=== PATIENT | male | born 1945 | race Caucasian/White ===

== ENCOUNTER → 2016-07-31 | Outpatient (CLI) | payer BC, OTHER ==
[~2016-07-31] MED LIST: AMLO-114 PO; ASPCH81X PO; CHOL1000 PO; GLIM2TAB2 PO; LEVO125T4 PO; METF1000 PO
[2016-07-31 12:38] LABS: ESTIMATED AVERAGE GLUCOSE 194 mg/dl; HA1C FLAG Normal (Normal)
[2016-07-31 13:27] LABS: ALT/SGPT 70 U/L (12-78); AST/SGOT 44 U/L (15-37); BLOOD UREA NITROGEN 25 mg/dl (7-18); BUN/CREATININE RATIO 15.3 (10-20); CALCIUM 9.7 mg/dl (8.5-10.1); CARBON DIOXIDE 27 mmol/L (21-32); CHLORIDE 102 mmol/L (98-107); GLUCOSE 127 mg/dl (70-99); MAGNESIUM 1.2 mg/dl (1.8-2.4); POTASSIUM 3.8 mmol/L (3.5-5.1); SODIUM 141 mmol/L (136-145)
[2016-07-31 13:35] LABS: ALKALINE PHOSPHATASE 76 U/L (45-117); CHOLESTEROL 231 mg/dl (0-200); CHOLESTEROL/HDL RATIO 5.3; HDL CHOLESTEROL 44 mg/dl; LDL CHOLESTEROL CALCULATED 139 mg/dl; TRIGLYCERIDES 238 mg/dl (0-150); VERY LOW DENSITY LIPOPROT CALC 48 mg/dl
== END | disposition home or self-care (01) ==
LOC: C.LABPVFM 09:52
PROVIDERS: ATTEND Family Medicine
DX: E11.9 Type 2 diabetes mellitus without complications (principal); E78.5 Hyperlipidemia, unspecified; E03.9 Hypothyroidism, unspecified; R25.2 Cramp and spasm

== ENCOUNTER → 2016-08-11 | Outpatient (CLI) | payer BC ==
[2016-08-11 16:40] LABS: URINE APPEARANCE CLEAR (CLEAR); URINE BILIRUBIN NEG (NEG); URINE COLOR YELLOW; URINE EPITHELIAL CELL AUTO >30 /lpf (0-5); URINE NITRITE NEG (NEG); URINE SPECIFIC GRAVITY 1.019 (1.000-1.030); UROBILINOGEN NEG (NEG)
[2016-08-11 16:41] LABS: MANUAL MICROSCOPIC REQUIRED? NO; REVIEW REQ? YES
[2016-08-11 16:52] LABS: BLOOD UREA NITROGEN 21 mg/dl (7-18); BUN/CREATININE RATIO 12.9 (10-20); CALCIUM 9.2 mg/dl (8.5-10.1); CARBON DIOXIDE 24 mmol/L (21-32); CHLORIDE 105 mmol/L (98-107); GLUCOSE 220 mg/dl (70-99); MAGNESIUM 1.6 mg/dl (1.8-2.4); PHOSPHORUS 2.5 mg/dl (2.5-4.9); POTASSIUM 3.9 mmol/L (3.5-5.1); SODIUM 141 mmol/L (136-145)
[2016-08-11 17:07] LABS: URINE PROTIEN/CREAT RATIO 0.3 (0-0.2); URINE TOTAL PROTEIN 50.6 mg/dl (0-11.9)
--- NOTE | 2016-08-15 13:41 | CODING QUERY MEDICAL NECESSITY ---
SUPPORTING DIAGNOSIS NEEDED A supporting diagnosis is required for the test/procedure performed on this patient in order for us to be reimbursed by the patient's insurance. Please provide a supporting diagnosis for the following test/procedure listed below next to the test name along with your signature. *If there is no additional diagnosis for this patient that would support the following test/procedure please document that below next to the test/procedure. Test(s)/Procedure(s) that require a supporting diagnosis: * VITAMIN D 25-HYDROXY DIAGNOSIS: * DOS: 08/11/16 Provider Signature: Date: Thank you Hiral Villanueva Health Information Management Once completed, please kindly fax back to [phone] For questions please call [phone]
== END | disposition home or self-care (01) ==
LOC: C.LAB1850 15:16
PROVIDERS: ATTEND Internal Medicine Nephrology
DX: N18.9 Chronic kidney disease, unspecified (principal); E83.42 Hypomagnesemia; R25.2 Cramp and spasm

== ENCOUNTER → 2016-10-10 | Outpatient (CLI) | payer BC ==
[~2016-10-10] MED LIST changes: -LEVO125T4 PO; +LEVO125T5 PO
[2016-10-10 13:36] LABS: BLOOD UREA NITROGEN 27 mg/dl (7-18); BUN/CREATININE RATIO 16.1 (10-20); CALCIUM 9.9 mg/dl (8.5-10.1); CARBON DIOXIDE 25 mmol/L (21-32); CHLORIDE 102 mmol/L (98-107); GLUCOSE 162 mg/dl (70-99); POTASSIUM 3.8 mmol/L (3.5-5.1); SODIUM 138 mmol/L (136-145)
[2016-10-10 13:53] LABS: ESTIMATED AVERAGE GLUCOSE 192 mg/dl; HA1C FLAG Normal (Normal)
== END | disposition home or self-care (01) ==
LOC: C.LABPVFM 10:43
PROVIDERS: ATTEND Family Medicine
DX: E11.9 Type 2 diabetes mellitus without complications (principal)

== ENCOUNTER → 2017-03-19 | Outpatient (CLI) | payer BC, OTHER ==
[~2017-03-19] MED LIST changes: +LEVO125T4 PO; -LEVO125T5 PO
[2017-03-19 18:57] LABS: URINE APPEARANCE CLEAR (CLEAR); URINE BILIRUBIN NEG (NEG); URINE COLOR YELLOW; URINE NITRITE NEG (NEG); URINE PH 6.5 (4.5-7.5); URINE SPECIFIC GRAVITY 1.018 (1.000-1.030); UROBILINOGEN NEG (NEG)
[2017-03-19 18:59] LABS: MANUAL MICROSCOPIC REQUIRED? NO; REVIEW REQ? NO
[2017-03-19 19:10] LABS: BLOOD UREA NITROGEN 22 mg/dl (7-18); BUN/CREATININE RATIO 14.5 (10-20); CALCIUM 9.4 mg/dl (8.5-10.1); CARBON DIOXIDE 29 mmol/L (21-32); CHLORIDE 103 mmol/L (98-107); GLUCOSE 171 mg/dl (70-99); PHOSPHORUS 2.8 mg/dl (2.5-4.9); POTASSIUM 3.7 mmol/L (3.5-5.1); SODIUM 140 mmol/L (136-145); URINE PROTIEN/CREAT RATIO 0.3 (0-0.2); URINE TOTAL PROTEIN 37.3 mg/dl (0-11.9)
== END | disposition home or self-care (01) ==
LOC: C.LAB 18:18
PROVIDERS: ATTEND Internal Medicine Nephrology
DX: N18.9 Chronic kidney disease, unspecified (principal)

== ENCOUNTER → 2017-03-23 | Day surgery (SDC) | payer BC, OTHER ==
[2017-03-06 11:40] VITALS: Ht 170.2 cm; Wt 113.6 kg
[~2017-03-23] VITALS: Ht 170.2 cm; Wt 113.6 kg
[~2017-03-23] MED LIST changes: +LIDOCAINE HCL 2% 2 ML VIAL (20MG/ML) ONE; +PROPOFOL IV EMULSION 10 MG/ML 20 ML VIAL IV ONE
--- NOTE | 2017-03-23 11:05 | Endo History and Physical ---
History & Physical Date of Service: Mar 23, 2017. Chief Complaint: screening Referring Physician: Dr. Yovany Lindquist History of Present Illness 72 yo CM who presents for screening colonoscopy. Past Surgical History Hx Cardiac Surgery: No Hx Internal Defibrillator: No Hx Pacemaker: No Hx Abdominal Surgery: No Hx of Implantable Prosthesis: No Hx Post-Op Nausea and Vomiting: No Hx Cancer Surgery: No Hx Thoracic Surgery: No Hx Orthopedic: No Hx Urinary Tract Surgery: No Family History Colon CA, Esophogeal CA Social History Smoking Status: Former Smoker Hx Substance Use: No Hx Alcohol Use: No Allergies Coded Allergies: No Known Allergies (Verified , 03/23/17) Current Medications Reported Home Medications Medications Dose Route/Sig Max Daily Dose Days Date Category Vitamin D3 (Cholecalciferol) 1,000 Unit Tab 1 Tab PO QAM 90 03/06/17 Reported Glucophage (Metformin Hcl) 1,000 Mg Tab 1,000 Mg PO BID 03/06/17 Reported Levothyroxine Sodium 125 Mcg Tab 1 Tab PO QAM 90 03/06/17 Reported Glimepiride 2 Mg Tab 1 Tab PO BID 90 03/06/17 Reported Aspirin Chewable (Aspirin) 81 Mg Chew 81 Mg PO HS 03/06/17 Reported Norvasc (Amlodipine Besylate) 10 Mg Tab 10 Mg PO QAM 03/06/17 Reported Vital Signs Weight (Kilograms): 113.64 Height (Feet): 5 Height (Inches): 7 Date Time Temp Pulse Resp B/P (MAP) Pulse Ox O2 Delivery O2 Flow Rate FiO2 03/23/17 10:28 36.6 90 18 180/75 (110) 98 Room Air Physical Exam General Appearance: WD/WN, no apparent distress Respiratory/Chest: Auscultation: breath sounds normal Cardiovascular: Heart Auscultation: RRR Abdomen: Bowel Sounds: normal Inspection & Palpation: soft, non-distended, no tenderness, guarding & rebound Assessment and Plan Assessment: 72 yo CM who presents for screening colonoscopy. Plan: Proceed with colonoscopy.
--- NOTE | 2017-03-23 11:43 | Discharge Instructions ---
Endoscopy Patient Instructions Date / Procedure(s) Performed Mar 23, 2017. Colonoscopy Allergy Information Coded Allergies: No Known Allergies (Verified , 03/23/17) Discharge Date / Findings Mar 23, 2017. Colon polyp Internal hemorrhoids Medication Instructions Stopped Medication(s): stopped Metformin and Glimeperide on Sunday,all other meds on Sunday OK to resume all medications today as prescribed Reported Home Medications Medications Dose Route/Sig Max Daily Dose Days Date Category Vitamin D3 (Cholecalciferol) 1,000 Unit Tab 1 Tab PO QAM 90 03/06/17 Reported Glucophage (Metformin Hcl) 1,000 Mg Tab 1,000 Mg PO BID 03/06/17 Reported Levothyroxine Sodium 125 Mcg Tab 1 Tab PO QAM 90 03/06/17 Reported Glimepiride 2 Mg Tab 1 Tab PO BID 90 03/06/17 Reported Aspirin Chewable (Aspirin) 81 Mg Chew 81 Mg PO HS 03/06/17 Reported Norvasc (Amlodipine Besylate) 10 Mg Tab 10 Mg PO QAM 03/06/17 Reported Provider Instructions Activity Restrictions - No exercising or heavy lifting for 24 hours. - Do not drink alcohol the day of the procedure. - Do not drive a car or operate machinery until the day after the procedure. - Do not make any important decisions or sign important papers in 24 hours after the procedure. Following Day: - Return to full activity which may include returning to work/school. Diet Start your diet with liquids and light foods (jello, soup, juice, toast). Then eat your usual diet if not nauseated. Treatment For Common After Affects For mild abdominal pain, bloating, or excessive gas: - Rest - Eat lightly - Lie on right side Follow-Up Information Follow-up with Dr. Yovany Lindquist as scheduled Anesthesia Information What You Should Know You have had a procedure that required some medicine to reduce anxiety and discomfort. This treatment is called moderate sedation. After receiving the treatment, you may be sleepy, but you will be able to breathe on your own. The effects of the treatment may last for several hours. Follow these instructions along with Activity/Diet recommendations noted above: * Do NOT do anything where dizziness or clumsiness would be dangerous. * Rest quietly at home today, then you can be up and about tomorrow. * Have a responsible person stay with you the rest of today. * You may have had an I.V. today. If so, you may take the dressing off later today. Recommendations Call your doctor if: * Trouble breathing * Continuous vomiting for more than 24 hours * Temperature above 101 degrees * Severe abdominal pain or bloating * Pain not relieved by pain medicine ordered * There is increased drainage or redness from any incision * A large amount of rectal bleeding greater than 2-3 tablespoons. (If you had a polyp/s removed or have hemorrhoids, a small amount of blood - from the rectum is to be expected.) * You have any unanswered questions or concerns. IN THE EVENT OF A SERIOUS EMERGENCY, GO TO THE NEAREST EMERGENCY ROOM Your discharge instructions were prepared by provider Erick Quesada. Patient Instructions Signature Page Maynor Kebede Patient (or Guardian) Signature/Date: I have read and understand the instructions given to me by my caregivers. Caregiver/RN/Doctor Signature/Date: The above-named patient and/or guardian has received patient instructions on this date. + Original Patient Signature Page (only) stays with chart. Please make copy for patient.
--- NOTE | 2017-03-23 11:46 | GI REPORT ---
Procedure Date: 03/23/2017 11:08 AM THIS REPORT HAS BEEN AMENDED Addendum Number: 1 Addendum Date: 04/02/2017 8:28:24 AM Findings state no pathology is pending, however, specimen was collected and pathology was reviewed. Please see pathology report. Procedure: Colonoscopy Indications: Screening for colorectal malignant neoplasm Medicines: Sedation Required Anesthesia Staff Assistance Complications: No immediate complications. Estimated Blood Loss: Estimated blood loss: none. Estimated blood loss: none. Procedure: Pre-Anesthesia Assessment: - Prior to the procedure, a History and Physical was performed, and patient medications and allergies were reviewed. The patient's tolerance of previous anesthesia was also reviewed. The risks and benefits of the procedure and the sedation options and risks were discussed with the patient. All questions were answered, and informed consent was obtained. Prior Anticoagulants: The patient has taken aspirin, last dose was 2 days prior to procedure. ASA Grade Assessment: II - A patient with mild systemic disease. After reviewing the risks and benefits, the patient was deemed in satisfactory condition to undergo the procedure. After I obtained informed consent, the scope was passed under direct vision. Throughout the procedure, the patient's blood pressure, pulse, and oxygen saturations were monitored continuously. The On-site loaner was introduced through the anus and advanced to the terminal ileum. The colonoscopy was performed without difficulty. The patient tolerated the procedure well. The quality of the bowel preparation was good. The terminal ileum, ileocecal valve, appendiceal orifice, and rectum were photographed. Findings: A 6 mm polyp was found in the sigmoid colon. The polyp was sessile. The polyp was removed with a hot snare. Resection and retrieval were complete. Non-bleeding internal hemorrhoids were found during retroflexion. The hemorrhoids were small. Impression: - No specimens collected. Recommendation: - Resume previous diet. - Continue present medications. - Repeat colonoscopy for surveillance based on pathology results. - Return to primary care physician as previously scheduled. Erick Tali Quesada, DO 03/23/2017 11:46:36 AM This report has been signed electronically. Note Initiated On: 03/23/2017 11:08 AM I attest to the content of the Intraoperative Record and orders documented therein, exceptions below Erick Cesar Dipak, DO 04/02/2017 8:29:09 AM This report has been signed electronically.
[2017-03-23 12:27] VITALS: BP 138/68; PULSE 68; O2SAT 93
--- NOTE | 2017-03-23 12:27 | Anesthesiology Progress Note ---
Anesthesia Post Op Note Date & Time Mar 23, 2017 at 12:27 Vital Signs Pain Intensity: 7 Vital Signs Past 12 Hours Date Time Temp Pulse Resp B/P (MAP) Pulse Ox O2 Delivery O2 Flow Rate FiO2 03/23/17 12:07 75 20 122/77 (92) 94 Room Air 03/23/17 11:50 79 20 130/64 (86) 95 Room Air 03/23/17 10:28 36.6 90 18 180/75 (110) 98 Room Air Notes Mental Status: alert / awake / arousable, participated in evaluation Pt Amnestic to Procedure: Yes Nausea / Vomiting: adequately controlled Pain: adequately controlled Airway Patency, RR, SpO2: stable & adequate BP & HR: stable & adequate Hydration State: stable & adequate Anesthetic Complications: no major complications apparent
== END | disposition home or self-care (01) ==
LOC: C.GI 10:06
PROVIDERS: ATTEND Internal Medicine
DX: Z12.11 Encounter for screening for malignant neoplasm of colon (principal); D12.5 Benign neoplasm of sigmoid colon; I10 Essential (primary) hypertension; E11.9 Type 2 diabetes mellitus without complications; E66.9 Obesity, unspecified; K64.8 Other hemorrhoids; Z79.82 Long term (current) use of aspirin; Z87.891 Personal history of nicotine dependence; Z80.0 Family history of malignant neoplasm of digestive organs

== ENCOUNTER → 2017-04-05 | Outpatient (CLI) | payer BC ==
[~2017-04-05] MED LIST changes: -LIDOCAINE HCL 2% 2 ML VIAL (20MG/ML) ONE; -PROPOFOL IV EMULSION 10 MG/ML 20 ML VIAL IV ONE
[2017-04-05 12:47] LABS: URINE APPEARANCE CLEAR (CLEAR); URINE BILIRUBIN NEG (NEG); URINE COLOR YELLOW; URINE EPITHELIAL CELL AUTO >30 /lpf (0-5); URINE NITRITE NEG (NEG); URINE SPECIFIC GRAVITY 1.019 (1.000-1.030); UROBILINOGEN NEG (NEG)
[2017-04-05 12:48] LABS: MANUAL MICROSCOPIC REQUIRED? NO; REVIEW REQ? NO
== END | disposition home or self-care (01) ==
LOC: C.LABPVFM 09:14
PROVIDERS: ATTEND Internal Medicine Nephrology
DX: R31.29 Other microscopic hematuria (principal)

== ENCOUNTER → 2017-04-05 | Outpatient (CLI) | payer BC | END | disposition home or self-care (01) | LOC: C.PATHSPEC 12:46 | PROVIDERS: ATTEND Internal Medicine Nephrology | DX: R31.29 Other microscopic hematuria (principal) ==

== ENCOUNTER → 2017-04-10 | Outpatient (CLI) | payer BC ==
[2017-04-10 18:14] LABS: THYROID STIMULATING HORMONE 4.89 uIu/ml (0.300-4.500)
[2017-04-11 07:32] LABS: ESTIMATED AVERAGE GLUCOSE 197 mg/dl; HA1C FLAG Normal (Normal)
== END | disposition home or self-care (01) ==
LOC: C.LABPVFM 11:33
PROVIDERS: ATTEND Family Medicine
DX: E11.9 Type 2 diabetes mellitus without complications (principal); E03.9 Hypothyroidism, unspecified

== ENCOUNTER → 2017-04-11 | Outpatient (CLI) | payer BC ==
--- NOTE | 2017-04-11 08:20 | DIAGNOSTIC IMAGING REPORT ---
RENAL ULTRASOUND HISTORY: R31.29 Hematuria, [id number] COMPARISON: Abdominal ultrasound 10/05/2010. FINDINGS: Right kidney: 11.9 cm. No hydronephrosis. Normal corticomedullary differentiation and cortical thickness. Left kidney: 8.9 cm. No hydronephrosis. Severe cortical scarring/thinning involving the majority of the upper to mid pole of the left kidney. There is a 1 cm cyst within the left kidney. Bladder: No bladder wall thickening. The bilateral ureteral jets were identified. IMPRESSION: 1. Normal right kidney. 2. Atrophic/scarred left kidney, unchanged. Electronically signed by: Irving Vang M.D. 04/11/2017 8:19 AM Dictated Date/Time: 04/11/2017 8:18 AM
== END | disposition home or self-care (01) ==
LOC: C.ULTR 07:53
PROVIDERS: ATTEND Internal Medicine Nephrology
DX: R31.29 Other microscopic hematuria (principal)

== ENCOUNTER 2017-08-10 15:20 | Inpatient (IN) | payer BC, OTHER ==
[2017-08-10] VITALS (9 sets, daily range): BP systolic 113–141; BP diastolic 57–79; PULSE 78–92; TEMP 36.2–36.9; O2SAT 91–96; BMI 37.6
[~2017-08-10] VITALS: Ht 170.2 cm; Wt 108.4 kg
[~2017-08-10 15:20] MED LIST changes: -CALC-478 PO; -OMEG10007 PO; -PRT40 PO
[2017-08-10] MEDS ORDERED: OMEG10007 PO (16:27)
[2017-08-10] MEDS ORDERED: CALC-478 PO (16:27)
[2017-08-10 16:35] LABS: HEMATOCRIT 20.6 % (42-52); HEMOGLOBIN 6.1 g/dL (14.0-18.0); MEAN CELL VOLUME 70.1 fL (80-100); MEAN CORPUSCULAR HEMOGLOBIN 20.7 pg (25-34); MEAN CORPUSCULAR HGB CONC 29.6 g/dl (32-36); RED CELL DISTRIBUTION WIDTH CV 17.4 % (11.5-14.5); RED CELL DISTRIBUTION WIDTH SD 44.6 fL (36.4-46.3); WHITE BLOOD COUNT 11.66 K/uL (4.8-10.8)
[2017-08-10 16:40] LABS: CREATININE 1.77 mg/dl (0.60-1.40)
[2017-08-10 16:41] LABS: ALBUMIN 3.6 gm/dl (3.4-5.0); CALCIUM 9.4 mg/dl (8.5-10.1); POTASSIUM 3.7 mmol/L (3.5-5.1)
[2017-08-10 16:52] LABS: BASO % 0.3 %; BASO ABS # 0.04 K/uL (0-0.2); EOS % 0.7 %; EOS ABS # 0.08 K/uL (0-0.5); IG# 0.05 K/uL (0.00-0.02); LYMPH % 25.9 %; LYMPH ABS # 3.02 K/uL (1.2-3.4); MEAN PLATELET VOLUME 9.9 fL (7.4-10.4); MONO % 10.1 %; MONO ABS # 1.18 K/uL (0.11-0.59); NEUT % 62.6 %; NEUT ABS # 7.29 K/uL (1.4-6.5); PLATELET COUNT 311 K/uL (130-400)
[2017-08-10 16:55] LABS: TOTAL PROTEIN 7.9 gm/dl (6.4-8.2)
--- NOTE | 2017-08-10 17:11 | DIAGNOSTIC IMAGING REPORT ---
CHEST ONE VIEW PORTABLE CLINICAL HISTORY: 72 years-old Male presenting with anemia, CP. TECHNIQUE: Portable upright AP view of the chest was obtained. COMPARISON: 08/10/2017. FINDINGS: Atherosclerosis of the aortic arch. Cardiac silhouette normal in size. Mildly low lung volumes with hypoventilatory changes. Bandlike opacities noted at the lung bases. No other focal infiltrate. No large effusion or pneumothorax. Osseous structures normal. Upper abdomen normal. IMPRESSION: 1. Bibasilar atelectasis or scarring, unchanged. No convincing evidence of acute cardiopulmonary disease. Electronically signed by: Yovany Taylor M.D. 08/10/2017 5:10 PM Dictated Date/Time: 08/10/2017 5:09 PM
--- NOTE | 2017-08-10 17:54 | EMERGENCY ROOM VISIT NOTE ---
History First contact with patient: 15:45 Chief Complaint: ILLNESS Stated Complaint: LOW HEMOGLOBIN History of Present Illness The patient is a 72 year old male who presents to the Emergency Room with complaints of chest pain and dyspnea on exertion that has been going on for at least one week. He describes the pain as a pressure. The patient saw his primary care physician yesterday. He had blood work done for an upcoming heart catheterization. He was told that his hemoglobin was low, and to come to the emergency department. The patient also admits to feeling very fatigued. He has had dark stools. He denies any bright red blood in his stool. No vomiting. He does not take any blood thinners. Review of Systems 10 system review performed and negative unless noted in HPI or below Past Medical/Surgical History Medical Problems: (1) Anemia Diabetes, hypertension Social History Smoking Status: Former Smoker Marital Status: Housing Status: lives with significant other Current/Historical Medications Scheduled Amlodipine (Norvasc), 10 MG PO QAM Aspirin (Aspirin Chewable), 81 MG PO HS Nkmorod-Nszsezsyu-Ksol (Calcium & Magnesium + Zin 334-134-5 mg), 1 TAB PO DAILY Cholecalciferol (Vitamin D3), 1 TAB PO QAM Fish Oil ([place]-3), 1 CAP PO DAILY Glimepiride (Glimepiride), 1 TAB PO BID Levothyroxine Sodium (Levothyroxine Sodium), 1 TAB PO QAM Metformin Hcl (Glucophage), 1,000 MG PO BID Physical Exam Vital Signs Date Time Temp Pulse Resp B/P (MAP) Pulse Ox O2 Delivery O2 Flow Rate FiO2 08/10/17 19:20 88 18 95 08/10/17 19:16 141/68 08/10/17 19:10 36.9 88 18 125/72 94 08/10/17 19:00 125/72 08/10/17 18:50 80 15 94 08/10/17 18:46 134/70 08/10/17 18:36 135/66 08/10/17 18:35 139/69 08/10/17 18:31 36.9 84 16 139/69 95 08/10/17 18:20 80 15 94 08/10/17 18:16 36.8 83 15 125/57 96 08/10/17 18:15 125/57 08/10/17 17:50 89 22 08/10/17 17:20 87 19 08/10/17 17:16 135/59 08/10/17 17:14 86 21 135/59 98 Nasal Cannula 2.0 08/10/17 16:50 77 15 98 08/10/17 16:20 78 19 99 08/10/17 16:07 108/53 08/10/17 15:50 93 16 100 08/10/17 15:50 95 08/10/17 15:46 108/53 08/10/17 15:34 36.8 93 16 110/53 98 Room Air Physical Exam VITALS: Vitals are noted on the nurse's note and reviewed by myself. Vital signs stable. GENERAL: 72-year-old male, in no acute distress. SKIN: The skin was without rashes, erythema, edema, or bruising. HEAD: Normocephalic atraumatic. MOUTH: Mucous membranes slightly dry NECK: Supple without nuchal rigidity. No lymphadenopathy. Cervical spine is nontender. No JVD. HEART: Systolic murmur, regular rhythm without murmurs gallops or rubs. LUNGS: Clear to auscultation bilaterally without wheezes, rales or rhonchi. No accessory muscle use. ABDOMEN: Positive bowel sounds x 4.Soft, nontender, without organomegaly. No guarding or rebound tenderness. MUSCULOSKELETAL: No muscle atrophy, erythema, or edema noted. Strength 5/5 throughout. NEURO: Patient was alert and oriented to person place and time. Normal sensation to touch. No focal neurological deficits. Medical Decision & Procedures ER Provider Diagnostic Interpretation: CXR IMPRESSION: 1. Bibasilar atelectasis or scarring, unchanged. No convincing evidence of acute cardiopulmonary disease. Electronically signed by: Yovany Taylor M.D. 08/10/2017 5:10 PM Dictated Date/Time: 08/10/2017 5:09 PM Laboratory Results Test 08/10/17 16:00 Immature Granulocyte % (Auto) 0.4 % White Blood Count 11.66 K/uL (4.8-10.8) Red Blood Count 2.94 M/uL (4.7-6.1) Hemoglobin 6.1 g/dL (14.0-18.0) Hematocrit 20.6 % (42-52) Mean Corpuscular Volume 70.1 fL (80-100) Mean Corpuscular Hemoglobin 20.7 pg (25-34) Mean Corpuscular Hemoglobin Concent 29.6 g/dl (32-36) Platelet Count 311 K/uL (130-400) Mean Platelet Volume 9.9 fL (7.4-10.4) Neutrophils (%) (Auto) 62.6 % Lymphocytes (%) (Auto) 25.9 % Monocytes (%) (Auto) 10.1 % Eosinophils (%) (Auto) 0.7 % Basophils (%) (Auto) 0.3 % Neutrophils # (Auto) 7.29 K/uL (1.4-6.5) Lymphocytes # (Auto) 3.02 K/uL (1.2-3.4) Monocytes # (Auto) 1.18 K/uL (0.11-0.59) Eosinophils # (Auto) 0.08 K/uL (0-0.5) Basophils # (Auto) 0.04 K/uL (0-0.2) Immature Granulocyte # (Auto) 0.05 K/uL (0.00-0.02) Platelet Estimate NORMAL Hypochromasia PRESENT Anisocytosis PRESENT Microcytosis PRESENT Thyroid Stimulating Hormone (TSH) 5.310 uIu/ml (0.300-4.500) Medications Administered Medications (Trade) Dose Ordered Sig/Ever Route Start Time Stop Time Status Last Admin Dose Admin Pantoprazole Sodium 40 mg/ Syringe 10 ml @ 5 mls/min NOW ONCE IV 08/10/17 18:45 08/10/17 18:46 DC 08/10/17 18:45 5 MLS/MIN ECG Indication: chest pain Rate (beats per minute): 84 Rhythm: normal sinus Findings: RBBB, ST depression (Anterolateral) ED Course Patient was seen and examined Vital signs including blood pressure were reviewed medications list was verified with patient Labs were obtained, and a saline lock was established The patient was put on the monitor. An EKG was obtained and reviewed by myself. His lab work was reviewed. He was ordered blood products. The patient was transfused 2 units of packed RBCs The patient was reassessed and resting comfort only. We discussed the results of his workup. He voiced understanding. The case was discussed with my supervising physician and case management. He was subsequently discussed with the amount any hospitalist service who agreed to keep the patient overnight for further workup and treatment Medical Decision Differential diagnosis: Anemia of chronic disease, GI bleed, cardiac ischemia, CVA, coagulopathy This patient is a 72-year-old male that presents to the emergency department from his primary care physician's office with profound anemia. On exam, he was pale. He was having exertional symptoms such as chest pressure and difficulty breathing. The patient's workup reveals a hemoglobin of 6.1. His troponin is also elevated, which is likely due to demand ischemia. The patient did have guaiac positive stool. This is likely an upper GI bleed. The patient was started on a 2 unit packed RBC transfusion in the emergency department in addition to Protonix. He is not stable to be discharged home. The patient will be admitted for further workup and treatment This chart was completed in part utilizing [employer] Voice Recognition software. Attempts were made to minimize the grammatical errors, random word insertions, pronoun errors and incomplete sentences. Any formal questions or concerns about the content, text or information contained within the body of this dictation should be directly addressed to the provider for clarification. Medication Reconcilliation Current Medication List: was personally reviewed by me Blood Pressure Screening Patient's blood pressure: Normal blood pressure Impression Primary Impression: Anemia Departure Information Referrals Edmond Martinez M.D. (PCP) Patient Instructions My [facility]
[2017-08-10] MEDS ORDERED: PANTOprazole INJ 40 MG in SYRINGE 0 ML IV ONE (18:45)
[2017-08-10] MEDS ORDERED: NITROGLYCERIN 0.4 MG SL PER TAB CHARGE SL PRN (20:00)
[2017-08-10] MEDS ORDERED: ONDANSETRON INJ 2 MG/ML 2 ML VIAL IV PRN (20:00)
[2017-08-10] MEDS ORDERED: MoRPHine SULFATE 2 MG/ML CARP IV PRN (20:00)
[2017-08-10] MEDS ORDERED: POLYETHYLENE (MIRALAX) 17 GM PACK PO PRN (20:00)
[2017-08-10] MEDS ORDERED: ALUMINUM/MAGNESIUM/SIMETH (MAALOX MAX) 30 ML UDC PO PRN (20:00)
[2017-08-10] MEDS ORDERED: MAGNESIUM HYDROXIDE SUSP 30 ML UDC PO PRN (20:00)
--- NOTE | 2017-08-10 20:27 | History and Physical ---
History & Physical Date & Time of Service: Aug 10, 2017 at 20:22 Chief Complaint: Low Hemoglobin Primary Care Physician: Edmond Martinez M.D. History of Present Illness Source: patient, hospital records Patient is a 72 year old male who presented from outpatient lab with a hgb of 6.1 He was sent to get blood work done by Dr. Spicer for a planned cath on the . There it was found that the patient had a hgb of 6.1 therefore he was sent to the ED. He denies any syncope or light headedness but has been very fatigued He has been having dark stools, 10 pound weight loss and fatigue over the past month. he denies any change in bowel habits, abdominal pain, fevers or chills. His last colonoscopy was in March which showed one polyp and no masses. Of note he has had unstable angina over the past 2-3 weeks and is planned to get a cath on the . He has had associated shortness of breath over the past 2-3 weeks but denies any palpitations, pnd or orthopnea Past Medical/Surgical History DM Hypothyroid HTN HLD Family History Noncontributory Social History Smoking Status: Former Smoker Alcohol Use: none Drug Use: none Marital Status: Housing status: lives with significant other Occupational Status: retired Immunizations History of Influenza Vaccine: Unknown History of Tetanus Vaccine?: Unknown History of Pneumococcal: Unknown History of Hepatitis B Vaccine: Unknown Multi-Drug Resistant Organisms History of MDRO: No Allergies Coded Allergies: No Known Allergies (Verified , 03/23/17) Home Medications Scheduled Amlodipine (Norvasc), 10 MG PO QAM Dkurycf-Lakdubssk-Tdhh (Calcium & Magnesium + Zin 334-134-5 mg), 1 TAB PO DAILY Cholecalciferol (Vitamin D3), 1 TAB PO QAM Fish Oil ([place]-3), 1 CAP PO DAILY Glimepiride (Glimepiride), 1 TAB PO BID Levothyroxine Sodium (Levothyroxine Sodium), 1 TAB PO QAM Metformin Hcl (Glucophage), 1,000 MG PO BID Pantoprazole (Pantoprazole Sodium), 40 MG PO BID Review of Systems Constitutional: + weight loss, + fatigue, No fever, No chills Respiratory: + shortness of breath, + dyspnea on exertion, No cough, No sputum , No hemoptysis Cardiovascular: + chest pain, No edema, No claudication, No palpitations Abdomen: + GI bleeding, No pain, No nausea, No vomiting, No diarrhea, No constipation Musculoskeletal: No joint pain, No muscle pain Genitourinary - Male: No hematuria, No dysuria Neurologic: No memory loss, No paralysis Endocrine: + fatigue Integumentary: No rash, No itch, No new/changing skin lesions Physical Exam Vital Signs Date Time Temp Pulse Resp B/P (MAP) Pulse Ox O2 Delivery O2 Flow Rate FiO2 08/10/17 19:20 88 18 95 08/10/17 19:16 141/68 08/10/17 19:10 36.9 88 18 125/72 94 08/10/17 19:00 125/72 08/10/17 18:50 80 15 94 08/10/17 18:46 134/70 08/10/17 18:36 135/66 08/10/17 18:35 139/69 08/10/17 18:31 36.9 84 16 139/69 95 08/10/17 18:20 80 15 94 08/10/17 18:16 36.8 83 15 125/57 96 08/10/17 18:15 125/57 08/10/17 17:50 89 22 08/10/17 17:20 87 19 08/10/17 17:16 135/59 08/10/17 17:14 86 21 135/59 98 Nasal Cannula 2.0 08/10/17 16:50 77 15 98 08/10/17 16:20 78 19 99 08/10/17 16:07 108/53 08/10/17 15:50 93 16 100 08/10/17 15:50 95 08/10/17 15:46 108/53 08/10/17 15:34 36.8 93 16 110/53 98 Room Air General Appearance: WD/WN, no apparent distress, + obese ENT: hearing grossly normal, pharynx normal Neck: supple, no JVD, no carotid bruits, trachea midline Respiratory/Chest: lungs clear, no respiratory distress, no accessory muscle use Cardiovascular: regular rate, rhythm, no edema, normal peripheral pulses, + systolic murmur (3/6 with radiation to carotids) Abdomen/GI: normal bowel sounds, non tender, soft Back: normal inspection, no CVA tenderness, no muscle spasm, normal range of motion Extremities/Musculoskelatal: normal inspection, no pedal edema, non-tender Neurologic/Psych: alert, normal mood/affect, oriented x 3 Skin: normal color, warm/dry, no rash Diagnostics Laboratory Results Results Past 24 Hours Test 08/10/17 16:00 Range/Units White Blood Count 11.66 4.8-10.8 K/uL Red Blood Count 2.94 4.7-6.1 M/uL Hemoglobin 6.1 14.0-18.0 g/dL Hematocrit 20.6 42-52 % Mean Corpuscular Volume 70.1 80-100 fL Mean Corpuscular Hemoglobin 20.7 25-34 pg Mean Corpuscular Hemoglobin Concent 29.6 32-36 g/dl Platelet Count 311 130-400 K/uL Mean Platelet Volume 9.9 7.4-10.4 fL Neutrophils (%) (Auto) 62.6 % Lymphocytes (%) (Auto) 25.9 % Monocytes (%) (Auto) 10.1 % Eosinophils (%) (Auto) 0.7 % Basophils (%) (Auto) 0.3 % Neutrophils # (Auto) 7.29 1.4-6.5 K/uL Lymphocytes # (Auto) 3.02 1.2-3.4 K/uL Monocytes # (Auto) 1.18 0.11-0.59 K/uL Eosinophils # (Auto) 0.08 0-0.5 K/uL Basophils # (Auto) 0.04 0-0.2 K/uL RDW Standard Deviation 44.6 36.4-46.3 fL RDW Coefficient of Variation 17.4 11.5-14.5 % Immature Granulocyte % (Auto) 0.4 % Immature Granulocyte # (Auto) 0.05 0.00-0.02 K/uL Platelet Estimate NORMAL Hypochromasia PRESENT Anisocytosis PRESENT Microcytosis PRESENT Prothrombin Time 10.9 9.0-12.0 SECONDS Prothromb Time International Ratio 1.0 0.9-1.1 Sodium Level 137 136-145 mmol/L Potassium Level 3.7 3.5-5.1 mmol/L Chloride Level 103 98-107 mmol/L Carbon Dioxide Level 22 21-32 mmol/L Anion Gap 12.0 3-11 mmol/L Blood Urea Nitrogen 35 7-18 mg/dl Creatinine 1.77 0.60-1.40 mg/dl Est Creatinine Clear Calc Drug Dose 44.4 ml/min Estimated GFR () 43.5 Estimated GFR (Non- 37.5 BUN/Creatinine Ratio 19.7 10-20 Random Glucose 136 70-99 mg/dl Calcium Level 9.4 8.5-10.1 mg/dl Total Bilirubin 0.3 0.2-1 mg/dl Aspartate Amino Transf (AST/SGOT) 14 15-37 U/L Alanine Aminotransferase (ALT/SGPT) 30 12-78 U/L Alkaline Phosphatase 72 45-117 U/L Troponin I 0.104 0-0.045 ng/ml Total Protein 7.9 6.4-8.2 gm/dl Albumin 3.6 3.4-5.0 gm/dl Globulin 4.3 2.5-4.0 gm/dl Albumin/Globulin Ratio 0.8 0.9-2 Thyroid Stimulating Hormone (TSH) 5.310 0.300-4.500 uIu/ml Diagnostic Radiology Bibasilar atelectasis Impression Assessment and Plan 72 year old male with a PMH of HTN, HLD, DM, and Hypothyroidism here with a Hgb of 6.1 and dark stools Anemia secondary to GI bleed - NPO - hgb 6.1, recheck q4 hours - Transfused 1 unit in ED, 2 more ordered overnight - GI consult - IV protonix drip for presumed upper GI bleed due to normal recent colonoscopy Stable angina and elevated trop - trop .104 in the ED, patient without any chest pain currently - check trop q8 hours - echo ordered - cardiology consult - no heparin drip due to low hgb and need for prbc - Original EKG showed ST depression in V3 and V4, repeat ordered HTN - hold home meds - stable in ED - 5mg hydralazine prn SBP >160 HLD - patient on statin med at home but unsure which one, not on med rec in EMR - dayteam to investigate further - order fasting lipid panel T2DM - unsure of last HbA1c, ordered for the AM - hold home meds - ISS Hypothyroidism - take levo at home - TSH elevated in ED - ordered t4 and t3 for AM DVT - SCD - no chemical prophylaxis due to anemia FULL CODE Attending addendum: I have physically seen this patient, have supervised the medical residents activities, and agree with the H&P unless as otherwise noted. Assessment and Plan: Symptomatic anemia required transfusion/GI bleed-- N.p.o. Protonix bolus/drip per protocol H&H every 6 hours Hemoglobin 6.1 on admission Begin with 2 units PRBCs transfusion CAD/hypertension/elevated troponin-- The patient will be admitted to telemetry for serial cardiac enzymes, serial EKG's, cardiac rhythm monitoring and a 2-D echocardiogram with Dopplers. Consult cardiology Level of Care Telemetry Advanced Directives Existing Advance Directive: No Existing Living Will: No Existing Power of Glove Cuffer: No Resuscitation Status FULL RESUSCITATION VTE Prophylaxis VTE Risk Assessment Done? Y/N: Yes Risk Level: Moderate Given or contraindicated: SCD's
[2017-08-10] MEDS ORDERED: GLUCOSE 10 TABS/TUBE PO PRN (20:45)
[2017-08-10] MEDS ORDERED: GLUCOSE 40% GEL 15 GM TUBE PO PRN (20:45)
[2017-08-10] MEDS ORDERED: DEXTROSE 50% 50 ML SYR IV PRN (20:45)
[2017-08-10] MEDS ORDERED: GLUCAGON FOR INJ 1 MG VIAL SQ PRN (20:45)
[2017-08-10] MEDS ORDERED: HydrALAZINE HCL 20 MG/ML VIAL IV. PRN (20:45)
[2017-08-10] MEDS ORDERED: PANTOprazole INJ 80 MG in DEXTROSE 5% 100ML IV SCH (21:00)
[2017-08-10] MEDS ORDERED: INSULIN ASPART 100 UNITS/ML 3 ML PEN SC SCH (21:00)
[2017-08-10] MEDS: PANTOprazole INJ 40 MG in DEXTROSE 5% 100ML IV SCH (21:47)
[2017-08-10] MEDS: NITROGLYCERIN 2% OINTMENT 30GM TUBE EXT SCH (21:57)
[2017-08-10] MEDS ORDERED: NURSING VERBAL MED ORDER ONE (23:15)
[2017-08-11] VITALS (11 sets, daily range): BP systolic 117–156; BP diastolic 67–77; PULSE 72–80; TEMP 36.6–37.1; O2SAT 90–94; Ht 170.2 cm; Wt 108.4 kg
[2017-08-11] MEDS: PANTOprazole INJ 40 MG in DEXTROSE 5% 100ML IV SCH ×5 (02:41→22:27)
[2017-08-11] MEDS: NITROGLYCERIN 2% OINTMENT 30GM TUBE EXT SCH ×2 (03:49→10:00)
[2017-08-11 07:30] LABS: INR 1.1 (0.9-1.1)
[2017-08-11 07:46] LABS: HEMATOCRIT 31.4 % (42-52); HEMOGLOBIN 9.8 g/dL (14.0-18.0); MEAN CELL VOLUME 75.7 fL (80-100); MEAN CORPUSCULAR HEMOGLOBIN 23.6 pg (25-34); MEAN CORPUSCULAR HGB CONC 31.2 g/dl (32-36); MEAN PLATELET VOLUME 10.5 fL (7.4-10.4); PLATELET COUNT 253 K/uL (130-400); RED CELL DISTRIBUTION WIDTH CV 19.2 % (11.5-14.5); RED CELL DISTRIBUTION WIDTH SD 53.2 fL (36.4-46.3); WHITE BLOOD COUNT 11.22 K/uL (4.8-10.8)
[2017-08-11 07:47] LABS: ALBUMIN 3.5 gm/dl (3.4-5.0); CALCIUM 9.3 mg/dl (8.5-10.1); CREATININE 1.52 mg/dl (0.60-1.40); POTASSIUM 3.7 mmol/L (3.5-5.1)
[2017-08-11 07:58] LABS: TOTAL PROTEIN 7.4 gm/dl (6.4-8.2)
[2017-08-11] MEDS ORDERED: PERFLUTREN LIPID MICROSPHERE (DEFINITY) IV ONE (08:16)
[2017-08-11] MEDS: INSULIN ASPART 100 UNITS/ML 3 ML PEN SC SCH ×5 (08:43→23:46)
[2017-08-11 08:44] LABS: HEMOGLOBIN A1C 7.2 % (4.5-5.6)
--- NOTE | 2017-08-11 11:28 | Gastrointestinal Consultation ---
Gastrointestinal Consultation Date of Consultation: Aug 11, 2017 Attending Physician: Dr Maegan Hidalgo Consulting Physician: DR Carson Larson Reason for Consultation: GI bleed, low Hgb History of Present Illness CC black stools HPI with patient. No records in [facility] EMR. Pt with chest pain, RODRIGUEZ and had cardiac cath planned 08/20. BW done in anticipation of cath showed hgb 6.1 so paitent sent to ER. Also fatigue. INR normal. Hgb 9.8 post tranfusion. Pt with black stools last few weeks but no change in his every 3rd day bms. No dysphagia. Wt loss 10lbd over one month. No liver disease. Noted colonoscopy DR CAse 6 mm sigmoid polyp path tubular adenoma removed, also internal hemorrhoids noted. Pt does not think he had EGD in past. No abd pain. Past Medical/Surgical History Past Medical History: DM, hypothyroid, HTN Past Surgical History: no abd surgery Family History Brother with CRC Social History Smoking Status: Former Smoker Drug Use: none Marital Status: Housing Status: lives with significant other Occupation Status: retired Allergies Coded Allergies: No Known Allergies (Verified , 03/23/17) Current Medications Home Meds and Scripts Medications Dose Route/Sig Max Daily Dose Days Date Category Calcium & Magnesium + Zin 334-134-5 mg (Dxkcwfg-Gawjhfpia-Gzuf) 1 Tab Tab 1 Tab PO DAILY 08/10/17 Reported [place]-3 (Fish Oil) 1 Ea Cap 1 Cap PO DAILY 08/10/17 Reported Vitamin D3 (Cholecalciferol) 1,000 Unit Tab 1 Tab PO QAM 90 03/06/17 Reported Glucophage (Metformin Hcl) 1,000 Mg Tab 1,000 Mg PO BID 03/06/17 Reported Levothyroxine Sodium 125 Mcg Tab 1 Tab PO QAM 90 03/06/17 Reported Glimepiride 2 Mg Tab 1 Tab PO BID 90 03/06/17 Reported Aspirin Chewable (Aspirin) 81 Mg Chew 81 Mg PO HS 03/06/17 Reported Norvasc (Amlodipine Besylate) 10 Mg Tab 10 Mg PO QAM 03/06/17 Reported Review of Systems See HPI otherwise 10 ROS negatie. Physical Exam Date Time Temp Pulse Resp B/P (MAP) Pulse Ox O2 Delivery O2 Flow Rate FiO2 08/11/17 08:00 36.6 80 18 156/71 (99) 91 Room Air 08/11/17 08:00 Room Air 08/11/17 04:00 Room Air 08/11/17 03:52 37.0 77 16 135/68 91 08/11/17 03:20 37.0 78 16 130/72 90 08/11/17 03:06 37.1 78 16 134/72 90 08/11/17 00:34 36.8 77 16 129/71 93 08/11/17 00:02 36.8 79 16 122/72 91 08/10/17 23:00 Room Air 08/10/17 22:44 36.9 81 18 125/66 91 08/10/17 22:00 36.9 78 20 113/70 95 08/10/17 21:58 36.7 92 20 141/73 96 Room Air 08/10/17 21:06 89 16 143/67 95 08/10/17 20:38 36.2 92 16 120/79 94 08/10/17 20:33 36.2 87 16 120/79 94 08/10/17 20:29 88 08/10/17 20:10 36.2 87 16 120/79 94 08/10/17 19:20 88 18 95 08/10/17 19:16 141/68 08/10/17 19:10 36.9 88 18 125/72 94 08/10/17 19:00 125/72 08/10/17 18:50 80 15 94 08/10/17 18:46 134/70 08/10/17 18:36 135/66 08/10/17 18:35 139/69 08/10/17 18:31 36.9 84 16 139/69 95 08/10/17 18:20 80 15 94 08/10/17 18:16 36.8 83 15 125/57 96 08/10/17 18:15 125/57 08/10/17 17:50 89 22 08/10/17 17:20 87 19 08/10/17 17:16 135/59 08/10/17 17:14 86 21 135/59 98 Nasal Cannula 2.0 08/10/17 16:50 77 15 98 08/10/17 16:20 78 19 99 08/10/17 16:07 108/53 08/10/17 15:50 93 16 100 08/10/17 15:50 95 08/10/17 15:46 108/53 08/10/17 15:34 36.8 93 16 110/53 98 Room Air General Appearance: WD/WN, no apparent distress Eyes: normal inspection, PERRL ENT: normal ENT inspection, hearing grossly normal, TMs normal, pharynx normal Neck: supple, thyroid normal, trachea midline Respiratory/Chest: lungs clear, no respiratory distress Cardiovascular: regular rate, rhythm, no edema Abdomen: normal bowel sounds, non tender, soft, no organomegaly, no pulsatile mass Extremities: normal range of motion, non-tender, no pedal edema Neurologic/Psych: rd lab technician II-XII nml as tested, normal mood/affect, oriented x 3 Skin: normal color, no jaundice Laboratory Results Last 24 Hours Test 08/10/17 16:00 08/10/17 21:25 08/10/17 23:57 08/11/17 06:46 White Blood Count 11.66 K/uL 11.22 K/uL Red Blood Count 2.94 M/uL 4.15 M/uL Hemoglobin 6.1 g/dL 9.8 g/dL Hematocrit 20.6 % 31.4 % Mean Corpuscular Volume 70.1 fL 75.7 fL Mean Corpuscular Hemoglobin 20.7 pg 23.6 pg Mean Corpuscular Hemoglobin Concent 29.6 g/dl 31.2 g/dl Platelet Count 311 K/uL 253 K/uL Mean Platelet Volume 9.9 fL 10.5 fL Neutrophils (%) (Auto) 62.6 % Lymphocytes (%) (Auto) 25.9 % Monocytes (%) (Auto) 10.1 % Eosinophils (%) (Auto) 0.7 % Basophils (%) (Auto) 0.3 % Neutrophils # (Auto) 7.29 K/uL Lymphocytes # (Auto) 3.02 K/uL Monocytes # (Auto) 1.18 K/uL Eosinophils # (Auto) 0.08 K/uL Basophils # (Auto) 0.04 K/uL RDW Standard Deviation 44.6 fL 53.2 fL RDW Coefficient of Variation 17.4 % 19.2 % Immature Granulocyte % (Auto) 0.4 % Immature Granulocyte # (Auto) 0.05 K/uL Platelet Estimate NORMAL Hypochromasia PRESENT Anisocytosis PRESENT Microcytosis PRESENT Prothrombin Time 10.9 SECONDS 11.1 SECONDS Prothromb Time International Ratio 1.0 1.1 Sodium Level 137 mmol/L 139 mmol/L Potassium Level 3.7 mmol/L 3.7 mmol/L Chloride Level 103 mmol/L 103 mmol/L Carbon Dioxide Level 22 mmol/L 28 mmol/L Anion Gap 12.0 mmol/L 8.0 mmol/L Blood Urea Nitrogen 35 mg/dl 30 mg/dl Creatinine 1.77 mg/dl 1.52 mg/dl Est Creatinine Clear Calc Drug Dose 44.4 ml/min 52.1 ml/min Estimated GFR () 43.5 52.3 Estimated GFR (Non- 37.5 45.1 BUN/Creatinine Ratio 19.7 20.0 Random Glucose 136 mg/dl 82 mg/dl Calcium Level 9.4 mg/dl 9.3 mg/dl Total Bilirubin 0.3 mg/dl 0.9 mg/dl Aspartate Amino Transf (AST/SGOT) 14 U/L 16 U/L Alanine Aminotransferase (ALT/SGPT) 30 U/L 30 U/L Alkaline Phosphatase 72 U/L 68 U/L Troponin I 0.104 ng/ml 0.197 ng/ml Total Protein 7.9 gm/dl 7.4 gm/dl Albumin 3.6 gm/dl 3.5 gm/dl Globulin 4.3 gm/dl 3.9 gm/dl Albumin/Globulin Ratio 0.8 0.9 Thyroid Stimulating Hormone (TSH) 5.310 uIu/ml Bedside Glucose 124 mg/dl 113 mg/dl Estimated Average Glucose 160 mg/dl Hemoglobin A1c 7.2 % Triglycerides Level 100 mg/dl Cholesterol Level 165 mg/dl HDL Cholesterol 36 mg/dl LDL Cholesterol, Calculated 109 mg/dl VLDL Cholesterol, Calculated 20 mg/dl Cholesterol/HDL Ratio 4.6 Free Thyroxine 1.05 ng/dl Free Triiodothyronine 2.16 pg/ml Test 08/11/17 06:47 Bedside Glucose 94 mg/dl Impression acute blood loss anemia--follow H and H and transfuse prn melena--suspect UGI bleeding such as PUD from ASA. Continue PPI. Plan EGD when cleared by cardiology. Discussed with Dr Maria and Dr Hidalgo regarding letting me know when cardiology clearance obtained so can plan scopes. EGD proc and risks explained to patient which include but not limited to med reaction, bleeding, perforation, aspiration, and missed lesions. fhx CRC/hx of colon polyps--colo 03/2017 so unless cannot identify cause of bleeding on EGD then would do next colo 03/2022. elevated troponins--per hospitalist/cardiology
[2017-08-11 12:27] LABS: HEMATOCRIT 30.7 % (42-52); HEMOGLOBIN 9.8 g/dL (14.0-18.0)
--- NOTE | 2017-08-11 14:56 | CARDIOLOGY PROGRESS NOTE ---
DATE: 08/11/2017 SUBJECTIVE: Mr. Kebede is resting comfortably in bed without complaints of chest pain or dyspnea. His is at the bedside. We have discussed the need for a GI workup prior to proceeding with cardiac catheterization. OBJECTIVE: VITAL SIGNS: Blood pressure 155/77 with a regular pulse of 82. Respiratory rate is 18. The patient is afebrile at 36.8 degrees Celsius. Saturation is 94% on room air. NECK: Supple with delayed and prolonged carotid upstrokes. A transmitted murmur is noted bilaterally. Jugular venous pressure is flat at 90 degrees. There is no thyromegaly. CARDIOVASCULAR: Reveals a regular rhythm with a 3/6 crescendo decrescendo systolic murmur heard loudest at the base. S2 is not audible at the apex. LUNGS: Clear without rales, rhonchi, or wheezes. ABDOMEN: Obese without bruits. EXTREMITIES: Reveal intact radial artery pulses bilaterally. There is no peripheral edema. DATA: CBC notes a hemoglobin of 9.8, hematocrit 30.7, white count 11.2, platelet count 253,000. Electrolytes note a sodium of 139, potassium 3.7, chloride 103, bicarb 28, BUN 30, creatinine 1.52, and a glucose of 98. Troponin I level was 0.104 with a followup value of 0.197. LDL cholesterol is 109 with an HDL of 36. EKG notes sinus rhythm with a complete right bundle branch block. panel monitor is benign. IMPRESSION AND PLAN: 1. Chest pain syndrome -- with a mildly elevated troponin at the time of presentation. This is either related to coronary artery disease or his severe aortic stenosis. He is scheduled for cardiac catheterization on August 20. We will need to determine if dual antiplatelet therapy A possible treatment regimen. He will undergo a GI workup first. 2. Anemia -- for upper endoscopy per GI. 3. Hypertension -- controlled. 4. Severe aortic stenosis -- 0.9 cm2 at the time of an echocardiogram of 05/01/2017. 5. Mild left ventricular hypokinesis -- with diastolic dysfunction. 6. Right bundle branch block. 7. Diabetes mellitus. [facility]
--- NOTE | 2017-08-11 15:29 | Family Medicine Progress Note ---
Progress Note Date of Service Aug 11, 2017. Subjective Pt evaluation today including: conversation w/ patient, physical exam, chart review, lab review, review of studies, conversation w/ application packaging consultant, review of inpatient medication list Pain: 0/10 PO Intake: NPO Voiding: no voiding problems States that since he has received blood transfusions the chest pain on exertion he was suffering from has completely resolved, anxious to eat food denies and abdominal pain, no BM since admission Constitutional: No fever Eyes: No worsening of vision ENT: No hearing loss Respiratory: No cough, No sputum, No wheezing, No shortness of breath, No dyspnea on exertion Cardiovascular: No chest pain Abdomen: + GI bleeding, No pain, No nausea, No vomiting, No diarrhea, No constipation Musculoskeletal: No joint pain, No muscle pain Neurologic: No weakness, No balance problems Psychiatric: No depression symptoms, No anxiety Heme: No abnormal bleeding/bruising Endo: No fatigue Skin: No rash Medications Medications Administered Medications (Trade) Dose Ordered Sig/Ever Route Start Time Stop Time Status Last Admin Dose Admin Pantoprazole Sodium 40 mg/ Syringe 10 ml @ 5 mls/min NOW ONCE IV 08/10/17 18:45 08/10/17 18:46 DC 08/10/17 18:45 5 MLS/MIN Nitroglycerin (Nitroglycerin 2% Oint) 1 inch Q6H EXT 08/10/17 22:00 09/09/17 21:59 08/11/17 10:00 1 INCH Pantoprazole Sodium 80 mg/ Dextrose 120 ml @ 480 mls/hr TODAY@2100 IV 08/10/17 21:00 08/10/17 21:14 DC 08/10/17 21:47 480 MLS/HR Pantoprazole Sodium 40 mg/ Dextrose 100 ml @ 20 mls/hr Q5H IV 08/10/17 21:00 09/09/17 20:59 08/11/17 12:55 20 MLS/HR Perflutren Lipid Microsphere (Definity) 2 ml ONE ONCE IV 08/11/17 08:16 08/11/17 08:17 DC 08/11/17 08:17 2 ML Objective Vital Signs Date Time Temp Pulse Resp B/P (MAP) Pulse Ox O2 Delivery O2 Flow Rate FiO2 08/11/17 11:42 36.8 72 18 155/77 (103) 94 Room Air 08/11/17 11:31 Room Air 2/10/18 08:00 36.6 80 18 156/71 (99) 91 Room Air 08/11/17 08:00 Room Air 08/11/17 04:00 Room Air 08/11/17 03:52 37.0 77 16 135/68 91 08/11/17 03:20 37.0 78 16 130/72 90 08/11/17 03:06 37.1 78 16 134/72 90 08/11/17 00:34 36.8 77 16 129/71 93 08/11/17 00:02 36.8 79 16 122/72 91 08/10/17 23:00 Room Air 08/10/17 22:44 36.9 81 18 125/66 91 08/10/17 22:00 36.9 78 20 113/70 95 08/10/17 21:58 36.7 92 20 141/73 96 Room Air 08/10/17 21:06 89 16 143/67 95 08/10/17 20:38 36.2 92 16 120/79 94 08/10/17 20:33 36.2 87 16 120/79 94 08/10/17 20:29 88 08/10/17 20:10 36.2 87 16 120/79 94 08/10/17 19:20 88 18 95 08/10/17 19:16 141/68 08/10/17 19:10 36.9 88 18 125/72 94 08/10/17 19:00 125/72 08/10/17 18:50 80 15 94 08/10/17 18:46 134/70 08/10/17 18:36 135/66 08/10/17 18:35 139/69 08/10/17 18:31 36.9 84 16 139/69 95 08/10/17 18:20 80 15 94 08/10/17 18:16 36.8 83 15 125/57 96 08/10/17 18:15 125/57 08/10/17 17:50 89 22 08/10/17 17:20 87 19 08/10/17 17:16 135/59 08/10/17 17:14 86 21 135/59 98 Nasal Cannula 2.0 08/10/17 16:50 77 15 98 08/10/17 16:20 78 19 99 08/10/17 16:07 108/53 08/10/17 15:50 93 16 100 08/10/17 15:50 95 08/10/17 15:46 108/53 08/10/17 15:34 36.8 93 16 110/53 98 Room Air Physical Exam General Appearance: no apparent distress Eyes: normal inspection ENT: normal ENT inspection Neck: supple, no carotid bruits Respiratory/Chest: normal breath sounds, no respiratory distress, no accessory muscle use Cardiovascular: regular rate, rhythm, + systolic murmur (3/6) Abdomen: normal bowel sounds, non tender, soft Extremities: no pedal edema, no calf tenderness Neurologic/Psychiatric: alert, normal mood/affect, oriented x 3 Skin: normal color, warm/dry, no rash Lymphatic: no adenopathy Laboratory Results Results Past 24 Hours Test 08/10/17 16:00 08/10/17 21:25 08/10/17 23:57 08/11/17 06:46 Range/Units White Blood Count 11.66 11.22 4.8-10.8 K/uL Red Blood Count 2.94 4.15 4.7-6.1 M/uL Hemoglobin 6.1 9.8 14.0-18.0 g/dL Hematocrit 20.6 31.4 42-52 % Mean Corpuscular Volume 70.1 75.7 80-100 fL Mean Corpuscular Hemoglobin 20.7 23.6 25-34 pg Mean Corpuscular Hemoglobin Concent 29.6 31.2 32-36 g/dl Platelet Count 311 253 130-400 K/uL Mean Platelet Volume 9.9 10.5 7.4-10.4 fL Neutrophils (%) (Auto) 62.6 % Lymphocytes (%) (Auto) 25.9 % Monocytes (%) (Auto) 10.1 % Eosinophils (%) (Auto) 0.7 % Basophils (%) (Auto) 0.3 % Neutrophils # (Auto) 7.29 1.4-6.5 K/uL Lymphocytes # (Auto) 3.02 1.2-3.4 K/uL Monocytes # (Auto) 1.18 0.11-0.59 K/uL Eosinophils # (Auto) 0.08 0-0.5 K/uL Basophils # (Auto) 0.04 0-0.2 K/uL RDW Standard Deviation 44.6 53.2 36.4-46.3 fL RDW Coefficient of Variation 17.4 19.2 11.5-14.5 % Immature Granulocyte % (Auto) 0.4 % Immature Granulocyte # (Auto) 0.05 0.00-0.02 K/uL Platelet Estimate NORMAL Hypochromasia PRESENT Anisocytosis PRESENT Microcytosis PRESENT Prothrombin Time 10.9 11.1 9.0-12.0 SECONDS Prothromb Time International Ratio 1.0 1.1 0.9-1.1 Sodium Level 137 139 136-145 mmol/L Potassium Level 3.7 3.7 3.5-5.1 mmol/L Chloride Level 103 103 98-107 mmol/L Carbon Dioxide Level 22 28 21-32 mmol/L Anion Gap 12.0 8.0 3-11 mmol/L Blood Urea Nitrogen 35 30 7-18 mg/dl Creatinine 1.77 1.52 0.60-1.40 mg/dl Est Creatinine Clear Calc Drug Dose 44.4 52.1 ml/min Estimated GFR () 43.5 52.3 Estimated GFR (Non- 37.5 45.1 BUN/Creatinine Ratio 19.7 20.0 10-20 Random Glucose 136 82 70-99 mg/dl Calcium Level 9.4 9.3 8.5-10.1 mg/dl Total Bilirubin 0.3 0.9 0.2-1 mg/dl Aspartate Amino Transf (AST/SGOT) 14 16 15-37 U/L Alanine Aminotransferase (ALT/SGPT) 30 30 12-78 U/L Alkaline Phosphatase 72 68 45-117 U/L Troponin I 0.104 0.197 0-0.045 ng/ml Total Protein 7.9 7.4 6.4-8.2 gm/dl Albumin 3.6 3.5 3.4-5.0 gm/dl Globulin 4.3 3.9 2.5-4.0 gm/dl Albumin/Globulin Ratio 0.8 0.9 0.9-2 Thyroid Stimulating Hormone (TSH) 5.310 0.300-4.500 uIu/ml Bedside Glucose 124 113 70-99 mg/dl Estimated Average Glucose 160 mg/dl Hemoglobin A1c 7.2 4.5-5.6 % Triglycerides Level 100 0-150 mg/dl Cholesterol Level 165 0-200 mg/dl HDL Cholesterol 36 mg/dl LDL Cholesterol, Calculated 109 mg/dl VLDL Cholesterol, Calculated 20 mg/dl Cholesterol/HDL Ratio 4.6 Free Thyroxine 1.05 0.80-1.60 ng/dl Free Triiodothyronine 2.16 2.30-4.20 pg/ml Test 08/11/17 06:47 08/11/17 11:29 08/11/17 12:15 08/11/17 14:23 Range/Units Bedside Glucose 94 102 70-99 mg/dl Hemoglobin 9.8 14.0-18.0 g/dL Hematocrit 30.7 42-52 % Troponin I 0.185 0-0.045 ng/ml Assessment and Plan 72 year old male with a PMH of HTN, HLD, DM, severe and hypothyrodism that presented to the ED with a hgb of 6.1. Levels have improved to 9.8 with blood transfusions and chest pain on exertion has now resolved. Patient will be having a clear liquids diet with plan for NPO after midnight with a potential EGD tomorrow. Patient's RCRI is 0.9% and after discussing risks/ benefits with Cardio patient would be an acceptable candidate for EGD Acute anemia most likely secondary to acute GI bleed and resulting in NSTEMI ACS II ( supply and demand ischemia) - NPO after midnight - 6.1 hgb to 9.8 after transfusion (4 units) and has been stable; continue to trend - Gi consult- plan for EGD potentially tomorrow - IV protonix drip - echo without regional wall abnormalities, preserved EF and severe - RBBB on EKG - Appreciate cardio recs HTN - Continue Amlodipine 10 mg - 5mg hydralazine prn SBP >160 T2DM - HBA1C in am however BSG has been reasonable without metformin or use of insulin - ISS without lantus -BSG q6h while NPO Hypothyroidism - TSH elevated and low T3 - continue 125 mcg Levothyroxine and PCP can recheck in outpatient setting DVT prophylaxis - SCD, chemical prophyx held in light of anemia/ GI bleed FULL CODE Continued [facility] stay due to: other Discharge planning: uncertain Reviewed: Pt Seen/Exam by Me History no bleeding Constitutional: denies: fever Respiratory: negative: short of breath Cardiovascular: denies chest pain Gastrointestinal/Abdominal: negative: abdominal pain General Appearance: no apparent distress Respiratory: lungs clear, no respiratory distress Cardiovascular: regular rate, rhythm Neurologic/Psychiatric: alert, oriented x 3 Skin Characteristics: warm/dry Assessment/Plan Resident Physician Supervision Note: I independently interviewed and examined the patient and verified the wagner history and physical, reviewed labs and image studies, discussed the case with the resident Dr. Maria and agree with the findings and care plan.
--- NOTE | 2017-08-11 16:05 | ECHOCARDIOGRAM REPORT ---
*NOTICE TO RECEIVING CONSTITUTION PARTY AGENCY This information is strictly Confidential and protected under [place] law. [place] law prohibits you from making any further disclosure of this information unless further disclosure is expressly permitted by the written consent of the person to whom it pertains or is authorized by law. A general authorization for the release of medical or other information is not sufficient for this purpose. Hospital accepts no responsibility if the information is made available to any other person, INCLUDING THE PATIENT. Interpretation Summary * Name: VIDHYA ROBISON Study Date: 08/11/2017 07:35 AM BP: 135/68 mmHg * Patient Location: C.2T\S\S231\S\1 HR: 77 * : 1945 (M/d/yyyy) Gender: Male Height: 67 in * Age: 72 yrs Ethnicity: CA Weight: 240 lb * Ordering Physician: Wiley Cruz * Referring Physician: Ziggy Spicer * Performed By: Valarie Olivia RDCS * * Reason For Study: Chest pain * BSA: 2.2 m2 * -- Conclusions -- * Left ventricular systolic function is normal. * No regional wall motion abnormalities noted. * Ejection Fraction = 55-60%. * There is mild concentric left ventricular hypertrophy. * Diastolic dysfunction, Grade II (pseudonormalization pattern). * Severe valvular aortic stenosis. * There is mild mitral regurgitation. * There is mild tricuspid regurgitation. Procedure Details * A complete two-dimensional transthoracic echocardiogram was performed (2D, M-mode, Doppler and color flow Doppler). * A contrast injection of Definity was performed to improve assessment of LV function. * Contrast was injected into an intravenous site in the left arm. * One vial of Definity ultrasound contrast was diluted in normal saline to a total volume of 10 ml. A total of '2' ml of solution was administered during imaging. * Lot # [id number] of Definity utilized for procedure. * Expiration date 1 AUG 20. * The attending nurse who injected the contrast agent was Yocasta Munoz RN. Left Ventricle * The left ventricle is grossly normal size. * There is mild concentric left ventricular hypertrophy. * Ejection Fraction = 55-60%. * Left ventricular systolic function is normal. * No regional wall motion abnormalities noted. Right Ventricle * The right ventricle is not well visualized. * The right ventricular systolic function is normal as assessed by tricuspid annular plane systolic excursion (TAPSE) (normal >1.5 cm). Atria * The left atrium is mildly dilated. * Right atrial size is normal. * No ASD detected; PFO is not assessed. Mitral Valve * The mitral valve is grossly normal. * There is no mitral valve stenosis. * There is mild mitral regurgitation. Tricuspid Valve * The tricuspid valve is not well visualized, but is grossly normal. * There is no tricuspid stenosis. * There is mild tricuspid regurgitation. Aortic Valve * The aortic valve is not well visualized. * Severe valvular aortic stenosis. * There is no significant aortic regurgitation. Pulmonic Valve * The pulmonic valve is not well visualized. Great Vessels * The aortic root is normal size. * The pulmonary is not well visualized. Pericardium/Pleural * There is no pericardial effusion. Great Vessels * Dilated inferior vena cava with reduced collapsability with sniff indicates an elevated right atrial pressure of 15 mmHg Left Ventricular Diastolic Function * Diastolic dysfunction, Grade II (pseudonormalization pattern). MMode 2D Measurements and Calculations IVSd 0.91 cm LVIDd 6.0 cm LVIDs 4.4 cm LVPWd 0.99 cm IVS/LVPW 0.92 FS 27.3 % EDV(Teich) 183.4 ml ESV(Teich) 87.7 ml EF(Teich) 52.2 % EDV(cubed) 221.4 ml ESV(cubed) 85.2 ml EF(cubed) 61.5 % LV mass(C)d 234.5 grams LV mass(C)dI 107.3 grams/m\S\2 SV(Teich) 95.7 ml SI(Teich) 43.8 ml/m\S\2 SV(cubed) 136.2 ml SI(cubed) 62.3 ml/m\S\2 Ao root diam 2.8 cm Ao root area 6.0 cm\S\2 LA dimension 3.3 cm LA/Ao 1.2 LVOT diam 2.0 cm LVOT area 3.2 cm\S\2 LVAd ap4 39.7 cm\S\2 LVLd ap4 8.8 cm EDV(MOD-sp4) 147.8 ml EDV(sp4-el) 151.6 ml LVAs ap4 25.8 cm\S\2 LVLs ap4 8.0 cm ESV(MOD-sp4) 68.8 ml ESV(sp4-el) 70.3 ml EF(MOD-sp4) 53.4 % EF(sp4-el) 53.6 % LVAd ap2 31.7 cm\S\2 LVLd ap2 7.6 cm EDV(MOD-sp2) 107.5 ml EDV(sp2-el) 112.1 ml LVAs ap2 21.2 cm\S\2 LVLs ap2 7.6 cm ESV(MOD-sp2) 48.6 ml ESV(sp2-el) 50.4 ml EF(MOD-sp2) 54.8 % EF(sp2-el) 55.1 % LVLd %diff -15.72 % EDV(MOD-bp) 133.3 ml LVLs %diff -6.25 % ESV(MOD-bp) 59.4 ml EF(MOD-bp) 55.5 % SV(MOD-sp4) 79.0 ml SI(MOD-sp4) 36.1 ml/m\S\2 SV(MOD-sp2) 58.9 ml SI(MOD-sp2) 26.9 ml/m\S\2 SV(MOD-bp) 73.9 ml SI(MOD-bp) 33.8 ml/m\S\2 SV(sp4-el) 81.3 ml SI(sp4-el) 37.2 ml/m\S\2 SV(sp2-el) 61.8 ml SI(sp2-el) 28.3 ml/m\S\2 Doppler Measurements and Calculations MV E max christopher 170.3 cm/sec MV A max christopher 151.7 cm/sec MV E/A 1.1 MV dec time 0.27 sec Ao V2 max 482.8 cm/sec Ao max PG 93.2 mmHg Ao max PG (full) 85.8 mmHg Ao V2 mean 360.1 cm/sec Ao mean PG 57.5 mmHg Ao V2 VTI 114.1 cm SUKHDEV(V,A) 0.91 cm\S\2 SUKHDEV(V,D) 0.91 cm\S\2 LV V1 max PG 7.5 mmHg LV V1 max 136.5 cm/sec MR max christopher 625.5 cm/sec MR max PG 156.5 mmHg MR mean christopher 479.3 cm/sec MR mean PG 103.1 mmHg MR VTI 192.4 cm SV(Ao) 682.0 ml SI(Ao) 312.1 ml/m\S\2 PA V2 max 123.5 cm/sec PA max PG 6.1 mmHg PA acc slope 492.5 cm/sec\S\2 PA acc time 0.14 sec TR max christopher 267.3 cm/sec PA pr(Accel) 15.6 mmHg
[2017-08-11 16:43] LABS: HEMATOCRIT 30.3 % (42-52); HEMOGLOBIN 9.7 g/dL (14.0-18.0)
[2017-08-11 20:27] LABS: HEMATOCRIT 29.9 % (42-52); HEMOGLOBIN 9.5 g/dL (14.0-18.0)
[2017-08-12] VITALS (7 sets, daily range): BP systolic 131–166; BP diastolic 68–79; PULSE 71–81; TEMP 36.7–36.9; O2SAT 92–94
[2017-08-12 00:01] LABS: HEMOGLOBIN 9.9 g/dL (14.0-18.0)
[2017-08-12] MEDS: PANTOprazole INJ 40 MG in DEXTROSE 5% 100ML IV SCH ×3 (03:18→11:58)
[2017-08-12 04:07] LABS: BASO % 0.5 %; BASO ABS # 0.06 K/uL (0-0.2); EOS % 3.5 %; EOS ABS # 0.39 K/uL (0-0.5); HEMATOCRIT 31.6 % (42-52); IG# 0.05 K/uL (0.00-0.02); LYMPH % 27.4 %; MEAN CELL VOLUME 75.8 fL (80-100); MEAN CORPUSCULAR HGB CONC 31.6 g/dl (32-36); MEAN PLATELET VOLUME 9.8 fL (7.4-10.4); MONO % 12.4 %; NEUT % 55.8 %; NUCLEATED RED BLOOD CELL ABS 0.04 K/uL (0-0); PLATELET COUNT 242 K/uL (130-400); RED CELL DISTRIBUTION WIDTH CV 19.5 % (11.5-14.5); RED CELL DISTRIBUTION WIDTH SD 54.1 fL (36.4-46.3)
[2017-08-12 04:24] LABS: ALBUMIN 3.3 gm/dl (3.4-5.0); CREATININE 1.75 mg/dl (0.60-1.40); POTASSIUM 3.7 mmol/L (3.5-5.1)
[2017-08-12 04:26] LABS: TOTAL PROTEIN 7.4 gm/dl (6.4-8.2)
[2017-08-12 04:28] LABS: PTT PATIENT 28.5 SECONDS (21.0-31.0)
[2017-08-12] MEDS: INSULIN ASPART 100 UNITS/ML 3 ML PEN SC SCH ×2 (05:59→11:57)
[2017-08-12] MEDS ORDERED: LEVOTHYROXINE 125 MCG TAB PO SCH (06:00)
[2017-08-12] MEDS ORDERED: AMLODIPINE BESYLATE 5 MG TAB PO SCH (09:00)
--- NOTE | 2017-08-12 11:07 | CARDIOLOGY PROGRESS NOTE ---
DATE: 08/12/2017 SUBJECTIVE: Mr. Kebede is resting comfortably in bed without complaints of chest pain or dyspnea. He is awaiting an upper endoscopy. OBJECTIVE: VITAL SIGNS: Blood pressure is 160/79 with a regular pulse of 74. Respiratory rate is 18. The patient is afebrile at 36.8 degrees Celsius. Saturation 93% on room air. NECK: Supple with full carotid upstrokes. A transmitted murmur is noted bilaterally. Jugular venous pressure is flat at 90 degrees. There is no thyromegaly. CARDIOVASCULAR: Reveals a regular rhythm with a 3/6 crescendo decrescendo systolic murmur heard loudest at the base. S2 is not audible at the apex. LUNGS: Clear without rales, rhonchi, or wheezes. ABDOMEN: Obese without bruits. EXTREMITIES: Reveal intact radial artery pulses bilaterally. There is no peripheral edema. DATA: CBC notes a hemoglobin of 10.0, hematocrit 31.6, white count 11.3, and platelet count 242,000. Electrolytes note a sodium of 137, potassium 3.7, chloride 104, bicarbonate 27, BUN 23, creatinine 1.75, and glucose 108. environmental monitoring technician is benign. IMPRESSION AND PLAN: 1. Chest pain syndrome - with mildly elevated troponin at time of presentation. Likely secondary to coronary artery disease or his severe aortic stenosis. Cardiac catheterization scheduled for August 20. Gastrointestinal workup in progress. 2. Anemia -- for upper endoscopy. 3. Hypertension -- controlled. 4. Severe aortic stenosis -- 0.9 cm2. 5. Mild left ventricular hypertrophy -- with diastolic dysfunction. 6. Right bundle branch block. 7. Diabetes mellitus.
[2017-08-12] MEDS ORDERED: EpHEDrine SULFATE INJ 50 MG/ML AMP IV PRN (12:30)
[2017-08-12] MEDS ORDERED: ATROPINE SULFATE 0.1 MG/ML 5ML SYR IV PRN (12:30)
--- NOTE | 2017-08-12 13:01 | Gastroenterology Progress Note ---
Progress Note Date of Service: Aug 12, 2017 Subjective Pt evaluation today including: conversation w/ patient, conversation w/ family (), physical exam, chart review, lab review, review of studies, review of inpatient medication list CC f/u anemia, melena HPI NO stools since admit. No abd pain. Cardiology ok with proceeding with EGD. He does have severe . Review of Systems Respiratory: No shortness of breath Cardiac: No chest pain Medications Current Inpatient Medications Medications (Trade) Dose Ordered Sig/Ever Route Start Time Stop Time Status Last Admin Dose Admin Al Hydrox/Mg Hydrox/Simethicone (Maalox Max Susp) 15 ml Q4H PRN PO 08/10/17 20:00 09/09/17 19:59 Magnesium Hydroxide (Milk Of Magnesia Susp) 30 ml Q12H PRN PO 08/10/17 20:00 09/09/17 19:59 Ondansetron HCl (Zofran Inj) 4 mg Q6H PRN IV 08/10/17 20:00 09/09/17 19:59 Nitroglycerin (Nitrostat Tab) 0.4 mg UD PRN SL 08/10/17 20:00 09/09/17 19:59 Morphine Sulfate (MoRPHine SULFATE INJ) 2 mg Q30M PRN IV 08/10/17 20:00 08/24/17 19:59 Polyethylene (Miralax Powder Packet) 17 gm DAILY PRN PO 08/10/17 20:00 09/09/17 19:59 Hydralazine HCl (HydrALAZINE INJ) 5 mg Q4H PRN IV. 08/10/17 20:45 09/09/17 20:44 Glucose (Glucose 40% Gel) 15-30 GRAMS 15 GRAMS... UD PRN PO 08/10/17 20:45 09/09/17 20:44 Glucose (Glucose Chew Tab) 4-8 Tablets 4 Tabl... UD PRN PO 08/10/17 20:45 09/09/17 20:44 Dextrose (Dextrose 50% 50ML Syringe) 25-50ML OF 50% DW IV FOR... UD PRN IV 08/10/17 20:45 09/09/17 20:44 Glucagon (Glucagon Inj) 1 mg UD PRN SQ 08/10/17 20:45 09/09/17 20:44 Pantoprazole Sodium 40 mg/ Dextrose 100 ml @ 20 mls/hr Q5H IV 08/10/17 21:00 09/09/17 20:59 08/12/17 11:58 20 MLS/HR Insulin Aspart (novoLOG ASPART) SLIDING SCALE G... Q6 SC 08/11/17 00:00 09/10/17 00:00 08/11/17 17:21 8 UNITS Amlodipine Besylate (Norvasc Tab) 10 mg QAM PO 08/12/17 09:00 09/11/17 08:59 08/12/17 07:45 10 MG Levothyroxine Sodium (Synthroid Tab) 125 mcg DAILYBB PO 08/12/17 06:00 09/11/17 05:59 08/12/17 05:57 125 MCG Ephedrine Sulfate (EpHEDrine SULFATE INJ) 5 mg Q5M PRN IV 08/12/17 12:30 08/13/17 12:29 UNV Atropine Sulfate (Atropine Sulfate 0.1mg/ml Inj) 0.5 mg Q1M PRN IV 08/12/17 12:30 08/13/17 12:29 UNV Objective Vital Signs Date Time Temp Pulse Resp B/P (MAP) Pulse Ox O2 Delivery O2 Flow Rate FiO2 08/12/17 12:00 Room Air 08/12/17 11:02 36.8 78 21 135/71 (92) 93 Room Air 08/12/17 08:00 Room Air 08/12/17 07:22 36.8 74 18 163/79 (107) 93 Room Air 08/12/17 04:15 36.9 81 18 160/78 (105) 92 Room Air 08/12/17 03:40 Room Air 08/11/17 23:28 36.7 74 18 117/67 (84) 94 Room Air 08/11/17 23:05 Room Air 08/11/17 20:43 36.8 77 17 144/75 (98) 93 08/11/17 20:00 Room Air 08/11/17 16:00 94 Room Air 08/11/17 15:32 36.9 79 19 135/76 (95) 94 Room Air Physical Exam General Appearance: WD/WN, no apparent distress Respiratory/Chest: lungs clear, no respiratory distress Cardiovascular: regular rate, rhythm, no edema Abdomen: normal bowel sounds, non tender, soft, no organomegaly Neurologic/Psych: alert, normal mood/affect, oriented x 3 Skin: normal color, warm/dry Laboratory Results Last 24 Hours Test 08/11/17 14:23 08/11/17 16:21 08/11/17 16:22 08/11/17 20:08 Troponin I 0.185 ng/ml Hemoglobin 9.7 g/dL 9.5 g/dL Hematocrit 30.3 % 29.9 % Bedside Glucose 124 mg/dl Test 08/11/17 20:24 08/11/17 23:44 08/11/17 23:49 08/12/17 03:55 Bedside Glucose 99 mg/dl 88 mg/dl Hemoglobin 9.9 g/dL 10.0 g/dL Hematocrit 31.0 % 31.6 % White Blood Count 11.30 K/uL Red Blood Count 4.17 M/uL Mean Corpuscular Volume 75.8 fL Mean Corpuscular Hemoglobin 24.0 pg Mean Corpuscular Hemoglobin Concent 31.6 g/dl Platelet Count 242 K/uL Mean Platelet Volume 9.8 fL Neutrophils (%) (Auto) 55.8 % Lymphocytes (%) (Auto) 27.4 % Monocytes (%) (Auto) 12.4 % Eosinophils (%) (Auto) 3.5 % Basophils (%) (Auto) 0.5 % Neutrophils # (Auto) 6.30 K/uL Lymphocytes # (Auto) 3.10 K/uL Monocytes # (Auto) 1.40 K/uL Eosinophils # (Auto) 0.39 K/uL Basophils # (Auto) 0.06 K/uL RDW Standard Deviation 54.1 fL RDW Coefficient of Variation 19.5 % Immature Granulocyte % (Auto) 0.4 % Immature Granulocyte # (Auto) 0.05 K/uL Nucleated RBC Absolute Count (auto) 0.04 K/uL Nucleated Red Blood Cells % 0.3 % Activated Partial Thromboplast Time 28.5 SECONDS Partial Thromboplastin Ratio 1.1 Sodium Level 137 mmol/L Potassium Level 3.7 mmol/L Chloride Level 104 mmol/L Carbon Dioxide Level 27 mmol/L Anion Gap 6.0 mmol/L Blood Urea Nitrogen 23 mg/dl Creatinine 1.75 mg/dl Est Creatinine Clear Calc Drug Dose 45.3 ml/min Estimated GFR () 44.1 Estimated GFR (Non- 38.1 BUN/Creatinine Ratio 13.2 Random Glucose 108 mg/dl Calcium Level 9.0 mg/dl Total Bilirubin 0.7 mg/dl Aspartate Amino Transf (AST/SGOT) 19 U/L Alanine Aminotransferase (ALT/SGPT) 34 U/L Alkaline Phosphatase 72 U/L Total Protein 7.4 gm/dl Albumin 3.3 gm/dl Globulin 4.1 gm/dl Albumin/Globulin Ratio 0.8 Test 08/12/17 05:59 08/12/17 10:45 Bedside Glucose 119 mg/dl 152 mg/dl Assessment and Plan acute blood loss anemia--H and H stable melena--suspect UGI bleeding such as PUD from ASA. Continue PPI. . EGD today. Procedure and risks explained to patient which include but not limited to med reaction, bleeding, perforation, aspiration, and missed lesions. fhx CRC/hx of colon polyps--colo 03/2017 so unless cannot identify cause of bleeding on EGD then would do next colo 03/2022. severe --anesthesia to sedate patient for procedure elevated troponins--per hospitalist/cardiology
[2017-08-12] MEDS ORDERED: PROPOFOL IV EMULSION 10 MG/ML 20 ML VIAL IV ONE (15:02)
[2017-08-12] MEDS ORDERED: LIDOCAINE HCL 2% 2 ML VIAL (20MG/ML) ONE (15:02)
--- NOTE | 2017-08-12 15:07 | GI REPORT ---
Procedure Date: 08/12/2017 2:40 PM Procedure: Upper GI endoscopy Indications: Acute post hemorrhagic anemia, Melena Medicines: Monitored Anesthesia Care Complications: No immediate complications. Estimated blood loss: Minimal. Estimated Blood Loss: Estimated blood loss was minimal. Procedure: Pre-Anesthesia Assessment: - The risks and benefits of the procedure and the sedation options and risks were discussed with the patient. All questions were answered and informed consent was obtained. - Patient identification and proposed procedure were verified prior to the procedure by the physician, the nurse and the anesthesiologist. The procedure was verified in the procedure room. After obtaining informed consent, the endoscope was passed under direct vision. Throughout the procedure, the patient's blood pressure, pulse, and oxygen saturations were monitored continuously. The Scope was introduced through the mouth, and advanced to the duodenal bulb. The upper GI endoscopy was accomplished without difficulty. The patient tolerated the procedure well. Findings: The Z-line was regular and was found 40 cm from the incisors. A 3 cm hiatal hernia was present. One localized 2 mm erosion was found in the gastric antrum over nodular gastritis. It was friable with some heme noted after coming back with the scope. Estimated blood loss was minimal. To prevent bleeding post-intervention, two hemostatic clips were successfully placed. There was no bleeding during, or at the end, of the procedure. The examined duodenum was normal. Impression: - Z-line regular, 40 cm from the incisors. - 3 cm hiatal hernia. - Erosive gastropathy. Clips were placed. - Normal examined duodenum. - No specimens collected. Recommendation: - Return patient to [facility] for ongoing care. Carson Larson M.D. Carson Larson MD 08/12/2017 3:07:18 PM This report has been signed electronically. Note Initiated On: 08/12/2017 2:40 PM I attest to the content of the Intraoperative Record and orders documented therein, exceptions below
--- NOTE | 2017-08-12 15:09 | [facility] Post Operative Brief Note ---
Immediate Operative Summary Operative Date Aug 12, 2017. Pre-Operative Diagnosis Suspected upper gastrointestinal bleed, melena Post-Operative Diagnosis Hiatal hernia, friable erosion on nodule in antrum clipped Procedure(s) Performed Esophag[address]odenoscopy with [address] Carson Larson Granite Cutter Apprentice Surgeon(s) Endoscopy staff Estimated Blood Loss 0mL Findings Consistent with Post-Op Diagnosis Specimens none Anesthesia Type MAC
--- NOTE | 2017-08-12 15:13 | Discharge Instructions ---
Discharge Instructions Date of Service Aug 12, 2017. Admission Reason for Admission: Anemia Discharge Discharge Diagnosis / Problem: anemia Discharge Goals Goal(s): Improve disease control, Learn about illness, Diagnostic testing, Therapeutic intervention Activity Recommendations Activity Limitations: resume your previous activity . Instructions / Follow-Up Instructions / Follow-Up You were admitted to the hospital for the evaluation of your anemia (low blood count). You were found to be severely anemic and this was causing some stress to your heart. You received four units of blood in order to bring your blood up to an appropriate count. An echo was completed and this shows the pumping action of your heart and there was no significant change to the echo you recently had. As you were having black stools there was concern that you were having bleeding from the upper portion of your GI tract. You had an scope called and EGD which revealed from erosive gastritis and this was clipped. We would like you to continue with protonix which is a PPI and like we talked it will "calm the stomach acid down". It would be advisable to take this consistently over the next couple of weeks prior to undergoing a catheterization for your heart as you may need daily ASA/ Plavix if a stent is placed. In summary, 1. For erosive gastritis, please continue Protonix twice a day 2. Follow up with GI and cardio 3. Follow up with your PCP We wish you mike Maria Current Hospital Diet Patient's current hospital diet: AHA Diet (Heart Healthy) Discharge Diet Recommended Diet: Diabetes Type 2 Diet Procedures Procedures Performed: Esophagogastroduodenoscopy Pending Studies Studies pending at discharge: no Laboratory Results Hemoglobin A1c Test 08/11/17 06:46 Range/Units Estimated Average Glucose 160 mg/dl Hemoglobin A1c 7.2 H 4.5-5.6 % Lipid Panel Test 08/11/17 06:46 Range/Units Triglycerides Level 100 0-150 mg/dl Cholesterol Level 165 0-200 mg/dl HDL Cholesterol 36 mg/dl Cholesterol/HDL Ratio 4.6 LDL Cholesterol, Calculated 109 mg/dl Medical Emergencies . Who to Call and When: Medical Emergencies: If at any time you feel your situation is an emergency, please call 911 immediately. . Non-Emergent Contact Non-Emergency issues call your: Primary Care Provider . . "Provider Documentation" section prepared by Edith Maria. . VTE Core Measure Inpt VTE Proph given/why not?: SCD's
--- NOTE | 2017-08-12 15:17 | Anesthesiology Progress Note ---
Anesthesia Post Op Note Date & Time Aug 12, 2017 at 15:17 Vital Signs Pain Intensity: 0.0 Vital Signs Past 12 Hours Date Time Temp Pulse Resp B/P (MAP) Pulse Ox O2 Delivery O2 Flow Rate FiO2 08/12/17 12:00 Room Air 08/12/17 11:02 36.8 78 21 135/71 (92) 93 Room Air 08/12/17 08:00 Room Air 08/12/17 07:22 36.8 74 18 163/79 (107) 93 Room Air 08/12/17 04:15 36.9 81 18 160/78 (105) 92 Room Air 08/12/17 03:40 Room Air Notes Mental Status: alert / awake / arousable, participated in evaluation Pt Amnestic to Procedure: Yes Nausea / Vomiting: adequately controlled Pain: adequately controlled Airway Patency, RR, SpO2: stable & adequate BP & HR: stable & adequate Hydration State: stable & adequate Anesthetic Complications: no major complications apparent
--- NOTE | 2017-08-12 15:21 | Progress Note ---
Progress Note Date of Service Aug 12, 2017. Progress Note Pt stable post EGD with no abd pain or other complaints. . One friable erosion noted in antrum that was clipped. Full liquid diet for now and follow patient. Unclear whether this was source of bleeding or not.
[2017-08-12] MEDS ORDERED: NURSING VERBAL MED ORDER ONE (16:30)
[2017-08-12] MEDS ORDERED: PRT40 PO (17:18)
--- NOTE | 2017-08-12 17:28 | Discharge Summary ---
Discharge Summary Date of Service Aug 12, 2017. Discharge Summary Admission Date: Aug 10, 2017 at 20:09 Discharge Date: Aug 12, 2017 Discharge Disposition: Home Principal Diagnosis: anemia Problems/Secondary Diagnoses: NSTEMI ACS II Severe Aortic stenosis HTN Hypothyroidism DMII Medication Reconciliation New Medications: Pantoprazole (Pantoprazole Sodium) 40 Mg Tab 40 MG PO BID for 30 Days, #60 TAB Continued Medications: Amlodipine (Norvasc) 10 Mg Tab 10 MG PO QAM, TAB Vzysgqd-Zikgtrsgi-Bdel (Calcium & Magnesium + Zin 334-134-5 mg) 1 Tab Tab 1 TAB PO DAILY Cholecalciferol (Vitamin D3) 1,000 Unit Tab 1 TAB PO QAM for 90 Days, #90 TAB 3 Refills Fish Oil ([place]-3) 1 Ea Cap 1 CAP PO DAILY, CAP Glimepiride (Glimepiride) 2 Mg Tab 1 TAB PO BID for 90 Days, #180 TAB 3 Refills Levothyroxine Sodium (Levothyroxine Sodium) 125 Mcg Tab 1 TAB PO QAM for 90 Days, #90 TAB 3 Refills Metformin Hcl (Glucophage) 1,000 Mg Tab 1000 MG PO BID, TAB Discontinued Medications: Aspirin (Aspirin Chewable) 81 Mg Chew 81 MG PO HS Discharge Exam Patient has been asymptomatic, no chest pain since he received transfusions we discussed discharge after EGD and patient is doing very well, instructions were given to and patient and reflected understanding agreeable and comfortable with discharge Review of Systems: Constitutional: No fever, No chills Eyes: No worsening of vision ENT: No hearing loss Respiratory: No cough, No sputum, No wheezing, No shortness of breath, No dyspnea on exertion, No dyspnea at rest Cardiovascular: No chest pain Abdomen: No pain, No nausea, No vomiting, No diarrhea, No constipation Musculoskeletal: No joint pain, No muscle pain Genitourinary - Male: No hematuria, No dysuria Neurologic: No weakness, No numbness/tingling, No balance problems Psychiatric: No depression symptoms Endocrine: No fatigue Integumentary: No rash Hospital Course 72 year old male with a PMH of HTN, HLD, DM, severe and hypothyrodism that presented to the ED with a hgb of 6.1. Levels had improved to 9.8 with 4 blood transfusions and chest pain on exertion had resolved as well. 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 The patient was prepped and EGD completed. A friable erosive gastritis and clipped and was suspicious for the source of bleeding but could not be confirmed. As the patient has had a hgb which has been stable over 24hours, no signs of GI bleeding and chest pain resolved patient was d/c home on protonix and close follow up with GI and cardio as no emergent intervention needed at this time. Acute anemia most likely secondary to acute GI bleed and resulting in NSTEMI ACS II ( supply and demand ischemia) - EGD revealed an friable erosive gastritis as the potential but not definitive source - Protonix bid x 6 weeks - follow up GI in 2 weeks, may need a sooner repeat in colonoscopy - echo without regional wall abnormalities, preserved EF and severe - RBBB on EKG - follow up with cardio in outpt prior to cath HTN - Continue Amlodipine 10 mg - ASA 81 mg held for now until reassessment by cardio/ PCP/ GI in outpatient setting Hypothyroidism - TSH elevated and low T3 - continued 125 mcg Levothyroxine - recommend a recheck of levels in outpatient setting DVT prophylaxis - SCD, chemical prophyx held in light of anemia/ GI bleed FULL CODE Total Time Spent: Greater than 30 minutes This includes examination of the patient, discharge planning, medication reconciliation, and communication with other providers. Discharge Instructions Please refer to the electronic Patient Visit Report (Discharge Instructions) for additional information. Additional Copies To Edmond Martinez M.D. Reviewed: Pt Seen/Exam by Me History no bleeding. Constitutional: denies: fever Respiratory: negative: short of breath Cardiovascular: denies chest pain General Appearance: no apparent distress Respiratory: lungs clear, no respiratory distress Cardiovascular: regular rate, rhythm Gastrointestinal: soft Neurologic/Psychiatric: alert, oriented x 3 Skin Characteristics: warm/dry Assessment/Plan Resident Physician Supervision Note: I independently interviewed and examined the patient and verified the wagner history and physical, reviewed labs and image studies, discussed the case with the resident Dr. Maria and agree with the findings and care plan. Time spent in discharge 40 min
[2017-08-12] MEDS ORDERED: INSULIN ASPART 100 UNITS/ML 3 ML PEN SC SCH (21:00)
[2017-08-12] MEDS ORDERED: PANTOprazole SOD 40 MG TAB PO SCH (21:00)
== END 2017-08-12 17:50 | disposition home or self-care (01) | DRG 377 ==
LOC: C.EDB 15:22 → C.2T 20:09 → ENRESERV 20:25
PROVIDERS: ADMIT Hospitalist; ATTEND Family Medicine
PROC: 0W3P8ZZ Control Bleeding in Gastrointestinal Tract, Via Natural or Artificial Opening Endoscopic (ICD-10-PCS; principal; 2017-08-12 14:30)
DX: K29.01 Acute gastritis with bleeding (principal); I21.A1 Myocardial infarction type 2; D62 Acute posthemorrhagic anemia; I11.9 Hypertensive heart disease without heart failure; E78.5 Hyperlipidemia, unspecified; E11.9 Type 2 diabetes mellitus without complications; E03.9 Hypothyroidism, unspecified; I35.0 Nonrheumatic aortic (valve) stenosis; I45.10 Unspecified right bundle-branch block; K44.9 Diaphragmatic hernia without obstruction or gangrene; E66.9 Obesity, unspecified; Z68.37 Body mass index [BMI] 37.0-37.9, adult; Z86.010 Personal history of colon polyps; Z87.891 Personal history of nicotine dependence; Z79.84 Long term (current) use of oral hypoglycemic drugs; Z79.899 Other long term (current) drug therapy; Z80.0 Family history of malignant neoplasm of digestive organs

== ENCOUNTER → 2017-08-10 | Outpatient (CLI) | payer BC, OTHER ==
[~2017-08-10] MED LIST changes: +CALC-478 PO; -LEVO125T4 PO; +LEVO125T5 PO; +OMEG10007 PO; +PRT40 PO
--- NOTE | 2017-08-10 12:51 | DIAGNOSTIC IMAGING REPORT ---
TWO VIEW CHEST CLINICAL HISTORY: Cough. Preoperative examination. FINDINGS: PA and lateral chest radiographs are obtained. No prior studies are available for comparison at the time of dictation. The cardiomediastinal silhouette is unremarkable. Bibasilar atelectasis is identified. No airspace consolidation or pleural effusion is seen. There is no pneumothorax. The skeletal structures are osteopenic. The bony thorax appears intact. IMPRESSION: No active disease in the chest. Electronically signed by: Isaiah Candelaria M.D. 08/10/2017 12:49 PM Dictated Date/Time: 08/10/2017 12:49 PM
[2017-08-10 13:36] LABS: PTT PATIENT 26.2 SECONDS (21.0-31.0)
[2017-08-10 13:48] LABS: HEMATOCRIT 21.2 % (42-52); HEMOGLOBIN 6.2 g/dL (14.0-18.0); MEAN CELL VOLUME 69.7 fL (80-100); MEAN CORPUSCULAR HEMOGLOBIN 20.4 pg (25-34); MEAN CORPUSCULAR HGB CONC 29.2 g/dl (32-36); MEAN PLATELET VOLUME 10.1 fL (7.4-10.4); PLATELET COUNT 323 K/uL (130-400); RED CELL DISTRIBUTION WIDTH CV 17.4 % (11.5-14.5); RED CELL DISTRIBUTION WIDTH SD 45.3 fL (36.4-46.3); WHITE BLOOD COUNT 12.14 K/uL (4.8-10.8)
[2017-08-10 13:52] LABS: BLOOD UREA NITROGEN 37 mg/dl (7-18); CALCIUM 9.4 mg/dl (8.5-10.1); CARBON DIOXIDE 25 mmol/L (21-32); CREATININE 1.77 mg/dl (0.60-1.40); GLUCOSE 193 mg/dl (70-99); POTASSIUM 3.8 mmol/L (3.5-5.1); SODIUM 137 mmol/L (136-145)
== END | disposition home or self-care (01) ==
LOC: C.LAB1850 12:31
PROVIDERS: ATTEND Internal Medicine Cardiovascular Disease
DX: Z01.818 Encounter for other preprocedural examination (principal); Z01.812 Encounter for preprocedural laboratory examination

== ENCOUNTER → 2017-08-15 | Outpatient (CLI) | payer BC ==
[~2017-08-15] MED LIST changes: -ASPCH81X PO; +CALC-478 PO; +HYZ/10015 PO; +OMEG10007 PO; +PRT40 PO; +ROSU20TA PO
[2017-08-15 17:28] LABS: BASO % 0.3 %; BASO ABS # 0.04 K/uL (0-0.2); EOS % 1.7 %; EOS ABS # 0.22 K/uL (0-0.5); HEMOGLOBIN 10.6 g/dL (14.0-18.0); IG# 0.05 K/uL (0.00-0.02); LYMPH % 26.9 %; LYMPH ABS # 3.47 K/uL (1.2-3.4); MEAN CORPUSCULAR HEMOGLOBIN 23.6 pg (25-34); MEAN CORPUSCULAR HGB CONC 30.3 g/dl (32-36); MEAN PLATELET VOLUME 10.7 fL (7.4-10.4); MONO % 9.2 %; MONO ABS # 1.19 K/uL (0.11-0.59); NEUT % 61.5 %; NEUT ABS # 7.94 K/uL (1.4-6.5); PLATELET COUNT 258 K/uL (130-400); RED CELL DISTRIBUTION WIDTH SD 59.2 fL (36.4-46.3); WHITE BLOOD COUNT 12.91 K/uL (4.8-10.8)
== END | disposition home or self-care (01) ==
LOC: C.LABPVFM 11:48
PROVIDERS: ATTEND Family Medicine
DX: K92.2 Gastrointestinal hemorrhage, unspecified (principal)

== ENCOUNTER → 2017-08-29 | Outpatient (CLI) | payer BC, OTHER ==
[2017-08-29 12:58] LABS: ALBUMIN 3.5 gm/dl (3.4-5.0); BLOOD UREA NITROGEN 22 mg/dl (7-18); CALCIUM 9.2 mg/dl (8.5-10.1); CARBON DIOXIDE 27 mmol/L (21-32); CREATININE 1.95 mg/dl (0.60-1.40); GLUCOSE 173 mg/dl (70-99); POTASSIUM 3.5 mmol/L (3.5-5.1); SODIUM 137 mmol/L (136-145)
[2017-08-29 12:59] LABS: PHOSPHORUS 2.6 mg/dl (2.5-4.9)
== END | disposition home or self-care (01) ==
LOC: C.LAB 11:25
PROVIDERS: ATTEND Internal Medicine Cardiovascular Disease
DX: R79.89 Other specified abnormal findings of blood chemistry (principal)

== ENCOUNTER → 2017-11-21 | Outpatient (CLI) | payer BC, OTHER ==
[2017-11-21 13:10] LABS: HEMATOCRIT 38.2 % (42-52); HEMOGLOBIN 11.9 g/dL (14.0-18.0); MEAN CELL VOLUME 80.9 fL (80-100); MEAN CORPUSCULAR HEMOGLOBIN 25.2 pg (25-34); MEAN CORPUSCULAR HGB CONC 31.2 g/dl (32-36); MEAN PLATELET VOLUME 10.8 fL (7.4-10.4); PLATELET COUNT 306 K/uL (130-400); RED CELL DISTRIBUTION WIDTH CV 18.4 % (11.5-14.5); RED CELL DISTRIBUTION WIDTH SD 53.8 fL (36.4-46.3); WHITE BLOOD COUNT 11.51 K/uL (4.8-10.8)
[2017-11-21 13:20] LABS: HEMOGLOBIN A1C 7.2 % (4.5-5.6)
[2017-11-21 14:05] LABS: ALBUMIN 3.7 gm/dl (3.4-5.0); ALKALINE PHOSPHATASE 102 U/L (45-117); ALT/SGPT 20 U/L (12-78); AST/SGOT 22 U/L (15-37); BLOOD UREA NITROGEN 21 mg/dl (7-18); CALCIUM 8.7 mg/dl (8.5-10.1); CARBON DIOXIDE 27 mmol/L (21-32); CHOLESTEROL 108 mg/dl (0-200); CREATININE 1.37 mg/dl (0.60-1.40); GLUCOSE 108 mg/dl (70-99); LDL CHOLESTEROL CALCULATED 40 mg/dl; PHOSPHORUS 2.9 mg/dl (2.5-4.9); POTASSIUM 3.8 mmol/L (3.5-5.1); SODIUM 138 mmol/L (136-145); TOTAL PROTEIN 8.1 gm/dl (6.4-8.2)
== END | disposition home or self-care (01) ==
LOC: C.LABPVFM 08:47
PROVIDERS: ATTEND Family Medicine
DX: N18.9 Chronic kidney disease, unspecified (principal); I12.9 Hypertensive chronic kidney disease with stage 1 through stage 4 chronic kidney disease, or unspecified chronic kidney disease

== ENCOUNTER 2019-07-04 17:31 | Inpatient (IN) ==
[2019-07-04] MEDS ORDERED: SODIUM CHLORIDE 0.9% 1000ML 1,000 ML IV ONE (17:52)
[2019-07-04] MEDS ORDERED: ONDANSETRON INJ 2 MG/ML 2 ML VIAL IV STA (17:58)
[2019-07-04] MEDS ORDERED: ACETAMINOPHEN 500 MG TAB PO STA (17:58)
[2019-07-04] MEDS ORDERED: PIPERACILL/TAZOBAC CONSULT ACTIVE PRN (18:03)
[2019-07-04] MEDS ORDERED: PIPERACILLIN/TAZOBACTAM 4.5 GM/120 ML BAG IV ONE (18:03)
--- NOTE | 2019-07-04 18:15 | XRay Report ---
XR chest 1V portable CLINICAL HISTORY: SEPSIS dyspnea COMPARISON STUDY: December 08, 2017 FINDINGS: Diffuse parenchymal infiltrate left lung base. Mild cardiomegaly. Prior median sternotomy. Right lung is clear. IMPRESSION: Diffuse parenchymal infiltrate left base combined with pre-existing superimposed atelect asis. ACT 112: Negative or not required by law. The above report was generated using voice recognition software. It may contain grammatical, syntax or spelling errors. Electronically signed by: Nathan Srivastava M.D. 07/04/2019 6:14 PM
[2019-07-04 18:33] LABS: Hematocrit (blood only) 29.2 % (42-52); Hemoglobin 9.2 g/dL (14.0-18.0); Mean Corpuscular Hemoglobin 22.2 pg (25-34); Mean Corpuscular Hgb Conc 31.5 g/dL (32-36); Mean Corpuscular Volume 70.4 fL (80-100); Mean Platelet Volume 9.7 fL (7.4-10.4); Platelet Count 234 K/uL (130-400); RDW Coefficient of Variation 17.6 % (11.5-14.5); RDW Standard Deviation 45.1 fL (36.4-46.3); Red Blood Count 4.15 M/uL (4.7-6.1); White Blood Count 19.49 K/uL (4.8-10.8)
[2019-07-04 18:44] LABS: INR 1.1 (0.9-1.1); Partial Thromboplastin Ratio 1.1; Partial Thromboplastin Time 30.1 Seconds (21.0-31.0); Prothrombin Time 11.6 Seconds (9.0-12.0)
[2019-07-04 18:52] LABS: Alanine Aminotransferase 18 U/L (12-78); Albumin Level 2.2 gm/dl (3.4-5.0); Aspartate Aminotransferase 17 U/L (15-37); BUN Creatinine Ratio 16.8 (10-20); Blood Urea Nitrogen 38 mg/dl (7-18); Calcium 8.6 mg/dl (8.5-10.1); Carbon Dioxide 21 mmol/L (21-32); Chloride 104 mmol/L (98-107); Creatinine Clr Calc Pharmacy 32.6 ml/min; Est GFR (African American) 32.1; Est GFR (Non-African American) 27.7; Glucose 235 mg/dl (70-99); Magnesium 1.5 mg/dl (1.8-2.4); Potassium 4.1 mmol/L (3.5-5.1); Sodium 132 mmol/L (136-145)
[2019-07-04 18:57] LABS: Albumin Globulin Ratio 0.4 (0.9-2); Alkaline Phosphatase 94 U/L (45-117); Bilirubin,Total 0.6 mg/dl (0.2-1); Globulin 5.5 gm/dl (2.5-4.0); Total Protein 7.7 gm/dl (6.4-8.2); Troponin I < 0.015 ng/ml (0-0.045)
[2019-07-04 19:09] LABS: Basophils # (auto) 0.01 K/uL (0-0.2); Basophils % (auto) 0.1 %; Eosinophils # (auto) 0.08 K/uL (0-0.5); Eosinophils % (auto) 0.4 %; Immature Granulocytes # (auto) 0.06 K/uL (0.00-0.02); Immature Granulocytes % (auto) 0.3 %; Lymphocytes # (auto) 0.82 K/uL (1.2-3.4); Lymphocytes % (auto) 4.2 %; Monocytes # (auto) 0.42 K/uL (0.11-0.59); Monocytes % (auto) 2.2 %; Neutrophils % (auto) 92.8 %
[2019-07-04] MEDS ORDERED: LEVOFLOXACIN/D5W 750 MG/150 ML BAG IV SCH (19:15)
--- NOTE | 2019-07-04 19:54 | CT Scan Report ---
ABDOMEN AND PELVIS CT WITHOUT CONTRAST CT DOSE: 1407.89 mGy.cm HISTORY: febrile and abd /back pain TECHNIQUE: Multiaxial CT images of the abdomen and pelvis were performed without contrast. A dose lo wering technique was utilized adhering to the principles of ALARA. COMPARISON STUDY: None. FINDINGS: Bibasilar linear densities likely representing subsegmental atelectasis. No pneumoperitoneu m. No pneumatosis. No suspicious lytic are blastic osseous lesions. Mild motion artifact. The bladder is unremarkable. Punctate calcification within the right hepatic lobe. Otherwise, the unenhanced marie er, gallbladder, pancreas, and spleen are unremarkable. Normal left adrenal gland. Fat-containing 3.3 cm lesion within the right adrenal gland suggestive of a benign myelolipoma. Calcified plaque within the normal caliber abdominal aorta. Borderline enlarged upper periaortic lymph node measuring up to 1.1 cm. These could be reactive. The left kidney is markedly atrophic. No renal or ureteral stones. N o hydronephrosis. There is moderate right perinephric fat stranding. There is mild left perinephric f at stranding. Suboptimal evaluation for bowel pathology due to the lack of intravenous and oral contr ast. However, there is no definite bowel wall thickening or obstruction. Normal appendix. IMPRESSION: 1. Right greater than left perinephric fat stranding. This is nonspecific but could represent a bilat eral pyelonephritis. Recommend correlation with urinalysis. 2. No renal or ureteral stones. No hydronephrosis. 3. Markedly atrophic left kidney. 4. No definite bowel wall thickening or obstruction. 5. Normal appendix. ACT 112: Negative or not required by law. Electronically signed by: Irving Vang M.D. 07/04/2019 7:53 PM
[2019-07-04 20:19] LABS: Appearance Urine Clear (Clear); Bacteria Urine Automated Negative (Negative); Bilirubin Urine Negative (Negative); Blood Urine 3+ (Negative); Color Urine Dark Yellow; Epithelial Cell Urine Auto >30 /lpf (0-5); Glucose Urine UA Negative (Negative); Ketones Urine Negative (Negative); Leukocyte Esterase Urine Negative (Negative); Nitrite Urine Negative (Negative); Protein Urine 2+ (Negative); Specific Gravity Urine 1.018 (1.000-1.030); Urobilinogen Urine Negative (Negative)
[2019-07-04] MEDS ORDERED: LANTUS PER UNIT CHARGE SQ ONE (21:55)
[2019-07-04] MEDS ORDERED: MoRPHine SULFATE 2 MG/ML CARP IV PRN (22:45)
[2019-07-04] MEDS ORDERED: MoRPHine SULFATE 4 MG/ML 1 ML CARP\\VIAL IV PRN (22:45)
[2019-07-04] MEDS ORDERED: CARBOHYDRATES FOR HYPOGLYCEMIA PO PRN (22:45)
[2019-07-04] MEDS ORDERED: GLUCOSE 10 TABS/TUBE PO PRN (22:45)
[2019-07-04] MEDS ORDERED: MAGNESIUM SULFATE / D5W 1 GM/100 ML BAG IV ONE (22:45)
[2019-07-04] MEDS ORDERED: GLUCAGON FOR INJ 1 MG VIAL SQ PRN (22:45)
[2019-07-04] MEDS ORDERED: DEXTROSE 50% 50 ML SYRINGE IV PRN (22:45)
[2019-07-04] MEDS ORDERED: GLUCOSE 40% GEL 15 GM TUBE PO PRN (22:45)
[2019-07-04] MEDS ORDERED: ONDANSETRON INJ 2 MG/ML 2 ML VIAL IV PRN (22:45)
[2019-07-04] MEDS ORDERED: ACETAMINOPHEN 325 MG TAB PO PRN (22:45)
[2019-07-04] MEDS: SODIUM CHLORIDE 0.9% 1000ML 1,000 ML IV SCH (23:21)
[2019-07-04] MEDS: INSULIN ASPART 100 UNITS/ML 3 ML PEN SC SCH (23:28)
--- NOTE | 2019-07-04 23:50 | Emergency Department Note ---
Entered by Joyce Dennison acting as a scribe for History of Present Illness General Chief complaint: Urinary Symptoms Stated complaint: UTI, SHAKES Source: patient and family () Limitations: no limitations History of Present Illness Onset (ago): week(s) 1 Location: head Pain Consistency: + intermittent Maximum Pain Intensity: 5 Quality: + other (fever) Associated symptoms: + denies other symptoms (vomiting, new cough, chest pain, and new abdominal pain), + loss of appetite and + other (shaking, back pain, nausea) The patient is a 74 year old male who presents to the Emergency Room with complaints of an intermittent fever that began over a week ago. His , at bedside, notes that the patient's fever reached 103.8 degrees a few days ago, but it has been over 100.4 daily since the symptoms began. The patient complains of "whole body shaking" that began 3-4 days ago. His reports that he "gets the shakes" before his fever returns. The patient notes that he had dysuria and urinary frequency before taking the antibiotics, but he now longer has those symptoms. The patient complains of back pain, nausea, and loss of appetite. He notes some SOB with coughing. He denies any vomiting, new cough, chest pain, and new abdominal pain. His , at bedside, reports that the patient was seen by his PCP and prescribed 7-10 days of ciprofloxacin for a UTI. She notes that the patient finished his last dose yesterday morning. The patient's notes that he does not take a blood thinner. Home Medications Home Medications Medication Instructions Recorded Confirmed Type calcium carbonate 334 mg-magnesium 1 tab PO DAILY tab 01/04/19 07/04/19 History oxide 134 mg-zinc sulf 5 mg tablet ferrous gluconate 240 mg (27 mg 240 mg PO DAILY tab 04/14/19 07/04/19 History iron) tablet omega-3 acid ethyl esters 1 gram 1 cap PO DAILY cap 04/14/19 07/04/19 History capsule levothyroxine 125 mcg tablet 125 mcg PO DAILY #90 tab 05/05/19 07/04/19 Rx amlodipine 10 mg tablet 10 mg PO DAILY #90 tab 05/14/19 07/04/19 Rx pantoprazole 40 mg tablet,delayed 40 mg PO BID #60 tab 05/19/19 07/04/19 Rx release hydrochlorothiazide 25 mg tablet 25 mg PO DAILY #90 tab 05/26/19 07/04/19 Rx losartan 100 mg tablet 100 mg PO DAILY #90 tab 05/26/19 07/04/19 Rx cholecalciferol (vitamin D3) 25 2,000 units PO DAILY cap 06/04/19 07/04/19 History mcg (1,000 unit) capsule ciprofloxacin HCl 500 mg tablet 500 mg PO BID #14 tab 06/26/19 07/04/19 Rx glimepiride 4 mg PO DAILY 07/04/19 07/04/19 History insulin glargine [Basaglar KwikPen 30 - 33 units SQ QPM 07/04/19 07/04/19 History U-100 Insulin] rosuvastatin 40 mg PO DAILY 07/04/19 07/04/19 History Allergies Allergy/AdvReac Type Severity Reaction Status Date / Time No Known Allergies Allergy Verified 07/04/19 20:14 Past Med/Surg History Medical History Acute upper GI bleed (Acute) Aortic stenosis (Acute) Atrophy of left kidney (Acute) Benign essential hypertension (Chronic) Chronic kidney disease, stage III (moderate) (Chronic) Diabetes mellitus type 2, uncontrolled, with complications (Chronic) GERD without esophagitis (Acute) Hyperlipidemia (Chronic) Hypothyroidism (Chronic) Recent non-ST elevation myocardial infarction (NSTEMI) (Resolved) Right bundle branch block (RBBB) (Acute) Surgical History S/P AVR (aortic valve replacement) (Resolved) S/P CABG (coronary artery bypass graft) (Resolved) Family History Other Colorectal cancer Social History Preferred Language: Setswana Communication Ability: Effective Precise Winder Required: No Beliefs That Will Affect Care: None marital status: Current Living Situation: Spouse current occupational status: retired Other Information That Helps Us Care for You: No Feels Safe at Home: Yes Safety Concerns: Feels Safe At This Time Smoking Status: Former smoker Hx Alcohol Use: No Hx Substance Use: No caffeine: Yes Dental Care, Regularly: Yes Physical Activity Frequency: 5-6 Times per Week Physical Activity Frequency Comment: Walking Seatbelt Use: always Sunscreen Use: No Review of Systems See HPI for pertinent positives & negatives. and A total of 10 systems reviewed and were otherwise negative Physical Exam Vital Signs Vital Signs - 24 hr 07/04/19 17:43 07/04/19 18:35 07/04/19 18:36 Temperature 37.6 C H 39.5 C H Temperature Source Oral Oral Pulse Rate 120 H Pulse Rate [Apical] 123 H Pulse Rate from SpO2 Sensor Pulse Rhythm [Apical] Regular Respiratory Rate 24 22 Respiratory Effort / Characteristics Non-Labored Respiratory Depth Normal Blood Pressure 126/69 Blood Pressure [Left Arm] 189/86 H Blood Pressure Mean 88 Blood Pressure Mean [Left Arm] 120 Blood Pressure Position [Left Arm] Lying Pulse Oximetry 94 92 89 L Oxygen Delivery Method Room Air Room Air Room Air Oxygen Flow Rate 2 Sepsis Recent Fever Within 48 Hours Yes Sepsis New/Unexplained Change in Mental Status No Sepsis Action Taken by Nursing No Action Required 07/04/19 19:37 07/04/19 20:05 07/04/19 21:09 Temperature 37.6 C H Temperature Source Pulse Rate 105 H 93 H Pulse Rate [Apical] 109 H Pulse Rate from SpO2 Sensor 104 H 89 Pulse Rhythm [Apical] Respiratory Rate 23 24 16 Respiratory Effort / Characteristics Respiratory Depth Blood Pressure 109/54 L 93/48 L Blood Pressure [Left Arm] 107/53 L Blood Pressure Mean 70 59 Blood Pressure Mean [Left Arm] 71 Blood Pressure Position [Left Arm] Pulse Oximetry 94 93 94 Oxygen Delivery Method Nasal Cannula Nasal Cannula Nasal Cannula Oxygen Flow Rate 2 2 2 Sepsis Recent Fever Within 48 Hours Sepsis New/Unexplained Change in Mental Status Sepsis Action Taken by Nursing GENERAL: sitting up in bed, disheveled, ill-appearing, wearing a hospital gown EYE EXAM: normal conjunctiva OROPHARYNX: no exudate, no erythema, lips, buccal mucosa, and tongue normal and mucous membranes are moist NECK: supple, no nuchal rigidity, no adenopathy, non-tender LUNGS: Clear to auscultation. Normal chest wall mechanics HEART: systolic ejection murmur, tachy ABDOMEN: abdomen soft, non-tender, normo-active bowel sounds, no masses, no rebound or guarding. BACK: Back is symmetrical on inspection and there is no deformity, no midline tenderness, no CVA tenderness. SKIN: no rashes and no bruising UPPER EXTREMITIES: upper extremities are grossly normal. LOWER EXTREMITIES: No pitting edema. NEURO EXAM: Normal sensorium, cranial nerves II-XII grossly intact, normal speech, no gross weakness of arms, no gross weakness of legs. Course Course ED COURSE: Vital signs were reviewed and showed febrile and tachycardia. The patients medical record was reviewed. Per the EMR, the patient's blood work from 06/26/19 showed a white count, MABEL, and a negative Lyme. The above diagnostic studies were performed and reviewed. ED treatments and interventions as stated above. 1753: The patient was evaluated in room C01B. A complete history and physical examination was performed. 1957: I spoke with Dr. Lopez, [facility] hospitalist, about the patient's case. He will further evaluate the patient. 2003: Upon reevaluation, the patient is stable. I discussed my findings with the patient and he understands and agrees with the treatment plan. Based on the patients age, coexisting illnesses, exam and lab findings the dec ision to treat as an inpatient was made. The patient remained stable while under my care. The patient will be evaluated for further management. Administered Medications Sodium Chloride (Nss 1000ml) 1,000 mls @ 125 mls/hr IV .Q8H SANTY Stop: 08/03/19 22:44 Last Admin: 07/04/19 23:21 Dose: 125 mls/hr Documented by: [id number] Insulin Aspart (Novolog Flexpen) 0 units SC ACHS SANTY Stop: 08/03/19 23:29 Last Admin: 07/04/19 23:28 Dose: 3 units Documented by: [id number] Cosigned by: [id number] Discontinued Medications Acetaminophen (Tylenol) 1,000 mg PO NOW STA Stop: 07/04/19 17:59 Last Admin: 07/04/19 18:44 Dose: 1,000 mg Documented by: [id number] Sodium Chloride (Nss 1000ml) 1,000 mls @ 999 mls/hr IV .Q1H1M ONE Stop: 07/04/19 18:52 Last Infusion: 07/04/19 20:03 Dose: 0 mls/hr Documented by: [id number] Admin: 07/04/19 18:43 Dose: 999 mls/hr Documented by: [id number] Piperacillin Sod/Tazobactam Sod (Zosyn) 4.5 gm in 120 mls @ 240 mls/hr IV NOW ONE Stop: 07/04/19 18:32 Last Infusion: 07/04/19 20:03 Dose: 0 mls/hr Documented by: [id number] Admin: 07/04/19 18:44 Dose: 240 mls/hr Documented by: [id number] Levofloxacin/Dextrose (Levaquin/D5w) 750 mg in 150 mls @ 100 mls/hr IV Q24H SANTY Stop: 07/18/19 19:14 Last Infusion: 07/04/19 21:39 Dose: 0 mls/hr Documented by: [id number] Admin: 07/04/19 20:04 Dose: 100 mls/hr Documented by: [id number] Magnesium Sulfate/Dextrose (Magnesium Sulfate / D5w) 1 gm in 100 mls @ 100 mls/hr IV ONE ONE Stop: 07/04/19 23:44 Last Admin: 07/04/19 23:28 Dose: 100 mls/hr Documented by: [id number] Insulin Glargine (Lantus Per Unit) 15 units SQ NOW ONE Stop: 07/04/19 21:56 Last Admin: 07/04/19 22:15 Dose: 15 units Documented by: [id number] Cosigned by: [id number] Ondansetron HCl (Zofran) 4 mg IV NOW STA Stop: 07/04/19 17:59 Last Admin: 07/04/19 18:44 Dose: 4 mg Documented by: [id number] Critical Care Time Critical Care Time: Yes Total Critical Care Time: 35 I have personally spent 35 minutes of critical care time in the direct management of this patient. This includes bedside care, interpretation of diagnostic studies, and testing, discussion with consultants, patient, and family members, and other required patient management activities. This 35 minutes is in excess of all separately billable procedures. Medical Decision Making Differential Diagnosis Differential diagnosis includes etiologies such as sepsis, UTI, pneumonia, metabolic, electrolyte abnormalities, cardiac sources, intracerebral event, toxicologic, neurologic, as well as others were entertained. Medical Records Attestation: I reviewed the patient's medical records. Home Medications Current Medication List: was personally reviewed by me Laboratory Data Attestation: I reviewed the patient's lab results. Result diagrams: 07/04/19 18:21 07/04/19 18:21 Lab Results 07/04/19 07/04/19 07/04/19 Range/Units 18:21 18:21 18:21 WBC 19.49 H (4.8-10.8) K/uL RBC 4.15 L (4.7-6.1) M/uL Hgb 9.2 L (14.0-18.0) g/dL Hct 29.2 L (42-52) % MCV 70.4 L (80-100) fL MCH 22.2 L (25-34) pg MCHC 31.5 L (32-36) g/dL RDW Std Deviation 45.1 (36.4-46.3) fL RDW Coeff of Sarah 17.6 H (11.5-14.5) % Plt Count 234 (130-400) K/uL MPV 9.7 (7.4-10.4) fL Immature Gran % (Auto) 0.3 % Neut % (Auto) 92.8 % Lymph % (Auto) 4.2 % Shelby % (Auto) 2.2 % Eos % (Auto) 0.4 % Baso % (Auto) 0.1 % Immature Gran # (Auto) 0.06 H (0.00-0.02) K/uL Neut # (Auto) 18.10 H (1.4-6.5) K/uL Lymph # (Auto) 0.82 L (1.2-3.4) K/uL Shelby # (Auto) 0.42 (0.11-0.59) K/uL Eos # (Auto) 0.08 (0-0.5) K/uL Baso # (Auto) 0.01 (0-0.2) K/uL PT 11.6 (9.0-12.0) Seconds INR 1.1 (0.9-1.1) APTT 30.1 (21.0-31.0) Seconds PTT Ratio 1.1 Sodium 132 L (136-145) mmol/L Potassium 4.1 (3.5-5.1) mmol/L Chloride 104 (98-107) mmol/L Carbon Dioxide 21 (21-32) mmol/L Anion Gap 7.0 (3-11) BUN 38 H (7-18) mg/dl Creatinine 2.25 H (0.6-1.4) mg/dl Est Cr Clr Drug Dosing 32.6 ml/min Est GFR ( Amer) 32.1 Est GFR (Non-Af Amer) 27.7 BUN/Creatinine Ratio 16.8 (10-20) Glucose 235 H (70-99) mg/dl Lactate (0.4-2.0) mmol/L Calcium 8.6 (8.5-10.1) mg/dl Magnesium 1.5 L (1.8-2.4) mg/dl Total Bilirubin 0.6 (0.2-1) mg/dl AST 17 (15-37) U/L ALT 18 (12-78) U/L Alkaline Phosphatase 94 (45-117) U/L Troponin I < 0.015 (0-0.045) ng/ml Total Protein 7.7 (6.4-8.2) gm/dl Albumin 2.2 L (3.4-5.0) gm/dl Globulin 5.5 H (2.5-4.0) gm/dl Albumin/Globulin Ratio 0.4 L (0.9-2) Urine Color Urine Appearance (Clear) Urine pH (4.5-7.5) Ur Specific [place] (1.000-1.030) Urine Protein (Negative) Urine Glucose (UA) (Negative) Urine Ketones (Negative) Urine Blood (Negative) Urine Nitrite (Negative) Urine Bilirubin (Negative) Urine Urobilinogen (Negative) Ur Leukocyte Esterase (Negative) Urine WBC (Auto) (0-5) /hpf Urine RBC (Auto) (0-4) /hpf U Hyaline Cast (Auto) (0-5) /lpf U Epithel Cells (Auto) (0-5) /lpf Urine Bacteria (Auto) (Negative) 07/04/19 07/04/19 Range/Units 18:21 20:06 WBC (4.8-10.8) K/uL RBC (4.7-6.1) M/uL Hgb (14.0-18.0) g/dL Hct (42-52) % MCV (80-100) fL MCH (25-34) pg MCHC (32-36) g/dL RDW Std Deviation (36.4-46.3) fL RDW Coeff of Sarah (11.5-14.5) % Plt Count (130-400) K/uL MPV (7.4-10.4) fL Immature Gran % (Auto) % Neut % (Auto) % Lymph % (Auto) % Shelby % (Auto) % Eos % (Auto) % Baso % (Auto) % Immature Gran # (Auto) (0.00-0.02) K/uL Neut # (Auto) (1.4-6.5) K/uL Lymph # (Auto) (1.2-3.4) K/uL Shelby # (Auto) (0.11-0.59) K/uL Eos # (Auto) (0-0.5) K/uL Baso # (Auto) (0-0.2) K/uL PT (9.0-12.0) Seconds INR (0.9-1.1) APTT (21.0-31.0) Seconds PTT Ratio Sodium (136-145) mmol/L Potassium (3.5-5.1) mmol/L Chloride (98-107) mmol/L Carbon Dioxide (21-32) mmol/L Anion Gap (3-11) BUN (7-18) mg/dl Creatinine (0.6-1.4) mg/dl Est Cr Clr Drug Dosing ml/min Est GFR ( Amer) Est GFR (Non-Af Amer) BUN/Creatinine Ratio (10-20) Glucose (70-99) mg/dl Lactate 1.9 (0.4-2.0) mmol/L Calcium (8.5-10.1) mg/dl Magnesium (1.8-2.4) mg/dl Total Bilirubin (0.2-1) mg/dl AST (15-37) U/L ALT (12-78) U/L Alkaline Phosphatase (45-117) U/L Troponin I (0-0.045) ng/ml Total Protein (6.4-8.2) gm/dl Albumin (3.4-5.0) gm/dl Globulin (2.5-4.0) gm/dl Albumin/Globulin Ratio (0.9-2) Urine Color Dark Yellow Urine Appearance Clear (Clear) Urine pH 5.0 (4.5-7.5) Ur Specific [place] 1.018 (1.000-1.030) Urine Protein 2+ H (Negative) Urine Glucose (UA) Negative (Negative) Urine Ketones Negative (Negative) Urine Blood 3+ H (Negative) Urine Nitrite Negative (Negative) Urine Bilirubin Negative (Negative) Urine Urobilinogen Negative (Negative) Ur Leukocyte Esterase Negative (Negative) Urine WBC (Auto) 5-10 H (0-5) /hpf Urine RBC (Auto) 10-30 H (0-4) /hpf U Hyaline Cast (Auto) 5-10 H (0-5) /lpf U Epithel Cells (Auto) >30 H (0-5) /lpf Urine Bacteria (Auto) Negative (Negative) Imaging Data Radiologist's Impression: Radiology results as stated below per my review and the radiologist's interpretation:' XR chest 1V portable CLINICAL HISTORY: SEPSIS dyspnea COMPARISON STUDY: December 08, 2017 FINDINGS: Diffuse parenchymal infiltrate left lung base. Mild cardiomegaly. Prior median sternotomy. Right lung is clear. IMPRESSION: Diffuse parenchymal infiltrate left base combined with pre-existing superimposed atelectasis. ACT 112: Negative or not required by law. The above report was generated using voice recognition software. It may contain grammatical, syntax or spelling errors. Electronically signed by: Nathan Srivastava M.D. 07/04/2019 6:14 PM ABDOMEN AND PELVIS CT WITHOUT CONTRAST CT DOSE: 1407.89 mGy.cm HISTORY: febrile and abd /back pain TECHNIQUE: Multiaxial CT images of the abdomen and pelvis were performed without contrast. A dose lowering technique was utilized adhering to the principles of ALARA. COMPARISON STUDY: None. FINDINGS: Bibasilar linear densities likely representing subsegmental atelectasis. No pneumoperitoneum. No pneumatosis. No suspicious lytic are blastic osseous lesions. Mild motion artifact. The bladder is unremarkable. Punctate calcification within the right hepatic lobe. Otherwise, the unenhanced liver, gallbladder, pancreas, and spleen are unremarkable. Normal left adrenal gland. Fat-containing 3.3 cm lesion within the right adrenal gland suggestive of a benign myelolipoma. Calcified plaque within the normal caliber abdominal a tommy. Borderline enlarged upper periaortic lymph node measuring up to 1.1 cm. These could be reactive. The left kidney is markedly atrophic. No renal or ureteral stones. No hydronephrosis. There is moderate right perinephric fat stranding. There is mild left perinephric fat stranding. Suboptimal evaluation for bowel pathology due to the lack of intravenous and oral contrast. However, there is no definite bowel wall thickening or obstruction. Normal appendix. IMPRESSION: 1. Right greater than left perinephric fat stranding. This is nonspecific but could represent a bilateral pyelonephritis. Recommend correlation with urinalysis. 2. No renal or ureteral stones. No hydronephrosis. 3. Markedly atrophic left kidney. 4. No definite bowel wall thickening or obstruction. 5. Normal appendix. ACT 112: Negative or not required by law. Electronically signed by: Irving Vang M.D. 07/04/2019 7:53 PM ECG Data Attestation: I personally reviewed and interpreted this ECG as follows: Indication: + other (fever) Rate (beats per minute): tachycardic Rhythm: + sinus tachycardia ECG Intervals/blocks: + Right Bundle branch block ECG Findings: + Q waves (Inferior) and + Other (poor baseline, TWI is lateral ) Comparison ECG Date: from (08/10/17) Change: the following changes noted (TWI in the lateral in new) Blood Pressure Blood Pressure Findings: Low blood pressure Blood Pressure Disposition: further management by hospitalist RAMY Narrative Patient is a 74-year-old male who presents the ER who is febrile, tachycardic and hypoxic. IV was established blood work was obtained and showed a leukocytosis of 19,000. Mild anemia at 9.2 thousand. INR was unremarkable. BMP with a creatinine of 2.25 consistent with previous. Glucose was elevated to 35. Troponin was negative. LFTs unremarkable. Patient was given IV fluids along with Tylenol Zosyn and Levaquin. Blood cultures were obtained. Chest x- ray with an infiltrate. CT abdomen pelvis questioned pyelonephritis. UA was contaminated with multiple epithelial cells. He did have urinary symptoms. Do favor that this is likely a contamination as opposed to UTI but cannot be certain with the sepsis we will continue to treat and cover both pneumonia in the urine. Patient was updated bedside. Patient remained on 2 L nasal cannula while in the ER due to the hypoxia. Family was updated bedside discussed with the hospitalist for further evaluation. Impression & Plan Sepsis, Hypoxia, Pneumonia, Leukocytosis Discharge Plan Visit Data *Final* Discharge Date/Time: 07/04/19 22:19 Chief Complaint: Urinary Symptoms Stated Complaint: UTI, SHAKES ED Provider: Francesco Smalls Discharge Problem: Sepsis, Hypoxia, Pneumonia, Leukocytosis Patient Disposition: Admitted As Inpatient Discharge Instructions Interventions: ED Discharge Assessment Last Done: 07/04/19 22:19 Discharge Problem: Sepsis Qualifiers: Sepsis type: sepsis due to unspecified organism Sepsis acute organ dysfunction status: unspecified Qualified Code(s): A41.9 - Sepsis, unspecified organism Pneumonia Qualifiers: Pneumonia type: due to unspecified organism Laterality: unspecified laterality Lung location: unspecified part of lung Qualified Code(s): J18.9 - Pneumonia, unspecified organism Leukocytosis Qualifiers: Leukocytosis type: unspecified Qualified Code(s): D72.829 - Elevated white blood cell count, unspecified The scribe's documentation has been prepared under my direction and personally reviewed by me in its entirety. I confirm that the note above accurately reflects all work, treatment, procedures, and medical decision making performed by me.
--- NOTE | 2019-07-05 04:00 | History & Physical Report ---
Date of Service Admission was on 07/04/19. This is a late entry. July 05, 2019 Assessment & Plan (1) Pyelonephritis: Admit tele Klebsiella growing on outpatient urine cult Was sensitive to Cipro Will order Rocephin which was also sensitive. Nausea and pain control DVT prophylaxis = SCDs and sub-q heparin (2) Pneumonia: Left lower on CXR would consider this to be community acquired IV Rocephin and azithromycin. (3) Chronic kidney disease, stage III (moderate): Creat appears stable at 2.25 (4) GERD without esophagitis: Continue pantoprazole. (5) Diabetes mellitus type 2, uncontrolled, with complications: I ordered 1/2 of his usual evening dose of Lantus. He usually uses 30units, I gave 15 units in that his appetite is reduced. Sliding scale coverage also ordered. (6) Benign essential hypertension: I held losartan, HCTZ, and amlodipine as his BP was borderline low. (7) Hypothyroidism: Continue levothyroxine (8) Hypomagnesemia: Replaced recheck in am. History of Present Illness 74 y/o male presented to the ED with a 1 week history of intermittent F/C. Tmax per patient was 103.8 F. He has rigors with the fever. he was placed on Cipro by his PCP due to dysuria and urinary frequency. He has had improvement with the rigors, but temp spikes continued. He has back pain, anorexia, SOB, and cough. No N/v/D, chest pain, headache, or rash. Primary Care Provider: Luz Escobar MD Allergies Allergy/AdvReac Type Severity Reaction Status Date / Time No Known Allergies Allergy Verified 07/04/19 20:14 Home Medications Home Medications Medication Instructions Recorded Confirmed Type calcium carbonate 334 mg-magnesium 1 tab PO DAILY tab 01/04/19 07/04/19 History oxide 134 mg-zinc sulf 5 mg tablet ferrous gluconate 240 mg (27 mg 240 mg PO DAILY tab 04/14/19 07/04/19 History iron) tablet omega-3 acid ethyl esters 1 gram 1 cap PO DAILY cap 04/14/19 07/04/19 History capsule levothyroxine 125 mcg tablet 125 mcg PO DAILY #90 tab 05/05/19 07/04/19 Rx amlodipine 10 mg tablet 10 mg PO DAILY #90 tab 05/14/19 07/04/19 Rx pantoprazole 40 mg tablet,delayed 40 mg PO BID #60 tab 05/19/19 07/04/19 Rx release hydrochlorothiazide 25 mg tablet 25 mg PO DAILY #90 tab 05/26/19 07/04/19 Rx losartan 100 mg tablet 100 mg PO DAILY #90 tab 05/26/19 07/04/19 Rx cholecalciferol (vitamin D3) 25 2,000 units PO DAILY cap 06/04/19 07/04/19 History mcg (1,000 unit) capsule ciprofloxacin HCl 500 mg tablet 500 mg PO BID #14 tab 06/26/19 07/04/19 Rx glimepiride 4 mg PO DAILY 07/04/19 07/04/19 History insulin glargine [Basaglar KwikPen 30 - 33 units SQ QPM 07/04/19 07/04/19 History U-100 Insulin] rosuvastatin 40 mg PO DAILY 07/04/19 07/04/19 History Past Med/Surg History Medical History Acute upper GI bleed (Acute) Aortic stenosis (Acute) Atrophy of left kidney (Acute) Benign essential hypertension (Chronic) Chronic kidney disease, stage III (moderate) (Chronic) Diabetes mellitus type 2, uncontrolled, with complications (Chronic) GERD without esophagitis (Acute) Hyperlipidemia (Chronic) Hypothyroidism (Chronic) Recent non-ST elevation myocardial infarction (NSTEMI) (Resolved) Right bundle branch block (RBBB) (Acute) Surgical History S/P AVR (aortic valve replacement) (Resolved) S/P CABG (coronary artery bypass graft) (Resolved) Family History Other Colorectal cancer Social History Preferred Language: Turkish Communication Ability: Effective Clinical Associate Required: No Beliefs That Will Affect Care: None marital status: Current Living Situation: Spouse current occupational status: retired Other Information That Helps Us Care for You: No Feels Safe at Home: Yes Safety Concerns: Feels Safe At This Time Smoking Status: Former smoker Hx Alcohol Use: No Hx Substance Use: No caffeine: Yes Dental Care, Regularly: Yes Physical Activity Frequency: 5-6 Times per Week Physical Activity Frequency Comment: Walking Seatbelt Use: always Sunscreen Use: No Review of Systems Review of Systems: Constitutional- As in HPI. Eyes- no acute visual changes ENT- no sinus drainage; no pharyngitis Pulmonary- + cough, non-productive. Cardiac- no chest pain, no palpitations, no orthopnea. GI- No abdominal pain, see HPI. - As in HPI Musculoskeletal- no arthralgias, no myalgias, chronic edema right lower leg and foot from previous injury. Derm- no rashes, no new skin lesions, no changing skin lesions Hematologic- no unusual bruising, no unusual bleeding Lymphatics- no adenopathy Endocrine- no polyuria or polydipsia; no heat or cold intolerance Neuro- no headaches, no focal neurologic symptoms Psych- no anxiety, no depression Physical Exam Physical Exam: General- adult male, NAD Head- atraumatic Eyes- PERRL, EOMI, anicteric ENT- oropharynx clear Neck- supple, no JVD, no adenopathy, no thyromegaly. Lungs- clear to auscultation and percussion Heart- regular rhythm; no murmur, no gallop, no rub appreciated Abdomen- normal bowel sounds, soft, nontender. Mild costovertebral angle tenderness with percussion b/l. Extremities- no pretibial edema, no calf tenderness; peripheral pulses intact Neuro- alert, oriented x 3; PERRL, EOMI; Non-focal. Skin- warm & dry Results & Data Vital Signs (Past 12 Hours) Vital Signs Temp Pulse Pulse Resp BP BP Pulse Ox 07/05/19 03:24 36.6 C 70 18 121/63 98 07/05/19 00:44 84 07/04/19 22:40 36.5 C 85 18 108/65 95 07/04/19 22:15 81 19 103/59 L 94 07/04/19 21:09 93 H 16 93/48 L 94 07/04/19 20:05 37.6 C H 105 H 24 109/54 L 93 07/04/19 19:37 109 H 23 107/53 L 94 07/04/19 18:36 89 L 07/04/19 18:35 39.5 C H 123 H 22 189/86 H 92 07/04/19 17:43 37.6 C H 120 H 24 126/69 94 Laboratory Results Laboratory Results WBC 19.49 K/uL (4.8-10.8) H 07/04/19 18:21 RBC 4.15 M/uL (4.7-6.1) L 07/04/19 18:21 Hgb 9.2 g/dL (14.0-18.0) L 07/04/19 18:21 Hct 29.2 % (42-52) L 07/04/19 18:21 MCV 70.4 fL (80-100) L 07/04/19 18:21 MCH 22.2 pg (25-34) L 07/04/19 18:21 MCHC 31.5 g/dL (32-36) L 07/04/19 18:21 RDW Std Deviation 45.1 fL (36.4-46.3) 07/04/19 18:21 RDW Coeff of Sarah 17.6 % (11.5-14.5) H 07/04/19 18:21 Plt Count 234 K/uL (130-400) 07/04/19 18:21 MPV 9.7 fL (7.4-10.4) 07/04/19 18:21 Immature Gran % (Auto) 0.3 % 07/04/19 18:21 Neut % (Auto) 92.8 % 07/04/19 18:21 Lymph % (Auto) 4.2 % 07/04/19 18:21 Preble % (Auto) 2.2 % 07/04/19 18:21 Eos % (Auto) 0.4 % 07/04/19 18:21 Baso % (Auto) 0.1 % 07/04/19 18:21 Immature Gran # (Auto) 0.06 K/uL (0.00-0.02) H 07/04/19 18:21 Neut # (Auto) 18.10 K/uL (1.4-6.5) H 07/04/19 18:21 Lymph # (Auto) 0.82 K/uL (1.2-3.4) L 07/04/19 18:21 Preble # (Auto) 0.42 K/uL (0.11-0.59) 07/04/19 18:21 Eos # (Auto) 0.08 K/uL (0-0.5) 07/04/19 18:21 Baso # (Auto) 0.01 K/uL (0-0.2) 07/04/19 18:21 PT 11.6 Seconds (9.0-12.0) 07/04/19 18:21 INR 1.1 (0.9-1.1) 07/04/19 18:21 APTT 30.1 Seconds (21.0-31.0) 07/04/19 18:21 PTT Ratio 1.1 07/04/19 18:21 Sodium 132 mmol/L (136-145) L 07/04/19 18:21 Potassium 4.1 mmol/L (3.5-5.1) 07/04/19 18:21 Chloride 104 mmol/L (98-107) 07/04/19 18:21 Carbon Dioxide 21 mmol/L (21-32) 07/04/19 18:21 Anion Gap 7.0 (3-11) 07/04/19 18:21 BUN 38 mg/dl (7-18) H 07/04/19 18:21 Creatinine 2.25 mg/dl (0.6-1.4) H 07/04/19 18:21 Est Cr Clr Drug Dosing 32.6 ml/min 07/04/19 18:21 Est GFR ( Amer) 32.1 07/04/19 18:21 Est GFR (Non-Af Amer) 27.7 07/04/19 18:21 BUN/Creatinine Ratio 16.8 (10-20) 07/04/19 18:21 Glucose 235 mg/dl (70-99) H 07/04/19 18:21 POC Glucose 201 (70-99) H 07/04/19 23:16 Lactate 1.9 mmol/L (0.4-2.0) 07/04/19 18:21 Calcium 8.6 mg/dl (8.5-10.1) 07/04/19 18:21 Magnesium 1.5 mg/dl (1.8-2.4) L 07/04/19 18:21 Total Bilirubin 0.6 mg/dl (0.2-1) 07/04/19 18:21 AST 17 U/L (15-37) 07/04/19 18:21 ALT 18 U/L (12-78) 07/04/19 18:21 Alkaline Phosphatase 94 U/L (45-117) 07/04/19 18:21 Troponin I < 0.015 ng/ml (0-0.045) 07/04/19 18:21 Total Protein 7.7 gm/dl (6.4-8.2) 07/04/19 18:21 Albumin 2.2 gm/dl (3.4-5.0) L 07/04/19 18:21 Globulin 5.5 gm/dl (2.5-4.0) H 07/04/19 18:21 Albumin/Globulin Ratio 0.4 (0.9-2) L 07/04/19 18:21 Urine Color Dark Yellow 07/04/19 20:06 Urine Appearance Clear (Clear) 07/04/19 20:06 Urine pH 5.0 (4.5-7.5) 07/04/19 20:06 Ur Specific [place] 1.018 (1.000-1.030) 07/04/19 20:06 Urine Protein 2+ (Negative) H 07/04/19 20:06 Urine Glucose (UA) Negative (Negative) 07/04/19 20:06 Urine Ketones Negative (Negative) 07/04/19 20:06 Urine Blood 3+ (Negative) H 07/04/19 20:06 Urine Nitrite Negative (Negative) 07/04/19 20:06 Urine Bilirubin Negative (Negative) 07/04/19 20:06 Urine Urobilinogen Negative (Negative) 07/04/19 20:06 Ur Leukocyte Esterase Negative (Negative) 07/04/19 20:06 Urine WBC (Auto) 5-10 /hpf (0-5) H 07/04/19 20:06 Urine RBC (Auto) 10-30 /hpf (0-4) H 07/04/19 20:06 U Hyaline Cast (Auto) 5-10 /lpf (0-5) H 07/04/19 20:06 U Epithel Cells (Auto) >30 /lpf (0-5) H 07/04/19 20:06 Urine Bacteria (Auto) Negative (Negative) 07/04/19 20:06 Diagnostic Findings [facility], [place] [phone] CT Scan Report Patient: VIDHYA ROBISON Ozzy Date: 07/04/19 MR#: [id number]: [address] Acct ID:[id number]: Date: [address] [place] [address] Zip: [place] [address] Age: 74Location: ED Sex: M Room/Bed: Att Phy:Diagnosis: UTI, SHAKES Nelly Phy: Luz Escobar MDService Date: 07/04/19 Fam Phy:Interpreting Phy: Irving Vang MD Admit Phy: Ordering Phy: Francesco Smalls DO cc: ~ ABDOMEN AND PELVIS CT WITHOUT CONTRAST CT DOSE: 1407.89 mGy.cm HISTORY: febrile and abd /back pain TECHNIQUE: Multiaxial CT images of the abdomen and pelvis were performed without contrast. A dose lowering technique was utilized adhering to the principles of ALARA. COMPARISON STUDY: None. FINDINGS: Bibasilar linear densities likely representing subsegmental atelectasis. No pneumoperitoneum. No pneumatosis. No suspicious lytic are blastic osseous lesions. Mild motion artifact. The bladder is unremarkable. Punctate calcification within the right hepatic lobe. Otherwise, the unenhanced liver, gallbladder, pancreas, and spleen are unremarkable. Normal left adrenal gland. Fat-containing 3.3 cm lesion within the right adrenal gland suggestive of a benign myelolipoma. Calcified plaque within the normal caliber abdominal aorta. Borderline enlarged upper periaortic lymph node measuring up to 1.1 cm. These could be reactive. The left kidney is markedly atrophic. No renal or ureteral stones. No hydronephrosis. There is moderate right perinephric fat stranding. There is mild left perinephric fat stranding. Suboptimal evaluation for bowel pathology due to the lack of intravenous and oral contrast. However, there is no definite bowel wall thickening or obstruction. Normal appendix. IMPRESSION: 1. Right greater than left perinephric fat stranding. This is nonspecific but could represent a bilateral pyelonephritis. Recommend correlation with urinalysis. 2. No renal or ureteral stones. No hydronephrosis. 3. Markedly atrophic left kidney. 4. No definite bowel wall thickening or obstruction. 5. Normal appendix. ACT 112: Negative or not required by law. Electronically signed by: Irving Vang M.D. 07/04/2019 7:53 PM Dictated: 07/04/191947 Transcribed: 07/04/191947 [place], [place] [phone] XRay Report Patient: VIDHYA ROBISON Date: 07/04/19 MR#: [id number]: [id number] Acct ID:[id number]: [facility] Zip[facility] [place] [address] Age: 74Location: ED Sex: M Room/Bed: Att Phy:Diagnosis: UTI, SHAKES Nelly Phy: Luz Escobar MDService Date: 07/04/19 Fam Phy:Interpreting Phy: Nathan Srivastava MD Admit Phy: Ordering Phy: Francesco Smalls, DO cc: ~ XR chest 1V portable CLINICAL HISTORY: SEPSIS dyspnea COMPARISON STUDY: December 08, 2017 FINDINGS: Diffuse parenchymal infiltrate left lung base. Mild cardiomegaly. Prior median sternotomy. Right lung is clear. IMPRESSION: Diffuse parenchymal infiltrate left base combined with pre-existing superimposed atelectasis. ACT 112: Negative or not required by law. The above report was generated using voice recognition software. It may contain grammatical, syntax or spelling errors. Electronically signed by: Nathan Srivastava M.D. 07/04/2019 6:14 PM Dictated: 07/04/191812 Transcribed: 07/04/191812 Code Status & VTE Plan VTE Prophylaxis Plan VTE Prophylaxis will be ordered: Yes PG Care Time/CCT Total # of Minutes Spent Total Time Spent: 65 Total Time Spent with Patient: Total time spent is greater than 50% in coordination of care (as documented) at patient's floor/unit and/or counseling patient: (1) Pneumonia Laterality: unspecified laterality Lung location: unspecified part of lung Pneumonia type: due to unspecified organism Qualified Code(s): J18.9 - Pneumonia, unspecified organism
[2019-07-05 05:33] LABS: Hematocrit (blood only) 24.6 % (42-52); Hemoglobin 7.7 g/dL (14.0-18.0); Mean Corpuscular Hemoglobin 22.1 pg (25-34); Mean Corpuscular Hgb Conc 31.3 g/dL (32-36); Mean Corpuscular Volume 70.7 fL (80-100); Mean Platelet Volume 9.3 fL (7.4-10.4); Platelet Count 189 K/uL (130-400); RDW Coefficient of Variation 17.5 % (11.5-14.5); RDW Standard Deviation 44.9 fL (36.4-46.3); Red Blood Count 3.48 M/uL (4.7-6.1); White Blood Count 15.45 K/uL (4.8-10.8)
[2019-07-05 05:56] LABS: BUN Creatinine Ratio 17.2 (10-20); Calcium 8.4 mg/dl (8.5-10.1); Creatinine Clr Calc Pharmacy 29.8 ml/min; Potassium 4.4 mmol/L (3.5-5.1)
[2019-07-05] MEDS: LEVOTHYROXINE SODIUM 125 MCG TABLET PO SCH (06:15)
[2019-07-05] MEDS: SODIUM CHLORIDE 0.9% 1000ML 1,000 ML IV SCH ×3 (06:16→22:03)
[2019-07-05] MEDS: cefTRIAXone SODIUM 2,000 MG in DEXTROSE 5% 50 ML IV SCH (08:55)
[2019-07-05] MEDS: INSULIN ASPART 100 UNITS/ML 3 ML PEN SC SCH ×4 (08:56→20:50)
[2019-07-05] MEDS: OMEGA-3 (PURIFIED FISH OIL) 1 GM CAP PO SCH (08:58)
[2019-07-05] MEDS: PANTOprazole 40 MG TAB PO SCH ×2 (08:58→20:47)
[2019-07-05] MEDS: ROSUVASTATIN CALCIUM 20 MG TAB PO SCH (08:58)
[2019-07-05] MEDS: CHOLECALCIFEROL 1,000 UNITS TAB PO SCH (08:58)
[2019-07-05] MEDS: CALCIUM CARBONATE 1250MG TAB PO SCH (08:58)
--- NOTE | 2019-07-05 12:42 | Electrocardiogram Report ---
Test Reason : Blood Pressure : / mmHG Vent. Rate : 125 BPM Atrial Rate : 125 BPM P-R Int : 118 ms QRS Dur : 122 ms QT Int : 332 ms P-R-T Axes : 064 033 056 degrees QTc Int : 479 ms Poor data quality, interpretation may be adversely affected Sinus tachycardia Right bundle branch block Abnormal ECG When compared with ECG of 10-AUG-2017 17:55, Vent. rate has increased BY 41 BPM Confirmed by Avery Mock ([id number]) on 07/05/2019 12:42:39 PM Referred By: REFERRED SELF Confirmed By:Avery Mock
[2019-07-05] MEDS: AZITHROMYCIN 500 MG in DEXTROSE 5% 250 ML IV SCH (12:47)
[2019-07-05 19:19] LABS: Hematocrit (blood only) 24.9 % (42-52); Hemoglobin 7.8 g/dL (14.0-18.0)
[2019-07-05 19:40] LABS: Ferritin 348.6 ng/ml (8-388)
--- NOTE | 2019-07-05 20:04 | Hospitalist Progress Note ---
Date of Service July 05, 2019 Assessment & Plan (1) Pyelonephritis: Admit tele Klebsiella growing on outpatient urine cult Was sensitive to Cipro Will order Rocephin which was also sensitive. Awaiting 24 hour period without fever. will continue antibiotics Nausea and pain control DVT prophylaxis = SCDs and sub-q heparin (2) Pneumonia: Left lower on CXR would consider this to be community acquired IV Rocephin and azithromycin. (3) Chronic kidney disease, stage III (moderate): Creat appears stable at 2.25 (4) GERD without esophagitis: Continue pantoprazole. (5) Diabetes mellitus type 2, uncontrolled, with complications: I ordered 1/2 of his usual evening dose of Lantus. He usually uses 30units, I gave 15 units in that his appetite is reduced. Sliding scale coverage also ordered. (6) Benign essential hypertension: I held losartan, HCTZ, and amlodipine as his BP was borderline low. (7) Hypothyroidism: Continue levothyroxine (8) Hypomagnesemia: Replaced recheck in am. Subjective Patient is a 74 yo male who reports feeling well. Patient has not had any fever today. Review of Systems Review of Systems: Constitutional- As in HPI. Eyes- no acute visual changes ENT- no sinus drainage; no pharyngitis Pulmonary- + cough, non-productive. Cardiac- no chest pain, no palpitations, no orthopnea. GI- No abdominal pain, see HPI. - As in HPI Musculoskeletal- no arthralgias, no myalgias, chronic edema right lower leg and foot from previous injury. Derm- no rashes, no new skin lesions, no changing skin lesions Hematologic- no unusual bruising, no unusual bleeding Lymphatics- no adenopathy Endocrine- no polyuria or polydipsia; no heat or cold intolerance Neuro- no headaches, no focal neurologic symptoms Psych- no anxiety, no depression Physical Exam Physical Exam: General- adult male, NAD Head- atraumatic Eyes- PERRL, EOMI, anicteric ENT- oropharynx clear Neck- supple, no JVD, no adenopathy, no thyromegaly. Lungs- clear to auscultation and percussion Heart- regular rhythm; no murmur, no gallop, no rub appreciated Abdomen- normal bowel sounds, soft, nontender. Continues to have mild costovertebral angle tenderness with percussion b/l. Extremities- no pretibial edema, no calf tenderness; peripheral pulses intact Neuro- alert, oriented x 3; PERRL, EOMI; Non-focal. Skin- warm & dry Results & Data Vital Signs (Past 12 Hours) Vital Signs Temp Pulse Pulse Resp BP Pulse Ox 07/05/19 19:11 36.8 C 83 18 125/70 92 07/05/19 16:14 85 07/05/19 15:14 37 C 81 18 126/76 93 07/05/19 13:48 64 07/05/19 12:00 36.9 C 86 18 129/60 95 PG Care Time/CCT Total # of Minutes Spent Total Time Spent with Patient: Total time spent is greater than 50% in coordination of care (as documented) at patient's floor/unit and/or counseling patient: (1) Pneumonia Laterality: unspecified laterality Lung location: unspecified part of lung Pneumonia type: due to unspecified organism Qualified Code(s): J18.9 - Pneumonia, unspecified organism
[2019-07-06] MEDS: LEVOTHYROXINE SODIUM 125 MCG TABLET PO SCH (06:07)
[2019-07-06] MEDS: SODIUM CHLORIDE 0.9% 1000ML 1,000 ML IV SCH (06:07)
[2019-07-06 06:50] LABS: Hematocrit (blood only) 25.6 % (42-52); Hemoglobin 7.8 g/dL (14.0-18.0); Mean Corpuscular Hgb Conc 30.5 g/dL (32-36); Mean Corpuscular Volume 72.1 fL (80-100); Mean Platelet Volume 9.6 fL (7.4-10.4); Platelet Count 225 K/uL (130-400); RDW Coefficient of Variation 17.6 % (11.5-14.5); Red Blood Count 3.55 M/uL (4.7-6.1); White Blood Count 11.13 K/uL (4.8-10.8)
[2019-07-06 07:26] LABS: BUN Creatinine Ratio 17.2 (10-20); Calcium 8.2 mg/dl (8.5-10.1); Creatinine Clr Calc Pharmacy 35.2 ml/min; Est GFR (African American) 34.9; Est GFR (Non-African American) 30.1; Potassium 4.2 mmol/L (3.5-5.1)
[2019-07-06] MEDS: CALCIUM CARBONATE 1250MG TAB PO SCH (08:41)
[2019-07-06] MEDS: ROSUVASTATIN CALCIUM 20 MG TAB PO SCH (08:42)
[2019-07-06] MEDS: OMEGA-3 (PURIFIED FISH OIL) 1 GM CAP PO SCH (08:42)
[2019-07-06] MEDS: CHOLECALCIFEROL 1,000 UNITS TAB PO SCH (08:42)
[2019-07-06] MEDS: PANTOprazole 40 MG TAB PO SCH (08:42)
[2019-07-06] MEDS: INSULIN ASPART 100 UNITS/ML 3 ML PEN SC SCH ×3 (08:43→17:24)
[2019-07-06] MEDS: cefTRIAXone SODIUM 2,000 MG in DEXTROSE 5% 50 ML IV SCH (08:52)
[2019-07-06] MEDS: AZITHROMYCIN 500 MG in DEXTROSE 5% 250 ML IV SCH (12:10)
--- NOTE | 2019-07-07 07:35 | Discharge Summary ---
Date of Service July 06, 2019 Admission HPI Per Admitting Provider 74 y/o male presented to the ED with a 1 week history of intermittent F/C. Tmax per patient was 103.8 F. He has rigors with the fever. he was placed on Cipro by his PCP due to dysuria and urinary frequency. He has had improvement with the rigors, but temp spikes continued. He has back pain, anorexia, SOB, and cough. No N/v/D, chest pain, headache, or rash. Principal Diagnosis Pyelonephritis Discharge Exam General- adult male, NAD Head- atraumatic Eyes- PERRL, EOMI, anicteric ENT- oropharynx clear Neck- supple, no JVD, no adenopathy, no thyromegaly. Lungs- clear to auscultation and percussion Heart- regular rhythm; no murmur, no gallop, no rub appreciated Abdomen- normal bowel sounds, soft, nontender. No longer having costovertebral angle tenderness with percussion b/l. Extremities- no pretibial edema, no calf tenderness; peripheral pulses intact Neuro- alert, oriented x 3; PERRL, EOMI; Non-focal. Skin- warm & dry Discharge Data Allergies Allergy/AdvReac Type Severity Reaction Status Date / Time No Known Allergies Allergy Verified 07/04/19 20:14 Consultations 07/04/19 19:57 ED Decision to Admit Stat Ordered Studies 07/04/19 19:07 CT abd pelvis wo con Stat Hospital Course (1) Pyelonephritis: Admit tele Klebsiella growing on outpatient urine cult Was sensitive to Cipro Will order Rocephin which was also sensitive. Awaited 24 hour period without fever. Patient clinically improved will continue antibiotics cefdinir and azithromycin (atypical lung coverage) as outpatient for 2 more days.. Nausea and pain control DVT prophylaxis = SCDs and sub-q heparin (2) Pneumonia: Left lower on CXR would consider this to be community acquired IV Rocephin and azithromycin. transition to PO at discharge (3) Chronic kidney disease, stage III (moderate): Creat appears stable at 2.25 (4) GERD without esophagitis: Continue pantoprazole. (5) Diabetes mellitus type 2, uncontrolled, with complications: I ordered 1/2 of his usual evening dose of Lantus. He usually uses 30units, I gave 15 units in that his appetite is reduced. Sliding scale coverage also ordered. (6) Benign essential hypertension: I held losartan, HCTZ, and amlodipine as his BP was borderline low during hospital stay. will reinstitue slowly at discharge. Patient has followup appointment tomorrow. Recommend checking BP at office visit. (7) Hypothyroidism: Continue levothyroxine (8) Hypomagnesemia: Replaced recheck in am. Total Time Total Time Spent Total Time Spent (In Minutes): 36 Total Time Includes: Examination of the Patient, Discharge Planning and Medication Reconciliation Discharge Plan Discharge Items Patient Disposition: Home - Self-Care Reason For Visit: L PNEUMONIA, PYELONEPHRITIS Discharge Diagnosis: L pneumonia, pyelonephritis Activity: Resume your previous activity Non-emergency contact: Primary Care Provider Call non-emergency contact if: you have any medication questions Follow-up/Referrals: Luz Escobar MD [Primary Care Provider] - Diet: Regular Addtl Attending Provider Instructions: You have been hospitalized for an pneumonia and UTI. During your stay at [facility], we have made an effort to correct the problem that brought you to the hospital while keeping you as comfortable as possible. Antibiotics were used to bring your condition under control and your discharge instructions will include directions for any medications you should take after leaving the hospital. Please make sure you see your Primary Care Provider as part of your follow up plan. Will hold hypertension medicine for today. Resume tomorrow, followup with PCP. Pending Studies at Discharge: No Stand-Alone Forms: My [facility], Smoking Cessation Medications and DC Order Prescriptions: Continued levothyroxine 125 mcg tablet 125 mcg PO DAILY Qty: 90 RF: 1 pantoprazole 40 mg tablet,delayed release (DR/EC) 40 mg PO BID Qty: 60 RF: 5 losartan 100 mg tablet 100 mg PO DAILY Qty: 90 RF: 1 calcium carb-mag ox-zinc sulf 334-134-5 mg tablet 1 tab PO DAILY RF: 0 ferrous gluconate 240 mg (27 mg iron) tablet 240 mg PO DAILY RF: 0 omega-3 acid ethyl esters 1 gram capsule 1 cap PO DAILY RF: 0 cholecalciferol (vitamin D3) 25 mcg (1,000 unit) capsule 2,000 units PO DAILY RF: 0 glimepiride 4 mg tablet 4 mg PO DAILY RF: 0 rosuvastatin 40 mg tablet 40 mg PO DAILY RF: 0 Basaglar KwikPen U-100 Insulin 100 unit/mL (3 mL) insulin pen 30 - 33 units SQ QPM RF: 0 Changed amlodipine 10 mg tablet 10 mg PO HS Qty: 90 RF: 1 Discontinued hydrochlorothiazide 25 mg tablet 25 mg PO DAILY Qty: 90 RF: 1 ciprofloxacin HCl [Cipro] 500 mg tablet 500 mg PO BID Qty: 14 RF: 0 Discharge Orders: Discharge Order (Routine); Ordered 07/06/19 Ordered By: Baldev Ba Admission Data Admit Date/Time: 07/04/19 21:50 Attending Provider: Baldev Ba Admit Provider: Amol Lopez Primary Care Provider: Luz Escobar Other Providers: Amol Lopez Other Interventions: Discharge Summary Assessment (RN) Last Done: 07/06/19 17:11 DC Date/Time DO NOT enter until pt leaves facility: 07/06/19 17:46
== END 2019-07-06 17:46 | disposition home or self-care (01) | DRG 689 ==
LOC: ED 17:31 → SUATTDRO 21:50 → 2S 21:50

== ENCOUNTER 2019-07-22 19:58 | Inpatient (IN) ==
--- NOTE | 2019-07-22 20:19 | CT Scan Report ---
CT head/brain wo con CT DOSE: 1311.06 mGy.cm HISTORY: Stroke evaluation TECHNIQUE: Multiaxial CT images of the head were performed without the use of intravenous contrast. A dose lowering technique was utilized adhering to the principles of ALARA. Comparison: None. Findings: The paranasal sinuses and mastoid air cells are clear. The calvarium and skull base are int act. The ventricles and sulci are within normal limits. There is no mass, hematoma, midline shift, or acute infarct. Impression: No acute intracranial abnormality. Age-related atrophy and chronic small vessel change ACT 112: Negative or not required by law. The above report was generated using voice recognition software. It may contain grammatical, syntax or spelling errors. Electronically signed by: Nathan Srivastava M.D. 07/22/2019 8:18 PM
[2019-07-22] MEDS ORDERED: TPA for Stroke IV STA (20:36)
[2019-07-22 20:41] LABS: Hemoglobin 8.6 g/dL (14.0-18.0); Mean Corpuscular Hemoglobin 22.4 pg (25-34); Mean Corpuscular Hgb Conc 30.7 g/dL (32-36); Mean Corpuscular Volume 72.9 fL (80-100); Mean Platelet Volume 9.5 fL (7.4-10.4); Platelet Count 408 K/uL (130-400); RDW Coefficient of Variation 19.2 % (11.5-14.5); RDW Standard Deviation 50.7 fL (36.4-46.3); Red Blood Count 3.84 M/uL (4.7-6.1); White Blood Count 13.53 K/uL (4.8-10.8)
[2019-07-22] MEDS ORDERED: Alteplase Bolus 9 MG in SYRINGE 0 ML IV ONE (20:46)
[2019-07-22] MEDS ORDERED: ALTEPLASE, RECOMBINANT 81 MG in EMPTY BAG 0 ML IV ONE (20:47)
[2019-07-22] MEDS ORDERED: PRIMARY PLUMSET, PE LINED TUBING, 113 IN, NON-DEHP (2260-0500) IV ONE (20:47)
[2019-07-22 20:58] LABS: Alanine Aminotransferase 12 U/L (12-78); Albumin Level 2.9 gm/dl (3.4-5.0); Aspartate Aminotransferase 13 U/L (15-37); BUN Creatinine Ratio 16.7 (10-20); Blood Urea Nitrogen 44 mg/dl (7-18); Calcium 9.2 mg/dl (8.5-10.1); Carbon Dioxide 25 mmol/L (21-32); Chloride 104 mmol/L (98-107); Est GFR (African American) 26.8; Est GFR (Non-African American) 23.1; Glucose 229 mg/dl (70-99); Magnesium 1.9 mg/dl (1.8-2.4); Potassium 4.2 mmol/L (3.5-5.1); Sodium 135 mmol/L (136-145)
[2019-07-22 21:00] LABS: INR 1.1 (0.9-1.1); Partial Thromboplastin Ratio 1.1; Partial Thromboplastin Time 31.1 Seconds (21.0-31.0); Prothrombin Time 10.8 Seconds (9.0-12.0)
[2019-07-22 21:03] LABS: Albumin Globulin Ratio 0.6 (0.9-2); Alkaline Phosphatase 100 U/L (45-117); Bilirubin,Total 0.4 mg/dl (0.2-1); Globulin 5.2 gm/dl (2.5-4.0); Total Protein 8.1 gm/dl (6.4-8.2); Troponin I < 0.015 ng/ml (0-0.045)
[2019-07-22 21:09] LABS: Basophils # (auto) 0.02 K/uL (0-0.2); Basophils % (auto) 0.1 %; Eosinophils # (auto) 0.09 K/uL (0-0.5); Eosinophils % (auto) 0.7 %; Hypochromasia Present; Immature Granulocytes # (auto) 0.05 K/uL (0.00-0.02); Immature Granulocytes % (auto) 0.4 %; Lymphocytes # (auto) 1.74 K/uL (1.2-3.4); Lymphocytes % (auto) 12.9 %; Monocytes # (auto) 1.11 K/uL (0.11-0.59); Monocytes % (auto) 8.2 %; Neutrophils # (auto) 10.52 K/uL (1.4-6.5); Neutrophils % (auto) 77.7 %; Polychromasia 1+
[2019-07-22] MEDS ORDERED: PANTOprazole 40 MG in SYRINGE 0 ML IV STA (21:15)
[2019-07-22] MEDS: SODIUM CHLORIDE 0.9% 1000ML 1,000 ML IV SCH (22:03)
[2019-07-22 22:15] LABS: Appearance Urine Clear (Clear); Bacteria Urine Automated Negative (Negative); Bilirubin Urine Negative (Negative); Blood Urine 3+ (Negative); Color Urine Yellow; Epithelial Cell Urine Auto >30 /lpf (0-5); Glucose Urine UA Negative (Negative); Ketones Urine Negative (Negative); Leukocyte Esterase Urine Negative (Negative); Nitrite Urine Negative (Negative); Protein Urine 2+ (Negative); RBC Urine Automated >30 /hpf (0-4); Specific Gravity Urine 1.013 (1.000-1.030); Urobilinogen Urine Negative (Negative); pH Urine 6.5 (4.5-7.5)
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
[2019-07-22] MEDS ORDERED: ICU PROTOCOL FOR HYPERGLYCEMIA PRN (23:13)
[2019-07-22] MEDS ORDERED: PHARMACIST DISCHARGE MED REC CONSULT PRN (23:45)
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
[2019-07-23] MEDS ORDERED: CARBOHYDRATES FOR HYPOGLYCEMIA PO PRN (00:28)
[2019-07-23] MEDS ORDERED: DEXTROSE 50% 50 ML SYRINGE IV PRN (00:28)
[2019-07-23] MEDS ORDERED: GLUCOSE 10 TABS/TUBE PO PRN (00:28)
[2019-07-23] MEDS ORDERED: GLUCOSE 40% GEL 15 GM TUBE PO PRN (00:28)
[2019-07-23] MEDS ORDERED: GLUCAGON FOR INJ 1 MG VIAL SQ PRN (00:28)
--- NOTE | 2019-07-23 00:28 | Emergency Department Note ---
Entered by Francoise Montanez acting as a scribe for History of Present Illness General Chief complaint: Stroke Alert Stated complaint: STROKE ALERT Source: family and EMS History of Present Illness Onset (ago): hour(s) (1.5) Location: head Pain Consistency: + other (worsening ) Quality: + other (stroke-like symptoms) Associated symptoms: + headaches, + weakness (right side ) and + other (positive right facial droop; positive unable to use right side; positive unable to walk; positive repeated falls; positive resolved unable to speak; positive garbled speech; positive right sided decreased sensitivity) The patient is a 74 year old male who presents to the Emergency Room with complaints of worsening stroke-like symptoms that began at 1850, 1.5 hours prior to arrival, per EMS. EMS states that the patient began to have right facial droop and right-sided weakness. EMS states that the patient's pharmacy informaticist is weak on the right side and the patient is unable to use his right side. The patient's reports that the patient was unable to walk and had repeated falls. EMS reports that the patient was initially unable to speak but then his speech became garbled. EMS states that the patient reported his face to be less sensitive on the right. Per EMS, the patient has had a headache during this time. The patient's states that the patient is not on blood thinners. Per the patient's , the patient was recently discharged from the hospital on 07/07/19, 15 days ago, for UTI, sepsis, anemia, Lyme, and pneumonia. The patient's reports that in August of 2017, the patient was found to be anemic and after a scope, no source was found. The patient's states that in September of 2017, the patient had a valve replacement. Home Medications Home Medications Medication Instructions Recorded Confirmed Type calcium carbonate 334 mg-magnesium 1 tab PO DAILY tab 01/04/19 07/22/19 History oxide 134 mg-zinc sulf 5 mg tablet ferrous gluconate 240 mg (27 mg 240 mg PO DAILY tab 04/14/19 07/22/19 History iron) tablet omega-3 acid ethyl esters 1 gram 1 cap PO DAILY cap 04/14/19 07/22/19 History capsule levothyroxine 125 mcg tablet 125 mcg PO DAILY #90 tab 05/05/19 07/22/19 Rx pantoprazole 40 mg tablet,delayed 40 mg PO BID #60 tab 05/19/19 07/22/19 Rx release losartan 100 mg tablet 100 mg PO DAILY #90 tab 05/26/19 07/22/19 Rx cholecalciferol (vitamin D3) 25 2,000 units PO DAILY cap 06/04/19 07/22/19 History mcg (1,000 unit) capsule Basaglar KwikPen U-100 Insulin 30 - 33 units SQ QPM 07/04/19 07/22/19 History glimepiride 4 mg PO DAILY 07/04/19 07/22/19 History rosuvastatin 40 mg PO DAILY 07/04/19 07/22/19 History amlodipine 10 mg PO HS #90 tab 07/06/19 07/22/19 Rx blood sugar diagnostic #10 ea 07/07/19 07/07/19 History lancets 30 gauge #25 ea 07/07/19 07/07/19 History pen needle, diabetic 31 gauge x #30 ea 07/07/19 07/07/19 History 5/16" Allergies Allergy/AdvReac Type Severity Reaction Status Date / Time No Known Allergies Allergy Verified 07/22/19 20:28 Past Med/Surg History Medical History Acute upper GI bleed (Acute) Aortic stenosis (Acute) Atrophy of left kidney (Acute) Benign essential hypertension (Chronic) Chronic kidney disease, stage III (moderate) (Chronic) Diabetes mellitus type 2, uncontrolled, with complications (Chronic) GERD without esophagitis (Acute) Hyperlipidemia (Chronic) Hypothyroidism (Chronic) Recent non-ST elevation myocardial infarction (NSTEMI) (Resolved) Right bundle branch block (RBBB) (Acute) Surgical History S/P AVR (aortic valve replacement) (Resolved) S/P CABG (coronary artery bypass graft) (Resolved) Family History Mother , age 83 of esophageal cancer Cancer Father , age 57 of a stroke Stroke Other Colorectal cancer Social History Preferred Language: Frisian Communication Ability: Impaired Communication Ability Comment: aphasic Standard Machine Stitcher Required: No Beliefs That Will Affect Care: None marital status: Current Living Situation: Spouse current occupational status: retired Other Information That Helps Us Care for You: No other: 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 Feels Safe at Home: Yes Smoking Status: Former smoker Number of Years Since Quit: 20 ; Hx Alcohol Use: No Hx Substance Use: No caffeine: Yes Dental Care, Regularly: Yes Physical Activity Frequency: 5-6 Times per Week Physical Activity Frequency Comment: Walking Seatbelt Use: always Sunscreen Use: No Review of Systems See HPI for pertinent positives & negatives. and A total of 10 systems reviewed and were otherwise negative Physical Exam Vital Signs Vital Signs - 24 hr 07/22/19 20:10 07/22/19 21:06 07/22/19 21:18 Temperature 36.9 C Temperature Source Oral Pulse Rate 86 Pulse Rate [Left] 88 Pulse Rhythm Regular Pulse Rhythm [Left] Regular Pulse Strength Normal Pulse Strength [Left] Respiratory Rate 23 21 Respiratory Effort / Characteristics Non-Labored Non-Labored Respiratory Depth Normal Normal Respiratory Pattern Regular Regular Blood Pressure 143/68 H Blood Pressure [Left Arm] 143/72 H Blood Pressure Mean 93 Blood Pressure Mean [Left Arm] 95 Pulse Oximetry 94 94 94 Oxygen Delivery Method Room Air Room Air Room Air Sepsis Recent Fever Within 48 Hours No Sepsis New/Unexplained Change in Mental Status No Sepsis Action Taken by Nursing No Action Required 07/22/19 21:21 07/22/19 21:36 07/22/19 21:51 Temperature Temperature Source Pulse Rate Pulse Rate [Left] 91 H 90 87 Pulse Rhythm Pulse Rhythm [Left] Regular Regular Pulse Strength Pulse Strength [Left] Normal Normal Respiratory Rate 16 25 H 19 Respiratory Effort / Characteristics Non-Labored Non-Labored Non-Labored Respiratory Depth Normal Normal Normal Respiratory Pattern Regular Regular Regular Blood Pressure Blood Pressure [Left Arm] 137/80 137/76 126/64 Blood Pressure Mean Blood Pressure Mean [Left Arm] 99 96 84 Pulse Oximetry 92 95 93 Oxygen Delivery Method Room Air Room Air Room Air Sepsis Recent Fever Within 48 Hours Sepsis New/Unexplained Change in Mental Status Sepsis Action Taken by Nursing 07/22/19 22:06 07/22/19 22:20 07/22/19 22:35 Temperature Temperature Source Pulse Rate Pulse Rate [Left] 97 H 82 76 Pulse Rhythm Pulse Rhythm [Left] Regular Regular Pulse Strength Pulse Strength [Left] Normal Normal Respiratory Rate 25 H 18 19 Respiratory Effort / Characteristics Non-Labored Non-Labored Non-Labored Respiratory Depth Normal Normal Normal Respiratory Pattern Regular Regular Regular Blood Pressure Blood Pressure [Left Arm] 152/84 H 121/56 L 130/60 Blood Pressure Mean Blood Pressure Mean [Left Arm] 106 77 83 Pulse Oximetry 94 93 94 Oxygen Delivery Method Room Air Room Air Room Air Sepsis Recent Fever Within 48 Hours Sepsis New/Unexplained Change in Mental Status Sepsis Action Taken by Nursing 07/22/19 22:50 07/22/19 23:20 Temperature Temperature Source Pulse Rate Pulse Rate [Left] 82 82 Pulse Rhythm Pulse Rhythm [Left] Regular Regular Pulse Strength Pulse Strength [Left] Normal Normal Respiratory Rate 19 16 Respiratory Effort / Characteristics Non-Labored Non-Labored Spontaneous Respiratory Depth Normal Normal Respiratory Pattern Regular Blood Pressure Blood Pressure [Left Arm] 138/64 156/71 H Blood Pressure Mean Blood Pressure Mean [Left Arm] 88 99 Pulse Oximetry 94 98 Oxygen Delivery Method Room Air Room Air Sepsis Recent Fever Within 48 Hours Sepsis New/Unexplained Change in Mental Status Sepsis Action Taken by Nursing Vital signs reviewed. General: Well-appearing 74 y/o male, in no significant distress. HEENT: No scleral icterus, PERRLA, neck supple. Atraumatic. Cardiovascular: Regular rate and rhythm, no extra sounds. Pulmonary: Clear to auscultation bilaterally, normal work of breathing. Abdomen: Soft, nontender, nondistended, positive bowel sounds. Musculoskeletal: Atraumatic, no peripheral edema. Neurologic: Patient awake alert and oriented x 3. Right sided facial droop. Right sided neglect. Right arm weakness 0/5. Dysarthric. Speech is garbled. 3- 4/5 strength of the RLE. Skin: Warm, dry, no rash Course Course 2017: Past medical records reviewed. The patient was evaluated in room B1. A complete history and physical exam was performed. 2022: I discussed the case with Dr. Read Stroke Neurology who requests evaluating the patient followed by a CTA. 2040: I spoke with Dr. Karimi again. She recommends giving the patient tPA. 2042: The tPA was given directly after consent was obtained. 2054: I updated Dr. Karimi on the current status of the patient. We are still brien ting for a creatinine. 2121: The patient's creatinine is 2.61. Dr. Karimi recommended the patient does not have a CTA because of his elevated creatinine. 2153: I reevaluated the patient. His symptoms are persisting. 2156: I reviewed the patient's case with Dr. Morelos, [facility] Hospitalist. He will evaluate the patient for further management and discuss the patient's case with the Switching Clerk. Administered Medications Amlodipine Besylate (Norvasc) 10 mg PO HS SANTY Stop: 08/22/19 20:59 Last Admin: 07/23/19 21:44 Dose: Not Given Documented by: [id number] Clopidogrel Bisulfate (Plavix) 75 mg PO QAM SANTY Stop: 08/23/19 08:59 Last Admin: 07/25/19 07:49 Dose: Not Given Documented by: [id number] Admin: 07/24/19 09:15 Dose: Not Given Documented by: [id number] Ferrous Gluconate (Ferrous Gluconate) 324 mg PO DAILY SANTY Stop: 08/22/19 08:59 Last Admin: 07/23/19 15:30 Dose: Not Given Documented by: [id number] Fish Oil (Naples-3 (Purified Fish Oil)) 1 gm PO DAILY SANTY Stop: 08/22/19 08:59 Last Admin: 07/23/19 15:30 Dose: Not Given Documented by: [id number] Sodium Chloride (Nss 1000ml) 1,000 mls @ 50 mls/hr IV .Q20H SANTY Stop: 08/21/19 20:14 Last Admin: 07/25/19 07:45 Dose: 50 mls/hr Documented by: [id number] Infusion: 07/25/19 07:45 Dose: 50 mls/hr Documented by: [id number] Admin: 07/24/19 11:47 Dose: 50 mls/hr Documented by: [id number] Infusion: 07/24/19 11:47 Dose: 50 mls/hr Documented by: [id number] Admin: 07/23/19 16:28 Dose: 50 mls/hr Documented by: [id number] Infusion: 07/23/19 16:28 Dose: 50 mls/hr Documented by: [id number] Admin: 07/22/19 22:03 Dose: 50 mls/hr Documented by: [id number] Insulin Aspart (Novolog Flexpen) 0 units SC Q6 SANTY Stop: 08/22/19 05:59 Last Admin: 07/25/19 06:03 Dose: Not Given Documented by: [id number] Cosigned by: [id number] Admin: 07/25/19 00:34 Dose: Not Given Documented by: [id number] Cosigned by: [id number] Admin: 07/24/19 18:10 Dose: Not Given Documented by: [id number] Cosigned by: [id number] Admin: 07/24/19 11:45 Dose: Not Given Documented by: [id number] Cosigned by: [id number] Admin: 07/24/19 07:34 Dose: Not Given Documented by: [id number] Cosigned by: [id number] Admin: 07/24/19 00:40 Dose: Not Given Documented by: [id number] Cosigned by: [id number] Admin: 07/23/19 17:36 Dose: Not Given Documented by: [id number] Cosigned by: [id number] Admin: 07/23/19 11:53 Dose: Not Given Documented by: [id number] Admin: 07/23/19 05:49 Dose: 1 units Documented by: [id number] Cosigned by: [id number] Insulin Glargine (Lantus Solostar Pen) 10 units SC BID [facility] Stop: 08/22/19 10:29 Last Admin: 07/25/19 07:50 Dose: 10 units Documented by: [id number] Cosigned by: [id number] Admin: 07/24/19 20:50 Dose: Not Given Documented by: [id number] Admin: 07/24/19 10:16 Dose: 10 units Documented by: [id number] Cosigned by: [id number] Admin: 07/23/19 21:45 Dose: 10 units Documented by: [id number] Cosigned by: [id number] Admin: 07/23/19 11:49 Dose: 10 units Documented by: [id number] Cosigned by: [id number] Levothyroxine Sodium (Synthroid) 125 mcg PO DAILYBB [facility] Stop: 08/22/19 06:29 Last Admin: 07/24/19 07:33 Dose: Not Given Documented by: [id number] Admin: 07/23/19 06:45 Dose: Not Given Documented by: [id number] Pantoprazole Sodium (Protonix) 40 mg PO BID SANTY Stop: 08/22/19 08:59 Last Admin: 07/23/19 21:44 Dose: Not Given Documented by: [id number] Admin: 07/23/19 15:31 Dose: Not Given Documented by: [id number] Rosuvastatin Calcium (Crestor) 40 mg PO DAILY SANTY Stop: 08/22/19 08:59 Last Admin: 07/23/19 15:30 Dose: Not Given Documented by: [id number] Vitamin D (Vitamin D3) 2,000 units PO DAILY SANTY Stop: 08/22/19 08:59 Last Admin: 07/23/19 15:31 Dose: Not Given Documented by: [id number] Discontinued Medications Alteplase, Recombinant (Activase For Stroke) 1 ea IV NOW STA; Protocol Stop: 07/22/19 20:37 Last Admin: 07/22/19 22:29 Dose: Not Given Documented by: [id number] Alteplase, Recombinant 9 mg/ (Syringe) 9 mls @ 9 mls/min IV ONCE ONE Stop: 07/22/19 20:47 Last Admin: 07/22/19 20:51 Dose: 9 mls/min Documented by: [id number] Cosigned by: [id number] Alteplase, Recombinant 81 mg/ (EMPTY BAG) 81 mls @ 81 mls/hr IV ONCE ONE Stop: 07/22/19 20:48 Last Infusion: 07/22/19 21:59 Dose: 0 mls/hr Documented by: [id number] Cosigned by: [id number] Admin: 07/22/19 20:53 Dose: 81 mls/hr Documented by: [id number] Cosigned by: [id number] Pantoprazole Sodium 40 mg/ (Syringe) 10 mls @ 5 mls/min IV NOW STA Stop: 07/22/19 21:16 Last Admin: 07/22/19 22:20 Dose: 5 mls/min Documented by: [id number] Critical Care Time Critical Care Time: Yes Total Critical Care Time: 60 I have personally spent 60 minutes of critical care time in the direct management of this patient. This includes bedside care, interpretation of diagnostic studies, and testing, discussion with consultants, patient, and family members, and other required patient management activities. This 60 minutes is in excess of all separately billable procedures. Medical Decision Making Differential Diagnosis Differential Diagnosis includes but is not limited to ischemic Stroke, hemorrhagic stroke, bells palsy, mass, neoplasm, migraine headache, seizure, subarachnoid hemorrhage, TIA, and transient global amnesia. Medical Records Attestation: I reviewed the patient's medical records. Home Medications Current Medication List: was personally reviewed by me Laboratory Data Attestation: I reviewed the patient's lab results. Result diagrams: 07/24/19 04:53 07/24/19 04:53 Lab Results 07/22/19 07/22/19 07/22/19 Range/Units 20:27 20:28 20:28 WBC 13.53 H (4.8-10.8) K/uL RBC 3.84 L (4.7-6.1) M/uL Hgb 8.6 L (14.0-18.0) g/dL Hct 28.0 L (42-52) % MCV 72.9 L (80-100) fL MCH 22.4 L (25-34) pg MCHC 30.7 L (32-36) g/dL RDW Std Deviation 50.7 H (36.4-46.3) fL RDW Coeff of Sarah 19.2 H (11.5-14.5) % Plt Count 408 H (130-400) K/uL MPV 9.5 (7.4-10.4) fL Immature Gran % (Auto) 0.4 % Neut % (Auto) 77.7 % Lymph % (Auto) 12.9 % Payette % (Auto) 8.2 % Eos % (Auto) 0.7 % Baso % (Auto) 0.1 % Immature Gran # (Auto) 0.05 H (0.00-0.02) K/uL Neut # (Auto) 10.52 H (1.4-6.5) K/uL Lymph # (Auto) 1.74 (1.2-3.4) K/uL Payette # (Auto) 1.11 H (0.11-0.59) K/uL Eos # (Auto) 0.09 (0-0.5) K/uL Baso # (Auto) 0.02 (0-0.2) K/uL Polychromasia 1+ Hypochromasia Present PT 10.8 (9.0-12.0) Seconds INR 1.1 (0.9-1.1) APTT 31.1 H (21.0-31.0) Seconds PTT Ratio 1.1 Sodium (136-145) mmol/L Potassium (3.5-5.1) mmol/L Chloride (98-107) mmol/L Carbon Dioxide (21-32) mmol/L Anion Gap (3-11) BUN (7-18) mg/dl Creatinine (0.6-1.4) mg/dl Est Cr Clr Drug Dosing Est GFR ( Amer) Est GFR (Non-Af Amer) BUN/Creatinine Ratio (10-20) Glucose (70-99) mg/dl POC Glucose 224 H (70-99) mg/dl Calcium (8.5-10.1) mg/dl Magnesium (1.8-2.4) mg/dl Total Bilirubin (0.2-1) mg/dl AST (15-37) U/L ALT (12-78) U/L Alkaline Phosphatase (45-117) U/L Troponin I (0-0.045) ng/ml Total Protein (6.4-8.2) gm/dl Albumin (3.4-5.0) gm/dl Globulin (2.5-4.0) gm/dl Albumin/Globulin Ratio (0.9-2) Urine Color Urine Appearance (Clear) Urine pH (4.5-7.5) Ur Specific Ripley (1.000-1.030) Urine Protein (Negative) Urine Glucose (UA) (Negative) Urine Ketones (Negative) Urine Blood (Negative) Urine Nitrite (Negative) Urine Bilirubin (Negative) Urine Urobilinogen (Negative) Ur Leukocyte Esterase (Negative) Urine WBC (Auto) (0-5) /hpf Urine RBC (Auto) (0-4) /hpf U Hyaline Cast (Auto) (0-5) /lpf U Epithel Cells (Auto) (0-5) /lpf Urine Bacteria (Auto) (Negative) 07/22/19 07/22/19 Range/Units 20:28 21:50 WBC (4.8-10.8) K/uL RBC (4.7-6.1) M/uL Hgb (14.0-18.0) g/dL Hct (42-52) % MCV (80-100) fL MCH (25-34) pg MCHC (32-36) g/dL RDW Std Deviation (36.4-46.3) fL RDW Coeff of Sarah (11.5-14.5) % Plt Count (130-400) K/uL MPV (7.4-10.4) fL Immature Gran % (Auto) % Neut % (Auto) % Lymph % (Auto) % Payette % (Auto) % Eos % (Auto) % Baso % (Auto) % Immature Gran # (Auto) (0.00-0.02) K/uL Neut # (Auto) (1.4-6.5) K/uL Lymph # (Auto) (1.2-3.4) K/uL Payette # (Auto) (0.11-0.59) K/uL Eos # (Auto) (0-0.5) K/uL Baso # (Auto) (0-0.2) K/uL Polychromasia Hypochromasia PT (9.0-12.0) Seconds INR (0.9-1.1) APTT (21.0-31.0) Seconds PTT Ratio Sodium 135 L (136-145) mmol/L Potassium 4.2 (3.5-5.1) mmol/L Chloride 104 (98-107) mmol/L Carbon Dioxide 25 (21-32) mmol/L Anion Gap 6.0 (3-11) BUN 44 H (7-18) mg/dl Creatinine 2.61 H (0.6-1.4) mg/dl Est Cr Clr Drug Dosing Not Reportable Est GFR ( Amer) 26.8 Est GFR (Non-Af Amer) 23.1 BUN/Creatinine Ratio 16.7 (10-20) Glucose 229 H (70-99) mg/dl POC Glucose (70-99) mg/dl Calcium 9.2 (8.5-10.1) mg/dl Magnesium 1.9 (1.8-2.4) mg/dl Total Bilirubin 0.4 (0.2-1) mg/dl AST 13 L (15-37) U/L ALT 12 (12-78) U/L Alkaline Phosphatase 100 (45-117) U/L Troponin I < 0.015 (0-0.045) ng/ml Total Protein 8.1 (6.4-8.2) gm/dl Albumin 2.9 L (3.4-5.0) gm/dl Globulin 5.2 H (2.5-4.0) gm/dl Albumin/Globulin Ratio 0.6 L (0.9-2) Urine Color Yellow Urine Appearance Clear (Clear) Urine pH 6.5 (4.5-7.5) Ur Specific Ripley 1.013 (1.000-1.030) Urine Protein 2+ H (Negative) Urine Glucose (UA) Negative (Negative) Urine Ketones Negative (Negative) Urine Blood 3+ H (Negative) Urine Nitrite Negative (Negative) Urine Bilirubin Negative (Negative) Urine Urobilinogen Negative (Negative) Ur Leukocyte Esterase Negative (Negative) Urine WBC (Auto) 1-5 (0-5) /hpf Urine RBC (Auto) >30 H (0-4) /hpf U Hyaline Cast (Auto) 1-5 (0-5) /lpf U Epithel Cells (Auto) >30 H (0-5) /lpf Urine Bacteria (Auto) Negative (Negative) Imaging Data Radiologist's Impression: Radiology results as stated below per my review and the radiologist's interpretation: CT head/brain wo con CT DOSE: 1311.06 mGy.cm HISTORY: Stroke evaluation TECHNIQUE: Multiaxial CT images of the head were performed without the use of intravenous contrast. A dose lowering technique was utilized adhering to the pr inciples of FARIBA. Comparison: None. Findings: The paranasal sinuses and mastoid air cells are clear. The calvarium and skull base are intact. The ventricles and sulci are within normal limits. There is no mass, hematoma, midline shift, or acute infarct. Impression: No acute intracranial abnormality. Age-related atrophy and chronic small vessel change ACT 112: Negative or not required by law. The above report was generated using voice recognition software. It may contain grammatical, syntax or spelling errors. Electronically signed by: Nathan Srivastava M.D. 07/22/2019 8:18 PM ECG Data Attestation: I personally reviewed and interpreted this ECG as follows: Indication: + weakness Rate (beats per minute): 89 Rhythm: + normal sinus ECG Intervals/blocks: + Right Bundle branch block ECG ST segments: + repolarization abnormalities ECG Findings: + Other (Previous inferior infarct, prolonged QTc of 535); no PACs and no PVCs Comparison ECG Date: from (07/04/19) Change: no significant change (Rate has decreased) Additional Comments: An order was placed for cardiac monitoring. The patient was found to be in a normal sinus rhythm at 89 bpm. Blood Pressure Blood Pressure Findings: Elevated blood pressure Blood Pressure Disposition: further management by hospitalist MDM Narrative This patient was evaluated and appeared to be in no significant distress. The patient has profound deficits on physical exam with right facial droop, right- sided neglect, complete right arm weakness and moderate strength loss in the right lower extremity. A stroke alert had been called. The patient's head CT is negative. Dr. Karimi of the tele-stroke service recommended IV TPA. The remainder of the patient's evaluation is fairly reassuring. His hemoglobin today is low at 8.6 but at his baseline. The patient remained unchanged clinically. Case was discussed with Dr. Lees of the [facility] hospitalist for admission and further management. Impression & Plan Cerebrovascular accident, Received intravenous tissue plasminogen activator (tPA) in emergency department Discharge Plan Visit Data *Final* Discharge Date/Time: 07/22/19 23:42 Chief Complaint: Stroke Alert Stated Complaint: STROKE ALERT ED Provider: Jodie Rinaldi Discharge Problem: Cerebrovascular accident, Received intravenous tissue plasminogen activator (tPA) in emergency department Patient Disposition: Admitted As Inpatient Discharge Instructions Interventions: ED Discharge Assessment Last Done: 07/22/19 23:42 Discharge Problem: Cerebrovascular accident Qualifiers: CVA mechanism: unspecified Qualified Code(s): I63.9 - Cerebral infarction, unspecified The scribe's documentation has been prepared under my direction and personally reviewed by me in its entirety. I confirm that the note above accurately reflects all work, treatment, procedures, and medical decision making performed by me.
[2019-07-23] MEDS ORDERED: Nursing to Pharmacy Communication ONE (00:58)
[2019-07-23 04:51] LABS: Basophils # (auto) 0.01 K/uL (0-0.2); Basophils % (auto) 0.1 %; Eosinophils # (auto) 0.07 K/uL (0-0.5); Eosinophils % (auto) 0.6 %; Hematocrit (blood only) 26.6 % (42-52); Hemoglobin 8.2 g/dL (14.0-18.0); Immature Granulocytes # (auto) 0.05 K/uL (0.00-0.02); Immature Granulocytes % (auto) 0.4 %; Lymphocytes # (auto) 1.62 K/uL (1.2-3.4); Mean Corpuscular Hemoglobin 22.3 pg (25-34); Mean Corpuscular Hgb Conc 30.8 g/dL (32-36); Mean Corpuscular Volume 72.5 fL (80-100); Mean Platelet Volume 9.5 fL (7.4-10.4); Monocytes # (auto) 1.17 K/uL (0.11-0.59); Monocytes % (auto) 9.4 %; Neutrophils # (auto) 9.52 K/uL (1.4-6.5); Neutrophils % (auto) 76.5 %; Platelet Count 320 K/uL (130-400); RDW Coefficient of Variation 19.1 % (11.5-14.5); RDW Standard Deviation 49.9 fL (36.4-46.3); Red Blood Count 3.67 M/uL (4.7-6.1); White Blood Count 12.44 K/uL (4.8-10.8)
[2019-07-23 05:04] LABS: BUN Creatinine Ratio 16.6 (10-20); Calcium 8.7 mg/dl (8.5-10.1); Creatinine Clr Calc Pharmacy 31.2 ml/min; Est GFR (African American) 30.9; Est GFR (Non-African American) 26.7; Magnesium 1.8 mg/dl (1.8-2.4); Potassium 4.3 mmol/L (3.5-5.1)
[2019-07-23 05:15] LABS: Thyroid Stimulating Hormone 4.71 uIu/ml (0.300-4.500)
[2019-07-23 05:27] LABS: T4 Free Thyroxine 1.1 ng/dl (0.8-1.6)
[2019-07-23 05:36] LABS: Hypochromasia Present; Polychromasia 1+
[2019-07-23] MEDS: INSULIN ASPART 100 UNITS/ML 3 ML PEN SC SCH ×3 (05:49→17:36)
[2019-07-23 06:21] LABS: Estimated Average Glucose 200 mg/dl; Hemoglobin A1C 8.6 % (4.5-5.6)
[2019-07-23] MEDS: LEVOTHYROXINE SODIUM 125 MCG TABLET PO SCH (06:45)
--- NOTE | 2019-07-23 07:19 | Ultrasound Report ---
BILATERAL CAROTID DOPPLER STUDY HISTORY: Stroke symptoms. COMPARISON: None. TECHNIQUE: Real-time, grayscale, and color Doppler sonography of the carotid arteries was performed. Imaging reviewed in the transverse and longitudinal planes. All measurements were calculated based on NASCET criteria. FINDINGS: Antegrade flow is seen in the bilateral vertebral arteries. The brachial pressures were not obtained. Moderate calcified plaque within the right carotid bifurcation and mild calcified plaque within the l eft carotid bifurcation. Moderate stenosis within the bilateral external carotid arteries, right greater than left. The peak systolic velocity within the right ICA is 183 cm/s proximally. The right systolic ratio is 1 .7. The peak systolic velocity within the left ICA is 95 cm/s. The left systolic ratio is 0.9. IMPRESSION: 1. Approximately 50-69% stenosis within the proximal right internal carotid artery. 2. No significant stenosis within the left internal carotid artery. 3. Moderate stenosis within the bilateral external carotid arteries. ACT 112: Negative or not required by law. Electronically signed by: Irving Vang M.D. 07/23/2019 7:17 AM
[2019-07-23] MEDS ORDERED: INSULIN ASPART 100 UNITS/ML 3 ML PEN SC SCH (07:30)
[2019-07-23] MEDS ORDERED: CHOLECALCIFEROL 1,000 UNITS 25 MCG TAB PO SCH (09:00)
[2019-07-23] MEDS ORDERED: FERROUS GLUCONATE 324 MG TAB PO SCH (09:00)
[2019-07-23] MEDS ORDERED: OMEGA-3 (PURIFIED FISH OIL) 1 GM CAP PO SCH (09:00)
--- NOTE | 2019-07-23 11:35 | Neurology Consultation ---
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 Etiology of this is not readily apparent but may be embolic from the heart (known valve replacement on no anticoagulation or antiplatelet medication) or thrombotic in the middle cerebral artery. Unfortunately, CT angiography of the head neck were not done (presumably because of elevated BUN and creatinine). Patient was given tPA. Patient has a 50-69 percent stenosis of the right internal carotid artery by ultrasound. Recommendations: 1. Consider 75 milligram clopidogrel daily. 2. Attempt MRI of the brain, possibly shielding the leg because of the BBs. 3. Consider angiography of the head and neck (MRI verses CT). Yes, elevated creatinine is a relative contraindication to contrast but if the situation is urgent enough, such as it was in this case, contrast can be given and Nephrology can take care of the renal issues afterwards. This patient may have been a transfer for thrombectomy. 4. Physical, occupational, and speech therapy consult. He will likely be a good rehabilitation hospital candidate. 5. Control blood pressure as you are doing a mean for a mean arterial pressure a between 95 and 100. 6. Control glucose trying to lower the hemoglobin A1c closer to 7. 7. The patient is not a high dose statin candidate but can continue on current dose. Overall, I spent a total of 110 minutes with this case including review of records, review of CT films, direct evaluation the patient bedside, and discuss ing the case with the patient at bedside, and children at bedside, Dr. Camacho, and Dr. Camarillo, including differential diagnosis and treatment options. History of Present Illness Reason for Consultation: Patient is a 74-year-old, who I was asked to see at the request of Dr. Ferris, for neurologic consultation regarding stroke. Requesting Physician: Dr. Ferris Attending Physician: Anders Camarillo MD History of Present Illness Patient has a history of hypertension , type 2 diabetes, dyslipidemia, hypothyroidism, and chronic kidney disease 3. He has a history of aortic stenosis post aortic valve replacement in September 2017. He also recently had an NSTEMI. Earlier in July of this year he was admitted for UTI with sepsis, anemia, Lyme disease, and pneumonia. Hemoglobin hematocrit got down as low as 7.8 and 24.9. He was not transfused. On July 22 at 1850 he was watching TV, somewhat tired after a fairly busy day. He stood up to go the bathroom and noticed that his right side was weak and he could not speak. His , who was present at bedside, witnessed the entire event. He did not have seizure activity or loss of consciousness. He was brought to the emergency room at 2009 with a temperature 36.9, pulse 86 and regular, respiratory 23, blood pressure 143 to 68, and O2 saturation 94 percent. He had right trina paresis with a little bit of movement of his leg and right- sided neglect. He was dysarthric. NIH stroke scale score was 15. He was given tPA. Unfortunately, he was not given CT angiography of the head neck because of an elevated BUN and creatinine. Therefore we do not know whether he would be a thrombectomy candidate or not. CBC showed a hemoglobin of 8.6 hematocrit of 28.2. These are little bit lower this morning. White count was elevated at 13.5 but today was 12.4. Chem profile showed a BUN of 44 and creatinine of 2.6. Today was 39 and 2.3. Triglycerides were 88 and total cholesterol 79. TSH was elevated at 4.7. CT scan of the head showed no acute changes. MRI of the brain apparently could not be done because of BBs in his left distal lower extremity from the early 70s. Carotid ultrasound was remarkable for a 50-69 percent stenosis of the right internal carotid artery. Today the patient has not made much in the way of improvements but blood pressure is 149/69. He has no complaint pain but may have a bit of frontal headache. Allergies Allergy/AdvReac Type Severity Reaction Status Date / Time No Known Allergies Allergy Verified 07/22/19 20:28 Home Medications Home Medications Medication Instructions Recorded Confirmed Type calcium carbonate 334 mg-magnesium 1 tab PO DAILY tab 01/04/19 07/22/19 History oxide 134 mg-zinc sulf 5 mg tablet ferrous gluconate 240 mg (27 mg 240 mg PO DAILY tab 04/14/19 07/22/19 History iron) tablet omega-3 acid ethyl esters 1 gram 1 cap PO DAILY cap 04/14/19 07/22/19 History capsule levothyroxine 125 mcg tablet 125 mcg PO DAILY #90 tab 05/05/19 07/22/19 Rx pantoprazole 40 mg tablet,delayed 40 mg PO BID #60 tab 05/19/19 07/22/19 Rx release losartan 100 mg tablet 100 mg PO DAILY #90 tab 05/26/19 07/22/19 Rx cholecalciferol (vitamin D3) 25 2,000 units PO DAILY cap 06/04/19 07/22/19 History mcg (1,000 unit) capsule Basaglar KwikPen U-100 Insulin 30 - 33 units SQ QPM 07/04/19 07/22/19 History glimepiride 4 mg PO DAILY 07/04/19 07/22/19 History rosuvastatin 40 mg PO DAILY 07/04/19 07/22/19 History amlodipine 10 mg PO HS #90 tab 07/06/19 07/22/19 Rx blood sugar diagnostic #10 ea 07/07/19 07/07/19 History lancets 30 gauge #25 ea 07/07/19 07/07/19 History pen needle, diabetic 31 gauge x #30 ea 07/07/19 07/07/19 History 5/16" Patient History Medical History Acute upper GI bleed (Acute) Aortic stenosis (Acute) Atrophy of left kidney (Acute) Benign essential hypertension (Chronic) Chronic kidney disease, stage III (moderate) (Chronic) Diabetes mellitus type 2, uncontrolled, with complications (Chronic) GERD without esophagitis (Acute) Hyperlipidemia (Chronic) Hypothyroidism (Chronic) Recent non-ST elevation myocardial infarction (NSTEMI) (Resolved) Right bundle branch block (RBBB) (Acute) Surgical History S/P AVR (aortic valve replacement) (Resolved) S/P CABG (coronary artery bypass graft) (Resolved) Family History Mother , age 83 of esophageal cancer Cancer Father , age 57 of a stroke Stroke Other Colorectal cancer Social History Preferred Language: Citizen Of [place] Communication Ability: Impaired 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 Feels Safe at Home: Yes Smoking Status: Former smoker Number of Years Since Quit: 20 ; Hx Alcohol Use: No Hx Substance Use: No caffeine: Yes Dental Care, Regularly: Yes Physical Activity Frequency: 5-6 Times per Week Physical Activity Frequency Comment: Walking Seatbelt Use: always Sunscreen Use: No Review of Systems Review of Systems: Review of systems is very difficult due to his aphasia and physical condition. Constitutional: + fatigue and + weakness Eyes: no diplopia and no worsening vision Ear, Nose, Mouth, Throat: no ear pain and no tinnitus Respiratory: no cough and no dyspnea Cardiovascular: no chest pain and no palpitations Gastrointestinal: no abdominal pain and no nausea Genitourinary: no dysuria and no urinary incontinence Musculoskeletal: no back pain and no neck pain Integumentary: no rash and no lesions Neurologic: + localized weakness, + paresthesia, + headache(s) and + abnormal speech; no tremor(s), no dizziness and no memory loss Psychiatric: no depression and no anxiety Endocrine: + fatigue; no flushing Hematologic / Lymphatic: no easy bleeding and no easy bruising Allergy / Immunological: no urticaria and no rash Physical Exam Physical Exam: The patient is right-handed. The patient is awake, alert, and fairly attentive. Speech is very difficult as he cannot get words out. He has a severe expressive aphasia. He does have some good comprehension at times following one-step commands at times he seems confused. I cannot be certain that he does not have a mild receptive aphasia. He cannot name or repeat. Mood seems reasonable and affect is somewhat flat. Short and long-term memory are difficult to assess accurately because of his language issue. The discs are sharp with positive venous pulsations bilaterally. There are no exudates, hemorrhages, or blood vessel changes seen. Pupils are 3 mm bilaterally and reactive to light. He cannot bring his eyes past midline to the right. He tends to have left gaze. There is no nystagmus. There are no deficits to sensation in the face in all 3 distributions of the fifth cranial nerve bilaterally. Corneal reflexes are positive bilaterally. There is a dense right facial droop. Hearing seems normal to whisper and finger rub bilaterally. Palate moves well without asymmetry. There is normal sternocleidomastoid and trapezius (shoulder shrug) strength bilaterally. Tongue is midline with good strength bilaterally. Neck has a full range of motion without discomfort. There are no cervical bruits bilaterally. There are no cranial or ocular bruits. Heart is without murmur. There is a regular rhythm and rate. Cervical, thoracic, and lumbar spine are nontender to palpation. Gait and stance were not testable as he is bed bound. With outstretched arms there is no drift on the left. There are no resting, postural, or action tremors on the left. There is no ataxia with finger to nose testing but he seems to have some apraxia or trouble figuring out the movement. There is reasonable facility in the left hand. No other abnormal involuntary movements are noted. Motor strength is essentially 5/5 in the left arm and leg proximally and distally. Right arm is flaccid with 0/5 strength and the right leg has some 1/5 movement distally. The limbs have decreased tone on the right side. Sensory examination is intact to touch and pin throughout all 4 limbs diffusely. Reflexes are 2/4 in the biceps, triceps, brachioradialis, quadriceps, and Achilles tendons bilaterally. There is no clonus bilaterally. Toes are downgoing with plantar stimulation on the right and clearly upgoing p lantar stimulation on the left. Peripheral pulses are present and of normal quality distally in all 4 limbs. There is no peripheral edema noted in the limbs. Results & Data Vital Signs (Past 12 Hours) Vital Signs Temp Pulse Pulse Resp BP BP Pulse Ox 07/23/19 10:50 84 19 132/72 94 07/23/19 10:00 89 23 94 07/23/19 09:51 91 H 15 94 07/23/19 09:50 90 22 149/69 H 95 07/23/19 09:00 84 18 95 07/23/19 08:51 87 20 94 07/23/19 08:50 37.3 C 84 16 137/64 94 07/23/19 08:00 97 H 20 94 07/23/19 07:56 84 07/23/19 07:51 84 18 95 07/23/19 07:50 84 18 137/65 95 07/23/19 07:00 78 17 98 07/23/19 06:51 82 12 94 07/23/19 06:50 88 13 140/59 L 94 07/23/19 05:50 84 19 129/59 L 93 07/23/19 04:50 86 21 136/67 94 07/23/19 04:20 77 20 136/61 95 07/23/19 03:50 36.5 C 76 18 141/62 H 95 07/23/19 03:20 79 20 140/65 95 07/23/19 02:50 84 20 144/66 H 95 07/23/19 02:20 78 22 148/64 H 95 07/23/19 01:50 78 19 144/61 H 95 07/23/19 01:20 76 20 135/66 94 07/23/19 00:51 82 21 166/76 H 96 07/23/19 00:20 77 19 130/63 98 07/23/19 00:12 36.4 C L 78 16 148/67 H 95 07/23/19 00:09 76 18 148/67 H 95 07/22/19 23:46 84 16 143/80 H 98 PG Care Time/CCT Total # of Minutes Spent Total Time Spent with Patient: Total time spent is greater than 50% in coordination of care (as documented) at patient's floor/unit and/or counseling patient: (1) Cerebrovascular accident CVA mechanism: unspecified Qualified Code(s): I63.9 - Cerebral infarction, unspecified
[2019-07-23] MEDS: INSULIN GLARGINE SOLOSTAR 100 UNITS/ML 3 ML PEN SC SCH ×2 (11:49→21:45)
--- NOTE | 2019-07-23 12:00 | Hospitalist Progress Note ---
Date of Service July 23, 2019 Assessment & Plan (1) Cerebrovascular accident: Acute onset right-sided paralysis and aphasia. Very likely an acute CVA. Did not get a CTA on presentation due to his CKD. MRI has not been done so far due to BBs in his leg. - Discussed with Dr. Camacho and Dr. Bettencourt - Will attempt MRI anyhow as the BBs should be pretty far from the scanner and unlikely to cause an issue. - AIRLINE PILOT/PT/OT - Will restart CVA meds if/when he passes his AIRLINE PILOT evaluation - Remain in ICU until tomorrow after 24h after tPA administered (2) Chronic kidney disease, stage III (moderate): Baseline Cr ~2.0-2.4, eGFR ~25. - At baseline on presentation. - Avoid nephrotoxins - Monitor Cr (3) Diabetes mellitus type 2, uncontrolled, with complications: A1c is 8.6%, indicating some amount of poor control. - Diabetic pharmacist following (4) Benign essential hypertension: BP presently 130/70. Initially allowed permissive HTN after CVA. - Continue meds when able (5) Hypothyroidism: TSH was 4.7 this admission. - Continue levothyroxine when able (6) DVT prophylaxis: SCDs - Will wait on heparin until after tPA Subjective Thirsty. Otherwise, he has no focal complaints, though he still has right-sided paresis. Reports no fevers/chills, chest pain, shortness of breath, abdominal pain, nausea, or vomiting. Physical Exam Constitutional: WD/WN, vitals as above Eyes: EOM intact bilaterally; no conjunctival abnormality ENMT: external ear and nose normal, oropharynx normal Neck: trachea midline, no thyromegaly normal visual inspection Respiratory: normal respiratory effort, lungs clear to auscultation no respiratory distress Cardiovascular: RRR, no murmur, no edema Gastrointestinal (Abdomen): Inspection/Auscultation: abdomen normal to inspection; abdomen not distended Musculoskeletal: no cyanosis or clubbing, extremities motor strength 5/5 Skin: no rashes, warm and dry Neurologic: awake Speech / Cognition: + expressive aphasia Motor/Sensory: + abnormal movement (Right-sided paresis) Psychiatric: Orientation: alert, oriented to person and cooperative Results & Data Vital Signs (Past 12 Hours) Vital Signs Temp Pulse Pulse Resp BP BP Pulse Ox 07/23/19 10:50 84 19 132/72 94 07/23/19 10:00 89 23 94 07/23/19 09:51 91 H 15 94 07/23/19 09:50 90 22 149/69 H 95 07/23/19 09:00 84 18 95 07/23/19 08:51 87 20 94 07/23/19 08:50 37.3 C 84 16 137/64 94 07/23/19 08:00 97 H 20 94 07/23/19 07:56 84 07/23/19 07:51 84 18 95 07/23/19 07:50 84 18 137/65 95 07/23/19 07:00 78 17 98 07/23/19 06:51 82 12 94 07/23/19 06:50 88 13 140/59 L 94 07/23/19 05:50 84 19 129/59 L 93 07/23/19 04:50 86 21 136/67 94 07/23/19 04:20 77 20 136/61 95 07/23/19 03:50 36.5 C 76 18 141/62 H 95 07/23/19 03:20 79 20 140/65 95 07/23/19 02:50 84 20 144/66 H 95 07/23/19 02:20 78 22 148/64 H 95 07/23/19 01:50 78 19 144/61 H 95 07/23/19 01:20 76 20 135/66 94 07/23/19 00:51 82 21 166/76 H 96 07/23/19 00:20 77 19 130/63 98 07/23/19 00:12 36.4 C L 78 16 148/67 H 95 07/23/19 00:09 76 18 148/67 H 95 PG Care Time/CCT Total # of Minutes Spent Total Time Spent with Patient: Total time spent is greater than 50% in coordination of care (as documented) at patient's floor/unit and/or counseling patient: (1) Cerebrovascular accident CVA mechanism: unspecified Qualified Code(s): I63.9 - Cerebral infarction, unspecified
[2019-07-23] MEDS: ROSUVASTATIN CALCIUM 20 MG TAB PO SCH (15:30)
[2019-07-23] MEDS: PANTOprazole 40 MG TAB PO SCH ×2 (15:31→21:44)
[2019-07-23] MEDS: SODIUM CHLORIDE 0.9% 1000ML 1,000 ML IV SCH (16:28)
[2019-07-23] MEDS ORDERED: AMLODIPINE BESYLATE 5 MG TAB PO SCH (21:00)
--- NOTE | 2019-07-23 22:03 | Magnetic Resonance Report ---
MR brain wo con CLINICAL HISTORY: 74 years-old Male presenting with Stroke, left sided stroke, right sided symptoms, headaches. TECHNIQUE: Multisequence, multiplanar MR imaging of the brain was performed without the use of intrav enous contrast. IV contrast: None. COMPARISON: Noncontrast CT head from 07/22/2019. FINDINGS: Localizer images: Unremarkable. Bone marrow signal intensity within the calvarium within normal limits. Normal midline sagittal structures. Proportional ventricular and sulcal prominence, likely age-relate d parenchymal volume loss. No mass effect or midline shift. Acute infarct in the right paramedian cer ebellar hemisphere. There is also more extensive acute infarct in the medial left temporal lobe and l eft frontoparietal periventricular white matter. T2/FLAIR hyperintensity of these regions. No extra-axial fluid collection. T2 skull base flow voids preserved. Bilateral redding lenses are abse nt. IMPRESSION: 1. Acute infarct in the medial left temporal lobe and left frontoparietal white matter. Additional m ore limited acute infarct in the right cerebellar hemisphere. These are at least 6 to 12 hours old gi alem the associated T2/FLAIR hyperintensity. The report will be called/faxed according to standard departmental protocol for a critical finding. ACT 112: Negative or not required by law. Electronically signed by: Yovany Taylor M.D. 07/23/2019 10:01 PM
--- NOTE | 2019-07-23 23:09 | Electrocardiogram Report ---
Test Reason : Blood Pressure : / mmHG Vent. Rate : 089 BPM Atrial Rate : 089 BPM P-R Int : 136 ms QRS Dur : 134 ms QT Int : 440 ms P-R-T Axes : 068 046 033 degrees QTc Int : 535 ms Normal sinus rhythm Right bundle branch block Inferior infarct , age undetermined Abnormal ECG When compared with ECG of 04-JUL-2019 18:29, No significant change was found Confirmed by Fuad Manzanares ([id number]) on 07/23/2019 11:09:03 PM Referred By: REFERRED SELF Confirmed By:Fuad Manzanares
[2019-07-24] MEDS: INSULIN ASPART 100 UNITS/ML 3 ML PEN SC SCH ×4 (00:40→18:10)
--- NOTE | 2019-07-24 05:02 | Billing Data ---
Date of Service July 24, 2019 Coding Level of Care Code Critical Care 1st - mins
[2019-07-24 05:12] LABS: Basophils # (auto) 0.03 K/uL (0-0.2); Basophils % (auto) 0.2 %; Eosinophils # (auto) 0.04 K/uL (0-0.5); Eosinophils % (auto) 0.3 %; Hematocrit (blood only) 29.4 % (42-52); Immature Granulocytes # (auto) 0.05 K/uL (0.00-0.02); Immature Granulocytes % (auto) 0.3 %; Lymphocytes # (auto) 2.74 K/uL (1.2-3.4); Lymphocytes % (auto) 17.5 %; Mean Corpuscular Hemoglobin 22.4 pg (25-34); Mean Corpuscular Hgb Conc 30.6 g/dL (32-36); Mean Corpuscular Volume 73.3 fL (80-100); Mean Platelet Volume 9.3 fL (7.4-10.4); Monocytes # (auto) 1.26 K/uL (0.11-0.59); Neutrophils # (auto) 11.56 K/uL (1.4-6.5); Neutrophils % (auto) 73.7 %; Platelet Count 381 K/uL (130-400); RDW Coefficient of Variation 19.6 % (11.5-14.5); RDW Standard Deviation 51.8 fL (36.4-46.3); Red Blood Count 4.01 M/uL (4.7-6.1); White Blood Count 15.68 K/uL (4.8-10.8)
[2019-07-24 05:34] LABS: RBC Morphology Unremarkable
[2019-07-24 05:36] LABS: Calcium 9.1 mg/dl (8.5-10.1); Creatinine Clr Calc Pharmacy 31.3 ml/min; Est GFR (African American) 31.9; Est GFR (Non-African American) 27.5; Magnesium 1.9 mg/dl (1.8-2.4); Phosphorus 3.3 mg/dl (2.5-4.9)
[2019-07-24] MEDS: LEVOTHYROXINE SODIUM 125 MCG TABLET PO SCH (07:33)
--- NOTE | 2019-07-24 08:22 | Critical Care Progress Note ---
Date of Service July 24, 2019 Assessment & Plan (1) Cerebrovascular accident: Impression: 74-year-old male with history of bioprosthetic aortic valve presenting to the emergency room with strokelike symptoms. He is post TPA administration. He has suffered a left medial temporal frontoparietal stroke despite administration of TPA. 24-hour events: Patient was observed in the ICU. No bleeding complications. Unfortunately we have not seen significant improvement in his NIH scores which continue to however between 12 and 16. Neurology consultation completed. Echo and MRI completed last night. He remains hemodynamically stable. Swallow study demonstrated high risk for aspiration. Recommendations: 1. Acute stroke: Management per neurology. Aspirin and Plavix when the patient is okay to take oral per speech therapy. PT OT pending. Blood pressure control adequate. Given acute stroke would allow for blood pressures to run in the 1 70-1 80 range to avoid extending ischemic penumbra. Try to avoid fevers, hy poxemia, and hyperglycemia 2. Fever: Low-grade fever and mild elevation white blood cell count yesterday. The patient certainly at risk for aspiration event. Will check chest x-ray and procalcitonin. Antibiotics will be adjusted based on results of those studies. 3. Mitral stenosis: Moderate based on last echo however imaging studies were inadequate. Outpatient cardiology follow-up recommended. May consider CUBA at some point to better assess but this would depend on neurological recovery. 4. Aspiration risk: Appreciate speech therapy input. Not appropriate for oral medications as of yet. Will need to follow closely. If continues to have issues would have low threshold for nasoenteric access to provide nutritional support. 5. Post TPA administration: no evidence of bleeding on MRI performed 24 hours out. The patient is appropriate to transfer out of the ICU to the hospitalist service.. Will sign off once he leaves the ICU. 6. Anemia: Chronic in nature and stable. No signs of ongoing bleeding. No indication for transfusion currently. 7. Renal insufficiency: Serum creatinine stable. Continue to trend. Acid-base status and electrolytes are appropriate. Patient is appropriate to transfer out of the ICU under the care of the hospitalist. Feel free to contact us if we can be of additional assistance. (2) tPA adm status 24 hr [employer]: (3) Mitral stenosis: (4) Fever: Review of Systems Review of Systems: Unobtainable due to cognitive status Physical Exam Constitutional: cooperative and comfortable Eyes: PERRL, conjunctivae normal, anicteric sclerae ENMT: external ear and nose normal, oropharynx normal Neck: trachea midline, no thyromegaly Respiratory: normal respiratory effort, lungs clear to auscultation Cardiovascular: RRR, no murmur, no edema Heart Sounds: normal S1 and normal S2 Vessels: no JVD Extremities: no edema Gastrointestinal (Abdomen): normal bowel sounds, soft, nontender, no hepatosplenomegaly Skin: no rashes, warm and dry Neurologic: awake Speech / Cognition: + abnormal speech and + expressive aphasia Cranial Nerves: PERRL and no nystagmus Right upper extremity trace movements, right lower extremity trace movement, right facial droop, right-sided neglect and inattention, right visual field disturbances Psychiatric: Unable to assess Genitourinary: Indwelling [place] present Results & Data Vital Signs (Past 12 Hours) Vital Signs Temp Pulse Resp BP Pulse Ox 07/24/19 06:00 71 19 94 07/24/19 05:52 96 H 20 159/56 H 97 07/24/19 05:13 76 22 141/74 H 94 07/24/19 05:00 88 20 94 07/24/19 04:15 75 22 141/74 H 91 07/24/19 04:00 73 17 95 07/24/19 03:51 72 22 150/82 H 94 07/24/19 03:00 37.6 C H 80 21 94 07/24/19 02:52 88 17 137/68 91 07/24/19 02:00 75 19 92 07/24/19 01:51 88 24 143/71 H 92 07/24/19 00:51 89 21 142/65 H 94 07/24/19 00:00 70 21 91 07/23/19 23:51 37.1 C 66 17 156/55 H 91 07/23/19 23:00 79 19 94 07/23/19 22:52 85 19 151/58 H 94 07/23/19 22:00 81 23 94 07/23/19 21:51 97 H 22 155/67 H 94 07/23/19 21:00 85 20 93 07/23/19 20:51 97 H 25 H 155/77 H 93 07/23/19 20:41 12 Laboratory Results 07/24/19 04:53 07/24/19 04:53 Diagnostic Findings MRI brain, images reviewed: MR brain wo con CLINICAL HISTORY: 74 years-old Male presenting with Stroke, left sided stroke, right sided symptoms, headaches. TECHNIQUE: Multisequence, multiplanar MR imaging of the brain was performed without the use of intravenous contrast. IV contrast: None. COMPARISON: Noncontrast CT head from 07/22/2019. FINDINGS: Localizer images: Unremarkable. Bone marrow signal intensity within the calvarium within normal limits. Normal midline sagittal structures. Proportional ventricular and sulcal prominence, likely age-related parenchymal volume loss. No mass effect or midline shift. Acute infarct in the right paramedian cerebellar hemisphere. There is also more extensive acute infarct in the medial left temporal lobe and left frontoparietal periventricular white matter. T2/FLAIR hyperintensity of these regions. No extra-axial fluid collection. T2 skull base flow voids preserved. Bilateral [place] lenses are absent. IMPRESSION: 1. Acute infarct in the medial left temporal lobe and left frontoparietal white matter. Additional more limited acute infarct in the right cerebellar hemisphere. These are at least 6 to 12 hours old given the associated T2/FLAIR hyperintensity. Echocardiogram 07/23/2019: EF of 60 to 65% without regional wall motion abnormalities. Mild left atrial dilatation. Bioprosthetic valve with normal gradient. Moderate mitral stenosis. Coding Level of Care Code 98592 Subseq Hosp Care Lvl 3 Diagnoses Cerebrovascular accident I63.9 CVA mechanism: unspecified tPA adm status 24 hr [employer] Z92.82 Mitral stenosis I05.0 Fever R50.9 Time Spent (min) 30 (1) Cerebrovascular accident CVA mechanism: unspecified Qualified Code(s): I63.9 - Cerebral infarction, unspecified
--- NOTE | 2019-07-24 08:39 | XRay Report ---
XR chest 1V portable CLINICAL HISTORY: fever, ? aspoiration dyspnea COMPARISON STUDY: 07/04/2019 FINDINGS: Mild cardiac enlargement post prior median sternotomy. Unchanged appearance left lung base combined with atelectasis and previously described mild superimpo sed inflammatory change. Right lung remains clear. Pulmonary apices are clear. IMPRESSION: Unchanged exam. Small unchanging combination of atelectasis and infiltrative change left base. ACT 112: Negative or not required by law. The above report was generated using voice recognition software. It may contain grammatical, syntax or spelling errors. Electronically signed by: Nathan Srivastava M.D. 07/24/2019 8:38 AM
[2019-07-24] MEDS: CLOPIDOGREL BISULFATE 75 MG TAB PO SCH (09:15)
[2019-07-24] MEDS: INSULIN GLARGINE SOLOSTAR 100 UNITS/ML 3 ML PEN SC SCH ×2 (10:16→20:50)
--- NOTE | 2019-07-24 10:34 | Neurology Progress Note ---
Date of Service July 24, 2019 Assessment & Plan (1) Cerebrovascular accident: (2) Acute right hemiparesis: (3) Right homonymous hemianopsia: (4) Expressive aphasia: (5) Carotid stenosis, right: Patient had an acute left medial temporal/parietal CVA the middle cerebral artery distribution July 22, resulting in a significant right trina paresis, right homonymous hemianopsia, and significant expressive aphasia (possibly a receptive component as well). In addition, there was a very small right cerebellar hemispheric CVA noted. Etiology of this may be embolic from the heart (known valve replacement on no anticoagulation or antiplatelet medication) but his echocardiogram was largely unremarkable. Certainly, a left middle cerebral artery thrombosis could give him the large stroke. This, however, would not explain his small right cerebellar stroke. His this could also be ischemic. Unfortunately, CT angiography of the head neck were not done (presumably because of elevated BUN and creatinine). Patient was given tPA. Patient has a 50-69 percent stenosis of the right internal carotid artery by ultrasound. Recommendations: 1. For now, continue 75 milligram clopidogrel daily. I do not have a solid reason for anticoagulation at this point. 2. Consider MR angiography of the head. Contrast is not needed for this. 4. Physical, occupational, and speech therapy consults. He will likely be a good rehabilitation hospital candidate. 5. Control blood pressure as you are doing a mean for a mean arterial pressure a between 95 and 100. 6. Control glucose trying to lower the hemoglobin A1c closer to 7. 7. The patient is not a high dose statin candidate but can continue on current dose. Overall, I spent a total of 35 minutes with this case including review of records, review of CT films, direct evaluation the patient bedside, and discussing the case with the patient at bedside, and children at bedside, and Dr. Camarillo, including differential diagnosis and treatment options. Subjective The patient seems to be resting comfortably, in no apparent pain, although he cannot express himself with words. He has started to make some sounds and form words but they are not intelligible or accurate. He follows one-step commands and is awake and alert Blood pressure was 167/82. There is a mild elevation in temp at 37.6 today. He medical up and hematocrit were slightly better at 9 and 29.4 and BUN and creatinine are stable at 31 and 2.3. Glucose was 136. Nursing reports no new changes although he is moving his right leg more than before. Physical Exam Physical Exam: He is awake and alert. He cannot move his eyes past midline to the right. He has a dense right facial droop and right arm plegia. He can move his right leg some. His left side is moving well. He is trying to form words and making sounds but he is not able to make intelligible words. He will follow one-step commands. Results & Data Vital Signs (Past 12 Hours) Vital Signs Temp Pulse Resp BP Pulse Ox 07/24/19 08:51 64 18 167/82 H 92 07/24/19 08:00 81 07/24/19 07:51 85 18 140/81 93 07/24/19 06:52 80 18 160/64 H 96 07/24/19 06:00 71 19 94 07/24/19 05:52 96 H 20 159/56 H 97 07/24/19 05:13 76 22 141/74 H 94 07/24/19 05:00 88 20 94 07/24/19 04:15 75 22 141/74 H 91 07/24/19 04:00 73 17 95 07/24/19 03:51 72 22 150/82 H 94 07/24/19 03:00 37.6 C H 80 21 94 07/24/19 02:52 88 17 137/68 91 07/24/19 02:00 75 19 92 07/24/19 01:51 88 24 143/71 H 92 07/24/19 00:51 89 21 142/65 H 94 07/24/19 00:00 70 21 91 07/23/19 23:51 37.1 C 66 17 156/55 H 91 07/23/19 23:00 79 19 94 07/23/19 22:52 85 19 151/58 H 94 PG Care Time/CCT Total # of Minutes Spent Total Time Spent with Patient: Total time spent is greater than 50% in coordination of care (as documented) at patient's floor/unit and/or counseling patient: (1) Cerebrovascular accident CVA mechanism: unspecified Qualified Code(s): I63.9 - Cerebral infarction, unspecified
[2019-07-24] MEDS: SODIUM CHLORIDE 0.9% 1000ML 1,000 ML IV SCH (11:47)
--- NOTE | 2019-07-24 12:17 | Hospitalist Progress Note ---
Date of Service July 24, 2019 Assessment & Plan (1) Cerebrovascular accident: Acute onset right-sided paralysis and aphasia. MRI brain showed acute infarct in the medial left temporal lobe and left frontoparietal white matter. Additional more limited acute infarct in the right cerebellar hemisphere. - Discussed with Dr. Camacho and Dr. Bettencourt - RI[employer]LER TENDER - Failed swallow again on 07/24. Considering NG tube for nutrition and meds. - Will restart CVA meds if/when he passes his RI[employer]LER TENDER evaluation - Considering MRA head if family ok with it. (2) Fever: Fever on 07/23 with concern for aspiration event with RIFFLER TENDER eval. - On 07/24, CXR is stable and procalcitonin is 0.5. - Will consider starting Zosyn for aspiration pneumonia. (3) Chronic kidney disease, stage III (moderate): Baseline Cr ~2.0-2.4, eGFR ~25. - At baseline on presentation and today. - Avoid nephrotoxins - Monitor Cr (4) Diabetes mellitus type 2, uncontrolled, with complications: A1c is 8.6%, indicating some amount of poor control. - Diabetic pharmacist following (5) Benign essential hypertension: BP presently 130/70. Initially allowing permissive HTN after CVA. - Continue meds when able (6) Hypothyroidism: TSH was 4.7 this admission. - Continue levothyroxine when able (7) DVT prophylaxis: SCDs - Will add heparin in 1-2 days after tPA. Subjective No major differences in function today. Still able to only give non-verbal gr unts. Unclear how much he is processing. Review of Systems Review of Systems: Unobtainable due to cognitive status Physical Exam Constitutional: WD/WN, vitals as above Eyes: EOM intact bilaterally; no conjunctival abnormality ENMT: external ear and nose normal, oropharynx normal Neck: trachea midline, no thyromegaly normal visual inspection Respiratory: normal respiratory effort, lungs clear to auscultation no respiratory distress Cardiovascular: RRR, no murmur, no edema Gastrointestinal (Abdomen): Inspection/Auscultation: abdomen normal to inspection; abdomen not distended Musculoskeletal: no cyanosis or clubbing, extremities motor strength 5/5 Skin: no rashes, warm and dry Neurologic: awake Speech / Cognition: + expressive aphasia Motor/Sensory: + abnormal movement (Right-sided paresis) Psychiatric: Orientation: alert, oriented to person and cooperative Results & Data Vital Signs (Past 12 Hours) Vital Signs Temp Pulse Resp BP Pulse Ox 07/24/19 09:51 71 17 185/88 H 92 07/24/19 08:51 64 18 167/82 H 92 07/24/19 08:00 81 07/24/19 07:51 85 18 140/81 93 07/24/19 06:52 80 18 160/64 H 96 07/24/19 06:00 71 19 94 07/24/19 05:52 96 H 20 159/56 H 97 07/24/19 05:13 76 22 141/74 H 94 07/24/19 05:00 88 20 94 07/24/19 04:15 75 22 141/74 H 91 07/24/19 04:00 73 17 95 07/24/19 03:51 72 22 150/82 H 94 07/24/19 03:00 37.6 C H 80 21 94 07/24/19 02:52 88 17 137/68 91 07/24/19 02:00 75 19 92 07/24/19 01:51 88 24 143/71 H 92 07/24/19 00:51 89 21 142/65 H 94 PG Care Time/CCT Total # of Minutes Spent Total Time Spent with Patient: Total time spent is greater than 50% in coordination of care (as documented) at patient's floor/unit and/or counseling patient: (1) Cerebrovascular accident CVA mechanism: unspecified Qualified Code(s): I63.9 - Cerebral infarction, unspecified
--- NOTE | 2019-07-24 18:55 | Magnetic Resonance Report ---
MR ANGIOGRAM OF THE BRAIN CLINICAL HISTORY: Stroke. COMPARISON STUDY: MRI of the brain dated 07/23/2019. TECHNIQUE: 3-D [id number] MR angiography of the intracranial circulation is performed. 3-D tumble views are created and assessed. IV contrast was not administered for this examination. The examinati on is compromised by motion artifact. FINDINGS: The right internal carotid artery is widely patent at the skull base, as are the right ante rior and middle cerebral arteries. The left internal carotid artery flow-void at the skull base is di minished. There is no flow identified within the left middle cerebral artery. The left anterior cereb ral artery is widely patent and supplied via the anterior communicating artery. The vertebrobasilar s ystem is patent. There is high-grade focal stenosis of the proximal left posterior cerebral artery. T he right posterior cerebral artery is widely patent. The vertebral arteries are codominant. There is no aneurysm, high-grade stenosis, or focal vessel cutoff seen throughout the intracranial circulation . The brain parenchyma is normal as visualized. IMPRESSION: 1. There is no flow identified within the left middle cerebral artery. 2. The left internal carotid artery flow-void at the skull base is diminished. 3. There is focal high-grade stenosis within the proximal left posterior cerebral artery. 4. The left anterior cerebral artery is patent and supplied via the anterior communicating artery. ACT 112: Negative or not required by law. Electronically signed by: Isaiah Candelaria M.D. 07/24/2019 6:54 PM
--- NOTE | 2019-07-24 19:41 | Magnetic Resonance Report ---
MR ANGIOGRAM OF THE NECK WITHOUT IV CONTRAST CLINICAL HISTORY: Stroke. COMPARISON STUDY: Carotid artery ultrasound dated 07/23/2019. TECHNIQUE: Axial 2-D and 3-D [id number] MR angiography of the neck is performed. 3-D reformats ar e created and assessed. All measurements were calculated based on NASCET criteria. The examination wa s performed in suboptimal fashion without IV contrast. Examination is also compromised by motion migdalia fact. FINDINGS: The right common carotid artery is patent, as are the right internal and external carotid a rteries. Approximately 50% stenosis is suggested at the origin of the right internal carotid artery. This is significantly compromised by motion artifact. The left common carotid artery is patent, as ar e the left internal and external carotid arteries. There is diminished flow void within the left inte rnal carotid artery distally. The vertebral arteries are patent bilaterally and codominant. The visua lized intracranial vessels at the skull base appear patent. IMPRESSION: 1. Significantly motion compromised examination. This degrades diagnostic utility. 2. Suspect approximately 50% stenosis at the origin of the right internal carotid artery. This is not well evaluated. 3. The left internal carotid artery appears patent. There is loss of the flow void near the skull bas e, likely due to slow flow when correlated with yesterday's ultrasound. 3. The vertebral arteries are patent. ACT 112: Negative or not required by law. Electronically signed by: Isaiah Candelaria M.D. 07/24/2019 7:40 PM
[2019-07-25] MEDS: INSULIN ASPART 100 UNITS/ML 3 ML PEN SC SCH ×4 (00:34→17:19)
[2019-07-25] MEDS: SODIUM CHLORIDE 0.9% 1000ML 1,000 ML IV SCH (07:45)
[2019-07-25] MEDS: CLOPIDOGREL BISULFATE 75 MG TAB PO SCH (07:49)
[2019-07-25] MEDS: INSULIN GLARGINE SOLOSTAR 100 UNITS/ML 3 ML PEN SC SCH ×2 (07:50→22:02)
--- NOTE | 2019-07-25 08:33 | Neurology Progress Note ---
Date of Service July 25, 2019 Assessment & Plan (1) Cerebrovascular accident: (2) Acute right hemiparesis: (3) Right homonymous hemianopsia: (4) Expressive aphasia: (5) Carotid stenosis, right: Patient had a large, acute left medial temporal/parietal CVA, in the middle cerebral artery distribution, July 22, resulting in a significant right hemiparesis, right homonymous hemianopsia, and significant expressive aphasia (possibly a receptive component as well). In addition, MRI showed a small right cerebellar hemispheric CVA as well. He was given tPA but this did not improve any clinical symptoms. Today he does seem a little better clinically, being more alert and responsive than he was before. His right leg moves little better and his eyes move better. He is tempting to make words more also. I still suspect the etiology of the left middle cerebral artery stroke is thrombotic/ischemic. However, with the addition of the small right cerebellar hemispheric stroke, and the 2 tiny acute strokes (right caudate and right occipital), all of these are likely embolic. Source could be the heart or the aortic arch. MR angiography of the head and neck revealed no flow in the left middle cerebral artery, high-grade stenosis in the left posterior cerebral artery, slow flow in the distal left internal carotid artery and 50 percent stenosis at the origin of the right internal carotid artery. I discussed the case with Dr. Manzanares regarding MRI findings and echocard iogram results. Obviously, just because we did not see thrombus on the echocardiogram (valves or chambers) does not mean it could not have been embolic. Recommendations: 1. For now, I would continue 75 milligram clopidogrel daily, as he has small vessel ischemia and multiple vessel stenoses which are not treated by anticoagulation. 2. I would consider initiating anticoagulation due to use pattern of strokes. 3. I do not see a need for vascular surgery consultation regarding his right ICA stenosis. 4. Physical, occupational, and speech therapy consults. He will likely be a good rehabilitation hospital candidate. 5. Control blood pressure as you are doing, aiming for a mean arterial pressure between 95 and 100. 6. Control glucose, trying to lower the hemoglobin A1c closer to 7. 7. The patient is not a high dose statin candidate, but can continue on current dose of rosuvastatin. 8. A loop recorder for occult AFib may be useful and further evaluation of the heart and aortic arch could be considered as well. Overall, I spent a total of 65 minutes with this case including review of records, review of MRA with Radiology, direct evaluation the patient bedside, and discussion of the case with the patient at bedside, RN at bedside, Dr. Manzanares, Dr. Taylor and Dr. Camarillo, including differential diagnosis and treatment options. Subjective Although it is difficult to communicate with him, the patient does not seem to be in any pain and does not have a headache. He is resting comfortably in bed. Blood pressure is 155/64 (MAP of 94). He is afebrile. Nursing reports no events overnight. MR angiography of the head and neck revealed no flow in the left middle cerebral artery. There was a high-grade stenosis of the left posterior cerebral artery and some slow flow in the distal portion of the left internal carotid artery. There is a 50 percent stenosis at the origin of the right internal carotid art [place]. Vertebral arteries were patent. Echocardiogram was largely unremarkable although the was an aortic valve replacement. There was no source of thrombus. I reviewed the MRI of the brain films with Dr. Taylor, radiology, and there are other acute strokes of a tiny nature in the right occipital and right caudate areas. These tiny acute strokes, added to the small right cerebellar hemisphere stroke suggest emboli. There is the very large left middle cerebral artery stroke as well. Physical Exam Physical Exam: He is awake and makes eye contact to the left. He can pull is eyes a little past midline to the right but cannot see off to the right. He has a dense facial droop on the right as well. Speech is very difficult and cannot really formulate words. He can follow one- step commands fairly well. Left arm and leg have good strength and movement. There was no abnormal involuntary movements in the left arm and leg with good [id number]-[id number] testing. Right upper extremity is plegic. Patient has some proximal movement of the right lower extremity. Results & Data Vital Signs (Past 12 Hours) Vital Signs Temp Pulse Pulse Resp BP Pulse Ox 07/25/19 07:43 36.9 C 67 18 155/64 H 95 07/25/19 06:02 37.3 C 07/25/19 04:11 37.6 C H 81 22 147/62 H 90 07/24/19 23:39 36.6 C 81 18 138/65 92 07/24/19 23:35 67 PG Care Time/CCT Total # of Minutes Spent Total Time Spent with Patient: Total time spent is greater than 50% in coordination of care (as documented) at patient's floor/unit and/or counseling patient: Coding Level of Care Code 37890 Subseq Hosp Care Lvl 3 Diagnoses Cerebrovascular accident I63.9 CVA mechanism: unspecified Acute right hemiparesis G81.91 Right homonymous hemianopsia H53.461 Expressive aphasia R47.01 Carotid stenosis, right I65.21 Time Spent (min) [place] [address] [place] [address] (1) Cerebrovascular accident CVA mechanism: unspecified Qualified Code(s): I63.9 - Cerebral infarction, unspecified
--- NOTE | 2019-07-25 09:58 | Consultation ---
Date of Consultation July 25, 2019 Assessment & Plan (1) Carotid stenosis, right: Pt discussed wtih Dr Tate, no indications for vascular surgical intervention at this time. Recommend pt undergo surveillance of R ICA stenosis with carotid US in 1 year. This was discussed with pt's , Lexa, as well. Please call if needed. History of Present Illness Reason for Consultation: R carotid stenosis, L hemispheric CVA Attending Physician: Anders Camarillo MD History of Present Illness 74 yo m with hx of aortic v replacement, hypothyroidism, CMII, CKD III, GERD, HTN, admitted with acute L hemispheric CVA, seen in consultation today for R ICA stenosis of 50% noted on US and MRA. Pt unable to verbalize any significant hx, so most hx obtained from prior notes. Apparently pt suffered acute onset R sided weakness which progressed to R sided hemiparesis, as well as dysarthria which progressed to aphasia. He was brought to ED and underwent tPA adminsitration without improvement. CTA unable to be performed d/t CKD III. Brain MRI indicated L hemispheric acute event, as well as R cerebellar acute event. Carotid US demonstrated 50-60% R ICA stenosis. MRA also demonstrated approx 50% stenosis R ICA. Allergies Allergy/AdvReac Type Severity Reaction Status Date / Time No Known Allergies Allergy Verified 07/22/19 20:28 Home Medications Home Medications Medication Instructions Recorded Confirmed Type calcium carbonate 334 mg-magnesium 1 tab PO DAILY tab 01/04/19 07/22/19 History oxide 134 mg-zinc sulf 5 mg tablet ferrous gluconate 240 mg (27 mg 240 mg PO DAILY tab 04/14/19 07/22/19 History iron) tablet omega-3 acid ethyl esters 1 gram 1 cap PO DAILY cap 04/14/19 07/22/19 History capsule levothyroxine 125 mcg tablet 125 mcg PO DAILY #90 tab 05/05/19 07/22/19 Rx pantoprazole 40 mg tablet,delayed 40 mg PO BID #60 tab 05/19/19 07/22/19 Rx release losartan 100 mg tablet 100 mg PO DAILY #90 tab 05/26/19 07/22/19 Rx cholecalciferol (vitamin D3) 25 2,000 units PO DAILY cap 06/04/19 07/22/19 History mcg (1,000 unit) capsule Basaglar KwikPen U-100 Insulin 30 - 33 units SQ QPM 07/04/19 07/22/19 History glimepiride 4 mg PO DAILY 07/04/19 07/22/19 History rosuvastatin 40 mg PO DAILY 07/04/19 07/22/19 History amlodipine 10 mg PO HS #90 tab 07/06/19 07/22/19 Rx blood sugar diagnostic #10 ea 07/07/19 07/07/19 History lancets 30 gauge #25 ea 07/07/19 07/07/19 History pen needle, diabetic 31 gauge x #30 ea 07/07/19 07/07/19 History 5/16" Patient History Medical History Acute upper GI bleed (Acute) Aortic stenosis (Acute) Atrophy of left kidney (Acute) Benign essential hypertension (Chronic) Chronic kidney disease, stage III (moderate) (Chronic) Diabetes mellitus type 2, uncontrolled, with complications (Chronic) GERD without esophagitis (Acute) Hyperlipidemia (Chronic) Hypothyroidism (Chronic) Recent non-ST elevation myocardial infarction (NSTEMI) (Resolved) Right bundle branch block (RBBB) (Acute) Surgical History S/P AVR (aortic valve replacement) (Resolved) S/P CABG (coronary artery bypass graft) (Resolved) Family History Mother , age 83 of esophageal cancer Cancer Father , age 57 of a stroke Stroke Other Colorectal cancer Social History Preferred Language: Mauritian Communication Ability: Impaired Communication Ability Comment: aphasic Hotel Services Supervisor Required: No Beliefs That Will Affect Care: None marital status: Current Living Situation: Spouse current occupational status: retired Other Information That Helps Us Care for You: No other: Retired age 62 from [employer] (worked with [employer] and [employer]). Feels Safe at Home: Yes Smoking Status: Former smoker Number of Years Since Quit: 20 ; Hx Alcohol Use: No Hx Substance Use: No caffeine: Yes Dental Care, Regularly: Yes Physical Activity Frequency: 5-6 Times per Week Physical Activity Frequency Comment: Walking Seatbelt Use: always Sunscreen Use: No Review of Systems Review of Systems: Unobtainable due to cognitive status Physical Exam Constitutional: well developed and healthy appearing ENMT: Ears: no hearing impairment Neck: trachea midline, no thyromegaly Respiratory: normal respiratory effort; no respiratory distress Auscultation: + diminished lung sounds Cardiovascular: Rate/Rhythm: regular rate and regular rhythm Heart Sounds: + murmur Vessels: femoral pulses present, posterior tibial pulses present, dorsalis pedis pulses present, brachial pulses present and radial pulses present; no carotid bruit and + abnormal peripheral pulses Extremities: normal capillary refill; no edema Gastrointestinal (Abdomen): Inspection/Auscultation: abdomen normal to inspe ction and normal bowel sounds; abdomen not distended Musculoskeletal: Head/Neck/Chest: head atraumatic Extremities: + abnormal strength (RUE and RLE hemiparesis) Skin: no rashes, warm and dry Neurologic: + focal motor deficit (R hemiparesis, facial droop); + does not move all extremities Speech / Cognition: + expressive aphasia Psychiatric: Orientation: alert and oriented to person Results & Data Vital Signs (Past 12 Hours) Vital Signs Temp Pulse Pulse Resp BP Pulse Ox 07/25/19 08:00 72 07/25/19 07:43 36.9 C 67 18 155/64 H 95 07/25/19 06:02 37.3 C 07/25/19 04:11 37.6 C H 81 22 147/62 H 90 07/24/19 23:39 36.6 C 81 18 138/65 92 07/24/19 23:35 67
--- NOTE | 2019-07-25 15:48 | Hospitalist Progress Note ---
Date of Service July 25, 2019 Assessment & Plan (1) Cerebrovascular accident: Acute onset right-sided paralysis and aphasia. MRI brain showed acute infarct in the medial left temporal lobe and left frontoparietal white matter. Additional more limited acute infarcts in the right cerebellar hemisphere and other areas. MRA head/neck on 07/24 showed 50% stenosis in the right ICA and no flow in his left MCA. Vascular surgery consulted and no need for intervention at this time. - Discussed with Dr. Bettencourt - Likely embolic, though the source is unclear. - [employer]TER [employer]SC[employer] - Failed swallow again on 07/25. Considering NG tube for nutrition and meds. - Will restart CVA meds if/when he passes his DRAFTER [employer]ANDSCAPE evaluation - Will place NG tube if family is ok with it. Will also start anticoagulation. (2) Fever: Fever on 07/23 with concern for aspiration event with [employer] eval. - On 07/24, CXR is stable and procalcitonin is 0.5. - No further fevers since 07/23 - Holding abx at this time. (3) Chronic kidney disease, stage III (moderate): Baseline Cr ~2.0-2.4, eGFR ~25. - At baseline on presentation and today. - Avoid nephrotoxins - Monitor Cr (4) Diabetes mellitus type 2, uncontrolled, with complications: A1c is 8.6%, indicating some amount of poor control. - Diabetic pharmacist following (5) Benign essential hypertension: BP presently 170/70. Initially allowing permissive HTN after CVA. - Continue meds when able (6) Hypothyroidism: TSH was 4.7 this admission. - Continue levothyroxine when able (7) DVT prophylaxis: SCDs - Will start heparin gtt if family ok with it. Subjective Slightly more alert today, though not greatly. Still not really able to answer any questions. Review of Systems Review of Systems: Unobtainable due to cognitive status Physical Exam Constitutional: WD/WN, vitals as above Eyes: EOM intact bilaterally; no conjunctival abnormality ENMT: external ear and nose normal, oropharynx normal Neck: trachea midline, no thyromegaly normal visual inspection Respiratory: normal respiratory effort, lungs clear to auscultation no respiratory distress Cardiovascular: RRR, no murmur, no edema Gastrointestinal (Abdomen): Inspection/Auscultation: abdomen normal to inspection; abdomen not distended Musculoskeletal: no cyanosis or clubbing, extremities motor strength 5/5 Skin: no rashes, warm and dry Neurologic: awake Speech / Cognition: + expressive aphasia Motor/Sensory: + abnormal movement (Right-sided paresis) Psychiatric: Orientation: alert and cooperative; + not oriented to person Results & Data Vital Signs (Past 12 Hours) Vital Signs Temp Pulse Pulse Resp BP Pulse Ox 07/25/19 11:00 36.2 C L 76 20 172/69 H 92 07/25/19 08:00 72 07/25/19 07:43 36.9 C 67 18 155/64 H 95 07/25/19 06:02 37.3 C 07/25/19 04:11 37.6 C H 81 22 147/62 H 90 PG Care Time/CCT Total # of Minutes Spent Total Time Spent with Patient: Total time spent is greater than 50% in coordination of care (as documented) at patient's floor/unit and/or counseling patient: Coding Level of Care Code 28269 Subseq Hosp Care Lvl 3 Diagnoses Cerebrovascular accident I63.9 CVA mechanism: unspecified Fever R50.9 Chronic kidney disease, stage III (moderate) N18.3 Diabetes mellitus type 2, uncontrolled, with complications E11.8; E11.65 Benign essential hypertension I10 Hypothyroidism E03.9 DVT prophylaxis Z29.9 (1) Cerebrovascular accident CVA mechanism: unspecified Qualified Code(s): I63.9 - Cerebral infarction, unspecified
[2019-07-25] MEDS ORDERED: LIDOCAINE VISCOUS 2% 100ML STA (17:30)
--- NOTE | 2019-07-25 20:08 | XRay Report ---
XR chest 1V portable HISTORY: NG TUBE PLACEMENT COMPARISON: Chest 07/24/2019. FINDINGS: The nasogastric tube terminates below the diaphragm with the tip located at the distal stom ach. No pneumothorax. No pleural effusions. The heart remains mildly enlarged. There are poststernoto my changes. Left basilar linear densities persist. This favors subsegmental atelectasis. There is mil d central pulmonary vascular congestion without overt edema. IMPRESSION: The nasogastric tube terminates below the diaphragm with the tip located at the distal stomach. ACT 112: Negative or not required by law. Electronically signed by: Irving Vang M.D. 07/25/2019 8:06 PM
[2019-07-25] MEDS: FIBERSOURCE HN 1.2 CAL 1000 ML BAG NG SCH (20:42)
[2019-07-25] MEDS: LANSOPRAZOLE 15 MG SOLTAB NG SCH (22:06)
[2019-07-25] MEDS: AMLODIPINE BESYLATE 5 MG TAB PO SCH (22:06)
[2019-07-26] MEDS: INSULIN ASPART 100 UNITS/ML 3 ML PEN SC SCH ×5 (00:29→23:55)
[2019-07-26] MEDS: LEVOTHYROXINE SODIUM 125 MCG TABLET PO SCH (06:14)
[2019-07-26 07:32] LABS: Hematocrit (blood only) 29.6 % (42-52); Hemoglobin 8.9 g/dL (14.0-18.0); Mean Corpuscular Hemoglobin 22.3 pg (25-34); Mean Corpuscular Hgb Conc 30.1 g/dL (32-36); Mean Platelet Volume 9.7 fL (7.4-10.4); Platelet Count 311 K/uL (130-400); RDW Coefficient of Variation 19.5 % (11.5-14.5); RDW Standard Deviation 52.8 fL (36.4-46.3); White Blood Count 11.62 K/uL (4.8-10.8)
[2019-07-26] MEDS: LANSOPRAZOLE 15 MG SOLTAB NG SCH ×2 (07:49→20:33)
[2019-07-26] MEDS: CLOPIDOGREL BISULFATE 75 MG TAB PO SCH (07:49)
[2019-07-26 08:04] LABS: Calcium 9.2 mg/dl (8.5-10.1); Creatinine Clr Calc Pharmacy 31.3 ml/min; Est GFR (African American) 31.8; Est GFR (Non-African American) 27.4; Magnesium 2.2 mg/dl (1.8-2.4); Phosphorus 3.6 mg/dl (2.5-4.9); Potassium 4.1 mmol/L (3.5-5.1)
[2019-07-26] MEDS: INSULIN GLARGINE SOLOSTAR 100 UNITS/ML 3 ML PEN SC SCH ×2 (09:04→20:54)
[2019-07-26] MEDS: ROSUVASTATIN CALCIUM 20 MG TAB PO SCH (09:05)
--- NOTE | 2019-07-26 11:25 | Hospitalist Progress Note ---
Date of Service July 26, 2019 Assessment & Plan (1) Cerebrovascular accident: Acute onset right-sided paralysis and aphasia. MRI brain showed acute infarct in the medial left temporal lobe and left frontoparietal white matter. Additional more limited acute infarcts in the right cerebellar hemisphere and other areas. MRA head/neck on 07/24 showed 50% stenosis in the right ICA and no flow in his left MCA. Vascular surgery consulted and no need for intervention at this time. - Discussed with Dr. Bettencourt - Likely embolic, though the source is unclear. 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 - NG tube put in on 07/25. Tube feeds running with dietary adjusting rates and free water as needed. - Will discuss with family re: G-tube as this is the next logical step. - Discussed with neurology. Will need to start anticoagulation given the concern for embolic phenomenon. However, his risk of ICH is probably on the order of 2% given the large stroke size. I have discussed this with his and she is aware of the bleeding risk. (2) Fever: Fever on 07/23 & 07/26 with concern for aspiration. - On 07/24, CXR was stable and procalcitonin is 0.5. - Repeat CXR and procalcitonin today. (3) Chronic kidney disease, stage III (moderate): Baseline Cr ~2.0-2.4, eGFR ~25. - At baseline on presentation and 07/26. - Avoid nephrotoxins - Monitor Cr (4) Diabetes mellitus type 2, uncontrolled, with complications: A1c is 8.6%, indicating some amount of poor control. - Diabetic pharmacist following (5) Benign essential hypertension: BP presently 160/70. Initially allowed permissive HTN after CVA. - Restarted home meds on 07/26 after NG tube placed. (6) Hypothyroidism: TSH was 4.7 this admission. - Continue levothyroxine when able (7) DVT prophylaxis: SCDs - Will start heparin gtt if family ok with it. Subjective No major changes today. More lethargic this morning as I did wake him up this morning from sleep. NG tube running without issues. Review of Systems Review of Systems: Unobtainable due to cognitive status Physical Exam Constitutional: WD/WN, vitals as above Eyes: EOM intact bilaterally; no conjunctival abnormality ENMT: external ear and nose normal, oropharynx normal Neck: trachea midline, no thyromegaly normal visual inspection Respiratory: normal respiratory effort, lungs clear to auscultation no respiratory distress Cardiovascular: RRR, no murmur, no edema Gastrointestinal (Abdomen): Inspection/Auscultation: abdomen normal to inspection; abdomen not distended Musculoskeletal: no cyanosis or clubbing, extremities motor strength 5/5 Skin: no rashes, warm and dry Neurologic: awake Speech / Cognition: + expressive aphasia Motor/Sensory: + abnormal movement (Right-sided paresis) Psychiatric: Orientation: alert and cooperative; + not oriented to person Results & Data Vital Signs (Past 12 Hours) Vital Signs Temp Pulse Pulse Resp BP Pulse Ox 07/26/19 07:25 74 07/26/19 07:23 37.8 C H 79 18 163/71 H 90 07/26/19 04:53 38.0 C H 80 19 155/69 H 90 07/26/19 02:18 145/64 H 07/26/19 00:00 81 PG Care Time/CCT Total # of Minutes Spent Total Time Spent with Patient: Total time spent is greater than 50% in coordination of care (as documented) at patient's floor/unit and/or counseling patient: Coding Level of Care Code 99636 Subseq Hosp Care Lvl 3 Diagnoses Cerebrovascular accident I63.9 CVA mechanism: unspecified Fever R50.9 Chronic kidney disease, stage III (moderate) N18.3 Diabetes mellitus type 2, uncontrolled, with complications E11.8; E11.65 Benign essential hypertension I10 Hypothyroidism E03.9 DVT prophylaxis Z29.9 (1) Cerebrovascular accident CVA mechanism: unspecified Qualified Code(s): I63.9 - Cerebral infarction, unspecified
[2019-07-26] MEDS ORDERED: [UNRECOGNIZED DRUG - REMARK] SCH (12:00)
--- NOTE | 2019-07-26 14:33 | XRay Report ---
SINGLE VIEW CHEST CLINICAL HISTORY: Fever. Hypoxia. Aspiration. FINDINGS: An AP, portable, upright chest radiograph is compared to study dated 07/25/2019. The examina tion is degraded by portable technique and patient rotation. Enteric tube is in place. The patient is status post midline sternotomy. The heart is enlarged and there is pulmonary vascular congestion. Th ere is patchy airspace consolidation at the left lung base which has increased from yesterday. No lar ge pleural effusion is seen. No pneumothorax is seen. The skeletal structures are osteopenic. The bon y thorax is grossly intact. A calcified joint body is noted in left shoulder. Calcific tendinopathy i s also seen involving the left shoulder. IMPRESSION: 1. Cardiomegaly with evidence of worsening congestive failure. 2. There is increasing airspace consolidation at the left lung base. This could represent atelectasis and/or pneumonia/aspiration pneumonitis. Clinical correlation will be required and radiographic foll ow-up to resolution is recommended. ACT 112: Negative or not required by law. Electronically signed by: Isaiah Candelaria M.D. 07/26/2019 2:31 PM
[2019-07-26] MEDS ORDERED: ACETAMINOPHEN SOL 650 MG/20.3 ML UDC PO PRN (15:16)
[2019-07-26] MEDS ORDERED: PIPERACILL/TAZOBAC CONSULT ACTIVE PRN (15:17)
[2019-07-26] MEDS ORDERED: PIPERACILLIN/TAZOBACTAM 4.5 GM in DEXTROSE 5% 100 ML IV ONE (15:30)
[2019-07-26] MEDS ORDERED: PIPERACILLIN/TAZOBACTAM 3.375 GM in DEXTROSE 5% 100 ML IV SCH (15:30)
[2019-07-26] MEDS: FIBERSOURCE HN 1.2 CAL 1000 ML BAG NG SCH (20:32)
[2019-07-26] MEDS: AMLODIPINE BESYLATE 5 MG TAB PO SCH (20:33)
[2019-07-26] MEDS: PIPERACILLIN/TAZOBACTAM 4.5 GM in DEXTROSE 5% 100 ML IV SCH (20:40)
[2019-07-26] MEDS: HEPARIN SOD 5,000 UNIT/0.5 ML VIAL SQ SCH (20:54)
--- NOTE | 2019-07-26 23:13 | Ultrasound Report ---
ULTRASOUND BILATERAL LOWER EXTREMITY VENOUS CLINICAL HISTORY: Stroke. COMPARISON STUDY: No priors. TECHNIQUE: Real-time, grayscale, and color Doppler sonography of the deep veins of the right and left lower extremity was performed from the inguinal crease to the calf. Compression and augmentation wer e utilized. FINDINGS: There is no sonographic evidence of deep venous thrombosis identified in the right or left lower extremity. The common femoral, superficial femoral, and popliteal veins are patent and normally compressible bilaterally. The greater saphenous vein and the profunda femoris vein at the junction w ith the common femoral vein are clear in both legs. The visualized calf veins are patent bilaterally. IMPRESSION: There is no sonographic evidence of deep venous thrombosis identified in the right or lef t lower extremity. ACT 112: Negative or not required by law. Electronically signed by: Isaiah Candelaria M.D. 07/26/2019 11:11 PM
[2019-07-27] MEDS: PIPERACILLIN/TAZOBACTAM 4.5 GM in DEXTROSE 5% 100 ML IV SCH ×3 (05:31→20:11)
[2019-07-27] MEDS: INSULIN ASPART 100 UNITS/ML 3 ML PEN SC SCH ×4 (05:42→19:44)
[2019-07-27] MEDS: LEVOTHYROXINE SODIUM 125 MCG TABLET PO SCH (05:46)
[2019-07-27 06:22] LABS: Hematocrit (blood only) 29.2 % (42-52); Hemoglobin 8.7 g/dL (14.0-18.0); Mean Corpuscular Hemoglobin 22.3 pg (25-34); Mean Corpuscular Hgb Conc 29.8 g/dL (32-36); Mean Corpuscular Volume 74.7 fL (80-100); Mean Platelet Volume 9.2 fL (7.4-10.4); Platelet Count 321 K/uL (130-400); RDW Coefficient of Variation 19.6 % (11.5-14.5); RDW Standard Deviation 53.4 fL (36.4-46.3); Red Blood Count 3.91 M/uL (4.7-6.1); White Blood Count 10.23 K/uL (4.8-10.8)
[2019-07-27 06:55] LABS: BUN Creatinine Ratio 18.7 (10-20); Calcium 8.7 mg/dl (8.5-10.1); Creatinine Clr Calc Pharmacy 29.2 ml/min; Est GFR (African American) 29.7; Est GFR (Non-African American) 25.6; Potassium 4.2 mmol/L (3.5-5.1)
--- NOTE | 2019-07-27 07:43 | Hospitalist Progress Note ---
Date of Service July 27, 2019 Assessment & Plan (1) Cerebrovascular accident: Acute onset right-sided paralysis and aphasia. MRI brain showed acute infarct in the medial left temporal lobe and left frontoparietal white matter. Additional more limited acute infarcts in the right cerebellar hemisphere and other areas. MRA head/neck on 07/24 showed 50% stenosis in the right ICA and no flow in his left MCA. Vascular surgery consulted and no need for intervention at this time. - Discussed with Dr. Bettencourt - Likely embolic, though the source is unclear. 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 - NG tube put in on 07/25. Tube feeds running with dietary adjusting rates and free water as needed. - Will discuss with family re: G-tube as this is the next logical step. Palliative consult. - Some discussion re: anticoagulation -> With embolic source of unknown origin, I do not see benefit in starting anticoagulation, especially so soon after such a large stroke. (see addendum of my note on 07/26). - Continue Plavix, statin, risk factor modification. (2) Fever: Fever on 07/23 & 07/26 with concern for aspiration. - On 07/24, CXR was stable and procalcitonin is 0.5. - Repeated CXR and procalcitonin on 07/26 for more fevers -> Showed increasing infiltrate in the left lung base. However, procalcitonin was 0.35. Started Zosyn on 07/26. Follow fever curve. (3) Chronic kidney disease, stage III (moderate): Baseline Cr ~2.0-2.4, eGFR ~25. - At baseline on presentation and 07/27. - Avoid nephrotoxins - Monitor Cr (4) Diabetes mellitus type 2, uncontrolled, with complications: A1c is 8.6%, indicating some amount of poor control. - Diabetic pharmacist consulted - Sugars going higher with tube feeds now running. (5) Benign essential hypertension: BP presently 160/70. Initially allowed permissive HTN after CVA. - Restarted home meds on 07/26 after NG tube placed. - Will start lisinopril 5 mg today (07/27) for continued high BP not at goal (<130/80 per AHA guidelines). - Monitor Cr & K (6) Anemia: Baseline hgb ~8 after upper GI bleed. As high as 9.0 on 07/24. - Will order iron labs. - Empirically will start IV iron x 3 doses. (7) Hypothyroidism: TSH was 4.7 this admission. - Continue levothyroxine -> Presently on continuous feeds which may interfere with absorption. Will need to figure out how dosing will work long-term. (8) DVT prophylaxis: Heparin 5000 units SQ Q12h Dispo: Tragic case. Will need G-tube discussion with family after one more CITY DIRECTOR evaluation. I think he will fail swallow again (has failed 3 times so far). He cannot go to [facility]/SNF until G-tube decision is made as he cannot go with an NG tube in place. Palliative care consulted. Subjective Only mildly more alert than yesterday. Does try to say words, though none of them make sense or are intelligible. Tries to follow some commands with the left hand. Review of Systems Review of Systems: Unobtainable due to cognitive status Physical Exam Constitutional: WD/WN, vitals as above Eyes: EOM intact bilaterally; no conjunctival abnormality ENMT: external ear and nose normal, oropharynx normal Neck: trachea midline, no thyromegaly normal visual inspection Respiratory: normal respiratory effort, lungs clear to auscultation no respiratory distress Cardiovascular: RRR, no murmur, no edema Gastrointestinal (Abdomen): Inspection/Auscultation: abdomen normal to inspection; abdomen not distended Musculoskeletal: no cyanosis or clubbing, extremities motor strength 5/5 Skin: no rashes, warm and dry Neurologic: awake Speech / Cognition: + expressive aphasia Motor/Sensory: + abnormal movement (Right-sided paresis) Psychiatric: Orientation: alert and cooperative; + not oriented to person Results & Data Vital Signs (Past 12 Hours) Vital Signs Temp Pulse Pulse Resp BP Pulse Ox 07/27/19 07:26 68 07/27/19 04:39 36.7 C 61 20 155/69 H 93 07/27/19 01:55 58 L 07/26/19 20:27 36.5 C 55 L 20 148/74 H 96 PG Care Time/CCT Total # of Minutes Spent Total Time Spent with Patient: Total time spent is greater than 50% in coordination of care (as documented) at patient's floor/unit and/or counseling patient: Coding Level of Care Code 19248 Subseq Hosp Care Lvl 3 Diagnoses Cerebrovascular accident I63.9 CVA mechanism: unspecified Fever R50.9 Chronic kidney disease, stage III (moderate) N18.3 Diabetes mellitus type 2, uncontrolled, with complications E11.8; E11.65 Benign essential hypertension I10 Anemia D64.9 Hypothyroidism E03.9 DVT prophylaxis Z29.9 (1) Cerebrovascular accident CVA mechanism: unspecified Qualified Code(s): I63.9 - Cerebral infarction, unspecified
[2019-07-27] MEDS: HEPARIN SOD 5,000 UNIT/0.5 ML VIAL SQ SCH ×2 (08:04→20:02)
[2019-07-27] MEDS: INSULIN GLARGINE SOLOSTAR 100 UNITS/ML 3 ML PEN SC SCH ×2 (08:04→20:02)
[2019-07-27] MEDS: LANSOPRAZOLE 15 MG SOLTAB NG SCH ×2 (08:04→20:01)
[2019-07-27] MEDS: CLOPIDOGREL BISULFATE 75 MG TAB PO SCH (08:04)
[2019-07-27] MEDS: ROSUVASTATIN CALCIUM 20 MG TAB PO SCH (08:04)
[2019-07-27 08:09] LABS: Ferritin 321.4 ng/ml (8-388)
[2019-07-27] MEDS: IRON SUCROSE 100 MG in 0.9 % SODIUM CHLORIDE 100 ML IV SCH (09:02)
[2019-07-27] MEDS: lisinopriL 5 MG TAB PO SCH (09:03)
[2019-07-27] MEDS ORDERED: PHARMACY GLYCEMIC MGMT CONSULT PRN (10:50)
--- NOTE | 2019-07-27 11:25 | Pharmacy Report ---
Glycemic Control Consultation - Date of Service July 27, 2019 - Scope Scope: Glycemic Pharmacist consulted by Dr Camarillo on 07/27/2019 for glycemic control and to write orders per [facility] inpatient glycemic control protocol - Objective Weight: 95.6 kg Accuchecks BSG (last 24hrs): 07/26/19 07/26/19 07/26/19 11:51 18:19 23:54 Glucose POC Glucose 178 H 219 H 209 H 07/27/19 07/27/19 07/27/19 05:38 05:41 06:02 Glucose 280 H POC Glucose 282 H 275 H Laboratory Data (last 24hrs): 07/27/19 06:02 Potassium 4.2 Carbon Dioxide 26 Anion Gap 3.0 Creatinine 2.40 H Est Cr Clr Drug Dosing 29.2 HbA1c: Hemoglobin A1c 8.6 % (4.5-5.6) H 07/23/19 04:35 - Recent Pertinent Medications Outpatient Anti-diabetic Regimen: * Basaglar 33u PM, Glimepiride * A1c = 8.6 % 07/23/2019 - Assessment & Plan Assessment & Plan: ASSESSMENT: * Mr. Kebede is a 74yo M type II diabetic. P/w CVA + fever. PMHx consistent with CKDIII, BPH, anemia, among others. He continues to fail his swallow evals, he is on the max rate of Fibersource 70cc/hr. * He looks to have microcytic + macrocytic anemia making his A1C an unreliable metric in assessing his glycemic control. PLAN FOR INPATIENT GLYCEMIC CONTROL: * Holding outpatient oral diabetes medications * Basal insulin - increase * Lantus 15 units SQ BID * Bolus insulin - tighten up his CF, add carb ratio (he consumes 11.2g/hr while on the max rate of Fibersource), lower goal range * NovoLog per scale Q4 * Goal Range: Low 120 mg/dL - High 160 mg/dL * Correction Factor: 20 mg/dL/unit * Nutritional / Prandial insulin per carb ratio of 1 unit per 7 grams CHO consumed * Please note that the plan above was derived based on current level of insulin resistance and hospital stress. These recommendations are appropriate for inpatient admission only. Plan of care upon discharge will need to be reassessed to avoid potential outpatient hypo/hyperglycemia. Thank you.
[2019-07-27] MEDS: FIBERSOURCE HN 1.2 CAL 1000 ML BAG NG SCH (12:40)
[2019-07-27] MEDS: AMLODIPINE BESYLATE 5 MG TAB PO SCH (20:01)
[2019-07-28] MEDS: INSULIN ASPART 100 UNITS/ML 3 ML PEN SC SCH ×6 (00:12→20:39)
[2019-07-28] MEDS: PIPERACILLIN/TAZOBACTAM 4.5 GM in DEXTROSE 5% 100 ML IV SCH ×3 (05:20→20:13)
[2019-07-28] MEDS: LEVOTHYROXINE SODIUM 125 MCG TABLET PO SCH (05:41)
[2019-07-28 06:34] LABS: Hematocrit (blood only) 29.1 % (42-52); Hemoglobin 8.8 g/dL (14.0-18.0); Mean Corpuscular Hemoglobin 22.4 pg (25-34); Mean Corpuscular Hgb Conc 30.2 g/dL (32-36); Mean Platelet Volume 9.7 fL (7.4-10.4); Platelet Count 313 K/uL (130-400); RDW Coefficient of Variation 19.5 % (11.5-14.5); RDW Standard Deviation 52.8 fL (36.4-46.3); Red Blood Count 3.93 M/uL (4.7-6.1)
[2019-07-28 07:37] LABS: BUN Creatinine Ratio 16.7 (10-20); Calcium 8.9 mg/dl (8.5-10.1); Creatinine Clr Calc Pharmacy 29.5 ml/min; Est GFR (Non-African American) 25.9; Magnesium 2.1 mg/dl (1.8-2.4); Potassium 3.9 mmol/L (3.5-5.1)
[2019-07-28 07:46] LABS: Phosphorus 2.9 mg/dl (2.5-4.9)
[2019-07-28] MEDS: HEPARIN SOD 5,000 UNIT/0.5 ML VIAL SQ SCH ×2 (09:29→20:40)
[2019-07-28] MEDS: INSULIN GLARGINE SOLOSTAR 100 UNITS/ML 3 ML PEN SC SCH (09:29)
[2019-07-28] MEDS: LANSOPRAZOLE 15 MG SOLTAB NG SCH ×2 (09:30→20:19)
[2019-07-28] MEDS: lisinopriL 5 MG TAB PO SCH (09:30)
[2019-07-28] MEDS: CLOPIDOGREL BISULFATE 75 MG TAB PO SCH (09:30)
[2019-07-28] MEDS: ROSUVASTATIN CALCIUM 20 MG TAB PO SCH (09:30)
[2019-07-28] MEDS: IRON SUCROSE 100 MG in 0.9 % SODIUM CHLORIDE 100 ML IV SCH (10:01)
--- NOTE | 2019-07-28 14:16 | Palliative Care Consultation ---
Date of Consultation July 28, 2019 Assessment & Plan (1) Goals of care, counseling/discussion: -74 year old male patient with PMH HTN, HLD, DM2, CKD stage III, Hypothyroidism, GERD, and others, presented to the hospital several days ago with acute onset right sided weakness. He was administered tPA in the emergency department after a CT of the head showed nothing acute. 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 MRA neck showed 100% patency of left carotid and 50% stenosis of the right. Vascular surgery consulted who states no surgical intervention needed at this time. Since tPA administration, patient has some some mild improvement daily. He does have some speech, but has significant expressive aphasia. He is occasionally able to answer simple questions. He can follow commands. Unfortunately, patient has failed several swallow evaluations and is showing signs of aspiration. He has been receiving NG tube feedings, and family needs to make a decision on placing a PEG tube. Palliative care is consulted. -Met with patient first in room 281-2. Patient is awake and alert. He is not able to tell me his or his 's name, but stated clearly, "I don't know." When asked if he was having pain or discomfort, he shook his head "no." He was able to move his left side on command, but no the right arm or leg. However, when I touched the sole of his right foot, his leg immediately jumped and flexed. His right arm also moved independently, but he could not do it on command. It appears as though he more so has right sided neglect than true hemiplegia. -I then met with patient's Lexa, his daughter and daughter's outside of room. Dr. Byrd also present during conversation. -We discussed stroke at length, re: recovery, complications, treatment, etc. We also talked about PEG tubes at length: risks, benefits, recovery, complications, etc. -Given that patient does seem to be slowly improving, patient's wants to give the PEG tube a try. We discussed that PEG tubes do not completely eliminate risk of aspiration-- she understands. Patient's also understands that he very well may not fully recover from this stroke. 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 She knows what medical decisions are in a living will and she and the patient have discussed this before. Lexa states that the patient said if he had hope of recovery, he would be okay with PEG tube. I am in agreement with the patient's and stated that we are not able to say that he is "end-stage without hope of recovery", therefore a trial of PEG tube is reasonable. Furthermore, I discussed that we could give a timeframe in which she could reevaluate patient's progress once he gets to rehab and we see if he is progression. If he is not improving and/or getting worse, she could also decide to stop the tube feedings and allow nature to take its course at that point. -Ultimately, the goal is to get patient back home. Prior to this event he was fully independent and able to care for himself. He will go to rehab after hospitalization-- likely [facility] -We should move forward with GI consult for PEG tube placement. -Palliative care team will continue to follow along. (2) Received intravenous tissue plasminogen activator (tPA) in emergency department: (3) Expressive aphasia: (4) Axel-neglect of right side: Supervising Physician Co-Signing Physician Notes Chart reviewed, patient seen and examined later this afternoon. Patient's and OT at bedside. Collaborated with FANNIE Mendes. Patient reportedly passed a bedside swallow eval earlier today, plan for video swallow study tomorrow. PE: Patient awake, alert, able to respond by nodding to simple questions, does attempt to speak HEENT: NG tube in place. Right facial droop Respirations: Unlabored CV: Regular rate Abdomen: Soft, nontender Extremities: Right upper extremity flaccid, some movement right lower extremity Neuro: Right neglect, right hemiparesis Agree with above note, assessment and plan as per FANNIE Mendes. Will continue to follow and readdress goals of care pending results of video swallow exam. and patient in favor of proceeding with G-tube if needed. Plan is for patient to transfer to inpatient rehab therapy once medically stable. History of Present Illness Attending Physician: Baldev Ba History of Present Illness This 74 year old male patient with PMH HTN, HLD, DM2, CKD stage III, Hypothyroidism, GERD, and others, presented to the hospital several days ago with acute onset right sided weakness. He was administered tPA in the emergency department after a CT of the head showed nothing acute. 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 MRA neck showed 100% patency of left carotid and 50% stenosis of the right. Vascular surgery consulted who states no surgical intervention needed at this time. Since tPA administration, patient has some some mild improvement daily. He does have some speech, but has significant expressive aphasia. He is occasionally able to answer simple questions. He can follow commands. Unfortunately, patient has failed several swallow evaluations and is showing signs of aspiration. He has been receiving NG tube feedings, and family needs to make a decision on placing a PEG tube. Palliative care is consulted. Thank you kindly for this consult. Palliative care team will follow as needed. Allergies Allergy/AdvReac Type Severity Reaction Status Date / Time No Known Allergies Allergy Verified 07/22/19 20:28 Home Medications Home Medications Medication Instructions Recorded Confirmed Type calcium carbonate 334 mg-magnesium 1 tab PO DAILY tab 01/04/19 07/22/19 History oxide 134 mg-zinc sulf 5 mg tablet ferrous gluconate 240 mg (27 mg 240 mg PO DAILY tab 04/14/19 07/22/19 History iron) tablet omega-3 acid ethyl esters 1 gram 1 cap PO DAILY cap 04/14/19 07/22/19 History capsule levothyroxine 125 mcg tablet 125 mcg PO DAILY #90 tab 05/05/19 07/22/19 Rx pantoprazole 40 mg tablet,delayed 40 mg PO BID #60 tab 05/19/19 07/22/19 Rx release losartan 100 mg tablet 100 mg PO DAILY #90 tab 05/26/19 07/22/19 Rx cholecalciferol (vitamin D3) 25 2,000 units PO DAILY cap 06/04/19 07/22/19 History mcg (1,000 unit) capsule Basaglar KwikPen U-100 Insulin 30 - 33 units SQ QPM 07/04/19 07/22/19 History glimepiride 4 mg PO DAILY 07/04/19 07/22/19 History rosuvastatin 40 mg PO DAILY 07/04/19 07/22/19 History amlodipine 10 mg PO HS #90 tab 07/06/19 07/22/19 Rx blood sugar diagnostic #10 ea 07/07/19 07/07/19 History lancets 30 gauge #25 ea 07/07/19 07/07/19 History pen needle, diabetic 31 gauge x #30 ea 07/07/19 07/07/19 History 11/14" Patient History Medical History (Updated 07/28/19 @ 14:16 by FANNIE Torrez) Acute upper GI bleed (Acute) Aortic stenosis (Acute) Atrophy of left kidney (Acute) Benign essential hypertension (Chronic) Chronic kidney disease, stage III (moderate) (Chronic) Diabetes mellitus type 2, uncontrolled, with complications (Chronic) GERD without esophagitis (Acute) Goals of care, counseling/discussion Axel-neglect of right side Hyperlipidemia (Chronic) Hypothyroidism (Chronic) Recent non-ST elevation myocardial infarction (NSTEMI) (Resolved) Right bundle branch block (RBBB) (Acute) Surgical History S/P AVR (aortic valve replacement) (Resolved) S/P CABG (coronary artery bypass graft) (Resolved) Family History Mother , age 83 of esophageal cancer Cancer Father , age 57 of a stroke Stroke Other Colorectal cancer Social History Preferred Language: Albanian Communication Ability: Impaired Communication Ability Comment: aphasic Product Consultant Required: No Beliefs That Will Affect Care: None marital status: Current Living Situation: Spouse current occupational status: retired Other Information That Helps Us Care for You: No other: Retired age 62 from [employer] (worked with [employer] and [employer]). Feels Safe at Home: Yes Smoking Status: Former smoker Number of Years Since Quit: 20 ; Hx Alcohol Use: No Hx Substance Use: No caffeine: Yes Dental Care, Regularly: Yes Physical Activity Frequency: 5-6 Times per Week Physical Activity Frequency Comment: Walking Seatbelt Use: always Sunscreen Use: No Review of Systems Review of Systems: Aphasic-- unable to get full ROS. Shook head "no" to pain or discomfort. Could not answer other questions. Physical Exam Constitutional: cooperative and comfortable ENMT: external ear and nose normal, oropharynx normal Respiratory: normal respiratory effort; no respiratory distress Auscultation: + diminished lung sounds Cardiovascular: Rate/Rhythm: regular rate and regular rhythm Extremities: no edema Gastrointestinal (Abdomen): Inspection/Auscultation: normal bowel sounds; abdomen not distended Skin: no rashes, warm and dry Neurologic: awake Speech / Cognition: + abnormal speech and + expressive aphasia right arm and leg both weak, but seems to be more neglect than actual hemiparesis. I witnessed both the arm and leg move when I applied tactile stimuli Psychiatric: Orientation: alert Results & Data Vital Signs (Past 12 Hours) Vital Signs Temp Pulse Pulse Resp BP Pulse Ox 07/28/19 11:38 37.1 C 69 18 159/71 H 92 07/28/19 10:36 36.6 C 63 20 138/71 93 07/28/19 10:00 36.9 C 65 20 171/77 H 94 07/28/19 07:37 61 07/28/19 07:35 36.4 C L 64 18 119/67 95 07/28/19 04:16 36.7 C 61 20 136/69 95 Coding Level of Care Code 01151 Inpt Consult Level 3 Diagnoses Goals of care, counseling/discussion Z71.89 Received intravenous tissue plasminogen activator (tPA) in emergency department Z92.82 Expressive aphasia R47.01 Axel-neglect of right side R41.4 Time Spent (min) 75 Time Spent Midlevel 75 minutes with >50% of the time spent at bedside with patient and family discussing PEG tube, condition, and goals of care.
--- NOTE | 2019-07-28 14:32 | Pharmacy Report ---
Pharmacy Glycemic Short Note 2 - Date of Service July 28, 2019 - Glycemic Short BSG Results (Last 24 hours): 07/27/19 07/27/19 07/27/19 16:01 19:43 23:57 Glucose POC Glucose 247 H 212 H 214 H 07/28/19 07/28/19 07/28/19 04:07 06:17 07:39 Glucose 200 H POC Glucose 190 H 228 H 07/28/19 11:43 Glucose POC Glucose 279 H ASSESSMENT: * BSGs are still elevated. Fibersource at max rate continues. PLAN FOR INPATIENT GLYCEMIC CONTROL: * Hold outpatient oral diabetes medications * Basal insulin - increase * Lantus 20 units SQ BID * Bolus insulin - tighten * NovoLog per scale ACHS or Q6hrs while NPO * Goal Range: Low 120 mg/dL - High 160 mg/dL * Correction Factor: 15 mg/dL/unit * Nutritional / Prandial insulin per carb ratio of 1 unit per 6 grams CHO consumed
--- NOTE | 2019-07-28 15:21 | Consultation Report ---
DATE OF CONSULTATION: 07/28/2019 GASTROINTESTINAL CONSULTATION REASON FOR CONSULTATION: Possible gastrostomy feeding tube. 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 The patient has had difficulty swallowing since being hospitalized and has failed several swallowing tests, although he passed the one from this morning. A barium swallow is scheduled for tomorrow to see if he is able to handle oral liquids and solids. If he cannot, then a gastrostomy feeding tube has been contemplated. He currently has a nasogastric feeding tube on the left side of his nose and is receiving feedings through that. The patient did receive tPA in the Emergency Room and is currently on IV heparin and p.o. Plavix. PAST MEDICAL HISTORY: Remarkable for hypertension, hypothyroidism, diabetes, chronic kidney disease, chronic anemia. He has had an aortic valve replacement and coronary artery bypass graft in the past. Also has hyperlipidemia, right bundle branch block. ALLERGIES: None. FAMILY HISTORY: Mother of esophageal cancer. Father of a stroke. SOCIAL HISTORY: The patient is . He is retired. Former smoker, no alcohol. REVIEW OF SYSTEMS: Unobtainable due to his dysarthria. PHYSICAL EXAMINATION: GENERAL: The patient is lying in bed. He is awake but unable to speak. He has right facial droop. He has a nasogastric tube on the left side of his nose. ABDOMEN: Soft. There are no masses, tenderness, or hepatosplenomegaly. No surgical scars. IMPRESSION: The patient has had a stroke and is having difficulty swallowing. He is currently getting nasogastric feeding tubes. If he fails his barium swallow tomorrow, then it is likely that he will need a gastrostomy feeding tube in order to go to a long-term care. Unfortunately, he is on Plavix, and in order to do the gastrostomy tube procedure, he would need to be off this for 5 days. We will wait and see how he does with his barium swallow tomorrow and then make a decision going forward about whether or not to proceed with gastrostomy tube. The patient and his are aware of these recommendations.
[2019-07-28] MEDS: FIBERSOURCE HN 1.2 CAL 1000 ML BAG NG SCH (18:26)
[2019-07-28] MEDS: AMLODIPINE BESYLATE 5 MG TAB PO SCH (20:18)
[2019-07-28] MEDS ORDERED: INSULIN GLARGINE SOLOSTAR 100 UNITS/ML 3 ML PEN SC SCH (21:00)
--- NOTE | 2019-07-28 21:01 | Hospitalist Progress Note ---
Date of Service July 28, 2019 Assessment & Plan (1) Cerebrovascular accident: Acute onset right-sided paralysis and aphasia. MRI brain showed acute infarct in the medial left temporal lobe and left frontoparietal white matter. Additional more limited acute infarcts in the right cerebellar hemisphere and other areas. MRA head/neck on 07/24 showed 50% stenosis in the right ICA and no flow in his left MCA. Vascular surgery consulted and no need for intervention at this time. - Discussed with Dr. Bettencourt - Likely embolic, though the source is unclear. 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 - NG tube put in on 07/25. Tube feeds running with dietary adjusting rates and free water as needed. - Family is open for G tube but will have repeat swallow eval on 07/29 Palliative consult. - Some discussion re: anticoagulation -> With embolic source of unknown origin, I do not see benefit in starting anticoagulation, especially so soon after such a large stroke. (see addendum of my note on 07/26). - Continue Plavix, statin, risk factor modification. (2) Fever: Fever on 07/23 & 07/26 with concern for aspiration. - On 07/24, CXR was stable and procalcitonin is 0.5. - Repeated CXR and procalcitonin on 07/26 for more fevers -> Showed increasing infiltrate in the left lung base. However, procalcitonin was 0.35. Started Zosyn on 07/26. Follow fever curve. (3) Chronic kidney disease, stage III (moderate): Baseline Cr ~2.0-2.4, eGFR ~25. - At baseline on presentation and 07/27. - Avoid nephrotoxins - Monitor Cr (4) Diabetes mellitus type 2, uncontrolled, with complications: A1c is 8.6%, indicating some amount of poor control. - Diabetic pharmacist consulted - Sugars going higher with tube feeds now running. (5) Benign essential hypertension: BP presently 160/70. Initially allowed permissive HTN after CVA. - Restarted home meds on 07/26 after NG tube placed. - Will start lisinopril 5 mg today (07/27) for continued high BP not at goal (<130/80 per AHA guidelines). - Monitor Cr & K (6) Anemia: Baseline hgb ~8 after upper GI bleed. As high as 9.0 on 07/24. - Will order iron labs. - Empirically will start IV iron x 3 doses. (7) Hypothyroidism: TSH was 4.7 this admission. - Continue levothyroxine -> Presently on continuous feeds which may interfere with absorption. Will need to figure out how dosing will work long-term. (8) DVT prophylaxis: Heparin 5000 units SQ Q12h Subjective Patient reports no new symptoms. Review of Systems Review of Systems: All systems reviewed & are unremarkable except as noted in HPI & below Physical Exam Physical Exam: Constitutional: WD/WN, vitals as above Eyes: EOM intact bilaterally; no conjunctival abnormality ENMT: external ear and nose normal, oropharynx normal Neck: trachea midline, no thyromegaly normal visual inspection Respiratory: normal respiratory effort, lungs clear to auscultation no respiratory distress Cardiovascular: RRR, no murmur, no edema Gastrointestinal (Abdomen): Inspection/Auscultation: abdomen normal to inspection; abdomen not distended Musculoskeletal: no cyanosis or clubbing, extremities motor strength 5/5 Skin: no rashes, warm and dry Neurologic: awake Speech / Cognition: + expressive aphasia Motor/Sensory: + abnormal movement (Right-sided paresis) Psychiatric: Orientation: alert and cooperative; + not oriented to person Results & Data Vital Signs (Past 12 Hours) Vital Signs Temp Pulse Pulse Resp BP Pulse Ox 07/28/19 19:01 37.2 C 68 19 152/67 H 90 07/28/19 15:59 69 07/28/19 15:26 36.5 C 67 20 143/61 H 92 07/28/19 11:38 37.1 C 69 18 159/71 H 92 07/28/19 10:36 36.6 C 63 20 138/71 93 07/28/19 10:00 36.9 C 65 20 171/77 H 94 PG Care Time/CCT Total # of Minutes Spent Total Time Spent with Patient: Total time spent is greater than 50% in coordination of care (as documented) at patient's floor/unit and/or counseling patient: Coding Level of Care Code 49014 Subseq Hosp Care Lvl 3 Diagnoses Cerebrovascular accident I63.9 CVA mechanism: unspecified Fever R50.9 Chronic kidney disease, stage III (moderate) N18.3 Diabetes mellitus type 2, uncontrolled, with complications E11.8; E11.65 Benign essential hypertension I10 Anemia D64.9 Hypothyroidism E03.9 DVT prophylaxis Z29.9 Time Spent (min) 35 Comment d/w specialists/ reviewed case (1) Cerebrovascular accident CVA mechanism: unspecified Qualified Code(s): I63.9 - Cerebral infarction, unspecified
[2019-07-29] MEDS: INSULIN ASPART 100 UNITS/ML 3 ML PEN SC SCH ×6 (00:22→21:50)
[2019-07-29] MEDS: PIPERACILLIN/TAZOBACTAM 4.5 GM in DEXTROSE 5% 100 ML IV SCH ×3 (05:16→21:47)
--- NOTE | 2019-07-29 06:27 | XRay Report ---
ANEL CLINICAL HISTORY: Coresafe placement COMPARISON STUDY: CT of the abdomen and pelvis July 04, 2019. FINDINGS: The tip of the feeding tube projects over the proximal body of the stomach. Bowel gas patte rn is normal. Median sternotomy wires and prosthetic aortic valve are incidentally noted. IMPRESSION: Tip of feeding tube projects over the proximal body of the stomach. ACT 112: Negative or not required by law. Electronically signed by: Spencer Merida M.D. 07/29/2019 6:26 AM
[2019-07-29] MEDS: LEVOTHYROXINE SODIUM 125 MCG TABLET PO SCH (06:56)
[2019-07-29] MEDS: HEPARIN SOD 5,000 UNIT/0.5 ML VIAL SQ SCH ×2 (08:03→21:50)
[2019-07-29] MEDS ORDERED: INSULIN GLARGINE SOLOSTAR 100 UNITS/ML 3 ML PEN SC SCH (09:00)
[2019-07-29] MEDS: IRON SUCROSE 100 MG in 0.9 % SODIUM CHLORIDE 100 ML IV SCH (09:48)
[2019-07-29] MEDS: CLOPIDOGREL BISULFATE 75 MG TAB PO SCH (09:53)
[2019-07-29] MEDS: LANSOPRAZOLE 15 MG SOLTAB NG SCH ×2 (09:54→21:48)
[2019-07-29] MEDS: lisinopriL 5 MG TAB PO SCH (09:54)
[2019-07-29] MEDS: ROSUVASTATIN CALCIUM 20 MG TAB PO SCH (09:55)
--- NOTE | 2019-07-29 14:29 | Fluoroscopy Report ---
FL video swallow HISTORY: assess for aspiration TECHNIQUE: Video fluoroscopic evaluation of swallowing was performed in the AP and lateral projection s by the speech pathology staff. The patient is fed nectar-thick and thin liquid barium, a barium coa garry wafer, and barium pudding. FLUOROSCOPY TIME: 1.9 minutes. A cine loop was submitted. COMPARISON STUDY: None. FINDINGS: There is normal hyoid excursion and epiglottic deflection. A nasogastric tube is in place. There is premature spillover. There are a few episodes of deep penetration to the level of the cords with the swallows of thin liquid barium. However, no aspiration identified during the examination. IMPRESSION: 1. A few episodes of deep penetration with the swallows of thin liquid barium. However, no aspiration . 2. Please see the speech pathologist report for detailed findings and recommendations. ACT 112: Negative or not required by law. Electronically signed by: Irving Vang M.D. 07/29/2019 2:28 PM
--- NOTE | 2019-07-29 14:31 | XRay Report ---
XR chest 2V PA/lateral HISTORY: Assess for aspiration. Abnormal chest x-ray. Shortness of breath. COMPARISON: Chest 07/26/2019. FINDINGS: No pneumothorax. The heart remains mildly enlarged. There are poststernotomy changes. Sligh t progression of the interstitial vascular thickening consistent with mild interstitial pulmonary janusz ma. Bibasilar linear densities persist. A nasogastric tube is identified. This appears to terminate b elow the level the diaphragm. The tip is not included on this study. IMPRESSION: 1. Slight progression of the mild interstitial pulmonary edema. 2. Bibasilar linear densities persist. This could represent atelectasis or pneumonia. 3. The nasogastric tube terminates below the diaphragm. ACT 112: Negative or not required by law. Electronically signed by: Irving Vang M.D. 07/29/2019 2:30 PM
--- NOTE | 2019-07-29 17:09 | Palliative Care Progress Note ---
Date of Service July 29, 2019 Assessment & Plan (1) Goals of care, counseling/discussion: -Pt is a 74 yo male with PMH HTN, HLD, DM2, CKD stage III, Hypothyroidism, GERD, and others, presented to the hospital on 07/22 with acute onset right sided weakness. He was administered tPA in the emergency department. 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 MRA neck showed 100% patency of left carotid and 50% stenosis of the right. Vascular surgery consulted who states no surgical intervention needed at this time. Since tPA administration, patient has had some improvement . He does have some speech, but has significant expressive aphasia. He is occasionally able to answer simple questions. He can follow commands. Patient initially failed bedside swallow exams, however exam done on 07/28 showed improvement in his dysphasia-patient underwent video swallow today. reports that he passed, is plan to start a pured diet. -Met with patient and in room 280-2. Patient is fatigued but arousable. -Given that patient does seem to be slowly improving, patient's did agree to PEG tube placement. 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 She knows what medical decisions are in a living will and she and the patient have discussed this before. Lexa states that the patient said if he had hope of recovery, he would be okay with PEG tube. -Ultimately, the goal is to get patient back home. Prior to this event he was fully independent and able to care for himself. He will go to rehab after hospitalization-- likely [facility]. -Discussed that patient since having 1 stroke is still at risk of having subsequent strokes. -Palliative care team will continue to follow and assist with medical decision making. (2) Received intravenous tissue plasminogen activator (tPA) in emergency department: (3) Expressive aphasia: (4) Axel-neglect of right side: Subjective Patient seen and examined, patient had just returned from his swallow eval. Patient's at bedside. Patient fatigued and drowsy during visit, did respond to simple questions. Patient's reports that he passed his video swallow exam and is plan to start pured foods. Review of Systems Review of Systems: Unobtainable due to cognitive status Physical Exam Physical Exam: PE: Patient arousable, doses off quickly due to fatigue HEENT: NG tube in place Respirations: Unlabored, clear breath sounds CV: Regular rate Abdomen: Soft, nontender Extremities: Dense right hemiparesis Neuro: Arousable, dysarthria, able to answer simple questions Results & Data Vital Signs (Past 12 Hours) Vital Signs Temp Pulse Pulse Resp BP Pulse Ox 07/29/19 15:36 98.4 F 66 19 155/67 H 94 07/29/19 13:57 70 07/29/19 11:17 97.9 F 60 18 132/67 94 07/29/19 10:03 98.4 F 62 20 127/70 07/29/19 07:31 99.1 F 60 24 135/64 95 07/29/19 06:25 66 PG Care Time/CCT Total # of Minutes Spent Total Time Spent with Patient: Total time spent 35 minutes with greater than 50% of the time spent at bedside, assessing patient's current status and discussing goals of care with patient's Coding Level of Care Code 72776 Subseq Hosp Care Lvl 3 Diagnoses Goals of care, counseling/discussion Z71.89 Received intravenous tissue plasminogen activator (tPA) in emergency department Z92.82 Expressive aphasia R47.01 Axel-neglect of right side R41.4 Time Spent (min) 35
--- NOTE | 2019-07-29 17:59 | Progress Note ---
DATE: 07/29/2019 The patient underwent a swallowing trial with barium in various forms today along with speech therapy. The patient had some penetration of the larynx, but no aspiration during the trial. He continues to have his nasogastric feeding tube in place, it had to be replaced last night because it was pulled out inadvertently. I discussed these findings with the patient and his . IMPRESSION: The patient appears to have passed his swallowing trial today, although not perfectly. The plan per Dr. Ba is to remove the nasogastric feeding tube and try feeding him and if this goes well, then he can be transferred to rehab facility. If he fails his eating trial then he may need a gastrostomy tube placed after being off Plavix for 5 days. We will continue to follow the patient.
[2019-07-29] MEDS: AMLODIPINE BESYLATE 5 MG TAB PO SCH (21:48)
[2019-07-29] MEDS: INSULIN GLARGINE SOLOSTAR 100 UNITS/ML 3 ML PEN SC SCH (21:49)
[2019-07-29] MEDS ORDERED: Nursing to Pharmacy Communication ONE (21:53)
--- NOTE | 2019-07-29 22:20 | Hospitalist Progress Note ---
Date of Service July 29, 2019 Assessment & Plan (1) Cerebrovascular accident: Acute onset right-sided paralysis and aphasia. MRI brain showed acute infarct in the medial left temporal lobe and left frontoparietal white matter. Additional more limited acute infarcts in the right cerebellar hemisphere and other areas. MRA head/neck on 07/24 showed 50% stenosis in the right ICA and no flow in his left MCA. Vascular surgery consulted and no need for intervention at this time. - Discussed with Dr. Bettencourt - Likely embolic, though the source is unclear. - EGG SETTER - Failed swallow again on 07/25. - NG tube put in on 07/25. Tube feeds running with dietary adjusting rates and free water as needed. - Family is open for G tube but will have repeat swallow eval later today 07/29 - Some discussion re: anticoagulation -> With embolic source of unknown origin, I do not see benefit in starting anticoagulation, especially so soon after such a large stroke. (see addendum of my note on 07/26). - Continue Plavix, statin, risk factor modification. Update: Passed his evaluation. Patient can start to swallow and will initiate a diet. (2) Fever: Fever on 07/23 & 07/26 with concern for aspiration. - On 07/24, CXR was stable and procalcitonin is 0.5. - Repeated CXR and procalcitonin on 07/26 for more fevers -> Showed increasing infiltrate in the left lung base. However, procalcitonin was 0.35. Started Zosyn on 07/26. Follow fever curve. (3) Chronic kidney disease, stage III (moderate): Baseline Cr ~2.0-2.4, eGFR ~25. - At baseline on presentation and 07/27. - Avoid nephrotoxins - Monitor Cr (4) Diabetes mellitus type 2, uncontrolled, with complications: A1c is 8.6%, indicating some amount of poor control. - Diabetic pharmacist consulted - Sugars going higher with tube feeds now running. (5) Benign essential hypertension: BP presently 160/70. Initially allowed permissive HTN after CVA. - Restarted home meds on 07/26 after NG tube placed. - Will start lisinopril 5 mg today (07/27) for continued high BP not at goal (<130/80 per AHA guidelines). - Monitor Cr & K (6) Anemia: Baseline hgb ~8 after upper GI bleed. As high as 9.0 on 07/24. - Will order iron labs. - Empirically will start IV iron x 3 doses. (7) Hypothyroidism: TSH was 4.7 this admission. - Continue levothyroxine -> Presently on continuous feeds which may interfere with absorption. Will need to figure out how dosing will work long-term. (8) DVT prophylaxis: Heparin 5000 units SQ Q12h Subjective Patient reports no new symptoms. Review of Systems Review of Systems: All systems reviewed & are unremarkable except as noted in HPI & below Physical Exam Physical Exam: Constitutional: WD/WN, vitals as above Eyes: EOM intact bilaterally; no conjunctival abnormality ENMT: external ear and nose normal, oropharynx normal Neck: trachea midline, no thyromegaly normal visual inspection Respiratory: normal respiratory effort, lungs clear to auscultation no respiratory distress Cardiovascular: RRR, no murmur, no edema Gastrointestinal (Abdomen): Inspection/Auscultation: abdomen normal to inspection; abdomen not distended Musculoskeletal: no cyanosis or clubbing, extremities motor strength 5/5 Skin: no rashes, warm and dry Neurologic: awake Speech / Cognition: + expressive aphasia Motor/Sensory: + abnormal movement (Right-sided paresis) Psychiatric: Orientation: alert and cooperative; Results & Data Vital Signs (Past 12 Hours) Vital Signs Temp Pulse Pulse Resp BP Pulse Ox 07/29/19 19:39 37.6 C H 72 19 166/69 H 95 07/29/19 15:36 36.9 C 66 19 155/67 H 94 07/29/19 13:57 70 07/29/19 11:17 36.6 C 60 18 132/67 94 PG Care Time/CCT Total # of Minutes Spent Total Time Spent with Patient: Total time spent is greater than 50% in coordination of care (as documented) at patient's floor/unit and/or counseling patient: Coding Level of Care Code 98168 Subseq Hosp Care Lvl 2 Diagnoses Cerebrovascular accident I63.9 CVA mechanism: unspecified Fever R50.9 Chronic kidney disease, stage III (moderate) N18.3 Diabetes mellitus type 2, uncontrolled, with complications E11.8; E11.65 Benign essential hypertension I10 Anemia D64.9 Hypothyroidism E03.9 DVT prophylaxis Z29.9 Time Spent (min) 25 (1) Cerebrovascular accident CVA mechanism: unspecified Qualified Code(s): I63.9 - Cerebral infarction, unspecified
[2019-07-30] MEDS: PIPERACILLIN/TAZOBACTAM 4.5 GM in DEXTROSE 5% 100 ML IV SCH ×2 (05:51→16:01)
[2019-07-30] MEDS: LEVOTHYROXINE SODIUM 125 MCG TABLET PO SCH (05:56)
[2019-07-30 06:35] LABS: Creatinine Clr Calc Pharmacy 28.1 ml/min; Est GFR (African American) 28.3; Est GFR (Non-African American) 24.4
[2019-07-30] MEDS: CLOPIDOGREL BISULFATE 75 MG TAB PO SCH (08:16)
[2019-07-30] MEDS: HEPARIN SOD 5,000 UNIT/0.5 ML VIAL SQ SCH ×2 (08:17→20:41)
[2019-07-30] MEDS: LANSOPRAZOLE 15 MG SOLTAB NG SCH ×2 (08:17→20:41)
[2019-07-30] MEDS: ROSUVASTATIN CALCIUM 20 MG TAB PO SCH (08:18)
[2019-07-30] MEDS: lisinopriL 5 MG TAB PO SCH (08:18)
[2019-07-30] MEDS: INSULIN GLARGINE SOLOSTAR 100 UNITS/ML 3 ML PEN SC SCH ×2 (08:21→20:40)
[2019-07-30] MEDS: INSULIN ASPART 100 UNITS/ML 3 ML PEN SC SCH ×4 (08:22→20:40)
--- NOTE | 2019-07-30 12:42 | Pharmacy Report ---
Glycemic Control Progress Note - Date of Service July 30, 2019 - Scope Glycemic Pharmacist consulted for glycemic control to write orders per [facility] inpatient glycemic control protocol. - Objective Accuchecks BSG(last 24 hours):: 07/29/19 07/29/19 07/30/19 16:34 21:26 07:51 POC Glucose 133 H 186 H 162 H 07/30/19 12:01 POC Glucose 169 H HbA1c:: Hemoglobin A1c 8.6 % (4.5-5.6) H 07/23/19 04:35 - Recent Pertinent Medications The patient is currently receiving: * Basal insulin: Lantus 17 units every 12 hours * Correctional Insulin: Novolog Correction per scale ACHS Goal Range: Low 120 mg/dL - High 160 mg/dL Correction Factor: 15 mg/dL/unit * Prandial insulin: Per carb ratio of 1 unit per 6 grams CHO consumed - Outpatient Anti-Diabetic Meds Glimepiride [id number] units in PM - Assessment & Plan ASSESSMENT: * See progress note from 07/27/2019 for more background info, in short: * Pt receiving SQ basal bolus insulin regimen for hyperglycemia secondary to baseline DM (outpatient regimen on hold). Patient is s/p stroke - tube feeds were stopped yesterday and pureed diet started. Patient appears to be tolerating well. * Patient is currently receiving an average of 51 units of insulin per day * 32 units of basal insulin * 19 units of prandial/correctional insulin * BSGs ranging 133 - 228 mg/dl over the past 24hrs * Changes needed to insulin regimen: * AM Fasting BSG = 169 mg/dl. This is slightly above goal range for patient based on inpatient targets and co-morbidities. Basal insulin has been increased slightly. Will hold off any more increase since patient transit ioned from tube feeds to pureed diet. * Post-prandial BSGs were elevated yesterday but as mentioned above diet changed. Will continue with same regimen as lunch BSG was the same as morning. * Total daily dose = 50-60 units. PLAN FOR INPATIENT GLYCEMIC CONTROL: * Continuing Lantus 17 units SQ BID * Continuing correction factor of 15 mg/dl/unit * Continuing carb ratio to 1 unit per 6 grams CHO consumed * Continuing goal range of Low 120 mg/dL - High 160 mg/dL * Please note that the plan above was derived based on current level of insulin resistance and hospital stress. These recommendations are appropriate for inpatient admission only. Plan of care upon discharge will need to be reassessed to avoid potential outpatient hypo/hyperglycemia. Thank you.
[2019-07-30] MEDS ORDERED: Nursing to Pharmacy Communication ONE (19:42)
[2019-07-30] MEDS: AMLODIPINE BESYLATE 5 MG TAB PO SCH (20:41)
--- NOTE | 2019-07-30 23:08 | Hospitalist Progress Note ---
Date of Service July 30, 2019 Assessment & Plan (1) Cerebrovascular accident: Acute onset right-sided paralysis and aphasia. MRI brain showed acute infarct in the medial left temporal lobe and left frontoparietal white matter. Additional more limited acute infarcts in the right cerebellar hemisphere and other areas. MRA head/neck on 07/24 showed 50% stenosis in the right ICA and no flow in his left MCA. Vascular surgery consulted and no need for intervention at this time. - Discussed with Dr. Bettencourt - Likely embolic, though the source is unclear. - CLIN APPLICATION SPECIALIST - passed evaluation. - Some discussion re: anticoagulation -> With embolic source of unknown origin, I do not see benefit in starting anticoagulation, especially so soon after such a large stroke. (see addendum of my note on 07/26). - Continue Plavix, statin, risk factor modification. -Ready for discharge awaiting placement. (2) Fever: Fever on 07/23 & 07/26 with concern for aspiration. - On 07/24, CXR was stable and procalcitonin is 0.5. - Repeated CXR and procalcitonin on 07/26 for more fevers -> Showed increasing infiltrate in the left lung base. However, procalcitonin was 0.35. Started Zosyn on 07/26. Follow fever curve. (3) Chronic kidney disease, stage III (moderate): Baseline Cr ~2.0-2.4, eGFR ~25. - At baseline on presentation and 07/27. - Avoid nephrotoxins - Monitor Cr (4) Diabetes mellitus type 2, uncontrolled, with complications: A1c is 8.6%, indicating some amount of poor control. - Diabetic pharmacist consulted - Sugars going higher with tube feeds now running. (5) Benign essential hypertension: BP presently 160/70. Initially allowed permissive HTN after CVA. - Restarted home meds on 07/26 after NG tube placed. - Will continue lisinopril (07/30) Bp at goal. - Monitor Cr & K (6) Anemia: Baseline hgb ~8 after upper GI bleed. As high as 9.0 on 07/24. - (7) Hypothyroidism: TSH was 4.7 this admission. - Continue levothyroxine -> Presently on continuous feeds which may interfere with absorption. Will need to figure out how dosing will work long-term. (8) DVT prophylaxis: Heparin 5000 units SQ Q12h Subjective Patient reports no new symptoms. Review of Systems Review of Systems: All systems reviewed & are unremarkable except as noted in HPI & below Physical Exam Physical Exam: Constitutional: WD/WN, vitals as above Eyes: EOM intact bilaterally; no conjunctival abnormality ENMT: external ear and nose normal, oropharynx normal Neck: trachea midline, no thyromegaly normal visual inspection Respiratory: normal respiratory effort, lungs clear to auscultation no respiratory distress Cardiovascular: RRR, no murmur, no edema Gastrointestinal (Abdomen): Inspection/Auscultation: abdomen normal to inspection; abdomen not distended Musculoskeletal: no cyanosis or clubbing, extremities motor strength 5/5 Skin: no rashes, warm and dry Neurologic: awake Speech / Cognition: + expressive aphasia Motor/Sensory: + abnormal movement (Right-sided paresis) Psychiatric: Orientation: alert and cooperative; Results & Data Vital Signs (Past 12 Hours) Vital Signs Temp Pulse Pulse Resp BP Pulse Ox 07/30/19 19:46 36.7 C 66 19 151/64 H 97 07/30/19 16:00 37.3 C 66 20 157/71 H 94 07/30/19 15:00 73 07/30/19 12:33 36.8 C 66 18 132/65 94 PG Care Time/CCT Total # of Minutes Spent Total Time Spent with Patient: Total time spent is greater than 50% in coordination of care (as documented) at patient's floor/unit and/or counseling patient: Coding Level of Care Code 16411 Subseq Hosp Care Lvl 2 Diagnoses Cerebrovascular accident I63.9 CVA mechanism: unspecified Fever R50.9 Chronic kidney disease, stage III (moderate) N18.3 Diabetes mellitus type 2, uncontrolled, with complications E11.8; E11.65 Benign essential hypertension I10 Anemia D64.9 Hypothyroidism E03.9 DVT prophylaxis Z29.9 Time Spent (min) 25 (1) Cerebrovascular accident CVA mechanism: unspecified Qualified Code(s): I63.9 - Cerebral infarction, unspecified
[2019-07-31] MEDS: PIPERACILLIN/TAZOBACTAM 4.5 GM in DEXTROSE 5% 100 ML IV SCH ×2 (00:36→05:38)
[2019-07-31] MEDS: LEVOTHYROXINE SODIUM 125 MCG TABLET PO SCH (06:10)
[2019-07-31 07:45] LABS: BUN Creatinine Ratio 14.8 (10-20); Calcium 9.3 mg/dl (8.5-10.1); Creatinine Clr Calc Pharmacy 26.1 ml/min; Est GFR (African American) 25.9; Est GFR (Non-African American) 22.3; Magnesium 2.2 mg/dl (1.8-2.4); Phosphorus 3.2 mg/dl (2.5-4.9)
[2019-07-31] MEDS: INSULIN ASPART 100 UNITS/ML 3 ML PEN SC SCH ×2 (08:22→12:29)
[2019-07-31] MEDS: ROSUVASTATIN CALCIUM 20 MG TAB PO SCH (08:23)
[2019-07-31] MEDS: HEPARIN SOD 5,000 UNIT/0.5 ML VIAL SQ SCH (08:23)
[2019-07-31] MEDS: CLOPIDOGREL BISULFATE 75 MG TAB PO SCH (08:24)
[2019-07-31] MEDS: LANSOPRAZOLE 15 MG SOLTAB NG SCH (08:24)
[2019-07-31] MEDS: lisinopriL 5 MG TAB PO SCH (08:25)
--- NOTE | 2019-07-31 08:52 | Pharmacy Report ---
Pharmacy Glycemic Short Note 2 - Date of Service July 31, 2019 - Glycemic Short BSG Results (Last 24 hours): 07/30/19 07/30/19 07/30/19 12:01 16:39 20:31 Glucose POC Glucose 169 H 143 H 166 H 07/31/19 07/31/19 06:24 07:54 Glucose 133 H POC Glucose 150 H Outpatient Anti-Diabetic Meds * Glimepiride * Basaglar 33 units SC qPM The patient is currently receiving: * Basal insulin: Lantus 17 units SC every 12 hours * Correctional Insulin: Novolog Correction per scale ACHS Goal Range: Low 120 mg/dL - High 160 mg/dL Correction Factor: 15 mg/dL/unit * Prandial insulin: Per carb ratio of 1 unit per 6 grams CHO consumed ASSESSMENT: * BSG's well controlled yesterday * Patient passed swallow eval - T2DM pureed diet ordered * Will keep similar total daily dose but adjust Lantus by decreasing from BID to once daily admin and gradually transition back to home administration time (HS) PLAN: * Continue to hold home po medication * Basal insulin: Lantus 30-34 units SC @ dinner today then ongoing HS. Dose dependent on BSG. See MAR for details. * Correctional Insulin: Novolog Correction per scale ACHS Goal Range: Low 120 mg/dL - High 160 mg/dL Correction Factor: 15 mg/dL/unit * Prandial insulin: Per carb ratio of 1 unit per 6 grams CHO consumed
--- NOTE | 2019-07-31 11:33 | Cardiology Consultation ---
Date of Consultation July 31, 2019 Assessment & Plan (1) Axel-neglect of right side: 74 yo M with PMH HLD, NSTEMI, RBBB, CKD Stage III, DM2, Aortic Valve replacement, CABG who presented to the hospital for stroke symptoms and received TPA in the ED on 07/22/19. Assessed today for concern of runs of Vtach overnight and during previous hospital day. 1) Atrial tachycardia - telemetry strips indicative of atrial tachycardia possibly short run or precursor to Afib, unlikely to be true Vtach. 2) CVA s/p TPA - ECHO on 07/23/19 showed EF 60-65%, no regional wall motion abnormalities, mild concentric ventricular hypertrophy, mitral stenosis, functional bioprosthetic aortic valve, no vegetations or atrial thrombi - Brain MRI: Acute infarct in the medial left temporal lobe and left frontoparietal white matter. Additional more limited acute infarct in the right cerebellar hemisphere. - Carotid Dopplers: Approximately 50-69% stenosis within the proximal right internal carotid artery, Moderate stenosis within the bilateral external carotid arteries, No significant stenosis within the left internal carotid artery. - given questionable source of CVA, patient may benefit from implantation of a loop recorder to evaluate for underlying or progression to Afib during and after rehab. If Afib present, patient will require anticoagulation in addition to Plavix 3) CAD - Plavix antiplatelet therapy, Heparin DVT ppx - continue rosuvastatin 40 daily if patient tolerating oral medications (2) Goals of care, counseling/discussion: (3) Received intravenous tissue plasminogen activator (tPA) in emergency department: (4) S/P AVR (aortic valve replacement): (5) S/P CABG (coronary artery bypass graft): Supervising Physician Co-Signing Physician Notes I saw and examined the patient with doctor Robles in agree with the documentation above. Briefly, the patient did have very brief episodes of a tachycardia over the course of last 24 hours. A review of the telemetry suggests this is not ventricular in origin but likely an atrial arrhythmia. He is known to have preserved LV systolic function. Moderate apparently had an embolic stroke of unclear source. In the setting of cryptogenic stroke with atrial arrhythmias and a history of cardiac disease, for for I think he is certainly at risk for occult atrial fibrillation. Final monitoring for occult atrial fibrillation with implantable loop recorder would seem to be a good option for the patient. I did describe the procedure in the associated risks. I would advocate an implant and can arrange for implantation at the patient's convenience. History of Present Illness Reason for Consultation: multiple episodes of Vtach Requesting Physician: Baldev Ba Attending Physician: Baldev Ba History of Present Illness 74 yo M with PMH HLD, NSTEMI, RBBB, CKD Stage III, DM2, Aortic Valve replacement, CABG who presented to the hospital for stroke symptoms and received TPA in the ED on 07/22/19. Per patient and at bedside, no complaints of chest pain, shortness of breath, heart palpitations or racing heart rhythms that the patient has noticed or complained of. Yesterday telemetry picked up multiple runs of tachycardia thought to be Vtach. On examination, strip appeared to be more indicative of an atrial tachycardia for 4-5 seconds. Patient did not have any symptoms of palpitations, racing heart rate, chest pain during these episodes. Allergies Allergy/AdvReac Type Severity Reaction Status Date / Time No Known Allergies Allergy Verified 07/22/19 20:28 Home Medications Home Medications Medication Instructions Recorded Confirmed Type calcium carbonate 334 mg-magnesium 1 tab PO DAILY tab 01/04/19 07/22/19 History oxide 134 mg-zinc sulf 5 mg tablet ferrous gluconate 240 mg (27 mg 240 mg PO DAILY tab 04/14/19 07/22/19 History iron) tablet omega-3 acid ethyl esters 1 gram 1 cap PO DAILY cap 04/14/19 07/22/19 History capsule levothyroxine 125 mcg tablet 125 mcg PO DAILY #90 tab 05/05/19 07/22/19 Rx pantoprazole 40 mg tablet,delayed 40 mg PO BID #60 tab 05/19/19 07/22/19 Rx release losartan 100 mg tablet 100 mg PO DAILY #90 tab 05/26/19 07/22/19 Rx cholecalciferol (vitamin D3) 25 2,000 units PO DAILY cap 06/04/19 07/22/19 History mcg (1,000 unit) capsule Basaglar KwikPen U-100 Insulin 30 - 33 units SQ QPM 07/04/19 07/22/19 History glimepiride 4 mg PO DAILY 07/04/19 07/22/19 History rosuvastatin 40 mg PO DAILY 07/04/19 07/22/19 History blood sugar diagnostic #10 ea 07/07/19 07/07/19 History lancets 30 gauge #25 ea 07/07/19 07/07/19 History pen needle, diabetic 31 gauge x #30 ea 07/07/19 07/07/19 History 5/16" amlodipine [Norvasc] 5 mg PO HS #30 tab 07/31/19 Rx amoxicillin-pot clavulanate 1 tab PO BID #3 tab 07/31/19 Rx [Augmentin] clopidogrel 75 mg PO QAM #30 tab 07/31/19 Rx lisinopril [Zestril] 5 mg PO QAM #30 tab 07/31/19 Rx Patient History Medical History (Updated 07/28/19 @ 14:16 by FANNIE Torrez) Acute upper GI bleed (Acute) Aortic stenosis (Acute) Atrophy of left kidney (Acute) Benign essential hypertension (Chronic) Chronic kidney disease, stage III (moderate) (Chronic) Diabetes mellitus type 2, uncontrolled, with complications (Chronic) GERD without esophagitis (Acute) Goals of care, counseling/discussion Axel-neglect of right side Hyperlipidemia (Chronic) Hypothyroidism (Chronic) Recent non-ST elevation myocardial infarction (NSTEMI) (Resolved) Right bundle branch block (RBBB) (Acute) Surgical History S/P AVR (aortic valve replacement) (Resolved) S/P CABG (coronary artery bypass graft) (Resolved) Family History Mother , age 83 of esophageal cancer Cancer Father , age 57 of a stroke Stroke Other Colorectal cancer Social History Preferred Language: [place] Communication Ability: Impaired 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 Feels Safe at Home: Yes Smoking Status: Former smoker Number of Years Since Quit: 20 ; Hx Alcohol Use: No Hx Substance Use: No caffeine: Yes Dental Care, Regularly: Yes Physical Activity Frequency: 5-6 Times per Week Physical Activity Frequency Comment: Walking Seatbelt Use: always Sunscreen Use: No Review of Systems Respiratory: no cough and no dyspnea Cardiovascular: no chest pain, no dyspnea, no orthopnea, no palpitations, no lightheadedness, no syncope and no edema Physical Exam Constitutional: alert, able to follow conversation, right sided facial droop, difficulty conjuring words and processing thoughts to answer complex questions Respiratory: normal respiratory effort, lungs clear to auscultation Cardiovascular: Rate/Rhythm: regular rate and regular rhythm Heart Sounds: normal S1 and normal S2; no gallop, no murmur and no cardiac rub Extremities: no edema Results & Data Vital Signs (Past 12 Hours) Vital Signs Temp Pulse Pulse Resp BP Pulse Ox 07/31/19 07:44 36.7 C 69 20 124/69 92 07/31/19 07:37 65 07/31/19 03:28 36.6 C 62 18 128/59 L 94 07/31/19 01:00 81 07/31/19 00:10 36.5 C 73 18 125/70 92 Vital Signs Temp Pulse Pulse Pulse Resp BP Pulse Ox 07/31/19 07:44 36.7 C 69 20 124/69 92 07/31/19 07:37 65 07/31/19 03:28 36.6 C 62 18 128/59 L 94 07/31/19 01:00 81 07/31/19 00:10 36.5 C 73 18 125/70 92 07/30/19 19:46 36.7 C 66 19 151/64 H 97 07/30/19 16:00 37.3 C 66 20 157/71 H 94 07/30/19 15:00 73 07/30/19 12:33 36.8 C 66 18 132/65 94 Intake and Output 07/30/19 07/31/19 07/31/19 22:59 06:59 14:59 Intake Total 120 / 480 120 / 480 120 / 120 Output Total 500 / 1525 550 / 1525 Balance -380 / -1045 -430 / -1045 120 / 120 Intake: IV 120 / 360 120 / 360 120 / 120 Zosyn 4.5 gm In D5 100 ml @ 30 120 / 360 120 / 360 120 / 120 mls/hr IV Q8H [facility] Rx#:[id number] Output: Urine Amount (Catheter) 500 / 1525 550 / 1525 [place]/Indwelling 500 / 1525 550 / 1525 Other: Other Intake Source sips sips Weight 95.7 kg Comprehensive Metabolic Panel 07/31/19 Range/Units 06:24 Sodium 141 (136-145) mmol/L Potassium 4.0 (3.5-5.1) mmol/L Chloride 110 H (98-107) mmol/L Carbon Dioxide 26 (21-32) mmol/L BUN 40 H (7-18) mg/dl Creatinine 2.69 H (0.6-1.4) mg/dl Glucose 133 H (70-99) mg/dl Calcium 9.3 (8.5-10.1) mg/dl Intake and Output 07/30/19 07/31/19 07/31/19 22:59 06:59 14:59 Intake Total 120 / 480 120 / 480 120 / 120 Output Total 500 / 1525 550 / 1525 Balance -380 / -1045 -430 / -1045 120 / 120 Intake: IV 120 / 360 120 / 360 120 / 120 Zosyn 4.5 gm In D5 100 ml @ 30 120 / 360 120 / 360 120 / 120 mls/hr IV Q8H [facility] Rx#:[id number] Output: Urine Amount (Catheter) 500 / 1525 550 / 1525 [place]/Indwelling 500 / 1525 550 / 1525 Other: Other Intake Source sips sips Weight 95.7 kg PG Care Time/CCT Total # of Minutes Spent Total Time Spent with Patient: Total time spent is greater than 50% in coordination of care (as documented) at patient's floor/unit and/or counseling patient: Coding Level of Care Code 69126 Initial Inpt Care Lvl 3 Diagnoses Axel-neglect of right side R41.4 Goals of care, counseling/discussion Z71.89 Received intravenous tissue plasminogen activator (tPA) in emergency department Z92.82 S/P AVR (aortic valve replacement) Z95.2 S/P CABG (coronary artery bypass graft) Z95.1 Resident Activity Tracking Resident Involvement: Resident Care Provided Care Provided: Adult Hospital Medicine
[2019-07-31] MEDS ORDERED: INSULIN GLARGINE SOLOSTAR 100 UNITS/ML 3 ML PEN SC SCH (16:30)
--- NOTE | 2019-08-05 20:04 | Discharge Summary ---
Date of Service July 31, 2019 Admission HPI Per Admitting Provider 74 yo M with PMH HTN, HLD, DM2, CKDIII, Hypothyroidism, GERD presents to [facility] via EMS with concerns of stroke like symptoms. History taken from who is a reliable historian. Around 1850, pt was watching TV and got up to use the washroom and noted some R sided weakness in upper and lower extremities. noted some R sided facial droop as well. Pt continued to walk and fell forward on belly. attempted to assist him to washroom and pt was leaning on R side 2/2 weakness. Pt additionally had garbled speech that was worsening. Additional R sided spring coiling machine setter weakness. No previous such occurrence like this before. Pt is not on blood thinners. Pt with associated LOPEZ, but otherwise denied any visual problems, LOC, head injury, F/N/V/D, CP, SOB, palpitations, syncope or near syncope, edema, cough, or urinary sxs. Pt with no other acute concerns or complaints. Of note, pt with recent admission Jul 07, 2019 for UTI/PNA, since resolved. Upon ED presentation, initial NIHHS of 15. [place] neurologist was consulted and recommended for TPA transfusion, which was given at 2050. EKG: NSR, RBBB. When compared with ECG of 04-JUL-2019 no significant changes found Head CT: No acute intracranial abnormality. Age-related atrophy and chronic small vessel change Pertinent Labs: WBC 13.5, Hgb 8.6, Na 135, Cr 2.61, Glu 229. Otherwise unremarkable ER Course: TPA, IV Protonix 40 mg, NSS Family Hx: Noncontributory Social: Former Smoker. 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 Discharge Exam Constitutional: WD/WN, vitals as above Eyes: EOM intact bilaterally; no conjunctival abnormality ENMT: external ear and nose normal, oropharynx normal Neck: trachea midline, no thyromegaly normal visual inspection Respiratory: normal respiratory effort, lungs clear to auscultation no respiratory distress Cardiovascular: RRR, no murmur, no edema Gastrointestinal (Abdomen): Inspection/Auscultation: abdomen normal to inspection; abdomen not distended Musculoskeletal: no cyanosis or clubbing, extremities motor strength 5/5 Skin: no rashes, warm and dry Neurologic: awake Speech / Cognition: + expressive aphasia Motor/Sensory: + abnormal movement (Right-sided paresis) Psychiatric: Orientation: alert and cooperative; Discharge Data Allergies Allergy/AdvReac Type Severity Reaction Status Date / Time No Known Allergies Allergy Verified 07/22/19 20:28 Consultations 07/22/19 21:22 ED Decision to Admit Stat 07/22/19 22:51 Consult Case Management - Discharge Planning Routine Consult Neurology Routine 07/22/19 23:17 Consult Case Management - Discharge Planning Routine 07/22/19 23:21 Consult Policy Checker Routine 07/24/19 18:46 Consult Vascular Surgery Routine 07/26/19 16:41 Consult Palliative Care Routine 07/28/19 12:35 Consult Gastroenterology Routine 07/31/19 08:16 Consult Cardiology Routine Ordered Studies 07/22/19 20:07 CT head/brain wo con Stat 07/22/19 23:08 US carotid doppler BI Urgent 07/23/19 11:47 MR brain wo con Routine 07/24/19 15:35 MR angio head wo con Routine MR angio neck wo con Routine 07/26/19 16:15 US venous doppler LE BI Routine 07/29/19 13:00 FL video swallow Routine Hospital Course (1) Cerebrovascular accident: Acute onset right-sided paralysis and aphasia. MRI brain showed acute infarct in the medial left temporal lobe and left frontoparietal white matter. Additional more limited acute infarcts in the right cerebellar hemisphere and other areas. MRA head/neck on 07/24 showed 50% stenosis in the right ICA and no flow in his left MCA. Vascular surgery consulted and no need for intervention at this time. - Discussed with Dr. Bettencourt - Likely embolic, though the source is unclear. 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 - Some discussion re: anticoagulation -> With embolic source of unknown origin, I do not see benefit in starting anticoagulation, especially so soon after such a large stroke. (see addendum of my note on 07/26). - Continue Plavix, statin, risk factor modification. -Ready for discharge (2) Fever: Fever on 07/23 & 07/26 with concern for aspiration. - On 07/24, CXR was stable and procalcitonin is 0.5. - Repeated CXR and procalcitonin on 07/26 for more fevers -> Showed increasing infiltrate in the left lung base. However, procalcitonin was 0.35. Started Zosyn on 07/26. Follow fever curve. will discharge on augmentin (3) Chronic kidney disease, stage III (moderate): Baseline Cr ~2.0-2.4, eGFR ~25. - At baseline on presentation and 07/27. - Avoid nephrotoxins - Monitor Cr (4) Diabetes mellitus type 2, uncontrolled, with complications: A1c is 8.6%, indicating some amount of poor control. - Diabetic pharmacist consulted - Sugars going higher with tube feeds now running. (5) Benign essential hypertension: BP presently 160/70. Initially allowed permissive HTN after CVA. - Restarted home meds on 07/26 after NG tube placed. - Will continue lisinopril (07/30) Bp at goal. - Monitor Cr & K (6) Anemia: Baseline hgb ~8 after upper GI bleed. As high as 9.0 on 07/24. - (7) Hypothyroidism: TSH was 4.7 this admission. - Continue levothyroxine -> Presently on continuous feeds which may interfere with absorption. Will need to figure out how dosing will work long-term. (8) DVT prophylaxis: Heparin Total Time Total Time Spent Total Time Spent (In Minutes): 32 Total Time Includes: Examination of the Patient, Discharge Planning and Medication Reconciliation Discharge Plan Discharge Items Patient Disposition: Transfer Inpatient Rehab Fac Reason For Visit: STROKE S/P TPA Discharge Diagnosis: Stroke S/P TPA Activity: Resume your previous activity Non-emergency contact: Primary Care Provider Call non-emergency contact if: you have any medication questions Follow-up/Referrals: Luz Escobar MD [Primary Care Provider] - Diet: Regular Addtl Attending Provider Instructions: Augmentin for 2 days Followup WITH PCP in 1-2 weeks F/U with Neurology in 4 weeks F/U with Cardiology in 2-4 weeks. Risk Factors for Stroke: You can reduce your chances of stroke by working with your medical provider to adopt a healthy lifestyle. Some specific ways to lower your chance of stroke are: * If you are a smoker, now is the time to stop smoking cigarettes * If you are diabetic, improve the control of your blood sugars * Avoid excessive amounts of alcohol * Control high blood pressure * Lose weight if you are overweight * Be sure to lead an active lifestyle * Eat a healthy diet low in salt, cholesterol and fat You should know about other risk factors for stroke that you are unable to control. These include: * Age 55 years or older * Male gender * Certain racial groups: , or / * Family History of Stroke, Mini stroke or Heart Attack * Sickle Cell Disease Follow Up: It is important for you to keep your follow up appointments with your medical provider. Who to Call and When: Medical Emergencies: Call 911 immediately if you experience any of the following warning signs and symptoms of Stroke: * Sudden numbness or weakness of the face, arm or leg, especially on one side of the body * Sudden confusion, trouble speaking or understanding * Sudden trouble seeing in one or both eyes * Sudden trouble walking, dizziness, loss of balance or coordination * Sudden severe headache with no cause Do not delay calling 911 if you experience any warning signs or symptoms of a stroke. Delay in seeking medical attention may affect what treatments can be given to you. . Pending Studies at Discharge: No Stand-Alone Forms: My [facility] [employer] Skilled Items Patient informed of condition?: No DNR: No Discharge Level of Care: Acute rehab Communicable Disease: No Discharge Prognosis: Stable Lines: None Urinary Catheter: No Medications and DC Order Prescriptions: New clopidogrel 75 mg Tablet 75 mg PO QAM Qty: 30 RF: 0 amlodipine [Norvasc] 5 mg Tablet 5 mg PO HS Qty: 30 RF: 0 lisinopril [Zestril] 5 mg Tablet 5 mg PO QAM Qty: 30 RF: 0 amoxicillin-pot clavulanate [Augmentin] 875-125 mg tablet 1 tab PO BID Qty: 3 RF: 0 Continued levothyroxine 125 mcg tablet 125 mcg PO DAILY Qty: 90 RF: 1 pantoprazole 40 mg tablet,delayed release (DR/EC) 40 mg PO BID Qty: 60 RF: 5 losartan 100 mg tablet 100 mg PO DAILY Qty: 90 RF: 1 (DME) blood sugar diagnostic strip See Rx Instructions strip .ROUTE .MEDSUPPLY Qty: 10 RF: 0 (DME) pen needle, diabetic 31 gauge x 5/16" needle See Rx Instructions ea .ROUTE .MEDSUPPLY Qty: 30 RF: 0 (DME) lancets 30 gauge misc See Rx Instructions gauge .ROUTE .MEDSUPPLY Qty: 25 RF: 0 calcium carb-mag ox-zinc sulf 334-134-5 mg tablet 1 tab PO DAILY RF: 0 ferrous gluconate 240 mg (27 mg iron) tablet 240 mg PO DAILY RF: 0 omega-3 acid ethyl esters 1 gram capsule 1 cap PO DAILY RF: 0 cholecalciferol (vitamin D3) 25 mcg (1,000 unit) capsule 2,000 units PO DAILY RF: 0 glimepiride 4 mg tablet 4 mg PO DAILY RF: 0 rosuvastatin 40 mg tablet 40 mg PO DAILY RF: 0 Basaglar KwikPen U-100 Insulin 100 unit/mL (3 mL) insulin pen 30 - 33 units SQ QPM RF: 0 Discontinued amlodipine 10 mg tablet 10 mg PO HS Qty: 90 RF: 1 Discharge Orders: Discharge Order (Routine); Ordered 07/31/19 Ordered By: Baldev Lau/Other Patient Handouts: Diabetes Chcf Complications, Hyperglycemia, Hypoglycemia, Diabetes Resources, Diabetes Type 2 Coping, Diabetes Healthy Meals, Diabetes Exercise Benefits, Diabetes Living Life, Diabetes Manage A1C Test Admission Data Admit Date/Time: 07/22/19 23:21 Attending Provider: Baldev Ba Admit Provider: Prince Ferris Primary Care Provider: Luz Escobar Other Providers: Coy Bettencourt III ; Sachin Camacho ; Elias Tate ; Joni Michelle ; Scott Adkins ; Phuong Gunter Other Interventions: Discharge Summary Assessment (RN) Last Done: 07/31/19 13:21 DC Date/Time DO NOT enter until pt leaves facility: 07/31/19 14:10 Coding Level of Care Code D/C Day Management >30 mins Diagnoses Cerebrovascular accident I63.9 CVA mechanism: unspecified Fever R50.9 Chronic kidney disease, stage III (moderate) N18.3 Diabetes mellitus type 2, uncontrolled, with complications E11.8; E11.65 Benign essential hypertension I10 Anemia D64.9 Hypothyroidism E03.9 DVT prophylaxis Z29.9
== END 2019-07-31 14:10 | DRG 62 ==
LOC: ED 19:58 → SUATTDRO 23:21 → 1E 23:21 → 2N 07-24 15:33

== ENCOUNTER 2022-05-17 17:02 | Inpatient (IN) ==
[2022-05-17] MEDS ORDERED: SODIUM CHLORIDE 0.9% 1000ML 1,000 ML IV SCH (17:45)
--- NOTE | 2022-05-17 18:04 | XRay Report ---
XR chest 1V portable HISTORY: weakness COMPARISON: Chest 07/21/2019. FINDINGS: Improvement in the left basilar linear densities suggesting resolving subsegmental atelecta sis. No new focal lung consolidations to suggest a pneumonia. No evidence for pulmonary edema. The he art is normal in size. No pleural effusions. No pneumothorax. There are poststernotomy changes again noted. IMPRESSION: No acute process. ACT 112: Negative or not required by law. Electronically signed by: Irving Vang M.D. 05/17/2022 6:02 PM
--- NOTE | 2022-05-17 18:15 | Emergency Department Note ---
History of Present Illness General Chief complaint: Abdominal Pain Stated complaint: NOT BREATHING WELL,LOSS OF APETITE,VOMIT,ABDOMINAL Time Seen by Provider: 05/17/22 17:19 History of Present Illness 77-year-old male presents to the ED with a chief complaint of decreased p.o. intake and generalized weakness for the past 6 days or so. The also states that he has appearance of occasional abdominal cramps. He vomited a little bit. She states that he does have a Ratliff catheter and the urine appears cloudy. She was concerned about UTI. The patient does have a history of kidney issues as well as diabetes. After contacting her doctor, the patient was told to come to the ED for evaluation. The patient is unable provide any additional information due to his previous strokes. Home Medications Medication Instructions Recorded Confirmed Type omega-3 acid ethyl esters 1 gram 1 cap PO DAILY 04/14/19 05/17/22 History capsule cholecalciferol (vitamin D3) 25 1,000 units PO DAILY 06/04/19 05/17/22 History mcg (1,000 unit) capsule lancets 30 gauge #25 ea 07/07/19 04/10/22 History acetaminophen 325 mg tablet 325 mg PO Q4H PRN pain #20 tabs 09/01/19 05/17/22 Rx ferrous gluconate 324 mg (38 mg 324 mg PO DAILY #30 tabs 09/01/19 05/17/22 Rx iron) tablet mecobalamin (vitamin B12) 1,000 1,000 mcg PO DAILY 09/04/19 05/17/22 Rx mcg chewable tablet hyperhomocysteinemia #30 tabs blood sugar diagnostic #50 ea 06/04/20 04/10/22 Rx pen needle, diabetic 31 gauge x #100 ea 07/07/20 04/10/22 Rx 5/16" blood sugar diagnostic (OneTouch #100 ea 09/07/20 04/10/22 Rx Verio test strips) lancets 33 gauge (OneTouch Delica #100 ea 03/03/21 04/10/22 Rx Plus Lancet) clopidogrel 75 mg tablet 75 mg PO QAM #90 tabs 09/19/21 05/17/22 Rx pantoprazole 40 mg tablet,delayed 40 mg PO BID #180 tabs 12/05/21 05/17/22 Rx release rosuvastatin 40 mg tablet 40 mg PO DAILY #90 tabs 12/12/21 05/17/22 Rx amlodipine 5 mg tablet (Norvasc) 5 mg PO HS #90 tabs 03/10/22 05/17/22 Rx levothyroxine 137 mcg tablet 137 mcg PO DAILY #90 tabs 03/10/22 05/17/22 Rx losartan 50 mg tablet 50 mg PO DAILY #90 tabs 03/20/22 05/17/22 Rx amoxicillin 500 mg capsule 2,000 mg PO .COMPLEX PRN PRIOR TO 05/17/22 05/17/22 History DENTAL APPT. insulin glargine 100 unit/mL 16 unit subcut QPM 05/17/22 05/17/22 History subcutaneous solution (Lantus U-100 Insulin) tamsulosin 0.4 mg capsule 0.4 mg PO HS 05/17/22 05/17/22 History Allergies Allergy/AdvReac Type Severity Reaction Status Date / Time No Known Allergies Allergy Verified 05/17/22 19:21 Past Med/Surg History Medical History Acute upper GI bleed Aortic stenosis Atrophy of left kidney Benign essential hypertension Chronic kidney disease, stage 4 (severe) Diabetes mellitus type 2, uncontrolled, with complications GERD without esophagitis Goals of care, counseling/discussion Axel-neglect of right side Hyperlipidemia Hypothyroidism Lower abdominal pain Recent non-ST elevation myocardial infarction (NSTEMI) Right bundle branch block (RBBB) Stage 3b chronic kidney disease Vitamin D deficiency Surgical History S/P AVR (aortic valve replacement) S/P CABG (coronary artery bypass graft) Status post laser cataract surgery of both eyes Family History Mother , age 83 of esophageal cancer Cancer Father , age 57 of a stroke Stroke Other Colorectal cancer Denies family history of Ovarian cancer Prostate cancer Myocardial infarction Breast cancer Social History Smoking Status: Never smoker Hx Alcohol Use: No Hx Substance Use: No Preferred Language: Moldovan Communication Ability: Impaired Embalmer/Funeral Director Required: No Beliefs That Will Affect Care: None marital status: Current Living Situation: Spouse current occupational status: retired other: 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 Feels Safe at Home: Yes caffeine: Yes Dental Care, Regularly: Yes Physical Activity Frequency: 5-6 Times per Week Physical Activity Frequency Comment: Walking Seatbelt Use: always Sunscreen Use: No Assistive Devices: Wheelchair Review of Systems A total of 10 systems reviewed and were otherwise negative Physical Exam Vital Signs Vital Signs - 24 hr 05/17/22 17:09 05/17/22 19:00 05/17/22 19:01 Pulse Rate 103 H Pulse Rate [Apical] 87 Pulse Rate from SpO2 Sensor Respiratory Rate 16 22 Respiratory Effort / Characteristics Non-Labored Spontaneous Respiratory Depth Normal Blood Pressure 113/56 L Blood Pressure [Left Arm] 123/59 L Blood Pressure Mean 75 Blood Pressure Mean [Left Arm] 80 Pulse Oximetry 96 96 95 Oxygen Delivery Method Room Air Room Air Room Air Sepsis Recent Fever Within 48 Hours No Sepsis New/Unexplained Change in Mental Status No Sepsis Action Taken by Nursing No Action Required 05/17/22 20:00 Pulse Rate 79 Pulse Rate [Apical] Pulse Rate from SpO2 Sensor 79 Respiratory Rate 20 Respiratory Effort / Characteristics Respiratory Depth Blood Pressure 103/52 L Blood Pressure [Left Arm] Blood Pressure Mean 69 Blood Pressure Mean [Left Arm] Pulse Oximetry 94 Oxygen Delivery Method Room Air Sepsis Recent Fever Within 48 Hours Sepsis New/Unexplained Change in Mental Status Sepsis Action Taken by Nursing CONSTITUTIONAL/VITAL SIGNS: Reviewed / noted above. GENERAL: Non-toxic in appearance. INTEGUMENTARY: Warm, dry, and [place]. HEAD: Normocephalic. EYES: without scleral icterus or trauma. ENT/OROPHARYNX: clear and moist. LYMPHADENOPATHY/NECK: Is supple without lymphadenopathy or meningismus. RESPIRATORY: Clear to auscultation bilaterally. No increased work of breathing. CARDIOVASCULAR: Regular rate and rhythm. GI/ABDOMEN: Soft and tender in the lower abdomen. No organomegaly or pulsatile mass. Ratliff catheter in place. EXTREMITIES: Warm and well perfused. NEUROLOGICAL: Awake. Difficult to understand verbally which is chronic. Moves extremities weakly. PSYCHIATRIC: normal affect. MUSCULOSKELETAL: Normally developed with good muscle tone. TRIAGE NURSING DOCUMENTATION REVIEWED. Course Administered Medications Ciprofloxacin (Cipro / D5w) 400 mg in 200 mls @ 100 mls/hr IV NOW STA; Protocol Stop: 05/17/22 21:35 Last Admin: 05/17/22 20:09 Dose: 100 mls/hr Documented By: DAVID Discontinued Medications Sodium Chloride (Nss 1000ml) 1,000 mls @ 999 mls/hr IV .Q1H1M SANTY Stop: 05/17/22 18:45 Last Infusion: 05/17/22 19:25 Dose: 0 mls/hr Documented By: Admin: 05/17/22 18:17 Dose: 999 mls/hr Documented By: LISA Critical Care Time Critical Care Time: Yes Total Critical Care Time: 30 I have personally spent 30 minutes of critical care time in the direct management of this patient. This includes bedside care, interpretation of diagn ostic studies, and testing, discussion with consultants, patient, and family members, and other required patient management activities. This 30 minutes is in excess of all separately billable procedures. Medical Decision Making Differential Diagnosis Differential includes acute coronary syndrome, myocardial infarction, CVA, TIA, anemia, infection, pneumonia, UTI, pyelonephritis, poor nutrition, dehydration, electrolyte disturbance,hypoglycemia. Medical Records Attestation: I reviewed the patient's medical records. Home Medications Current Medication List: was personally reviewed by me Laboratory Data Attestation: I reviewed the patient's lab results. Result diagrams: 05/17/22 19:29 05/17/22 19:29 Lab Results 05/17/22 05/17/22 05/17/22 Range/Units 18:10 19:22 19:29 WBC 13.84 H (4.8-10.8) K/ul RBC 3.20 L (4.63-6.08) M/uL Hgb 6.8 L* (14.0-18.0) g/dl Hct 23.6 L (40.1-51.0) % MCV 73.8 L (80.0-100.0) fL MCH 21.3 L (25.0-34.0) pg MCHC 28.8 L (32.0-36.0) g/dL RDW Std Deviation 50.1 H (36.4-46.3) fL RDW Coeff of Sarah 18.9 H (11.5-14.5) % Plt Count 326 (130-400) K/uL MPV 10.6 (9.4-12.4) fL Immature Gran % (Auto) 0.7 % Neut % (Auto) 77.0 % Lymph % (Auto) 11.3 % [place] % (Auto) 10.5 % Eos % (Auto) 0.2 % Baso % (Auto) 0.3 % Neut # (Auto) 10.66 H (1.4-6.5) K/uL Lymph # (Auto) 1.56 (1.2-3.4) K/uL [place] # (Auto) 1.45 H (0.24-0.82) K/uL Eos # (Auto) 0.03 (0-0.50) K/uL Baso # (Auto) 0.04 (0-0.2) K/uL Immature Gran # (Auto) 0.10 H (0.00-0.02) K/uL RBC Morphology Unremarkable Sodium (136-145) mmol/L Potassium (3.5-5.1) mmol/L Chloride (98-107) mmol/L Carbon Dioxide (21-32) mmol/L Anion Gap (3-11) BUN (6-23) mg/dl Creatinine (0.6-1.4) mg/dl Est Cr Clr Drug Dosing ml/min Est GFR ( Amer) ml/min Est GFR (Non-Af Amer) ml/min BUN/Creatinine Ratio (10-20) Glucose (70-99(Fasting)) mg/dl Calcium (8.5-10.1) mg/dl Total Bilirubin (0.2-1.0) mg/dl AST (13-39) U/L ALT (7-52) U/L Alkaline Phosphatase (34-104) U/L Total Protein (6.0-8.3) gm/dl Albumin (3.4-5.0) gm/dl Globulin (2.5-4.0) gm/dl Albumin/Globulin Ratio (0.9-2) Urine Color Yellow Urine Appearance Turbid A (Clear) Urine pH 5.5 (4.5-7.5) Ur Specific [place] 1.017 (1.000-1.030) Urine Protein 3+ H (Negative) Urine Glucose (UA) Negative (Negative) Urine Ketones Trace H (Negative) Urine Blood 3+ H (Negative) Urine Nitrite Negative (Negative) Urine Bilirubin Negative (Negative) Urine Urobilinogen Negative (Negative) Ur Leukocyte Esterase 3+ H (Negative) Urine WBC (Auto) >30 H (0-5) /hpf Urine RBC (Auto) 0-4 (0-4) /hpf U Hyaline Cast (Auto) 1-5 (0-5) /lpf U Epithel Cells (Auto) 10-20 H (0-5) /lpf Urine Bacteria (Auto) 4+ H (Negative) Amorphous Sediment Present A (None Prsent) Urine Mucus Present A (None Prsent) Urine Yeast Not Reportable SARS-CoV-2, RNA, NAAT (NEGATIVE) Blood Type O Positive Antibody Screen NEGATIVE Crossmatch See Detail 05/17/22 05/17/22 Range/Units 19:29 20:15 WBC (4.8-10.8) K/ul RBC (4.63-6.08) M/uL Hgb (14.0-18.0) g/dl Hct (40.1-51.0) % MCV (80.0-100.0) fL MCH (25.0-34.0) pg MCHC (32.0-36.0) g/dL RDW Std Deviation (36.4-46.3) fL RDW Coeff of Sarah (11.5-14.5) % Plt Count (130-400) K/uL MPV (9.4-12.4) fL Immature Gran % (Auto) % Neut % (Auto) % Lymph % (Auto) % [place] % (Auto) % Eos % (Auto) % Baso % (Auto) % Neut # (Auto) (1.4-6.5) K/uL Lymph # (Auto) (1.2-3.4) K/uL [place] # (Auto) (0.24-0.82) K/uL Eos # (Auto) (0-0.50) K/uL Baso # (Auto) (0-0.2) K/uL Immature Gran # (Auto) (0.00-0.02) K/uL RBC Morphology Sodium 137 (136-145) mmol/L Potassium 3.4 L (3.5-5.1) mmol/L Chloride 103 (98-107) mmol/L Carbon Dioxide 22 (21-32) mmol/L Anion Gap 12 H (3-11) BUN 47 H (6-23) mg/dl Creatinine 3.86 H (0.6-1.4) mg/dl Est Cr Clr Drug Dosing 16.0 ml/min Est GFR ( Amer) 16.4 ml/min Est GFR (Non-Af Amer) 14.1 ml/min BUN/Creatinine Ratio 12.2 (10-20) Glucose 129 H (70-99(Fasting)) mg/dl Calcium 11.5 H (8.5-10.1) mg/dl Total Bilirubin 0.6 (0.2-1.0) mg/dl AST 36 (13-39) U/L ALT 19 (7-52) U/L Alkaline Phosphatase 84 (34-104) U/L Total Protein 7.3 (6.0-8.3) gm/dl Albumin 2.8 L (3.4-5.0) gm/dl Globulin 4.5 H (2.5-4.0) gm/dl Albumin/Globulin Ratio 0.6 L (0.9-2) Urine Color Urine Appearance (Clear) Urine pH (4.5-7.5) Ur Specific [place] (1.000-1.030) Urine Protein (Negative) Urine Glucose (UA) (Negative) Urine Ketones (Negative) Urine Blood (Negative) Urine Nitrite (Negative) Urine Bilirubin (Negative) Urine Urobilinogen (Negative) Ur Leukocyte Esterase (Negative) Urine WBC (Auto) (0-5) /hpf Urine RBC (Auto) (0-4) /hpf U Hyaline Cast (Auto) (0-5) /lpf U Epithel Cells (Auto) (0-5) /lpf Urine Bacteria (Auto) (Negative) Amorphous Sediment (None Prsent) Urine Mucus (None Prsent) Urine Yeast SARS-CoV-2, RNA, NAAT NEGATIVE (NEGATIVE) Blood Type Antibody Screen Crossmatch Imaging Data Radiologist's Impression: Chest X-Ray 05/17/22 17:41 XR chest 1V portable HISTORY: weakness COMPARISON: Chest 07/21/2019. FINDINGS: Improvement in the left basilar linear densities suggesting resolving subsegmental atelectasis. No new focal lung consolidations to suggest a pneumonia. No evidence for pulmonary edema. The heart is normal in size. No pleural effusions. No pneumothorax. There are poststernotomy changes again noted. IMPRESSION: No acute process. ACT 112: Negative or not required by law. Electronically signed by: Irving Vang M.D. 05/17/2022 6:02 PM Abdomen/Pelvis CT 05/17/22 18:[address] WITHOUT CONTRAST CT DOSE: 1002.07 mGy.cm HISTORY: lower abd pain TECHNIQUE: Multiaxial CT images of the abdomen and pelvis were performed without contrast. A dose lowering technique was utilized adhering to the principles of ALARA. COMPARISON STUDY: Abdomen and pelvis CT 07/04/2019. FINDINGS: Left basilar linear densities consistent with subsegmental atelectasis. No pneumoperitoneum. No pneumatosis. The bilateral sacroiliac joints are partially fused. This remains unchanged. No suspicious lytic or blastic osseous lesions. There are poststernotomy changes and an aortic valve prosthesis noted. There is a tiny hiatus hernia. There is a small diverticulum at the third portion of the duodenum. The bladder is decompressed by Ratliff catheter. Mild bladder wall thickening with adjacent fat stranding is noted. Large amount well-formed stool within the rectum including a 8.4 cm rectal stool ball. There is mild perirectal edema. No definite bowel wall thickening or obstruction on this noncontrast study. Normal appendix. There is a punctate calcified granuloma within the right hepatic lobe. The unenhanced gallbladder, pancreas, left adrenal gland, and right kidney are unremarkable. Redemonstration of the atrophic left kidney. This contains 2 hypodense lesions measuring 1 cm. These are incompletely characterized on this noncontrast study. No renal or ureteral stones. No hydronephrosis. Heterogeneous appearance to the spleen which appears to contain multiple hypodense lesions. Dominant lesion measures 3.7 cm. The cortex appears spared. Therefore, splenic infarcts are considered less likely. There is also mild perisplenic fat stranding. There is a 2.8 cm right adrenal myelolipoma, unchanged. No retroperitoneal lymphadenopathy. Moderate calcified plaque within the normal caliber abdominal aorta. No pelvic free fluid. IMPRESSION: 1. Heterogeneous appearance to the spleen with perisplenic fat stranding. This appears to contain multiple hypodense lesions measuring up to 3.7 cm. This is nonspecific and could be due to neoplastic or infectious process. Splenic infarcts are considered less likely but not entirely excluded. Follow-up n onemergent MRI of the spleen is suggested for further evaluation. 2. Large amount of well-formed stool within the rectum with mild perirectal edema. 3. No bowel wall thickening or obstruction. 4. Normal appendix. 5. Atrophic left kidney, unchanged. ACT 112: Negative or not required by law. Electronically signed by: Irving Vang M.D. 05/17/2022 8:21 PM ECG Data Attestation: I personally reviewed and interpreted this ECG as follows: Additional Comments: Twelve-lead EKG: Per my interpretation shows normal sinus rhythm at a rate of 83. Right bundle branch block. No ST elevation. No PVCs. MDM Narrative 77-year-old male presents to the ED with a chief complaint of decreased p.o. intake, weakness and some vomiting as well as occasional abdominal cramps, ac cording to the . She also noted cloudy urine in the Ratliff catheter. The vital signs are stable. Heart rate was 103. A CT scan of the abdomen pelvis is noted above. Urine appears to be infected. The patient is anemic with a hemoglobin of 6.8. The patient's stool was guaiac negative. His kidney function is worse than baseline with a creatinine of 3.86. Baseline is around 2.2. The patient was typed and crossed for 1 unit of blood. He was given a unit of blood here in the emergency department. He was given IV Cipro for his urinary tract infection. He was given IV fluids 1 L normal saline. He will be seen by the hospitalist for further evaluation and care. Impression & Plan Anemia, Acute kidney injury, UTI (urinary tract infection) Discharge Plan Visit Data Chief Complaint: Abdominal Pain Stated Complaint: NOT BREATHING WELL,LOSS OF APETITE,VOMIT,ABDOMINAL ED Provider: Billy Amaya Discharge Problem: Anemia, Acute kidney injury, UTI (urinary tract infection) Patient Disposition: Being Evaluated by Hospitalist Forms Stand Alone Forms: My [facility] [employer] Prescriptions Prescriptions: No Action acetaminophen 325 mg tablet 325 mg PO Q4H PRN (Reason: pain) Qty: 20 0RF ferrous gluconate 324 mg (38 mg iron) tablet 324 mg PO DAILY Qty: 30 5RF (DME) blood sugar diagnostic Strip See Rx Instructions .ROUTE .MEDSUPPLY Qty: 50 2RF Rx Instructions: As directed (DME) pen needle, diabetic 31 gauge x 5/16" needle See Rx Instructions .ROUTE .MEDSUPPLY Qty: 100 5RF Rx Instructions: Use once daily with insulin Dx: E11.9 (DME) OneTouch Verio test strips Strip See Rx Instructions .ROUTE .MEDSUPPLY Qty: 100 5RF Rx Instructions: E11.9, Test BID. (DME) lancets [OneTouch Delica Plus Lancet] 33 gauge misc See Rx Instructions .Route Qty: 100 1RF Rx Instructions: Once a day E11.9 clopidogrel 75 mg tablet 75 mg PO QAM Qty: 90 3RF pantoprazole 40 mg tablet,delayed release (DR/EC) 40 mg PO BID Qty: 180 1RF rosuvastatin 40 mg tablet 40 mg PO DAILY Qty: 90 1RF amlodipine [Norvasc] 5 mg tablet 5 mg PO HS Qty: 90 1RF levothyroxine 137 mcg tablet 137 mcg PO DAILY Qty: 90 1RF losartan 50 mg tablet 50 mg PO DAILY Qty: 90 3RF mecobalamin (vitamin B12) 1,000 mcg tablet,chewable 1,000 mcg PO DAILY Qty: 30 0RF (DME) lancets 30 gauge misc See Rx Instructions .ROUTE .MEDSUPPLY Qty: 25 Rx Instructions: As directed omega-3 acid ethyl esters 1 gram capsule 1 cap PO DAILY cholecalciferol (vitamin D3) 25 mcg (1,000 unit) capsule 1,000 units PO DAILY insulin glargine [Lantus U-100 Insulin] 100 unit/mL Solution 16 unit SUBCUT QPM Rx Instructions: PER PT'S "HAD TO ADJUST AMT, D/T LOWER BSG IN AM". amoxicillin 500 mg capsule 2,000 mg PO .COMPLEX PRN (Reason: PRIOR TO DENTAL APPT.) Rx Instructions: 2,000 mg PO ; Take 4 caps 30-60 minutes prior to dental appointment tamsulosin 0.4 mg capsule 0.4 mg PO HS Referrals Referrals: Luz Escobar MD [Primary Care Provider] -
[2022-05-17 18:25] LABS: Appearance Urine Turbid (Clear); Bacteria Urine Automated 4+ (Negative); Bilirubin Urine Negative (Negative); Blood Urine 3+ (Negative); Color Urine Yellow; Glucose Urine UA Negative (Negative); Ketones Urine Trace (Negative); Leukocyte Esterase Urine 3+ (Negative); Nitrite Urine Negative (Negative); Protein Urine 3+ (Negative); Specific Gravity Urine 1.017 (1.000-1.030); Urobilinogen Urine Negative (Negative); WBC Urine Automated >30 /hpf (0-5); pH Urine 5.5 (4.5-7.5)
[2022-05-17 18:38] LABS: Amorphous Sediment Urine Present (None Prsent); Mucus Urine Present (None Prsent); RBC Urine Automated 0-4 /hpf (0-4)
[2022-05-17] MEDS ORDERED: CIPROFLOXACIN / D5W 400 MG/200 ML BAG IV STA (19:36)
[2022-05-17 19:57] LABS: Basophils # (auto) 0.04 K/uL (0-0.2); Basophils % (auto) 0.3 %; Eosinophils # (auto) 0.03 K/uL (0-0.50); Eosinophils % (auto) 0.2 %; Hematocrit (blood only) 23.6 % (40.1-51.0); Hemoglobin 6.8 g/dl (14.0-18.0); Immature Granulocytes % (auto) 0.7 %; Lymphocytes # (auto) 1.56 K/uL (1.2-3.4); Lymphocytes % (auto) 11.3 %; Mean Corpuscular Hemoglobin 21.3 pg (25.0-34.0); Mean Corpuscular Hgb Conc 28.8 g/dL (32.0-36.0); Mean Corpuscular Volume 73.8 fL (80.0-100.0); Mean Platelet Volume 10.6 fL (9.4-12.4); Monocytes # (auto) 1.45 K/uL (0.24-0.82); Monocytes % (auto) 10.5 %; Neutrophils # (auto) 10.66 K/uL (1.4-6.5); Platelet Count 326 K/uL (130-400); RBC Morphology Unremarkable; RDW Coefficient of Variation 18.9 % (11.5-14.5); RDW Standard Deviation 50.1 fL (36.4-46.3); White Blood Count 13.84 K/ul (4.8-10.8)
[2022-05-17 20:00] LABS: Albumin Globulin Ratio 0.6 (0.9-2); Albumin Level 2.8 gm/dl (3.4-5.0); BUN Creatinine Ratio 12.2 (10-20); Bilirubin,Total 0.6 mg/dl (0.2-1.0); Calcium 11.5 mg/dl (8.5-10.1); Est GFR (African American) 16.4 ml/min; Est GFR (Non-African American) 14.1 ml/min; Globulin 4.5 gm/dl (2.5-4.0); Potassium 3.4 mmol/L (3.5-5.1); Total Protein 7.3 gm/dl (6.0-8.3)
[2022-05-17] MEDS ORDERED: SODIUM CHLORIDE 0.9% 250 ML IV PRN (20:05)
--- NOTE | 2022-05-17 20:24 | CT Scan Report ---
ABDOMEN AND PELVIS CT WITHOUT CONTRAST CT DOSE: 1002.07 mGy.cm HISTORY: lower abd pain TECHNIQUE: Multiaxial CT images of the abdomen and pelvis were performed without contrast. A dose lo wering technique was utilized adhering to the principles of ALARA. COMPARISON STUDY: Abdomen and pelvis CT 07/04/2019. FINDINGS: Left basilar linear densities consistent with subsegmental atelectasis. No pneumoperitoneum . No pneumatosis. The bilateral sacroiliac joints are partially fused. This remains unchanged. No nikita picious lytic or blastic osseous lesions. There are poststernotomy changes and an aortic valve prosth esis noted. There is a tiny hiatus hernia. There is a small diverticulum at the third portion of the duodenum. The bladder is decompressed by Ratliff catheter. Mild bladder wall thickening with adjacent f at stranding is noted. Large amount well-formed stool within the rectum including a 8.4 [address] ol ball. There is mild perirectal edema. No definite bowel wall thickening or obstruction on this non contrast study. Normal appendix. There is a punctate calcified granuloma within the right hepatic lob e. The unenhanced gallbladder, pancreas, left adrenal gland, and right kidney are unremarkable. Redem onstration of the atrophic left kidney. This contains 2 hypodense lesions measuring 1 cm. These are i ncompletely characterized on this noncontrast study. No renal or ureteral stones. No hydronephrosis. Heterogeneous appearance to the spleen which appears to contain multiple hypodense lesions. Dominant lesion measures 3.7 cm. The cortex appears spared. Therefore, splenic infarcts are considered less li cyrus. There is also mild perisplenic fat stranding. There is a 2.8 cm right adrenal myelolipoma, unch anged. No retroperitoneal lymphadenopathy. Moderate calcified plaque within the normal caliber abdomi nal aorta. No pelvic free fluid. IMPRESSION: 1. Heterogeneous appearance to the spleen with perisplenic fat stranding. This appears to contain mul tiple hypodense lesions measuring up to 3.7 cm. This is nonspecific and could be due to neoplastic or infectious process. Splenic infarcts are considered less likely but not entirely excluded. Follow-up nonemergent MRI of the spleen is suggested for further evaluation. 2. Large amount of well-formed stool within the rectum with mild perirectal edema. 3. No bowel wall thickening or obstruction. 4. Normal appendix. 5. Atrophic left kidney, unchanged. ACT 112: Negative or not required by law. Electronically signed by: Irving Vang M.D. 05/17/2022 8:21 PM
--- NOTE | 2022-05-17 20:29 | History & Physical Report ---
Date of Service May 17, 2022 Assessment & Plan (1) Anemia: Plan: -Admit to med tele -The patient is currently afebrile, hemodynamically stable and stable on RA -The etiology of the patient's anemia is likely multifactorial at this including possible acute blood loss anemia from GI bleed, anemia of CKD, poor oral intake, and hx of BRIT -Hgb noted to be 6.8 in the ED, MCV currently 73, MCHC at 28.8, and elevated RDW -Patient has previous history of erosive gastritis found on EGD from 2018 and has been on BID pantoprazole since. His symptoms of early satiety and recent vomiting after eating are concerning. -Blood consent obtained in the ED and 1 unit PRBC's ordered. Will have iron studies obtained prior to receiving blood to see where his levels are at -Keep NPO for now, getting 2 large bore IV's, and will switch to IV Protonix at 40 mg BID starting tonight -Will place GI consult for him to be evaluated tomorrow -Will give him light IV hydration overnight as he will be NPO -Monitor post transfusion H&H then continue to monitor q8h moving forward (2) Acute kidney injury: Plan: -Cr today noted to be 3.86, baseline appears to be approximately 2.0 -Likely due to dehydration from poor oral intake, continued use antihypertensives, and current UTI -Was given 1L NSS bouls in the ED, will switch patient to lactated ringer's overnight for a total of 2 bags -Monitor renal function and electrolytes in the am, avoid nephrotoxic agents (3) UTI (urinary tract infection): Plan: -Patient with chronic indwelling burgess with urine appearing infected and positive UA -Given one dose of cipro in the ED -Review of previous urine cultures shows that the patient has grown wells- sensitive pseudomonas and Enterococcus in the past. For now we will switch him to Vancomycin and Cefepime, tailor abx to urine cutlures and sensitivites -Spoke with pharmacy who will assist with renally dosing antibiotics -Ordered and confirmed with nursing staff that they will exchange his burgess (4) Splenic lesion: Plan: -Noted on CT scan today, differential includes neoplastic source, infection, and infarction -Recommended non-emergent MRI of the spleen for further evaluation -Will need to confirm if he can have an MRI with his implanted loop recorder but will wait unitl he is more stable to obtain MRI (5) Vomiting: Plan: -Concerned patient possibly has recurrent gastritis and/or possible mechanical issue including possible cancer with his strong family history of esophageal cancer -Keep NPO for now and follow GI recommendation (6) CAD (coronary artery disease): Plan: -Would continue Plavix when he can switch back to a PO diet (7) Hypokalemia: Plan: -Noted to be 3.4 today, no ECG changes -Will hold supplemental potassium for now due to his MABEL and wanting to avoid hyperkalemia -Monitor AM potassium and mag levels (8) Hypercalcemia: Plan: -Noted to be 11.5 today -Will hydrate overnight and recheck in the am -If still elevated tomorrow continue hypercalcemia workup (9) Hyperlipidemia: Plan: -Continue statin when able to swith to PO intake (10) Hypothyroidism: Plan: -Continue levothyroxine when able to switch to PO intake (11) Diabetes mellitus type 2, uncontrolled, with complications: Plan: -Normally on 16 units HS lantus -Will decrease to 5 units BID for now as he is NPO -Continue with correction factor of 55 and carb ratio of 18 when he can eat -BSG checks q6h while NPO (12) Benign essential hypertension: Plan: -Hold antihypertensives for now with MABEL and to avoid hypotension with possible GI bleed (13) History of CVA (cerebrovascular accident): Plan: -At neurologic baseline -Continue plavix when he can tolerate PO intake unless recommended to hold by GI Plan The patient was discussed with Dr. 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 In the ED the patient was found to be afebrile, hemodynamically stable, and stable on RA. Labs were remarkable for a leukocytosis of 13.84 with left shift 10.66, Hgb of 6.8 (down from 11.3 as of 08/2021, MCV of 73.8, Cr of 3.86 with potassium of 3.4, sodium of 137, AG of 12 with Bicarb of 22, BUN of 47, calcium of 11.5, stable renal function, and UA suggestive of UTI. Chest xray was negative for acute process. CT of the abdomen and pelvis without contrast showed "Heterogeneous appearance to the spleen with perisplenic fat stranding. This appears to contain multiple hypodense lesions measuring up to 3.7 cm. This is nonspecific and could be due to neoplastic or infectious process. Splenic infarcts are considered less likely but not entirely excluded. Follow-up nonemergent MRI of the spleen is suggested for further evaluation. Large amount of well-formed stool within the rectum with mild perirectal edema.No bowel wall thickening or obstruction. Normal appendix. Atrophic left kidney, unchanged.". Prior to admission the patient was given one dose of ciprofloxacin, 1L NSS bolus, and was ordered 1 unit PRBCs. I confirmed with the ED provider that they already obtained consent for the transfusion. At the time of the exam the patient was resting comfortably in bed in no acute distress with his sitting bedside. The history was obtained from the patient's as he has expressive aphasia from his previous CVA and she is his primary caregiver. She states that since the beginning of the month the patient has developed decreased appetite, feeling of early satiety/fullness, vomiting after meals, and upper abdominal discomfort. She states that the patient normally has a good appetite and this was a big change for him. She notes that he has not been eating much since the beginning of the month but has been pretty good with drinking fluids. When asked, she states that she has not noticed coffee grounds in his vomit. She has noticed that the patient has been belching rather frequently, he did so during my exam. She notes that he has had less frequent bowel movements over this time as well. He has been having black stools but he is also on oral iron for iron deficiency anemia. He has been taking his medications as prescribed with no recent changes. She noticed that his Burgess catheter contained cloudy urine, it was last changed on 05/12/22. He has not had recent fevers, chest pain, SOB, diarrhea, or lower extremity swelling. I spoke to the the patient's regarding the CT findings of lesions in his spleen and the need for further assessment with non-emergent MRI. He has had MRI's in the past and is claustrophobic. She is unsure if he had his implanted loop recorder when he had his MRI previously. When asked, she denies any person history of cancer for the patient. He was never a heavy drinker. He did smoke cigarettes approximately 30 years ago but has not smoked since then besides an occasional cigar prior to his CVA. His has a strong family history of esophageal cancer with two brothers and his mother all being diagnosed previously. I had a long discussion with the patient and his regarding goals of care and code status. After our discussion the patient communicated to his that he would want to be a DNR/DNI as his quality of life is not good at the present time. His is his POA and agrees with his decision. Per chart review, the patient ;constance had an EGD back in 2017. It showed erosive esophagitis, two hemostatic clips were placed at that time to prevent bleeding. After further discussions with the patient's she explained that his PCP had been concerned about his progressive anemia and wanted the patient to undergo EGD and colonoscopy back in December for further evaluation. His states that he declined at that time and chose to continue monitoring his Hgb and anemia with regularly scheduled labs. Please refer to Dr. Mae's attestation for any changes to the treatment plan Allergies Allergy/AdvReac Type Severity Reaction Status Date / Time No Known Allergies Allergy Verified 05/17/22 19:21 Home Medications Medication Instructions Recorded Confirmed Type omega-3 acid ethyl esters 1 gram 1 cap PO DAILY 04/14/19 05/17/22 History capsule cholecalciferol (vitamin D3) 25 1,000 units PO DAILY 06/04/19 05/17/22 History mcg (1,000 unit) capsule lancets 30 gauge #25 ea 07/07/19 04/10/22 History acetaminophen 325 mg tablet 325 mg PO Q4H PRN pain #20 tabs 09/01/19 05/17/22 Rx ferrous gluconate 324 mg (38 mg 324 mg PO DAILY #30 tabs 09/01/19 05/17/22 Rx iron) tablet mecobalamin (vitamin B12) 1,000 1,000 mcg PO DAILY 09/04/19 05/17/22 Rx mcg chewable tablet hyperhomocysteinemia #30 tabs blood sugar diagnostic #50 ea 06/04/20 04/10/22 Rx pen needle, diabetic 31 gauge x #100 ea 07/07/20 04/10/22 Rx /" blood sugar diagnostic (OneTouch #100 ea 09/07/20 04/10/22 Rx Verio test strips) lancets 33 gauge (OneTouch Delica #100 ea 03/03/21 04/10/22 Rx Plus Lancet) clopidogrel 75 mg tablet 75 mg PO QAM #90 tabs 09/19/21 05/17/22 Rx pantoprazole 40 mg tablet,delayed 40 mg PO BID #180 tabs 12/05/21 05/17/22 Rx release rosuvastatin 40 mg tablet 40 mg PO DAILY #90 tabs 12/12/21 05/17/22 Rx amlodipine 5 mg tablet (Norvasc) 5 mg PO HS #90 tabs 03/10/22 05/17/22 Rx levothyroxine 137 mcg tablet 137 mcg PO DAILY #90 tabs 03/10/22 05/17/22 Rx losartan 50 mg tablet 50 mg PO DAILY #90 tabs 03/20/22 05/17/22 Rx amoxicillin 500 mg capsule 2,000 mg PO .COMPLEX PRN PRIOR TO 05/17/22 05/17/22 History DENTAL APPT. insulin glargine 100 unit/mL 16 unit subcut QPM 05/17/22 05/17/22 History subcutaneous solution (Lantus U-100 Insulin) tamsulosin 0.4 mg capsule 0.4 mg PO HS 05/17/22 05/17/22 History Past Med/Surg History Medical History Acute upper GI bleed Aortic stenosis Atrophy of left kidney Benign essential hypertension Chronic kidney disease, stage 4 (severe) Diabetes mellitus type 2, uncontrolled, with complications GERD without esophagitis Goals of care, counseling/discussion Axel-neglect of right side Hyperlipidemia Hypothyroidism Lower abdominal pain Recent non-ST elevation myocardial infarction (NSTEMI) Right bundle branch block (RBBB) Stage 3b chronic kidney disease Vitamin D deficiency Surgical History S/P AVR (aortic valve replacement) S/P CABG (coronary artery bypass graft) Status post laser cataract surgery of both eyes Family History Mother , age 83 of esophageal cancer Cancer Father , age 57 of a stroke Stroke Other Colorectal cancer Denies family history of Ovarian cancer Prostate cancer Myocardial infarction Breast cancer Social History Smoking Status: Never smoker Hx Alcohol Use: No Hx Substance Use: No Preferred Language: Montenegrin Communication Ability: Impaired Pedodontist Required: No Beliefs That Will Affect Care: None marital status: Current Living Situation: Family current occupational status: retired Other Information That Helps Us Care for You: No other: Retired age 62 from [employer] (worked with [employer] and [employer]). Feels Safe at Home: Yes Safety Concerns: Feels Safe At This Time caffeine: Yes Dental Care, Regularly: Yes Physical Activity Frequency: 5-6 Times per Week Physical Activity Frequency Comment: Walking Seatbelt Use: always Sunscreen Use: No Assistive Devices: None Review of Systems Review of Systems: Denies current fever, chills, headache, changes in vision, hearing, taste, and smell, chest pain, SOB, cough, diarrhea, hematemesis, melena,and recent falls. All systems have been reviewed and are otherwise negative. Physical Exam Physical Exam: Physical Exam: General: In no acute distress, stated age, chronically ill-appearing HEENT: Normocephalic, atraumatic, no scleral icterus, pupils around round, symmetrical, and reactive to light, dry mucus membranes, trachea midline, no thyromegaly Chest/Pulm: No respiratory distress, symmetrical chest expansion, clear breath sounds throughout Cardiac: RRR, no murmurs noted Abdomen: Negative for ascites and bruising, normoactive bowel sounds, soft, non-tender to palpation throughout : burgess catheter is in place and currently draining cloudy, yellow urine Musculoskeletal: No acute trauma, patient with chronic right-sided paralysis since previous CVA Extremities: Radial, dorsalis pedis, and posterior tibial pulses are intact and symmetrical, no edema noted in the BL LE's Skin: Warm, dry, no rashes , lesions, or scars noted Neuro: Alert, patient has baseline expressive aphasia, follows commands and can communicate simple yes or no answers to questions, appears to be at his neurologic baseline Psych: No acute distress, calm and cooperative during the exam Results & Data Results & Data ([facility]) Vital Signs (Past 12 Hours) Vital Signs Pulse Pulse Resp BP BP Pulse Ox O2 Del Method 05/17/22 20:00 79 20 103/52 L 94 Room Air 05/17/22 19:01 95 Room Air 05/17/22 19:00 87 22 123/59 L 96 Room Air 05/17/22 17:09 103 H 16 113/56 L 96 Room Air Laboratory Results Abnormal lab results 05/17/22 05/17/22 05/17/22 Range/Units 18:10 19:22 19:29 WBC 13.84 H (4.8-10.8) K/ul RBC 3.20 L (4.63-6.08) M/uL Hgb 6.8 L* (14.0-18.0) g/dl Hct 23.6 L (40.1-51.0) % MCV 73.8 L (80.0-100.0) fL MCH 21.3 L (25.0-34.0) pg MCHC 28.8 L (32.0-36.0) g/dL RDW Std Deviation 50.1 H (36.4-46.3) fL RDW Coeff of Sarah 18.9 H (11.5-14.5) % Neut # (Auto) 10.66 H (1.4-6.5) K/uL [place] # (Auto) 1.45 H (0.24-0.82) K/uL Immature Gran # (Auto) 0.10 H (0.00-0.02) K/uL Potassium (3.5-5.1) mmol/L Anion Gap (3-11) BUN (6-23) mg/dl Creatinine (0.6-1.4) mg/dl Glucose (70-99(Fasting)) mg/dl Calcium (8.5-10.1) mg/dl Albumin (3.4-5.0) gm/dl Globulin (2.5-4.0) gm/dl Albumin/Globulin Ratio (0.9-2) Urine Appearance Turbid A (Clear) Urine Protein 3+ H (Negative) Urine Ketones Trace H (Negative) Urine Blood 3+ H (Negative) Ur Leukocyte Esterase 3+ H (Negative) Urine WBC (Auto) >30 H (0-5) /hpf U Epithel Cells (Auto) 10-20 H (0-5) /lpf Urine Bacteria (Auto) 4+ H (Negative) Amorphous Sediment Present A (None Prsent) Urine Mucus Present A (None Prsent) Crossmatch See Detail 05/17/22 Range/Units 19:29 WBC (4.8-10.8) K/ul RBC (4.63-6.08) M/uL Hgb (14.0-18.0) g/dl Hct (40.1-51.0) % MCV (80.0-100.0) fL MCH (25.0-34.0) pg MCHC (32.0-36.0) g/dL RDW Std Deviation (36.4-46.3) fL RDW Coeff of Sarah (11.5-14.5) % Neut # (Auto) (1.4-6.5) K/uL [place] # (Auto) (0.24-0.82) K/uL Immature Gran # (Auto) (0.00-0.02) K/uL Potassium 3.4 L (3.5-5.1) mmol/L Anion Gap 12 H (3-11) BUN 47 H (6-23) mg/dl Creatinine 3.86 H (0.6-1.4) mg/dl Glucose 129 H (70-99(Fasting)) mg/dl Calcium 11.5 H (8.5-10.1) mg/dl Albumin 2.8 L (3.4-5.0) gm/dl Globulin 4.5 H (2.5-4.0) gm/dl Albumin/Globulin Ratio 0.6 L (0.9-2) Urine Appearance (Clear) Urine Protein (Negative) Urine Ketones (Negative) Urine Blood (Negative) Ur Leukocyte Esterase (Negative) Urine WBC (Auto) (0-5) /hpf U Epithel Cells (Auto) (0-5) /lpf Urine Bacteria (Auto) (Negative) Amorphous Sediment (None Prsent) Urine Mucus (None Prsent) Crossmatch Diagnostic Findings Chest X-Ray 05/17/22 17:41 XR chest 1V portable HISTORY: weakness COMPARISON: Chest 07/21/2019. FINDINGS: Improvement in the left basilar linear densities suggesting resolving subsegmental atelectasis. No new focal lung consolidations to suggest a pneumonia. No evidence for pulmonary edema. The heart is normal in size. No pleural effusions. No pneumothorax. There are poststernotomy changes again noted. IMPRESSION: No acute process. ACT 112: Negative or not required by law. Electronically signed by: Irving Vang M.D. 05/17/2022 6:02 PM Abdomen/Pelvis CT 05/17/22 18:[address] WITHOUT CONTRAST CT DOSE: 1002.07 mGy.cm HISTORY: lower abd pain TECHNIQUE: Multiaxial CT images of the abdomen and pelvis were performed without contrast. A dose lowering technique was utilized adhering to the principles of ALARA. COMPARISON STUDY: Abdomen and pelvis CT 07/04/2019. FINDINGS: Left basilar linear densities consistent with subsegmental atelectasis. No pneumoperitoneum. No pneumatosis. The bilateral sacroiliac joints are partially fused. This remains unchanged. No suspicious lytic or donaldo stic osseous lesions. There are poststernotomy changes and an aortic valve prosthesis noted. There is a tiny hiatus hernia. There is a small diverticulum at the third portion of the duodenum. The bladder is decompressed by Burgess catheter. Mild bladder wall thickening with adjacent fat stranding is noted. Large amount well-formed stool within the rectum including a 8.4 cm rectal stool ball. There is mild perirectal edema. No definite bowel wall thickening or obstruction on this noncontrast study. Normal appendix. There is a punctate calcified granuloma within the right hepatic lobe. The unenhanced gallbladder, pancreas, left adrenal gland, and right kidney are unremarkable. Redemonstration of the atrophic left kidney. This contains 2 hypodense lesions measuring 1 cm. These are incompletely characterized on this noncontrast study. No renal or ureteral stones. No hydronephrosis. Heterogeneous appearance to the spleen which appears to contain multiple hypodense lesions. Dominant lesion measures 3.7 cm. The cortex appears spared. Therefore, splenic infarcts are considered less likely. There is also mild perisplenic fat stranding. There is a 2.8 cm right adrenal myelolipoma, unchanged. No retroperitoneal lymphadenopathy. Moderate calcified plaque within the normal caliber abdominal aorta. No pelvic free fluid. IMPRESSION: 1. Heterogeneous appearance to the spleen with perisplenic fat stranding. This appears to contain multiple hypodense lesions measuring up to 3.7 cm. This is nonspecific and could be due to neoplastic or infectious process. Splenic infarcts are considered less likely but not entirely excluded. Follow-up nonemergent MRI of the spleen is suggested for further evaluation. 2. Large amount of well-formed stool within the rectum with mild perirectal edema. 3. No bowel wall thickening or obstruction. 4. Normal appendix. 5. Atrophic left kidney, unchanged. ACT 112: Negative or not required by law. Electronically signed by: Irving Vang M.D. 05/17/2022 8:21 PM ECG Additional Comments: Normal sinus rhythm Right bundle branch block Possible Inferior infarct (cited on or before 22-JUL-2019) Abnormal ECG When compared with ECG of 22-JUL-2019 21:43, No significant change was found Code Status & VTE Plan Code Status DNR/DNI VTE Prophylaxis Plan VTE Prophylaxis will be ordered: Yes Supervising Physician Co-Signing Physician Notes Patient seen and examined, chart reviewed, case discussed with DAYDAY Calle and I agree with the assessment and plan as above. In brief, patient is a 77yo male with history of CVA with aphasia,CAD, DM and HTN presenting with anemia, UTI, MABEL. Incidentally discovered splenic lesions On exam he is afebrile, HD stable Aphasic - does not answer questions +S1/S2, regular Lungs CTA Abd soft NT/ND Ext warm, well perfused. Burgess in place Labs and images reviewed Assessment/Plan -Transfusion - monitor CBC. Iron studies ordered Protonix BID Cefepime and Vancomycin for UTI - patient with history of enterococcus as well as psuedmonal uti MRI spleen prior to DC Remainder as above PG Care Time/CCT Total # of Minutes Spent Total Time Spent with Patient: Total time spent is greater than 50% in coordination of care (as documented) at patient's floor/unit and/or counseling patient: [place] [address] Initial Inpt Care Lvl 3 Patient Type Established Medical Decision Making High Complexity Diagnoses Anemia D64.9 Acute kidney injury N17.9 UTI (urinary tract infection) N39.0 Splenic lesion D73.89 Vomiting R11.10 CAD (coronary artery disease) I25.10 Hypokalemia E87.6 Hypercalcemia E83.52 Hyperlipidemia E78.5 Hypothyroidism E03.9 Diabetes mellitus type 2, uncontrolled, with complications E11.8; E11.65 Benign essential hypertension I10 History of CVA (cerebrovascular accident) Z86.73
[2022-05-17] MEDS: PANTOprazole 40 MG in SYRINGE 0 ML IV SCH (21:54)
[2022-05-17 22:23] LABS: Ferritin 1208.7 ng/ml (8-388)
[2022-05-17] MEDS ORDERED: VANCOMYCIN CONSULT ACTIVE PRN (22:25)
[2022-05-17 22:36] LABS: Vitamin B12 > 1500 pg/ml (180-914)
[2022-05-17] MEDS ORDERED: ACETAMINOPHEN 325 MG TAB PO PRN (22:55)
[2022-05-17] MEDS ORDERED: CARBOHYDRATES FOR HYPOGLYCEMIA PO PRN (22:55)
[2022-05-17] MEDS ORDERED: GLUCOSE 10 TAB/TUBE PO PRN (22:55)
[2022-05-17] MEDS ORDERED: GLUCOSE 40% GEL 15 GM TUBE PO PRN (22:55)
[2022-05-17] MEDS ORDERED: GLUCAGON FOR INJ 1 MG VIAL SQ PRN (22:55)
[2022-05-17] MEDS ORDERED: DEXTROSE 50% 50 ML SYRINGE IV PRN (22:55)
[2022-05-17] MEDS ORDERED: CEFEPIME 2,000 MG in SYRINGE 0 ML IV ONE (23:00)
[2022-05-17] MEDS ORDERED: VANCOMYCIN HCL 1,750 MG in SODIUM CHLORIDE 0.9% 500 ML IV ONE (23:15)
[2022-05-17] MEDS: LACTATED RINGER'S 1,000 ML IV SCH (23:29)
[2022-05-17] MEDS: INSULIN ASPART PER UNIT SC SCH (23:55)
--- NOTE | 2022-05-18 01:53 | Billing Data ---
Date of Service May 17, 2022 Coding Level of Care Code 13154 Initial Inpt Care Lvl 3
[2022-05-18] MEDS: POTASSIUM CHLORIDE / WTR 10 MEQ/100 ML PLCT IV SCH ×3 (02:19→04:26)
[2022-05-18] MEDS ORDERED: ACETAMINOPHEN 1,000 MG/100 ML VIAL IV PRN (05:10)
[2022-05-18] MEDS: INSULIN ASPART PER UNIT SC SCH ×3 (06:03→17:06)
--- NOTE | 2022-05-18 07:09 | Hospitalist Progress Note ---
Date of Service May 18, 2022 Assessment & Plan Admission and Anticipated Discharge Date Admission Date: May 17, 2022 Physical Exam Constitutional: NAD. Vitals WNL. Eyes: no conjunctival abnormality Respiratory: CTA bilaterally. No rhonchi, wheezing, or crackles. Non labored b reathing. Cardiovascular: RRR. No murmur noted. No LL edema. Gastrointestinal (Abdomen): Nontender, +BS. No masses noted. Skin: no rashes, warm and dry Psychiatric: Alert. Mood and affect congruent. Results & Data Results & Data ([facility]) Vital Signs (Past 12 Hours) Vital Signs Temp Pulse Pulse Pulse Resp BP BP 05/18/22 07:03 73 05/18/22 03:35 36.6 C 77 18 135/68 05/17/22 22:55 78 05/17/22 23:52 36.5 C 72 18 123/65 05/17/22 23:04 05/17/22 23:04 37.3 C 76 18 152/69 H 05/17/22 23:00 37.3 C 79 152/69 H 05/17/22 22:30 36.9 C 80 18 136/57 L 05/17/22 22:15 36.7 C 77 22 135/65 05/17/22 21:58 37.1 C 76 20 123/55 L 05/17/22 20:00 79 20 103/52 L Pulse Ox O2 Del Method 05/18/22 07:03 05/18/22 03:35 93 Room Air 05/17/22 22:55 05/17/22 23:52 94 05/17/22 23:04 Room Air 05/17/22 23:04 97 Room Air 05/17/22 23:00 05/17/22 22:30 97 05/17/22 22:15 99 05/17/22 21:58 95 05/17/22 20:00 94 Room Air Resident Activity Tracking Resident Involvement: Resident Care Provided Care Provided: Adult Hospital Medicine
[2022-05-18 07:14] LABS: Hematocrit (blood only) 27.3 % (40.1-51.0); Hemoglobin 8.4 g/dl (14.0-18.0); Mean Corpuscular Hemoglobin 23.2 pg (25.0-34.0); Mean Corpuscular Hgb Conc 30.8 g/dL (32.0-36.0); Mean Corpuscular Volume 75.4 fL (80.0-100.0); Mean Platelet Volume 10.1 fL (9.4-12.4); Platelet Count 272 K/uL (130-400); RDW Coefficient of Variation 22.3 % (11.5-14.5); RDW Standard Deviation 59.8 fL (36.4-46.3); Red Blood Count 3.62 M/uL (4.63-6.08); White Blood Count 13.31 K/ul (4.8-10.8)
[2022-05-18 07:41] LABS: Albumin Globulin Ratio 0.6 (0.9-2); Albumin Level 2.5 gm/dl (3.4-5.0); BUN Creatinine Ratio 13.1 (10-20); Bilirubin,Total 0.6 mg/dl (0.2-1.0); Calcium 10.8 mg/dl (8.5-10.1); Creatinine Clr Calc Pharmacy 18.9 ml/min; Est GFR (African American) 18.8 ml/min; Est GFR (Non-African American) 16.2 ml/min; Potassium 3.6 mmol/L (3.5-5.1); Total Protein 6.5 gm/dl (6.0-8.3)
[2022-05-18] MEDS: PANTOprazole 40 MG in SYRINGE 0 ML IV SCH ×2 (09:01→22:22)
--- NOTE | 2022-05-18 09:38 | Gastrointestinal Consultation ---
Date of Consultation May 18, 2022 Assessment & Plan (1) History of CVA (cerebrovascular accident): (2) Acute blood loss anemia: Plan Patient is a 77 y.o. male admitted with profound anemia and abdominal pain with history of long chain beamer antiplatelet use due to prior CVA and history of erosive gastritis. -NPO. -EGD with Dr. Alexander today for further evaluation. -Continue Pantoprazole 40 mg BID. -Further recommendations pending results of testing. Thank you for allowing us to participate in the care of this patient. If you have any questions or concerns, please do not hesitate to contact us. History of Present Illness Reason for Consultation: Acute blood loss anemia Requesting Physician: Billy Calle PA-C Attending Physician: Maegan Hidalgo MD History of Present Illness Patient is a 77 y.o. male with a history of CVA and significant residual aphasia admitted with loss of appetite and abdominal pain. He did undergo a laboratory testing and CT which demonstrated he was profoundly anemic with a hemoglobin of 6.8 and hematocrit of 23.6. Patient has received 1 unit of PRBCs with repeat hemoglobin improved to 8.4. Patient has a history of erosive gastritis which was found on EGD by Dr. Larson on 08/12/17. Since admission, he has been made NPO and started on Pantoprazole [address] with noted splenic lesions measuring up to 3.7 cm, requiring further evaluation to exclude a malignant process. Allergies Allergy/AdvReac Type Severity Reaction Status Date / Time No Known Allergies Allergy Verified 05/17/22 19:21 Home Medications Medication Instructions Recorded Confirmed Type omega-3 acid ethyl esters 1 gram 1 cap PO DAILY 04/14/19 05/17/22 History capsule cholecalciferol (vitamin D3) 25 1,000 units PO DAILY 06/04/19 05/17/22 History mcg (1,000 unit) capsule lancets 30 gauge #25 ea 07/07/19 04/10/22 History acetaminophen 325 mg tablet 325 mg PO Q4H PRN pain #20 tabs 09/01/19 05/17/22 Rx ferrous gluconate 324 mg (38 mg 324 mg PO DAILY #30 tabs 09/01/19 05/17/22 Rx iron) tablet mecobalamin (vitamin B12) 1,000 1,000 mcg PO DAILY 09/04/19 05/17/22 Rx mcg chewable tablet hyperhomocysteinemia #30 tabs blood sugar diagnostic #50 ea 06/04/20 04/10/22 Rx pen needle, diabetic 31 gauge x #100 ea 07/07/20 04/10/22 Rx 11/14" blood sugar diagnostic (OneTouch #100 ea 09/07/20 04/10/22 Rx Verio test strips) lancets 33 gauge (OneTouch Delica #100 ea 03/03/21 04/10/22 Rx Plus Lancet) clopidogrel 75 mg tablet 75 mg PO QAM #90 tabs 09/19/21 05/17/22 Rx pantoprazole 40 mg tablet,delayed 40 mg PO BID #180 tabs 12/05/21 05/17/22 Rx release rosuvastatin 40 mg tablet 40 mg PO DAILY #90 tabs 12/12/21 05/17/22 Rx amlodipine 5 mg tablet (Norvasc) 5 mg PO HS #90 tabs 03/10/22 05/17/22 Rx levothyroxine 137 mcg tablet 137 mcg PO DAILY #90 tabs 03/10/22 05/17/22 Rx losartan 50 mg tablet 50 mg PO DAILY #90 tabs 03/20/22 05/17/22 Rx amoxicillin 500 mg capsule 2,000 mg PO .COMPLEX PRN PRIOR TO 05/17/22 05/17/22 History DENTAL APPT. insulin glargine 100 unit/mL 16 unit subcut QPM 05/17/22 05/17/22 History subcutaneous solution (Lantus U-100 Insulin) tamsulosin 0.4 mg capsule 0.4 mg PO HS 05/17/22 05/17/22 History Patient History Medical History Acute upper GI bleed Aortic stenosis Atrophy of left kidney Benign essential hypertension Chronic kidney disease, stage 4 (severe) Diabetes mellitus type 2, uncontrolled, with complications GERD without esophagitis Goals of care, counseling/discussion Axel-neglect of right side Hyperlipidemia Hypothyroidism Lower abdominal pain Recent non-ST elevation myocardial infarction (NSTEMI) Right bundle branch block (RBBB) Stage 3b chronic kidney disease Vitamin D deficiency Surgical History S/P AVR (aortic valve replacement) S/P CABG (coronary artery bypass graft) Status post laser cataract surgery of both eyes Family History Mother , age 83 of esophageal cancer Cancer Father , age 57 of a stroke Stroke Other Colorectal cancer Denies family history of Ovarian cancer Prostate cancer Myocardial infarction Breast cancer Social History Smoking Status: Never smoker Hx Alcohol Use: No Hx Substance Use: No Preferred Language: Latvian Communication Ability: Impaired Fruit Pitter Required: No Beliefs That Will Affect Care: None marital status: Current Living Situation: Family current occupational status: retired Other Information That Helps Us Care for You: No other: 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 Feels Safe at Home: Yes Safety Concerns: Feels Safe At This Time caffeine: Yes Dental Care, Regularly: Yes Physical Activity Frequency: 5-6 Times per Week Physical Activity Frequency Comment: Walking Seatbelt Use: always Sunscreen Use: No Assistive Devices: None Review of Systems Review of Systems: Other (Unable to obtain as patient unable to verbalize) Physical Exam Constitutional: WD/WN, vitals as above Eyes: EOM intact bilaterally Neck: normal visual inspection Respiratory: normal respiratory effort, lungs clear to auscultation Cardiovascular: Rate/Rhythm: regular rate and regular rhythm Gastrointestinal (Abdomen): Inspection/Auscultation: normal bowel sounds; abdomen not distended Percussion/Palpation: abdomen soft; abdomen nontender Psychiatric: Orientation: alert Results & Data ([facility]) Vital Signs (Past 12 Hours) Vital Signs Temp Pulse Pulse Pulse Resp BP BP 05/18/22 07:52 36.9 C 79 18 120/58 L 05/18/22 07:03 73 05/18/22 03:35 36.6 C 77 18 135/68 05/17/22 22:55 78 05/17/22 23:52 36.5 C 72 18 123/65 05/17/22 23:04 05/17/22 23:04 37.3 C 76 18 152/69 H 05/17/22 23:00 37.3 C 79 152/69 H 05/17/22 22:30 36.9 C 80 18 136/57 L 05/17/22 22:15 36.7 C 77 22 135/65 05/17/22 21:58 37.1 C 76 20 123/55 L Pulse Ox O2 Del Method 05/18/22 07:52 95 Room Air 05/18/22 07:03 05/18/22 03:35 93 Room Air 05/17/22 22:55 05/17/22 23:52 94 05/17/22 23:04 Room Air 05/17/22 23:04 97 Room Air 05/17/22 23:00 05/17/22 22:30 97 05/17/22 22:15 99 05/17/22 21:58 95 Diagnostic Findings Laboratory Results WBC 13.31 K/ul (4.8-10.8) H 05/18/22 06:57 RBC 3.62 M/uL (4.63-6.08) L 05/18/22 06:57 Hgb 8.4 g/dl (14.0-18.0) L 05/18/22 06:57 Hct 27.3 % (40.1-51.0) L 05/18/22 06:57 MCV 75.4 fL (80.0-100.0) L 05/18/22 06:57 MCH 23.2 pg (25.0-34.0) L 05/18/22 06:57 MCHC 30.8 g/dL (32.0-36.0) L 05/18/22 06:57 RDW Std Deviation 59.8 fL (36.4-46.3) H 05/18/22 06:57 RDW Coeff of Sarah 22.3 % (11.5-14.5) H 05/18/22 06:57 Plt Count 272 K/uL (130-400) 05/18/22 06:57 MPV 10.1 fL (9.4-12.4) 05/18/22 06:57 Immature Gran % (Auto) 0.7 % 05/17/22 19:29 Neut % (Auto) 77.0 % 05/17/22 19:29 Lymph % (Auto) 11.3 % 05/17/22 19:29 Dubois % (Auto) 10.5 % 05/17/22 19:29 Eos % (Auto) 0.2 % 05/17/22 19:29 Baso % (Auto) 0.3 % 05/17/22 19:29 Neut # (Auto) 10.66 K/uL (1.4-6.5) H 05/17/22 19:29 Lymph # (Auto) 1.56 K/uL (1.2-3.4) 05/17/22 19:29 Dubois # (Auto) 1.45 K/uL (0.24-0.82) H 05/17/22 19:29 Eos # (Auto) 0.03 K/uL (0-0.50) 05/17/22 19: Baso # (Auto) 0.04 K/uL (0-0.2) 05/17/22 19: Immature Gran # (Auto) 0.10 K/uL (0.00-0.02) H 05/17/22 19:29 RBC Morphology Unremarkable 05/17/22 19:29 Sodium 138 mmol/L (136-145) 05/18/22 06:57 Potassium 3.6 mmol/L (3.5-5.1) 05/18/22 06:57 Chloride 107 mmol/L (98-107) 05/18/22 06:57 Carbon Dioxide 23 mmol/L (21-32) 05/18/22 06:57 Anion Gap 8 (3-11) 05/18/22 06:57 BUN 45 mg/dl (6-23) H 05/18/22 06:57 Creatinine 3.44 mg/dl (0.6-1.4) H D 05/18/22 06:57 Est Cr Clr Drug Dosing 18.9 ml/min 05/18/22 06:57 Est GFR ( Amer) 18.8 ml/min 05/18/22 06:57 Est GFR (Non-Af Amer) 16.2 ml/min 05/18/22 06:57 BUN/Creatinine Ratio 13.1 (10-20) 05/18/22 06:57 Glucose 106 mg/dl (70-99(Fasting)) H 05/18/22 06:57 POC Glucose 119 mg/dl (70-99) H 05/18/22 05:46 Lactate 1.0 mmol/L (0.4-2.0) 05/17/22 23:40 Calcium 10.8 mg/dl (8.5-10.1) H 05/18/22 06:57 Magnesium 2.0 mg/dl (1.7-2.4) 05/18/22 06:57 Iron 18 mcg/dl (35-175) L 05/17/22 19: Transferrin 137 mg/dl (200-360) L 05/17/22 19: Ferritin 1208.7 ng/ml (8-388) H 05/17/22 19: Total Bilirubin 0.6 mg/dl (0.2-1.0) 05/18/22 06:57 AST 37 U/L (13-39) 05/18/22 06:57 ALT 18 U/L (7-52) 05/18/22 06:57 Alkaline Phosphatase 76 U/L (34-104) 05/18/22 06:57 Total Protein 6.5 gm/dl (6.0-8.3) 05/18/22 06:57 Albumin 2.5 gm/dl (3.4-5.0) L 05/18/22 06:57 Globulin 4.0 gm/dl (2.5-4.0) 05/18/22 06:57 Albumin/Globulin Ratio 0.6 (0.9-2) L 05/18/22 06:57 Vitamin B12 > 1500 pg/ml (180-914) H 05/17/22 19: Folate 11.43 ng/ml (>5.38) 05/17/22 19:29 Urine Color Yellow 05/17/22 18:10 Urine Appearance Turbid (Clear) A 05/17/22 18:10 Urine pH 5.5 (4.5-7.5) 05/17/22 18:10 Ur Specific Whitt 1.017 (1.000-1.030) 05/17/22 18:10 Urine Protein 3+ (Negative) H 05/17/22 18:10 Urine Glucose (UA) Negative (Negative) 05/17/22 18:10 Urine Ketones Trace (Negative) H 05/17/22 18:10 Urine Blood 3+ (Negative) H 05/17/22 18:10 Urine Nitrite Negative (Negative) 05/17/22 18:10 Urine Bilirubin Negative (Negative) 05/17/22 18:10 Urine Urobilinogen Negative (Negative) 05/17/22 18:10 Ur Leukocyte Esterase 3+ (Negative) H 05/17/22 18:10 Urine WBC (Auto) >30 /hpf (0-5) H 05/17/22 18:10 Urine RBC (Auto) 0-4 /hpf (0-4) 05/17/22 18:10 U Hyaline Cast (Auto) 1-5 /lpf (0-5) 05/17/22 18:10 U Epithel Cells (Auto) 10-20 /lpf (0-5) H 05/17/22 18:10 Urine Bacteria (Auto) 4+ (Negative) H 05/17/22 18:10 Amorphous Sediment Present (None Prsent) A 05/17/22 18:10 Urine Mucus Present (None Prsent) A 05/17/22 18:10 Urine Yeast Not Reportable 05/17/22 18:10 SARS-CoV-2, RNA, NAAT NEGATIVE (NEGATIVE) 05/17/22 20:15 Blood Type O Positive 05/17/22 19:22 Antibody Screen NEGATIVE 05/17/22 19:22 Crossmatch See Detail 05/17/22 19:22 Impressions Chest X-Ray 05/17/22 17:41 XR chest 1V portable HISTORY: weakness COMPARISON: Chest 07/21/2019. FINDINGS: Improvement in the left basilar linear densities suggesting resolving subsegmental atelectasis. No new focal lung consolidations to suggest a pneumonia. No evidence for pulmonary edema. The heart is normal in size. No pleural effusions. No pneumothorax. There are poststernotomy changes again noted. IMPRESSION: No acute process. ACT 112: Negative or not required by law. Electronically signed by: Irving Vang M.D. 05/17/2022 6:02 PM Abdomen/Pelvis CT 05/17/22 18:[address] WITHOUT CONTRAST CT DOSE: 1002.07 mGy.cm HISTORY: lower abd pain TECHNIQUE: Multiaxial CT images of the abdomen and pelvis were performed without contrast. A dose lowering technique was utilized adhering to the principles of ALARA. COMPARISON STUDY: Abdomen and pelvis CT 07/04/2019. FINDINGS: Left basilar linear densities consistent with subsegmental atelectasis. No pneumoperitoneum. No pneumatosis. The bilateral sacroiliac joints are partially fused. This remains unchanged. No suspicious lytic or blastic osseous lesions. There are poststernotomy changes and an aortic valve prosthesis noted. There is a tiny hiatus hernia. There is a small diverticulum at the third portion of the duodenum. The bladder is decompressed by Ratliff catheter. Mild bladder wall thickening with adjacent fat stranding is noted. Large amount well-formed stool within the rectum including a 8.4 cm rectal stool ball. There is mild perirectal edema. No definite bowel wall thickening or obstruction on this noncontrast study. Normal appendix. There is a punctate calcified granuloma within the right hepatic lobe. The unenhanced gallbladder, pancreas, left adrenal gland, and right kidney are unremarkable. Redemonstration of the atrophic left kidney. This contains 2 hypodense lesions measuring 1 cm. T hese are incompletely characterized on this noncontrast study. No renal or ureteral stones. No hydronephrosis. Heterogeneous appearance to the spleen which appears to contain multiple hypodense lesions. Dominant lesion measures 3.7 cm. The cortex appears spared. Therefore, splenic infarcts are considered less likely. There is also mild perisplenic fat stranding. There is a 2.8 cm right adrenal myelolipoma, unchanged. No retroperitoneal lymphadenopathy. Moderate calcified plaque within the normal caliber abdominal aorta. No pelvic free fluid. IMPRESSION: 1. Heterogeneous appearance to the spleen with perisplenic fat stranding. This appears to contain multiple hypodense lesions measuring up to 3.7 cm. This is nonspecific and could be due to neoplastic or infectious process. Splenic infa rcts are considered less likely but not entirely excluded. Follow-up nonemergent MRI of the spleen is suggested for further evaluation. 2. Large amount of well-formed stool within the rectum with mild perirectal edema. 3. No bowel wall thickening or obstruction. 4. Normal appendix. 5. Atrophic left kidney, unchanged. ACT 112: Negative or not required by law. Electronically signed by: Irving Vang M.D. 05/17/2022 8:21 PM PG Care Time/CCT Total # of Minutes Spent Total Time Spent with Patient: Total time spent is greater than 50% in coordination of care (as documented) at patient's floor/unit and/or counseling patient: Coding Level of Care Code 83589 Initial Inpt Care Lvl 3 Diagnoses History of CVA (cerebrovascular accident) Z86.73 Acute blood loss anemia D62
--- NOTE | 2022-05-18 10:03 | Nephrology Consultation ---
Date of Consultation May 18, 2022 Assessment & Plan (1) Acute kidney injury: * Nonoliguric MABEL due to dehydration, anemia in the setting of ARB therapy. Cr has improved overnight following IV hydration. Abdominal CT revealed atrophic/nonfunctional L kidney. No R renal obstruction/hydronephrosis * Hold losartan * Agree w/ continuing gentle hydration * Monitor PRP, UO, volume status (2) Chronic kidney disease (CKD) stage G3b/A3, moderately decreased glomerular filtration rate (GFR) between 30-44 mL/min/1.73 square meter and albuminuria creatinine ratio greater than 300 mg/g: * CKD stage G3b/A3 (moderate impairment), baseline Cr 2.0 w/ EGFR 32 cc/min. Urine sediment difficult to interpret due to chronic indwelling Ratliff catheter, UACR 1.1. 05/17/[address] reveals an atrophic/nonfunctional L kidney. Renal impairment is due to vascular disease and underlying DKD (3) Hypertension: * Stop losartan * Continue amlodipine for BP management (4) Anemia: * Will order iron studies * Await endoscopy results (5) Cystitis: * On dose adjusted empiric Cefepime * Await urine culture results (6) Hypercalcemia: * Improved following IV hydration * Will order vitamin D, PTH (7) Splenic lesion: * Recommend echocardiogram to assess AVR History of Present Illness Reason for Consultation: MABEL Attending Physician: Maegan Hidalgo MD History of Present Illness Mr. Kebede is a 77 year old white male who is seen at the request of the [facility] hospitalist team for evaluation of MABEL. Medical records in the EMR were reviewed today and are summarized as follows: Mr. Kebede has CKD stage G3b/A3 (moderate impairment), baseline Cr 2.0 w/ EGFR 32 cc/min. Urine sediment difficult to interpret due to chronic indwelling Ratliff catheter, UACR 1.1. 05/17/[address] reveals an atrophic/nonfunctional L kidney. His renal impairment is due to vascular disease and underlying DKD. Mr. Kebede's outpatient Civil Engineering Teacher is Dr. Singer. Mr. 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 Mr. Kebede presented to [facility] last evening for evaluation of weakness. He has suffered poor oral intake over the last 6 days and the urine in his Ratliff collection bag was cloudy. EMD evaluation revealed Hgb 6.8, Cr 3.8, Ca 11.5, albumin 2.5, urinalysis + nit/LE. Mr. Kebede was admitted to the hospitalist service. 1 U PRBC administered and IV LR started. IV Cefepime was added for empiric treatment of UTI. Noncontrast abdominal CT revealed atrophic L kidney, stool within the rectum w/ perirectal edema and heterogeneous spleen suggestive of neoplastic or infectious process. Allergies Allergy/AdvReac Type Severity Reaction Status Date / Time No Known Allergies Allergy Verified 05/17/22 19:21 Home Medications Medication Instructions Recorded Confirmed Type omega-3 acid ethyl esters 1 gram 1 cap PO DAILY 04/14/19 05/17/22 History capsule cholecalciferol (vitamin D3) 25 1,000 units PO DAILY 06/04/19 05/17/22 History mcg (1,000 unit) capsule lancets 30 gauge #25 ea 07/07/19 04/10/22 History acetaminophen 325 mg tablet 325 mg PO Q4H PRN pain #20 tabs 09/01/19 05/17/22 Rx ferrous gluconate 324 mg (38 mg 324 mg PO DAILY #30 tabs 09/01/19 05/17/22 Rx iron) tablet mecobalamin (vitamin B12) 1,000 1,000 mcg PO DAILY 09/04/19 05/17/22 Rx mcg chewable tablet hyperhomocysteinemia #30 tabs blood sugar diagnostic #50 ea 06/04/20 04/10/22 Rx pen needle, diabetic 31 gauge x #100 ea 07/07/20 04/10/22 Rx 5/16" blood sugar diagnostic (OneTouch #100 ea 09/07/20 04/10/22 Rx Verio test strips) lancets 33 gauge (OneTouch Delica #100 ea 03/03/21 04/10/22 Rx Plus Lancet) clopidogrel 75 mg tablet 75 mg PO QAM #90 tabs 09/19/21 05/17/22 Rx pantoprazole 40 mg tablet,delayed 40 mg PO BID #180 tabs 12/05/21 05/17/22 Rx release rosuvastatin 40 mg tablet 40 mg PO DAILY #90 tabs 12/12/21 05/17/22 Rx amlodipine 5 mg tablet (Norvasc) 5 mg PO HS #90 tabs 03/10/22 05/17/22 Rx levothyroxine 137 mcg tablet 137 mcg PO DAILY #90 tabs 03/10/22 05/17/22 Rx losartan 50 mg tablet 50 mg PO DAILY #90 tabs 03/20/22 05/17/22 Rx amoxicillin 500 mg capsule 2,000 mg PO .COMPLEX PRN PRIOR TO 05/17/22 05/17/22 History DENTAL APPT. insulin glargine 100 unit/mL 16 unit subcut QPM 05/17/22 05/17/22 History subcutaneous solution (Lantus U-100 Insulin) tamsulosin 0.4 mg capsule 0.4 mg PO HS 05/17/22 05/17/22 History Patient History Medical History Acute upper GI bleed Aortic stenosis Atrophy of left kidney Benign essential hypertension Chronic kidney disease, stage 4 (severe) Diabetes mellitus type 2, uncontrolled, with complications GERD without esophagitis Goals of care, counseling/discussion Axel-neglect of right side Hyperlipidemia Hypothyroidism Lower abdominal pain Recent non-ST elevation myocardial infarction (NSTEMI) Right bundle branch block (RBBB) Stage 3b chronic kidney disease Vitamin D deficiency Surgical History S/P AVR (aortic valve replacement) S/P CABG (coronary artery bypass graft) Status post laser cataract surgery of both eyes Family History Mother , age 83 of esophageal cancer Cancer Father , age 57 of a stroke Stroke Other Colorectal cancer Denies family history of Ovarian cancer Prostate cancer Myocardial infarction Breast cancer Social History Smoking Status: Never smoker Hx Alcohol Use: No Hx Substance Use: No Preferred Language: Mosotho Communication Ability: Impaired Network Security Officer Required: No Beliefs That Will Affect Care: None marital status: Current Living Situation: Family current occupational status: retired Other Information That Helps Us Care for You: No other: 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 Feels Safe at Home: Yes Safety Concerns: Feels Safe At This Time caffeine: Yes Dental Care, Regularly: Yes Physical Activity Frequency: 5-6 Times per Week Physical Activity Frequency Comment: Walking Seatbelt Use: always Sunscreen Use: No Assistive Devices: None Review of Systems Review of Systems: Other (Unobtainable due to expressive aphasia) Physical Exam Constitutional: not in distress Eyes: PERRL, conjunctivae normal, anicteric sclerae ENMT: external ear and nose normal, oropharynx normal Mouth: + dry oral mucous membranes Neck: trachea midline, no thyromegaly Respiratory: normal respiratory effort, lungs clear to auscultation Cardiovascular: Rate/Rhythm: regular rate and regular rhythm Heart Sounds: + murmur Vessels: + carotid bruit Extremities: no pedal edema Gastrointestinal (Abdomen): Inspection/Auscultation: + hypoactive bowel sounds Percussion/Palpation: abdomen nontender and no guarding Skin: + turgor decreased Neurologic: Speech / Cognition: + expressive aphasia does follow simple one step commands Results & Data ([facility]) Vital Signs (Past 12 Hours) Vital Signs Temp Pulse Pulse Pulse Resp BP BP 05/18/22 07:52 36.9 C 79 18 120/58 L 05/18/22 07:03 73 05/18/22 03:35 36.6 C 77 18 135/68 05/17/22 22:55 78 05/17/22 23:52 36.5 C 72 18 123/65 05/17/22 23:04 05/17/22 23:04 37.3 C 76 18 152/69 H 05/17/22 23:00 37.3 C 79 152/69 H 05/17/22 22:30 36.9 C 80 18 136/57 L 05/17/22 22:15 36.7 C 77 22 135/65 Pulse Ox O2 Del Method 05/18/22 07:52 95 Room Air 05/18/22 07:03 05/18/22 03:35 93 Room Air 05/17/22 22:55 05/17/22 23:52 94 05/17/22 23:04 Room Air 05/17/22 23:04 97 Room Air 05/17/22 23:00 05/17/22 22:30 97 05/17/22 22:15 99 Laboratory Results Laboratory Tests 03/01/20 06/30/21 03/23/22 09:40 00:00 00:00 WBC Hgb Hct Plt Count Sodium Potassium Chloride Carbon Dioxide BUN Creatinine 2.00 H 2.1 H 2.2 H Glucose Calcium Magnesium Urine Color Urine Appearance Urine pH Ur Specific Matteson Urine Protein Urine Glucose (UA) Urine Blood Urine Nitrite Ur Leukocyte Esterase Urine WBC (Auto) Urine RBC (Auto) Urine Bacteria (Auto) 05/17/22 05/17/22 05/17/22 18:10 19:29 19:29 WBC Hgb 6.8 L* Hct 23.6 L Plt Count 326 Sodium Potassium Chloride Carbon Dioxide BUN Creatinine 3.86 H Glucose Calcium Magnesium Urine Color Yellow Urine Appearance Turbid A Urine pH 5.5 Ur Specific Matteson 1.017 Urine Protein 3+ H Urine Glucose (UA) Negative Urine Blood 3+ H Urine Nitrite Negative Ur Leukocyte Esterase 3+ H Urine WBC (Auto) >30 H Urine RBC (Auto) 0-4 Urine Bacteria (Auto) 4+ H 05/18/22 05/18/22 06:57 06:57 WBC 13.31 H Hgb 8.4 L Hct 27.3 L Plt Count 272 Sodium 138 Potassium 3.6 Chloride 107 Carbon Dioxide 23 BUN 45 H Creatinine 3.44 H D Glucose 106 H Calcium 10.8 H Magnesium 2.0 Urine Color Urine Appearance Urine pH Ur Specific [place] Urine Protein Urine Glucose (UA) Urine Blood Urine Nitrite Ur Leukocyte Esterase Urine WBC (Auto) Urine RBC (Auto) Urine Bacteria (Auto) PG Care Time/CCT Total # of Minutes Spent Total Time Spent with Patient: Total time spent is greater than 50% in coordination of care (as documented) at patient's floor/unit and/or counseling patient: Coding Level of Care Code 79077 Inpt Consult Level 5 Diagnoses Acute kidney injury N17.9 Chronic kidney disease (CKD) stage G3b/A3, moderately decreased glomerular filtration rate (GFR) between 30-44 mL/min/1.73 square meter and albuminuria creatinine ratio greater than 300 mg/g N18.32 Hypertension I10 Anemia D64.9 Cystitis N30.90 Hypercalcemia E83.52 Splenic lesion D73.89
[2022-05-18 11:31] LABS: Iron 13 mcg/dl (35-175); Total Iron Binding Cap Calc 140 mcg/dl (250-450); Transferrin (FE) Percent Satur 9 % (20-50); Unsaturated Iron Binding Cap 127 mcg/dl (155-355)
[2022-05-18] MEDS: LACTATED RINGER'S 1,000 ML IV SCH (11:47)
--- NOTE | 2022-05-18 12:11 | Electrocardiogram Report ---
Test Reason : Blood Pressure : / mmHG Vent. Rate : 083 BPM Atrial Rate : 083 BPM P-R Int : 136 ms QRS Dur : 148 ms QT Int : 420 ms P-R-T Axes : 064 014 040 degrees QTc Int : 493 ms Normal sinus rhythm Right bundle branch block Possible Old Inferior infarct (cited on or before 22-JUL-2019) Abnormal ECG When compared with ECG of 22-JUL-2019 21:43, No significant change was found Confirmed by Dirk Jimenez ([id number]) on 05/18/2022 12:11:03 PM Referred By: REFERRED SELF Confirmed By:Dirk Jimenez
--- NOTE | 2022-05-18 12:32 | Anesthesiology Consultation ---
Date of Service May 18, 2022 Assessment & Plan (1) Encounter for pre-operative examination: History Surgery Operation Date: 05/18/22 17:45 Proposed Procedures p Esophagogastroduodenoscopy Dr. Catherine Alexander MD Height/Weight Height: 5 ft 6 in Weight: 90.2 kg Allergies Allergy/AdvReac Type Severity Reaction Status Date / Time No Known Allergies Allergy Verified 05/17/22 19:21 Medications Home Medications Medication Instructions Recorded Confirmed Last Taken omega-3 acid ethyl esters 1 gram 1 cap PO DAILY 04/14/19 05/17/22 05/17/22 capsule cholecalciferol (vitamin D3) 25 1,000 units PO DAILY 06/04/19 05/17/22 05/17/22 mcg (1,000 unit) capsule lancets 30 gauge #25 ea 07/07/19 04/10/22 Unknown acetaminophen 325 mg tablet 325 mg PO Q4H PRN pain #20 tabs 09/01/19 05/17/22 Unknown ferrous gluconate 324 mg (38 mg 324 mg PO DAILY #30 tabs 09/01/19 05/17/22 05/17/22 iron) tablet mecobalamin (vitamin B12) 1,000 1,000 mcg PO DAILY 09/04/19 05/17/22 05/17/22 mcg chewable tablet hyperhomocysteinemia #30 tabs blood sugar diagnostic #50 ea 06/04/20 04/10/22 Unknown pen needle, diabetic 31 gauge x #100 ea 07/07/20 04/10/22 Unknown 11/14" blood sugar diagnostic (OneTouch #100 ea 09/07/20 04/10/22 Unknown Verio test strips) lancets 33 gauge (OneTouch Delica #100 ea 03/03/21 04/10/22 Unknown Plus Lancet) clopidogrel 75 mg tablet 75 mg PO QAM #90 tabs 09/19/21 05/17/22 05/17/22 pantoprazole 40 mg tablet,delayed 40 mg PO BID #180 tabs 12/05/21 05/17/22 05/17/22 08:00 release rosuvastatin 40 mg tablet 40 mg PO DAILY #90 tabs 12/12/21 05/17/22 05/17/22 amlodipine 5 mg tablet (Norvasc) 5 mg PO HS #90 tabs 03/10/22 05/17/22 05/16/22 levothyroxine 137 mcg tablet 137 mcg PO DAILY #90 tabs 03/10/22 05/17/22 05/17/22 losartan 50 mg tablet 50 mg PO DAILY #90 tabs 03/20/22 05/17/22 05/17/22 amoxicillin 500 mg capsule 2,000 mg PO .COMPLEX PRN PRIOR TO 05/17/22 05/17/22 Unknown DENTAL APPT. insulin glargine 100 unit/mL 16 unit subcut QPM 05/17/22 05/17/22 05/16/22 subcutaneous solution (Lantus U-100 Insulin) tamsulosin 0.4 mg capsule 0.4 mg PO HS 05/17/22 05/17/22 05/16/22 Active Medications Generic Name Dose Route Start Last Admin Trade Name Freq PRN Reason Stop Dose Admin Pantoprazole Sodium 40 mg/ 10 mls @ 5 mls/min 05/17/22 21:30 05/18/22 09:01 Syringe IV 06/16/22 21:29 5 mls/min BID SANTY Administration Lactated Ringer's 1,000 mls @ 80 mls/hr 05/17/22 22:15 05/18/22 11:47 Lr IV 05/18/22 23:14 80 mls/hr .[id number] SANTY Administration Insulin Aspart 0 units 05/17/22 23:00 05/18/22 11:49 Insulin Aspart Per Unit SC 06/16/22 22:59 Not Given Q6 SANTY Past Medical History Medical History Acute upper GI bleed Aortic stenosis Atrophy of left kidney Benign essential hypertension Chronic kidney disease, stage 4 (severe) Diabetes mellitus type 2, uncontrolled, with complications GERD without esophagitis Goals of care, counseling/discussion Axel-neglect of right side Hyperlipidemia Hypothyroidism Lower abdominal pain Recent non-ST elevation myocardial infarction (NSTEMI) Right bundle branch block (RBBB) Stage 3b chronic kidney disease Vitamin D deficiency Past Family History Family History Mother , age 83 of esophageal cancer Cancer Father , age 57 of a stroke Stroke Other Colorectal cancer Denies family history of Ovarian cancer Prostate cancer Myocardial infarction Breast cancer Past Surgical History Surgical History S/P AVR (aortic valve replacement) S/P CABG (coronary artery bypass graft) Status post laser cataract surgery of both eyes Social History Smoking Status: Never smoker Hx Alcohol Use: No Hx Substance Use: No Physical Exam Vital Signs Last Vital Signs Temp 36.5 C 05/18/22 11:14 Pulse 80 05/18/22 11:14 Resp 18 05/18/22 11:14 BP 149/65 H 05/18/22 11:14 Pulse Ox 95 05/18/22 11:14 O2 Del Method 05/18/22 11:14 Testing Laboratory Results 05/18/22 06:57 05/18/22 06:57 Urine Color Yellow 05/17/22 18:10 Urine Appearance Turbid (Clear) A 05/17/22 18:10 Urine pH 5.5 (4.5-7.5) 05/17/22 18:10 Ur Specific [place] 1.017 (1.000-1.030) 05/17/22 18:10 Urine Protein 3+ (Negative) H 05/17/22 18:10 Urine Glucose (UA) Negative (Negative) 05/17/22 18:10 Urine Ketones Trace (Negative) H 05/17/22 18:10 Urine Nitrite Negative (Negative) 05/17/22 18:10 Ur Leukocyte Esterase 3+ (Negative) H 05/17/22 18:10 Urine WBC (Auto) >30 /hpf (0-5) H 05/17/22 18:10 Urine RBC (Auto) 0-4 /hpf (0-4) 05/17/22 18:10 U Hyaline Cast (Auto) 1-5 /lpf (0-5) 05/17/22 18:10 U Epithel Cells (Auto) 10-20 /lpf (0-5) H 05/17/22 18:10 Urine Bacteria (Auto) 4+ (Negative) H 05/17/22 18:10 Blood Type O Positive 05/17/22 19:22 Antibody Screen NEGATIVE 05/17/22 19:22 05/17/22 18:10 Urine Culture - Preliminary Urine,Indwelling Cath Gram negative bacilli 05/18/22 05/18/22 11:42 05:46 POC Glucose 97 119 H
[2022-05-18] MEDS ORDERED: LIDOCAINE 2% MPF LOCAL 5 ML VIAL INFIL ONE (12:54)
[2022-05-18] MEDS ORDERED: PROPOFOL IV EMULSION 10 MG/ML 20 ML VIAL IV ONE (12:54)
--- NOTE | 2022-05-18 13:19 | GI REPORT ---
Patient Name: Maynor Kebede Procedure Date: 05/18/2022 1:04 PM Date of : 1945 Admit Type: Inpatient Age: 77 Gender: Male Attending MD: Shashi Alexander MD, Procedure: Upper GI endoscopy Providers: Shashi Alexander MD Referring MD: Maegan Kc Indications: Unexplained iron deficiency anemia Medicines: Monitored Anesthesia Care Complications: No immediate complications. Estimated blood loss: None. Estimated Blood Loss: Estimated blood loss: none. Procedure: Pre-Anesthesia Assessment: - Prior Anticoagulants: The patient has taken no anticoagulant or antiplatelet agents. - ASA Grade Assessment: II - A patient with mild systemic disease. After obtaining informed consent, the endoscope was passed under direct vision. Throughout the procedure, the patient's blood pressure, pulse, and oxygen saturations were monitored continuously. The Endoscope was introduced through the mouth, and advanced to the second part of duodenum. The upper GI endoscopy was accomplished without difficulty. The patient tolerated the procedure well. Findings: The examined esophagus was normal. Scattered mild inflammation characterized by erythema was found in the stomach. Biopsies were taken with a cold forceps for Helicobacter pylori testing. Estimated blood loss: none. The duodenal bulb and second portion of the duodenum were normal. Impression: - Normal esophagus. - Gastritis. Biopsied. - Normal duodenal bulb and second portion of the duodenum. Recommendation: - Return patient to [facility] for ongoing care. - Advance diet as tolerated today. - Await pathology results. supportive care, IVFs -consider outpatient colonoscopy Shashi Alexander MD 05/18/2022 1:19:06 PM This report has been signed electronically. Note Initiated On: 05/18/2022 1:04 PM Number of Addenda: 0 I attest to the content of the Intraoperative Record and orders documented therein, exceptions below {[id number]}
--- NOTE | 2022-05-18 14:53 | Hospitalist Progress Note ---
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 Nausea/vomiting/abdominal pain -improved. sec to gastritis and infection. Microcytic Anemia -The patient was afebrile and hemodynamically stable upon admission -The etiology of the patient's anemia is likely multifactorial including anemia of CKD, poor oral intake, and hx of BRIT -Hgb noted to be 6.8 in the ED; blood consent obtained in the ED and 1 unit PRBC's transfused - Hgb today 8.4 -Pt has previous history of erosive gastritis found on EGD from 2018 and has been on BID pantoprazole since - Iron studies showed low iron, TIBC, and transferrin saturation; ferritin elevated which could be an acute phase reactant d/t infection -Given IVF overnight, continue -EGD showed mild inflammation; biopsies taken for H. pylori, could consider outpatient colonoscopy Acute Tubular Necrosis -Cr today noted to be 3.86 on admission, baseline appears to be approximately 2.0 -Likely due to dehydration from poor oral intake, continued use of antihypertensives, and current UTI -Was given 1L NSS bolus in the ED, switched to lactated ringer's overnight for a total of 2 bags - Cr today 3.44 - hold losartan per nephro recommendation, continue gentle hydration w/ LR at 80 mL/hr Possible sepsis sec to CAUTI CAUTI -Patient with chronic indwelling burgess - lactate neg -Given one dose of cipro in the ED -Review of previous urine cultures shows that the patient has grown wells- sensitive pseudomonas and Enterococcus in the past. Started on vanco and cefepime -current urine cx grew gram neg bacilli, awaiting sensitivities; d/c vanco - currently on only cefepime for ABX- day 2 Multiple splenic lesions -Noted on CT scan, differential includes neoplastic source, infection, and infarction -Recommended non-emergent MRI of the spleen for further evaluation -Will need to confirm if he can have an MRI with his implanted loop recorder Vomiting -EGD as above CAD -Will restart plavix as no bleed found on EGD Hypokalemia -Noted to be 3.4 upon admission, no EKG changes -No supplemental potassium given due to his MABEL -K this AM 3.6 -continue to monitor Hypercalcemia -Noted to be 11.5 upon admission -decreased slightly to 10.8 this AM -PTH low at 9 -await further nephro recommendation Hyperlipidemia -Will restart statin tomorrow Hypothyroidism -Will restart levothyroxine tomorrow Diabetes mellitus type 2, uncontrolled, with complications -Normally on 16 units HS lantus, currently on 8 units d/t inadequate PO intake -Continue with correction factor of 55 and carb ratio of 18 when he can eat -BSG checks HS Benign essential hypertension -Hold losartan per nephro -BP currently 123/58, will add amlodipine if BP rises History of CVA (cerebrovascular accident) -At neurologic baseline -Will restart plavix tomorrow (2) Acute kidney injury: (3) UTI (urinary tract infection): (4) Splenic lesion: (5) Vomiting: (6) CAD (coronary artery disease): (7) Hypokalemia: (8) Hypercalcemia: (9) Hyperlipidemia: (10) Hypothyroidism: (11) Diabetes mellitus type 2, uncontrolled, with complications: (12) Benign essential hypertension: (13) History of CVA (cerebrovascular accident): Plan FEN: LR at 80 mL/hr, clear fluids DVT ppx: SCDs, will restart plavix tomorrow Dispo: med/surg Admission and Anticipated Discharge Date Admission Date: May 17, 2022 Supervising Physician Co-Signing Physician Notes Resident Physician Supervision Note: I independently interviewed and examined the patient and verified the wagner history and physical, reviewed labs and image studies and agree with resident findings and care plan. 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 Pt seen at bedside this morning. His was not present. Difficult to communi rochelle with patient due to his expressive aphasia. It seemed as though he was not experiencing any abdominal pain at the time. No vomiting. Visited pt again in the afternoon. Pt's was present. She explains that he hasn't had any abdominal pain today. His appetite has been absent for about the past month but today he is feeling hungry and would like some food. Physical Exam Constitutional: NAD. Vitals WNL. Eyes: no conjunctival abnormality Respiratory: CTA bilaterally. No rhonchi, wheezing, or crackles. Non labored breathing. Cardiovascular: RRR. No murmur noted. No LL edema. Gastrointestinal (Abdomen): Nontender, +BS. No masses noted. Skin: no rashes, warm and dry Psychiatric: Alert. Results & Data Results & Data ([facility]) Vital Signs (Past 12 Hours) Vital Signs Temp Pulse Pulse Resp BP Pulse Ox O2 Del Method 05/18/22 13:56 77 16 119/54 L 95 Room Air 05/18/22 13:40 79 16 107/56 L 95 Room Air 05/18/22 13:27 84 16 132/57 L 92 Room Air 05/18/22 12:30 36.3 C L 72 16 140/56 L 95 Room Air 05/18/22 11:14 36.5 C 80 18 149/65 H 95 Room Air 05/18/22 09:15 Room Air 05/18/22 07:52 36.9 C 79 18 120/58 L 95 Room Air 05/18/22 07:03 73 05/18/22 03:35 36.6 C 77 18 135/68 93 Room Air Resident Activity Tracking Resident Involvement: Resident Care Provided Care Provided: Adult Hospital Medicine
--- NOTE | 2022-05-18 15:56 | Anesthesiology Progress Note ---
Date of Service May 18, 2022 Anesthesia Post Procedure Vital Signs Vital Signs: Temp Pulse Pulse Pulse Resp BP BP 05/18/22 15:35 36.4 C L 72 18 123/58 L 05/18/22 13:56 77 16 119/54 L 05/18/22 13:40 79 16 107/56 L 05/18/22 13:27 84 16 132/57 L 05/18/22 12:30 36.3 C L 72 16 140/56 L 05/18/22 11:14 36.5 C 80 18 149/65 H 05/18/22 09:15 05/18/22 07:52 36.9 C 79 18 120/58 L 05/18/22 07:03 73 05/18/22 03:35 36.6 C 77 18 135/68 05/17/22 22:55 78 05/17/22 23:52 36.5 C 72 18 123/65 05/17/22 23:04 05/17/22 23:04 37.3 C 76 18 152/69 H 05/17/22 23:00 37.3 C 79 152/69 H 05/17/22 22:30 36.9 C 80 18 136/57 L 05/17/22 22:15 36.7 C 77 22 135/65 05/17/22 21:58 37.1 C 76 20 123/55 L 05/17/22 20:00 79 20 103/52 L 05/17/22 19:01 05/17/22 19:00 87 22 123/59 L 05/17/22 17:09 103 H 16 113/56 L Pulse Ox O2 Del Method 05/18/22 15:35 94 Room Air 05/18/22 13:56 95 Room Air 05/18/22 13:40 95 Room Air 05/18/22 13:27 92 Room Air 05/18/22 12:30 95 Room Air 05/18/22 11:14 95 Room Air 05/18/22 09:15 Room Air 05/18/22 07:52 95 Room Air 05/18/22 07:03 05/18/22 03:35 93 Room Air 05/17/22 22:55 05/17/22 23:52 94 05/17/22 23:04 Room Air 05/17/22 23:04 97 Room Air 05/17/22 23:00 05/17/22 22:30 97 05/17/22 22:15 99 05/17/22 21:58 95 05/17/22 20:00 94 Room Air 05/17/22 19:01 95 Room Air 05/17/22 19:00 96 Room Air 05/17/22 17:09 96 Room Air Pain Intensity Neck: Pain Intensity: 3 Transfer of Care Handoff Completed per policy Notes Mental Status: alert / awake / arousable and participated in evaluation Patient Amnestic to Procedure: Yes Nausea / Vomiting: adequately controlled Pain: adequately controlled Airway Patency, RR, SpO2: stable & adequate BP & HR: stable & adequate Hydration State: stable & adequate Anesthetic Complications: no major complications apparent and Pt Satisfied with anesthetic care
[2022-05-18] MEDS ORDERED: LANTUS PER UNIT CHARGE SQ SCH (21:00)
[2022-05-18] MEDS ORDERED: CEFEPIME 1,000 MG in SYRINGE 0 ML IV SCH (22:00)
[2022-05-18] MEDS: TAMSULOSIN HCL 0.4 MG CAP PO SCH (22:23)
[2022-05-18] MEDS ORDERED: Nursing to Pharmacy Communication SCH (22:45)
[2022-05-19] MEDS: LEVOTHYROXINE SODIUM 137 MCG TABLET PO SCH (05:39)
[2022-05-19] MEDS: INSULIN ASPART PER UNIT SC SCH ×4 (08:32→21:11)
--- NOTE | 2022-05-19 08:42 | Nephrology Progress Note ---
Date of Service May 19, 2022 Assessment & Plan (1) Acute kidney injury: Plan: * Nonoliguric MABEL due to dehydration, anemia in the setting of ARB therapy. * Cr improving following 1 unit PRBC and gentle hydration * Abdominal CT revealed atrophic/nonfunctional L kidney. No R renal obstruction/hydronephrosis * Hold losartan * Continue gentle hydration * Monitor PRP, UO, volume status (2) Chronic kidney disease (CKD) stage G3b/A3, moderately decreased glomerular filtration rate (GFR) between 30-44 mL/min/1.73 square meter and albuminuria creatinine ratio greater than 300 mg/g: Plan: * CKD stage G3b/A3 (moderate impairment), baseline Cr 2.0 w/ EGFR 32 cc/min. Urine sediment difficult to interpret due to chronic indwelling [place] catheter, UACR 1.1. 05/17/[address] reveals an atrophic/nonfunctional L kidney. Renal impairment is due to vascular disease and underlying DKD (3) Hypertension: Plan: * Stop losartan * Continue amlodipine for BP management (4) Anemia: Plan: * Iron saturation 9%, ferritin > 1200. Hold IV iron * 05/18 EGD - gastritis. Biopsies taken. Histology pending * Hgb trending down following 1 U PRBC. Will order FOBT * Question need for colonoscopy. CT did show large amount of stool in rectum and perirectal inflammation (5) Cystitis: Plan: * On dose adjusted empiric Cefepime * Urine culture + Enterobacter sensitive to cephalosporins (6) Hypercalcemia: Plan: * Improved following IV hydration * Vitamin D and PTH are within acceptable limits (7) Splenic lesion: Plan: * Recommend echocardiogram to assess AVR Admission and Anticipated Discharge Date Admission Date: May 17, 2022 Subjective Aphasic. Appears comfortable Review of Systems Review of Systems: unobtainable due to expressive aphasia Physical Exam Constitutional: not in distress Eyes: PERRL, conjunctivae normal, anicteric sclerae ENMT: external ear and nose normal, oropharynx normal Mouth: + dry oral mucous membranes Neck: trachea midline, no thyromegaly Respiratory: normal respiratory effort, lungs clear to auscultation Cardiovascular: Rate/Rhythm: regular rate and regular rhythm Heart Sounds: + murmur Vessels: + carotid bruit Extremities: no pedal edema Gastrointestinal (Abdomen): Inspection/Auscultation: + hypoactive bowel sounds Percussion/Palpation: abdomen nontender and no guarding Skin: + turgor decreased Neurologic: Speech / Cognition: + expressive aphasia Results & Data ([facility]) Vital Signs (Past 12 Hours) Vital Signs Temp Pulse Pulse Pulse Resp BP Pulse Ox 05/19/22 08:00 36.6 C 70 22 119/63 91 05/19/22 07:57 36.5 C 76 18 129/67 94 05/19/22 02:53 36.9 C 64 16 113/65 90 05/18/22 21:58 67 05/18/22 23:22 36.9 C 71 18 128/69 91 O2 Del Method 05/19/22 08:00 Room Air 05/19/22 07:57 Room Air 05/19/22 02:53 Room Air 05/18/22 21:58 05/18/22 23:22 Room Air Laboratory Results Laboratory Tests 05/17/22 05/17/22 05/18/22 18:10 19:29 10:41 WBC Hgb Hct Plt Count Sodium Potassium Chloride Carbon Dioxide BUN Creatinine Glucose Calcium Transferrin % Sat 9 L Ferritin 1208.7 H 25-OH Vitamin D Total PTH Intact Urine Color Yellow Urine Appearance Turbid A Urine pH 5.5 Ur Specific [place] 1.017 Urine Protein 3+ H Urine Glucose (UA) Negative Urine Blood 3+ H Ur Leukocyte Esterase 3+ H Urine WBC (Auto) >30 H U Epithel Cells (Auto) 10-20 H Urine Bacteria (Auto) 4+ H 05/18/22 05/18/22 05/19/22 10:41 10:41 09:15 WBC 11.67 H Hgb 7.8 L Hct 25.0 L Plt Count 273 Sodium Potassium Chloride Carbon Dioxide BUN Creatinine Glucose Calcium Transferrin % Sat Ferritin 25-OH Vitamin D Total 58.7 PTH Intact 9.0 L Urine Color Urine Appearance Urine pH Ur Specific [place] Urine Protein Urine Glucose (UA) Urine Blood Ur Leukocyte Esterase Urine WBC (Auto) U Epithel Cells (Auto) Urine Bacteria (Auto) 05/19/22 09:15 WBC Hgb Hct Plt Count Sodium 137 Potassium 3.3 L Chloride 106 Carbon Dioxide 23 BUN 37 H Creatinine 3.28 H Glucose 144 H Calcium 10.6 H Transferrin % Sat Ferritin 25-OH Vitamin D Total PTH Intact Urine Color Urine Appearance Urine pH Ur Specific [place] Urine Protein Urine Glucose (UA) Urine Blood Ur Leukocyte Esterase Urine WBC (Auto) U Epithel Cells (Auto) Urine Bacteria (Auto) PG Care Time/CCT Total # of Minutes Spent Total Time Spent with Patient: Total time spent is greater than 50% in coordination of care (as documented) at patient's floor/unit and/or counseling patient: Coding Level of Care Code 60401 Subseq Hosp Care Lvl 3 Diagnoses Acute kidney injury N17.9 Chronic kidney disease (CKD) stage G3b/A3, moderately decreased glomerular filtration rate (GFR) between 30-44 mL/min/1.73 square meter and albuminuria creatinine ratio greater than 300 mg/g N18.32 Hypertension I10 Anemia D64.9 Cystitis N30.90 Hypercalcemia E83.52 Splenic lesion D73.89
[2022-05-19] MEDS ORDERED: LEVOTHYROXINE SODIUM 137 MCG TABLET PO SCH (09:00)
[2022-05-19] MEDS: PANTOprazole 40 MG in SYRINGE 0 ML IV SCH (09:11)
[2022-05-19 09:24] LABS: Hemoglobin 7.8 g/dl (14.0-18.0); Mean Corpuscular Hemoglobin 23.4 pg (25.0-34.0); Mean Corpuscular Hgb Conc 31.2 g/dL (32.0-36.0); Mean Corpuscular Volume 74.9 fL (80.0-100.0); Mean Platelet Volume 10.4 fL (9.4-12.4); Platelet Count 273 K/uL (130-400); RDW Coefficient of Variation 22.3 % (11.5-14.5); RDW Standard Deviation 59.5 fL (36.4-46.3); Red Blood Count 3.34 M/uL (4.63-6.08); White Blood Count 11.67 K/ul (4.8-10.8)
[2022-05-19 09:48] LABS: Albumin Globulin Ratio 0.6 (0.9-2); Albumin Level 2.5 gm/dl (3.4-5.0); BUN Creatinine Ratio 11.3 (10-20); Bilirubin,Total 0.6 mg/dl (0.2-1.0); Calcium 10.6 mg/dl (8.5-10.1); Creatinine Clr Calc Pharmacy 19.8 ml/min; Est GFR (African American) 19.9 ml/min; Est GFR (Non-African American) 17.2 ml/min; Globulin 3.9 gm/dl (2.5-4.0); Potassium 3.3 mmol/L (3.5-5.1); Total Protein 6.4 gm/dl (6.0-8.3)
[2022-05-19] MEDS ORDERED: CEFEPIME 1,000 MG in SYRINGE 0 ML IV SCH (10:00)
[2022-05-19] MEDS: ROSUVASTATIN CALCIUM 20 MG TAB PO SCH (10:09)
[2022-05-19] MEDS: CLOPIDOGREL BISULFATE 75 MG TAB PO SCH (10:09)
[2022-05-19] MEDS ORDERED: NORMOSOL-R 1,000 ML IV SCH (10:15)
[2022-05-19] MEDS ORDERED: cefTRIAXone SODIUM 2,000 MG in DEXTROSE 5% 50 ML IV SCH (11:00)
--- NOTE | 2022-05-19 11:01 | Hospitalist Progress Note ---
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 Nausea/vomiting/abdominal pain -improved. sec to gastritis and infection. Microcytic Anemia -The patient was afebrile and hemodynamically stable upon admission -The etiology of the patient's anemia is likely multifactorial including anemia of CKD, poor oral intake, and hx of BRIT -Hgb noted to be 6.8 in the ED; blood consent obtained in the ED and 1 unit PRBC's transfused - Hgb today 8.4 -Pt has previous history of erosive gastritis found on EGD from 2018 and has been on BID pantoprazole since - Iron studies showed low iron, TIBC, and transferrin saturation; ferritin elevated which could be an acute phase reactant d/t infection -Given IVF overnight, continue -EGD showed mild inflammation; biopsies taken for H. pylori, could consider outpatient colonoscopy Acute Tubular Necrosis -Cr today noted to be 3.86 on admission, baseline appears to be approximately 2.0 -Likely due to dehydration from poor oral intake, continued use of antihypertensives, and current UTI -Was given 1L NSS bolus in the ED, switched to lactated ringer's overnight for a total of 2 bags - Cr today 3.44 - hold losartan per nephro recommendation, continue gentle hydration w/ LR at 80 mL/hr Possible sepsis sec to CAUTI CAUTI -Patient with chronic indwelling burgess - lactate neg -Given one dose of cipro in the ED -Review of previous urine cultures shows that the patient has grown wells- sensitive pseudomonas and Enterococcus in the past. Started on vanco and cefepime -current urine cx grew gram neg bacilli, awaiting sensitivities; d/c vanco - currently on only cefepime for ABX- day 2 Multiple splenic lesions -Noted on CT scan, differential includes neoplastic source, infection, and infarction -Recommended non-emergent MRI of the spleen for further evaluation -Will need to confirm if he can have an MRI with his implanted loop recorder Vomiting -EGD as above CAD -Will restart plavix as no bleed found on EGD Hypokalemia -Noted to be 3.4 upon admission, no EKG changes -No supplemental potassium given due to his MABEL -K this AM 3.6 -continue to monitor Hypercalcemia -Noted to be 11.5 upon admission -decreased slightly to 10.8 this AM -PTH low at 9 -await further nephro recommendation Hyperlipidemia -Will restart statin tomorrow Hypothyroidism -Will restart levothyroxine tomorrow Diabetes mellitus type 2, uncontrolled, with complications -Normally on 16 units HS lantus, currently on 8 units d/t inadequate PO intake -Continue with correction factor of 55 and carb ratio of 18 when he can eat -BSG checks HS Benign essential hypertension -Hold losartan per nephro -BP currently 123/58, will add amlodipine if BP rises History of CVA (cerebrovascular accident) -At neurologic baseline -Will restart plavix tomorrow (2) Acute kidney injury: (3) UTI (urinary tract infection): (4) Splenic lesion: (5) Vomiting: (6) CAD (coronary artery disease): (7) Hypokalemia: (8) Hypercalcemia: (9) Hyperlipidemia: (10) Hypothyroidism: (11) Diabetes mellitus type 2, uncontrolled, with complications: (12) Benign essential hypertension: (13) History of CVA (cerebrovascular accident): Plan FEN: normosol at 80 mL/hr, clear fluids DVT ppx: SCDs, plavix Dispo: med/surg Admission and Anticipated Discharge Date Admission Date: May 17, 2022 Physical Exam Constitutional: NAD. Vitals WNL. Eyes: no conjunctival abnormality Respiratory: CTA bilaterally. No rhonchi, wheezing, or crackles. Non labored breathing. Cardiovascular: RRR. No murmur noted. No LL edema. Gastrointestinal (Abdomen): Nontender, +BS. No masses noted. Skin: no rashes, warm and dry Psychiatric: Alert. Mood and affect congruent. Results & Data Results & Data ([facility]) Vital Signs (Past 12 Hours) Vital Signs Temp Pulse Pulse Resp BP Pulse Ox O2 Del Method 05/19/22 08:00 36.6 C 70 22 119/63 91 Room Air 05/19/22 07:57 36.5 C 76 18 129/67 94 Room Air 05/19/22 02:53 36.9 C 64 16 113/65 90 Room Air 05/18/22 23:22 36.9 C 71 18 128/69 91 Room Air Resident Activity Tracking Resident Involvement: Resident Care Provided Care Provided: Adult Hospital Medicine
[2022-05-19] MEDS ORDERED: POTASSIUM CHLORIDE CRTAB 20 MEQ TABCR PO ONE (12:20)
--- NOTE | 2022-05-19 12:50 | Hospitalist Progress Note ---
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 Acute Tubular Necrosis - Cr noted to be 3.86 on admission, baseline appears to be approximately 2.0 - Likely due to dehydration from poor oral intake, continued use of antihypertensives, and current UTI - Was given 1L NSS bolus in the ED, switched to LR x2 bags, currently normosol 80 mL/hr - Cr downtrending, today 3.28 - hold losartan per nephro recommendation, continue gentle hydration w/ normosol at 80 mL/hr Possible sepsis sec to CAUTI - Patient with chronic indwelling burgess - lactate neg - Given one dose of cipro in the ED - current urine cx grew enterobacter, sensitive to ceftriaxone - began ceftriaxone 05/19- day 2 of ABX Multiple splenic lesions -Noted on CT scan, differential includes neoplastic source, infection, and infarction -Recommended non-emergent MRI of the spleen for further evaluation - pt and seem interested in exploring these lesions further w/ MRI. Will check with cardio regarding loop recorder compatibility. Microcytic Anemia -The etiology of the patient's anemia is likely multifactorial including anemia of CKD, poor oral intake, and hx of BRIT -Hgb noted to be 6.8 in the ED; blood consent obtained in the ED and 1 unit PRBC's transfused - Hgb post transfusion 8.4 -Pt has previous history of erosive gastritis found on EGD from 2018 and has been on BID pantoprazole since - Iron studies showed low iron, TIBC, and transferrin saturation; ferritin elevated which could be an acute phase reactant d/t infection -EGD showed mild inflammation; biopsies taken for H. pylori, -Per GI - consider outpatient colonoscopy - 05/19 pt's Hgb downtrending, 7.8 today - FOBT to be collected Constipation with perirectal edema -Aggressive bowel regimen - miralax added. Hypokalemia -K 3.3 this AM, Cr improving so supplemented 40 meq -continue to monitor Hypercalcemia -Noted to be 11.5 upon admission -downtrending to 10.6, improving w/ hydration -PTH low at 9, vitamin D 58.7- acceptable Hyperlipidemia -continue rosuvastatin 40 mg daily Hypothyroidism -continue levothyroxine 137 mcg daily Diabetes mellitus type 2, uncontrolled, with complications -Normally on 16 units HS lantus, was on 8 units while NPO - resumed 16 units HS lantus since pt is on carb consistent diet -Continue with correction factor of 55 and carb ratio of 18 when he can eat -BSG checks HS Benign essential hypertension -Hold losartan per nephro -BP currently 139/72, will add amlodipine if BP is consistently risen History of CVA (cerebrovascular accident) -At neurologic baseline -continue plavix (2) Vomiting: (3) UTI (urinary tract infection): (4) Splenic lesion: (5) History of CVA (cerebrovascular accident): (6) Acute kidney injury: (7) Hypokalemia: (8) Hyperlipidemia: (9) Hypothyroidism: Plan FEN: Normosol-R at 80 mL/hr, carb consistent diet DVT ppx: SCDs, plavix Dispo: med/surg Code status - DNR/DNI Admission and Anticipated Discharge Date Admission Date: May 17, 2022 Supervising Physician Co-Signing Physician Notes Resident Physician Supervision Note: I independently interviewed and examined the patient and verified the wagner history and physical, reviewed labs and image studies and agree with resident findings and care plan. 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 Pt endorses some abdominal pain this morning; however, overall feeling well. No pain elsewhere. Physical Exam Constitutional: NAD. Vitals WNL. Eyes: no conjunctival abnormality Respiratory: CTA bilaterally. No rhonchi, wheezing, or crackles. Non labored breathing. Cardiovascular: RRR. No murmur noted. No LL edema. Gastrointestinal (Abdomen): Nontender, +BS. No masses noted. Skin: no rashes, warm and dry Psychiatric: Alert. Mood and affect congruent. Results & Data Results & Data ([facility]) Vital Signs (Past 12 Hours) Vital Signs Temp Pulse Pulse Pulse Resp BP Pulse Ox 05/19/22 12:26 68 05/19/22 11:57 36.9 C 75 20 147/67 H 97 05/19/22 08:00 36.6 C 70 22 119/63 91 05/19/22 07:57 36.5 C 76 18 129/67 94 05/19/22 02:53 36.9 C 64 16 113/65 90 O2 Del Method 05/19/22 12:26 05/19/22 11:57 Room Air 05/19/22 08:00 Room Air 05/19/22 07:57 Room Air 05/19/22 02:53 Room Air Resident Activity Tracking Resident Involvement: Resident Care Provided Care Provided: Adult Hospital Medicine
[2022-05-19] MEDS: POLYETHYLENE (MIRALAX) 17 GM PACK PO SCH ×2 (17:11→21:12)
[2022-05-19] MEDS ORDERED: LANTUS PER UNIT CHARGE SQ SCH (21:00)
[2022-05-19] MEDS: LANTUS PER UNIT CHARGE SQ SCH (21:11)
[2022-05-19] MEDS: TAMSULOSIN HCL 0.4 MG CAP PO SCH (21:12)
[2022-05-19] MEDS: PANTOprazole 40 MG TAB PO SCH (21:12)
[2022-05-20] MEDS: POLYETHYLENE (MIRALAX) 17 GM PACK PO SCH ×6 (02:31→22:36)
[2022-05-20] MEDS: LEVOTHYROXINE SODIUM 137 MCG TABLET PO SCH (06:02)
--- NOTE | 2022-05-20 06:59 | Hospitalist Progress Note ---
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 Acute Tubular Necrosis - Cr noted to be 3.86 on admission, baseline appears to be approximately 2.0 - Likely due to dehydration from poor oral intake, continued use of antihypertensives, and current UTI - Was given 1L NSS bolus in the ED, switched to LR x2 bags, currently normosol 80 mL/hr - Cr downtrending, today 3.28 - hold losartan, continue gentle hydration w/ normosol at 80 mL/hr - per nephro, work up for paraproteinemia including 1.25 vit D, SPEP, UPEP, and FLC in addition to further urine studies; d/c fluids - continue to monitor CBC, BMP Possible sepsis sec to CAUTI - Patient with chronic indwelling burgess - lactate neg - Given one dose of cipro in the ED - current urine cx grew enterobacter - per pharmacy recommendation, switched ABX back to cefepime- day 3 total Multiple splenic lesions - Noted on CT scan, differential includes neoplastic source, infection, and infarction - Recommended non-emergent MRI of the spleen for further evaluation, loop recorder compatible with MRI - pt to undergo MRI today (0.5 mg ativan ordered for prior to study), pending result Microcytic Anemia - The etiology of the patient's anemia is likely multifactorial including anemia of CKD, poor oral intake, and hx of BRIT - Hgb noted to be 6.8 in the ED; blood consent obtained in the ED and 1 unit PRBC's transfused - Hgb post transfusion 8.4 -Pt has previous history of erosive gastritis found on EGD from 2018 and has been on BID pantoprazole since - Iron studies showed low iron, TIBC, and transferrin saturation; ferritin elevated which could be an acute phase reactant d/t infection - EGD showed mild inflammation; biopsies taken for H. pylori -Per GI - consider outpatient colonoscopy - pt's Hgb stable, 8.0 today - FOBT to be collected Gastritis - pt experiencing increased burning sensation in his stomach/throat - continuing home pantoprazole 40 mg BID - dose of maalox given today Constipation with perirectal edema -Aggressive bowel regimen - miralax 17 g q4hr added Hypokalemia -K this AM 3.6 -continue to monitor Hypercalcemia - Noted to be 11.5 upon admission - downtrending to 10.4 - PTH low at 9, vitamin D 58.7- most likely non PTH mediated - PTHrp pending in addition to paraproteinemia work up Diabetes mellitus type 2, uncontrolled, with complications - Normally on 16 units HS lantus, was on 8 units while NPO - continued on 8 units d/t low AM blood sugar - continue with correction factor of 55 and carb ratio of 18 when he can eat - BSG checks ACHS Benign essential hypertension -Hold losartan per nephro - BP currently 127/69, will add amlodipine if BP is consistently risen Hyperlipidemia -continue rosuvastatin 40 mg daily Hypothyroidism -continue levothyroxine 137 mcg daily History of CVA (cerebrovascular accident) - At neurologic baseline - continue plavix (2) Vomiting: (3) UTI (urinary tract infection): (4) Splenic lesion: (5) History of CVA (cerebrovascular accident): (6) Acute kidney injury: (7) Hypokalemia: (8) Hyperlipidemia: (9) Hypothyroidism: Plan FEN: carb consistent diet DVT ppx: SCDs, plavix Dispo: med/surg Code: DNR/DNI Admission and Anticipated Discharge Date Admission Date: May 17, 2022 Supervising Physician Co-Signing Physician Notes Resident Physician Supervision Note: I independently interviewed and examined the patient and verified the wagner history and physical, reviewed labs and image studies and agree with resident findings and care plan. 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 Pt endorses some abdominal pain this morning; however, overall feeling well. No pain elsewhere. Physical Exam Constitutional: NAD. Vitals WNL. Eyes: no conjunctival abnormality Respiratory: CTA bilaterally. No rhonchi, wheezing, or crackles. Non labored breathing. Cardiovascular: RRR. No murmur noted. No LL edema. Gastrointestinal (Abdomen): Nontender, +BS. No masses noted. Skin: no rashes, warm and dry Psychiatric: Alert. Mood and affect congruent. Results & Data Results & Data ([facility]) Vital Signs (Past 12 Hours) Vital Signs Temp Pulse Pulse Resp BP Pulse Ox O2 Del Method 05/20/22 03:40 37.2 C 67 16 103/63 96 Room Air 05/19/22 22:15 61 05/19/22 22:50 37.1 C 64 16 116/66 94 Room Air 05/19/22 19:28 37.2 C 75 19 123/70 91 Room Air Resident Activity Tracking Resident Involvement: Resident Care Provided Care Provided: Adult Hospital Medicine
[2022-05-20] MEDS: ACETAMINOPHEN 500 MG TAB PO PRN (08:21)
[2022-05-20] MEDS: PANTOprazole 40 MG TAB PO SCH ×2 (08:21→20:48)
[2022-05-20] MEDS: CLOPIDOGREL BISULFATE 75 MG TAB PO SCH (08:21)
[2022-05-20] MEDS: ROSUVASTATIN CALCIUM 20 MG TAB PO SCH (08:21)
[2022-05-20] MEDS: INSULIN ASPART PER UNIT SC SCH ×4 (08:26→20:45)
[2022-05-20 08:31] LABS: Hematocrit (blood only) 26.2 % (40.1-51.0); Mean Corpuscular Hemoglobin 23.3 pg (25.0-34.0); Mean Corpuscular Hgb Conc 30.5 g/dL (32.0-36.0); Mean Corpuscular Volume 76.2 fL (80.0-100.0); Mean Platelet Volume 10.4 fL (9.4-12.4); Platelet Count 259 K/uL (130-400); RDW Coefficient of Variation 22.3 % (11.5-14.5); RDW Standard Deviation 60.7 fL (36.4-46.3); Red Blood Count 3.44 M/uL (4.63-6.08); White Blood Count 13.52 K/ul (4.8-10.8)
[2022-05-20 09:01] LABS: Albumin Globulin Ratio 0.6 (0.9-2); Albumin Level 2.4 gm/dl (3.4-5.0); BUN Creatinine Ratio 11.1 (10-20); Bilirubin,Total 0.5 mg/dl (0.2-1.0); Calcium 10.4 mg/dl (8.5-10.1); Creatinine Clr Calc Pharmacy 23.2 ml/min; Est GFR (African American) 23.3 ml/min; Est GFR (Non-African American) 20.1 ml/min; Globulin 4.1 gm/dl (2.5-4.0); Potassium 3.6 mmol/L (3.5-5.1); Total Protein 6.5 gm/dl (6.0-8.3)
--- NOTE | 2022-05-20 10:36 | Nephrology Progress Note ---
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 On admission lab showed Hgb 6.8, Cr 3.8, Ca 11.5, albumin 2.5, urinalysis with 3 + proteinuria, bacteruria, hematuria with chronic indwelling Ratliff catheter. CT A/P atrophic/nonfunctional L kidney.Received 1 U PRBC and IV LR. IV Cefepime was added for empiric treatment of UTI. EGD showed gastritis. Renal function slowly improving, cr down to 2.5, ca 10.4, vit D normal, PTH appropriately low suggesting non PTH mediated hypercalcemia. CXR with no hilar lymphadenopathy. With anemia, hypoalbuminemia and CT suggestive of splenic lesion, concern for paraproteinemia remains. --check 1.25 vit D, SPEP, UPEP, FLC --encourage po intake, if inadequate, resume IV fluid --monitor renal function, CBC, continue to hold ACEI/ARB, calcium, vit D Will follow. Admission and Anticipated Discharge Date Admission Date: May 17, 2022 Subjective Ryley was seen and evaluated this morning. Communications were limited by his speech difficulty, a residual effect from prior CVA. Overall he denies any concerns. Renal function improving slowly, ca improving, Hb remains low, K normal. BP stable, asymptomatic. Review of Systems Review of Systems: Detail ROS was not possible due to speech difficulty. Physical Exam Constitutional: WD/WN, vitals as above no acute distress Eyes: + anicteric sclerae Neck: normal visual inspection Respiratory: Auscultation: lungs clear to auscultation bilaterally Cardiovascular: Rate/Rhythm: regular rate and regular rhythm Heart Sounds: normal S1 and normal S2 Extremities: no edema Skin: no rashes Neurologic: + focal motor deficit (LE weakness) Speech / Cognition: + abnormal speech and + expressive aphasia Psychiatric: Orientation: alert and oriented x 3 Results & Data ([facility]) Vital Signs (Past 12 Hours) Vital Signs Temp Pulse Pulse Resp BP Pulse Ox O2 Del Method 05/20/22 08:59 63 05/20/22 07:30 36.8 C 68 18 113/62 92 Room Air 05/20/22 03:40 37.2 C 67 16 103/63 96 Room Air 05/19/22 22:50 37.1 C 64 16 116/66 94 Room Air PG Care Time/CCT Total # of Minutes Spent Total Time Spent with Patient: Total time spent is greater than 50% in coordination of care (as documented) at patient's floor/unit and/or counseling patient: Coding Level of Care Code 02671 Subseq Hosp Care Lvl 3 Diagnoses Acute kidney injury N17.9 Anemia D64.9 Hypercalcemia E83.52 Hypertension I10 Chronic kidney disease, stage 4 (severe) N18.4
[2022-05-20] MEDS: CEFEPIME 1,000 MG in SYRINGE 0 ML IV SCH ×2 (10:59→22:36)
[2022-05-20] MEDS ORDERED: ALUMINUM/MAGNESIUM SUSP 30 ML UDC PO STA (11:48)
[2022-05-20 14:42] LABS: Creatinine Urine Random 55.4 mg/dl; Protein Creatinine Ratio Urine 2.9 (0-0.2)
[2022-05-20] MEDS ORDERED: LORazepam 0.5 MG TAB PO STA (15:13)
--- NOTE | 2022-05-20 17:31 | Magnetic Resonance Report ---
MR OF THE ABDOMEN WITHOUT CONTRAST CLINICAL HISTORY: Indeterminate splenic lesions on CT. COMPARISON STUDY: CT of the abdomen and pelvis July 04, 2019 and May 17, 2022. TECHNIQUE: Utilizing a 1.5 Marquita magnet and dedicated coil, multiplanar, multiecho imaging of the abd omen was performed. No intravenous contrast was administered given renal insufficiency. FINDINGS: Prosthetic aortic valve is noted. There are trace bilateral pleural effusions. Prominent pa raaortic/paraesophageal lymph nodes are present. There is an indeterminate 1.5 cm hyperintense focus within the right hepatic lobe on axial diffusion weighted sequence image 13 of . Subtle correspondi ng T2 hyperintense focus is noted. No corresponding abnormality is shown on unenhanced CT of May 17, 2022. A benign fat-containing right adrenal nodule is present. Mild splenomegaly is noted. Innum erable T2 hyperintense splenic lesions measure up to 3.8 cm and correspond to the lesions shown on pr ior CT. These lesions are new since CT of July 04, 2019. Mild splenomegaly has increased since that examination. The splenic lesions are suboptimally assessed given lack of postcontrast imaging. These lesions are hyperintense on the diffusion-weighted sequence. These also appear hyperintense on the A DC sequence. There is trace perisplenic fluid. There are suspected similar-appearing nodules within t he splenic hilum that measure up to 1.4 cm. These may reflect enlarged lymph nodes. Marked left renal atrophy is incidentally noted. There are suspected renal cysts, suboptimally assessed on this unenha nced exam. Hemangioma within the lumbar spine is incidentally noted. There is no suspicious marrow re placement within visualized skeletal structures. There is no biliary ductal dilatation. Unenhanced im ages of the left adrenal gland and pancreas are unremarkable. Caliber of visualized small and large b owel are normal. IMPRESSION: 1. Mild splenomegaly with innumerable splenic lesions and trace perisplenic fluid. These lesions have developed since CT of July 04, 2019. Suspected similar-appearing nodules within the splenic hilum, adjacent to the pancreatic tail may reflect enlarged lymph nodes. The splenic lesions are indetermin ate however a neoplastic process such as lymphoma or less likely metastatic disease is favored. An in fectious process with splenic abscesses/microabscesses is within the differential but considered less likely. These do not reflect splenic infarcts. Postcontrast imaging, if possible, may be of benefit in further characterization. 2. Indeterminate 1.5 cm right hepatic lobe lesion with restricted diffusion. 3. Marked left renal atrophy. ACT 112: Negative or not required by law. Electronically signed by: Spencer Merida M.D. 05/20/2022 5:29 PM
[2022-05-20] MEDS: LANTUS PER UNIT CHARGE SQ SCH (20:45)
[2022-05-20] MEDS: TAMSULOSIN HCL 0.4 MG CAP PO SCH (20:48)
[2022-05-21] MEDS: POLYETHYLENE (MIRALAX) 17 GM PACK PO SCH ×6 (03:14→20:55)
[2022-05-21] MEDS: LEVOTHYROXINE SODIUM 137 MCG TABLET PO SCH (06:30)
[2022-05-21 07:41] LABS: Hematocrit (blood only) 27.7 % (40.1-51.0); Hemoglobin 8.5 g/dl (14.0-18.0); Mean Corpuscular Hemoglobin 23.4 pg (25.0-34.0); Mean Corpuscular Hgb Conc 30.7 g/dL (32.0-36.0); Mean Corpuscular Volume 76.1 fL (80.0-100.0); Mean Platelet Volume 10.7 fL (9.4-12.4); Platelet Count 253 K/uL (130-400); RDW Coefficient of Variation 22.4 % (11.5-14.5); RDW Standard Deviation 61.1 fL (36.4-46.3); Red Blood Count 3.64 M/uL (4.63-6.08); White Blood Count 12.79 K/ul (4.8-10.8)
[2022-05-21 08:06] LABS: BUN Creatinine Ratio 11.1 (10-20); Calcium 10.8 mg/dl (8.5-10.1); Est GFR (African American) 24.2 ml/min; Est GFR (Non-African American) 20.9 ml/min; Potassium 3.6 mmol/L (3.5-5.1)
[2022-05-21] MEDS: INSULIN ASPART PER UNIT SC SCH ×4 (08:56→20:52)
[2022-05-21] MEDS: ACETAMINOPHEN 500 MG TAB PO PRN (08:56)
[2022-05-21] MEDS: ROSUVASTATIN CALCIUM 20 MG TAB PO SCH (08:57)
[2022-05-21] MEDS: PANTOprazole 40 MG TAB PO SCH ×2 (08:57→20:55)
[2022-05-21] MEDS: CLOPIDOGREL BISULFATE 75 MG TAB PO SCH (08:58)
--- NOTE | 2022-05-21 09:48 | Nephrology Progress Note ---
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 On admission lab showed Hgb 6.8, Cr 3.8, Ca 11.5, albumin 2.5, urinalysis with 3 + proteinuria, bacteruria, hematuria with chronic indwelling Ratliff catheter. CT A/P atrophic/nonfunctional L kidney.Received 1 U PRBC and IV LR. IV Cefepime was added for empiric treatment of UTI. EGD showed gastritis. Renal function slowly improving, cr down to 2.7 but ca again going up, corrected 12.1, vit D normal, PTH appropriately low suggesting non PTH mediated hypercalcemia. CXR with no hilar lymphadenopathy. With anemia, hypoalbuminemia and CT suggestive of splenic lesion, concern for paraproteinemia remains. Net negative last 24 h --resume IV fluid NS at 80 ml/h --start on calcitonin --encourage po intake, if inadequate --monitor renal function, CBC, continue to hold ACEI/ARB, calcium, vit D Will follow. Admission and Anticipated Discharge Date Admission Date: May 17, 2022 Praveen Hedrick was seen and evaluated this morning. Overall he is stable, no overnight events, denies any concerns. Renal function improving slowly, ca again elevated, corrected 12.1, Hb remains low, K normal. BP stable, asymptomatic. Net negative >1.2 L last 24 h. Review of Systems Review of Systems: Detail ROS was not possible due to speech difficulty. Physical Exam Constitutional: WD/WN, vitals as above no acute distress Eyes: + anicteric sclerae Neck: normal visual inspection Respiratory: Auscultation: lungs clear to auscultation bilaterally Cardiovascular: Rate/Rhythm: regular rate and regular rhythm Heart Sounds: normal S1 and normal S2 Extremities: no edema Skin: no rashes Neurologic: + focal motor deficit (Right sided weakness) Speech / Cognition: + abnormal speech and + expressive aphasia Psychiatric: Orientation: alert and oriented x 3 Results & Data ([facility]) Vital Signs (Past 12 Hours) Vital Signs Temp Pulse Resp BP Pulse Ox O2 Del Method 05/21/22 08:02 36.7 C 86 20 102/64 94 Room Air 05/20/22 23:12 37.1 C 63 18 106/63 94 Room Air PG Care Time/CCT Total # of Minutes Spent Total Time Spent with Patient: Total time spent is greater than 50% in coordination of care (as documented) at patient's floor/unit and/or counseling patient: Coding Level of Care Code 69038 Subseq Hosp Care Lvl 3 Diagnoses Acute kidney injury N17.9 Hypercalcemia E83.52 Anemia D64.9 Hypertension I10 Chronic kidney disease, stage 4 (severe) N18.4
[2022-05-21] MEDS ORDERED: CALCITONIN SALMON 400 UNITS/2 ML SQ SCH (10:00)
--- NOTE | 2022-05-21 10:05 | Hospitalist Progress Note ---
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 Acute Tubular Necrosis - Cr noted to be 3.86 on admission, baseline appears to be approximately 2.0 - Likely due to dehydration from poor oral intake, continued use of antihypertensives, and current UTI - Was given 1L NSS bolus in the ED, switched to LR x2 bags, then maintained on normosol - Cr downtrending slowly, today 2.79 - per nephro, work up for paraproteinemia including 1.25 vit D, SPEP, UPEP, and FLC in addition to further urine studies,pending - resume NS at 80 mL/hr - continue holding losartan - continue to monitor CBC, BMP Possible sepsis sec to CAUTI - Patient with chronic indwelling burgess since 2019 - lactate neg - Given one dose of cipro in the ED - current urine cx grew enterobacter - per pharmacy recommendation, switched ABX back to cefepime- day 4 total Multiple splenic lesions - Noted on CT scan, differential includes neoplastic source, infection, and infarction - MRI showed splenic lesions favoring neoplastic process like lymphoma (less likely metastatic); - recommended MRI w/ contrast but unable to proceed d/t kidney function - consider work up for splenic marginal zone lymphoma since no swollen lymph nodes (including peripheral smear, bone marrow biopsy); - considering oncology consult on sunday for further guidance Microcytic Anemia - The etiology of the patient's anemia is likely multifactorial including anemia of CKD, poor oral intake, and hx of BRIT - Hgb noted to be 6.8 in the ED; blood consent obtained in the ED and 1 unit PRBC's transfused - Hgb post transfusion 8.4 -Pt has previous history of erosive gastritis found on EGD from 2017 and has been on BID pantoprazole since - Iron studies showed low iron, TIBC, and transferrin saturation; ferritin elevated which could be an acute phase reactant d/t infection - EGD showed mild inflammation; H. pylori negative -Per GI - consider outpatient colonoscopy (FOBT neg) - pt's Hgb stable, 8.5 today Gastritis - continuing home pantoprazole 40 mg BID - 05/20: increased burning pain; dose of maalox given; resolved Constipation with perirectal edema -Still with no proper BM -continue aggressive bowel regimen. Hypercalcemia - Noted to be 11.5 upon admission; today, 10.8 - PTH low at 9, vitamin D 58.7- most likely non PTH mediated - PTHrp pending in addition to paraproteinemia work up - per nephro, begin calcitonin 400 units q12hr Diabetes mellitus type 2, uncontrolled, with complications - Normally on 16 units HS lantus, was on 8 units while NPO - continued on 8 units d/t low AM blood sugar - continue with correction factor of 55 and carb ratio of 18 when he can eat - BSG checks ACHS Benign essential hypertension -Hold losartan per nephro - BP currently 128/73, will add amlodipine if BP is consistently risen Hyperlipidemia -continue rosuvastatin 40 mg daily Hypothyroidism -continue levothyroxine 137 mcg daily History of CVA (cerebrovascular accident) - At neurologic baseline - continue plavix (2) Vomiting: (3) UTI (urinary tract infection): (4) Splenic lesion: (5) History of CVA (cerebrovascular accident): (6) Acute kidney injury: (7) Hypokalemia: (8) Hyperlipidemia: (9) Hypothyroidism: Plan FEN: carb consistent diet, NS 80 mL/hr DVT ppx: SCDs, plavix Dispo: med/surg, pt's requesting additional home health help upon d/c Code: DNR/DNI Admission and Anticipated Discharge Date Admission Date: May 17, 2022 Supervising Physician Co-Signing Physician Notes Resident Physician Supervision Note: I independently interviewed and examined the patient and verified the wagner history and physical, reviewed labs and image studies and agree with resident findings and care plan. 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 Pt states his burning abdominal pain from yesterday has subsided. He still has mild pain in his lower abdomen. Otherwise, he feels well. No new chest pain, SOB, or leg pain. Pt did have an episode of emesis before lunch. Per nursing, pt was w/ his giving him a drink and this resulted in him throwing up his breakfast. Pt's explains that this is similar to a few episodes that have happened at home. When this has happened, there is no symptoms before the emesis, it seems to have a sudden onset. The pt only ever throws up food from the meal before. Pt's also relayed there is an extensive family history of multiple cancers. There are 2 brothers w/ esophageal cancer, 1 brother w/ colon cancer, pt's mother had "cancer at the beginning of the stomach or end of the esophagus", and a sister who had her colon resected d/t numerous polyps. Physical Exam Constitutional: NAD. Vitals WNL. Eyes: no conjunctival abnormality Respiratory: CTA bilaterally. No rhonchi, wheezing, or crackles. Non labored breathing. Cardiovascular: RRR. No murmur noted. No LL edema- wearing compression stockings. Gastrointestinal (Abdomen): Mostly nontender mild tenderness upon deep palpation of RLQ, +BS. No masses noted. Skin: no rashes, warm and dry Psychiatric: Alert. Mood and affect congruent. Results & Data Results & Data ([facility]) Vital Signs (Past 12 Hours) Vital Signs Temp Pulse Resp BP Pulse Ox O2 Del Method 05/21/22 08:02 36.7 C 86 20 102/64 94 Room Air 05/20/22 23:12 37.1 C 63 18 106/63 94 Room Air Resident Activity Tracking Resident Involvement: Resident Care Provided Care Provided: Adult Hospital Medicine
[2022-05-21] MEDS: CEFEPIME 1,000 MG in SYRINGE 0 ML IV SCH ×2 (10:10→23:34)
[2022-05-21] MEDS: SODIUM CHLORIDE 0.9% 1000ML 1,000 ML IV SCH ×2 (10:10→20:17)
[2022-05-21] MEDS: CALCITONIN SALMON 400 UNITS/2 ML SQ SCH ×2 (10:56→21:19)
--- NOTE | 2022-05-21 18:13 | XRay Report ---
KUB HISTORY: constipation, emesis COMPARISON: Abdomen and pelvis CT 05/17/2022. FINDINGS: There are poststernotomy changes and an aortic valve prosthesis. Surgical clip within the l eft upper quadrant. Moderate to large amount well-formed stool seen throughout the colon and rectum. No dilated loops of small bowel to suggest an obstruction. No renal calculi. No ureteral calculi. Ca lcifications in the deep pelvis likely represent phleboliths. No pneumoperitoneum or pneumatosis. IMPRESSION: Moderate to large amount of well-formed stool seen throughout the colon and rectum. ACT 112: Negative or not required by law. Electronically signed by: Irving Vang M.D. 05/21/2022 6:12 PM
[2022-05-21] MEDS: LANTUS PER UNIT CHARGE SQ SCH (20:53)
[2022-05-21] MEDS: TAMSULOSIN HCL 0.4 MG CAP PO SCH (20:55)
[2022-05-22] MEDS: ONDANSETRON INJ 2 MG/ML 2 ML VIAL IV PRN ×2 (02:27→09:15)
[2022-05-22] MEDS: SODIUM CHLORIDE 0.9% 1000ML 1,000 ML IV SCH ×3 (04:27→20:18)
[2022-05-22] MEDS: POLYETHYLENE (MIRALAX) 17 GM PACK PO SCH ×6 (04:27→21:38)
[2022-05-22 07:28] LABS: Hematocrit (blood only) 23.4 % (40.1-51.0); Hemoglobin 7.2 g/dl (14.0-18.0); Mean Corpuscular Hemoglobin 23.3 pg (25.0-34.0); Mean Corpuscular Hgb Conc 30.8 g/dL (32.0-36.0); Mean Corpuscular Volume 75.7 fL (80.0-100.0); Mean Platelet Volume 10.4 fL (9.4-12.4); Platelet Count 251 K/uL (130-400); RDW Coefficient of Variation 22.7 % (11.5-14.5); RDW Standard Deviation 62.3 fL (36.4-46.3); Red Blood Count 3.09 M/uL (4.63-6.08)
--- NOTE | 2022-05-22 07:49 | Hospitalist Progress Note ---
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 Nausea/vomiting - most likely d/t constipation, however, could be related to gastroparesis or underlying neoplastic process - EGD showed gastritis, H. pylori neg - KUB neg for obstruction, showed moderate to large stool burden in colon and rectum - pt currently on protonix 40 mg BID, zofran q4hr PRN - pt given miralax q4hr for constipation, additional enema given today - if N/V does not improve w/ BM, may consider gastric emptying study and/or small bowel follow through studies for further evaluation Acute Tubular Necrosis - Cr noted to be 3.86 on admission, baseline appears to be approximately 2.0 - Likely due to dehydration from poor oral intake, continued use of antihypertensives, and current UTI - Cr downtrending slowly, today 2.73 - per nephro, work up for paraproteinemia including 1.25 vit D, SPEP, UPEP, and FLC in addition to further urine studies- pending - continue NS at 125 mL/hr d/t NPO status - continue holding losartan - continue to monitor CBC, BMP Possible sepsis sec to CAUTI - Patient with chronic indwelling burgess since 2019 - lactate neg - Given one dose of cipro in the ED - current urine cx grew enterobacter - per pharmacy recommendation, switched ABX back to cefepime- day 5 total Multiple splenic lesions - Noted on CT scan, differential includes neoplastic source, infection, and infarction - MRI showed splenic lesions favoring neoplastic process like lymphoma (less likely metastatic) - recommended MRI w/ contrast but unable to proceed d/t kidney function - hem/onc consulted, appreciate recommendations Microcytic Anemia - The etiology of the patient's anemia is likely multifactorial including anemia of CKD, poor oral intake, and hx of BRIT - Hgb noted to be 6.8 in the ED; blood consent obtained in the ED and 1 unit PRBC's transfused - Hgb post transfusion 8.4 -Pt has previous history of erosive gastritis found on EGD from 2018 and has been on BID pantoprazole since - Iron studies showed low iron, TIBC, and transferrin saturation; ferritin elevated which could be an acute phase reactant d/t infection - EGD showed gastritis; H. pylori negative -Per GI - consider outpatient colonoscopy (FOBT neg) - pt's Hgb downtrended to 7.2 from 8.5 - appreciate hem/onc recommendations, continue to monitor Gastritis - continuing home pantoprazole 40 mg BID - 05/20: increased burning pain; dose of maalox given; resolved Constipation with perirectal edema - Still with no proper BM - continue miralax 17g q4hr as able, limited by nausea - fleet enema ordered as well - consider lactulose if enema is unsuccessful Hypercalcemia - Noted to be 11.5 upon admission; today, 10.8 - PTH low at 9, vitamin D 58.7- most likely non PTH mediated - PTHrp pending in addition to paraproteinemia work up - began calcitonin 400 units q12hr Diabetes mellitus type 2, uncontrolled, with complications - Normally on 16 units HS lantus at home, was on 8 units while NPO - continued on 8 units d/t low AM blood sugar - continue with correction factor of 55 and carb ratio of 18 when he can eat - BSG checks ACHS Benign essential hypertension - Hold losartan per nephro - BP currently 123/61, will add amlodipine if BP is consistently risen Hyperlipidemia -continue rosuvastatin 40 mg daily Hypothyroidism -continue levothyroxine 137 mcg daily History of CVA (cerebrovascular accident) - At neurologic baseline - continue plavix (2) Vomiting: (3) UTI (urinary tract infection): (4) Splenic lesion: (5) History of CVA (cerebrovascular accident): (6) Acute kidney injury: (7) Hypokalemia: (8) Hyperlipidemia: (9) Hypothyroidism: Plan FEN: NPO, NS 125 mL/hr DVT ppx: SCDs, plavix Dispo: med/surg, pt's requesting additional home health help upon d/c Code: DNR/DNI Admission and Anticipated Discharge Date Admission Date: May 17, 2022 Supervising Physician Co-Signing Physician Notes I personally examined the patient and verified all wagner points of history and exam, discussed case, and agree with decision making with Dr Baker Nausea and vomiting. present at the bedside, updated the best my ability. HPI somewhat limited due to expressive aphasia Vitals noted, in general he is awake and alert pleasant no distress appears fatigued. Abdomen is soft no epigastric tenderness mild left-sided tenderness as best I can assess no guarding rebound no rigidity Nausea and vomitingconstipation more likely than gastroparesis more likely than systemic symptoms related to possible neoplastic process. Bowel regimen, serial exams Splenic lesions, anemiaawait hematology input. We will hold off on transfusion for now given that he is hemodynamically stable, so as to not possibly adulterated studies required by hematology. Afterwards certainly agree with nephrology that his transfusion may help with the symptoms, and is not likely to mount much of a hematopoietic response CKD/AKIshowing slow improvement. Blood may help with this as wellsee above, holding off for today Otherwise as above Subjective Pt is a 77 yo male w/ PMH of CVA w/ residual right hemiparesis and expressive aphasia, DM II, HTN, previous GI bleeds, chronic indwelling catheter, CAD s/p CABG x1 (2018), hypothyroidism, aortic valve replacement, and CKD presented to the hospital d/t nausea, vomiting, and abdominal pain. Pt had two episodes of vomiting yesterday at lunch and dinner. Pt had another episode of vomiting this morning. Per nursing, it was yellow/green w/ undigested food from yesterday in it. When speaking with the pt this morning, he endorses upper and right sided abdominal pain and feeling naseous. Overall, he feels unwell. Physical Exam Constitutional: NAD. Vitals WNL. Eyes: no conjunctival abnormality Respiratory: CTA bilaterally. No rhonchi, wheezing, or crackles. Non labored breathing. Cardiovascular: RRR. No murmur noted. No LL edema. Gastrointestinal (Abdomen): Tender to deep palpation in right upper and lower quadrants and epigastric area. +BS. No abnormal masses noted. Skin: no rashes, warm and dry Psychiatric: Alert. Mood and affect congruent. Results & Data Results & Data ([facility]) Vital Signs (Past 12 Hours) Vital Signs Temp Pulse Resp BP Pulse Ox O2 Del Method O2 Flow Rate 05/22/22 07:39 36.6 C 70 18 115/58 L 97 Nasal Cannula 2 05/22/22 03:23 94 Nasal Cannula 2 05/22/22 03:20 36.8 C 76 20 120/64 87 L Room Air 05/21/22 23:14 36.9 C 64 16 106/70 94 Room Air Resident Activity Tracking Resident Involvement: Resident Care Provided Care Provided: Adult Hospital Medicine
[2022-05-22 07:50] LABS: BUN Creatinine Ratio 11.7 (10-20); Calcium 9.4 mg/dl (8.5-10.1); Creatinine Clr Calc Pharmacy 24.6 ml/min; Est GFR (African American) 24.9 ml/min; Est GFR (Non-African American) 21.5 ml/min; Potassium 3.8 mmol/L (3.5-5.1)
[2022-05-22] MEDS: INSULIN ASPART PER UNIT SC SCH ×4 (08:49→23:10)
[2022-05-22] MEDS: ROSUVASTATIN CALCIUM 20 MG TAB PO SCH (08:50)
[2022-05-22] MEDS: CLOPIDOGREL BISULFATE 75 MG TAB PO SCH (08:50)
[2022-05-22] MEDS: PANTOprazole 40 MG TAB PO SCH ×2 (08:50→19:55)
[2022-05-22] MEDS: LEVOTHYROXINE SODIUM 137 MCG TABLET PO SCH (08:50)
[2022-05-22] MEDS: ACETAMINOPHEN 500 MG TAB PO PRN ×2 (08:52→15:00)
[2022-05-22] MEDS: CALCITONIN SALMON 400 UNITS/2 ML SQ SCH ×2 (08:52→19:55)
--- NOTE | 2022-05-22 10:28 | Nephrology Progress Note ---
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 On admission lab showed Hgb 6.8, Cr 3.8, Ca 11.5, albumin 2.5, urinalysis with 3 + proteinuria, bacteruria, hematuria with chronic indwelling [place] catheter. CT A/P atrophic/nonfunctional L kidney.Received 1 U PRBC and IV LR. IV Cefepime was added for empiric treatment of UTI. EGD showed gastritis. Renal function remained relatively stable over last 2 days without further improvement, has been having, nausea, vomiting, abdominal pain with anemia, hypercalcemia and concerning splenic lesion on MRI. --Continue on IV fluid while NPO -- suggest 2 units of PRBC --waiting on Oncology evaluation and results of paraproteinemia workup --monitor renal function, CBC, continue to hold ACEI/ARB, calcium, vit D Will follow. Admission and Anticipated Discharge Date Admission Date: May 17, 2022 Subjective Ryley was seen and evaluated this morning. Has been feeling poorly with nausea, occasional vomiting and abdominal pain. Renal function Staying relatively stable without significant improvement last 2 days, calcium improved with IV hydration. Hb dropped to 7.2, K normal. BP stable. Review of Systems Review of Systems: Detail ROS was not possible due to speech difficulty. Physical Exam Constitutional: WD/WN, vitals as above + acute distress (with N/V and abdominal pain.) and + ill appearing Eyes: + anicteric sclerae Neck: normal visual inspection Respiratory: Auscultation: lungs clear to auscultation bilaterally Cardiovascular: Rate/Rhythm: regular rate and regular rhythm Heart Sounds: normal S1 and normal S2 Extremities: no edema Skin: no rashes Neurologic: + focal motor deficit (Right sided weakness) Speech / Cognition: + abnormal speech and + expressive aphasia Psychiatric: Orientation: alert and oriented x 3 Results & Data ([facility]) Vital Signs (Past 12 Hours) Vital Signs Temp Pulse Resp BP Pulse Ox O2 Del Method O2 Flow Rate 05/22/22 07:39 36.6 C 70 18 115/58 L 97 Nasal Cannula 2 05/22/22 03:23 94 Nasal Cannula 2 05/22/22 03:20 36.8 C 76 20 120/64 87 L Room Air 05/21/22 23:14 36.9 C 64 16 106/70 94 Room Air PG Care Time/CCT Total # of Minutes Spent Total Time Spent with Patient: Total time spent is greater than 50% in coordination of care (as documented) at patient's floor/unit and/or counseling patient: Coding Level of Care Code 60331 Subseq Hosp Care Lvl 3 Diagnoses Acute kidney injury N17.9 Hypercalcemia E83.52 Anemia D64.9 Hypertension I10 Chronic kidney disease, stage 4 (severe) N18.4
[2022-05-22] MEDS ORDERED: SOD PHOSPHATE/SOD BIPHOSPHATE ENEMA 132 ML BTL PR ONE (10:48)
[2022-05-22] MEDS: CEFEPIME 1,000 MG in SYRINGE 0 ML IV SCH ×2 (12:53→23:04)
--- NOTE | 2022-05-22 19:06 | Billing Data ---
Date of Service May 22, 2022 Coding Level of Care Code 10111 Subseq Hosp Care Lvl 3
--- NOTE | 2022-05-22 19:07 | Billing Data ---
Date of Service May 22, 2022 Coding Level of Care Code 60169 Subseq Hosp Care Lvl 3
[2022-05-22] MEDS: TAMSULOSIN HCL 0.4 MG CAP PO SCH (19:56)
--- NOTE | 2022-05-22 20:18 | Consultation ---
Date of Consultation May 22, 2022 Assessment & Plan (1) Anemia: Microcytic anemia without evidence of focal blood loss. We will check reticulocyte count to be more completely sure that we can eliminate hemolytic anemia but the completely normal bilirubin and good response to transfusion both strongly suggest against that being a major component. His CKD with at least a relative erythropoietin deficiency contributes. Wonder if there may be an element of inflammatory suppression of erythropoiesis. While the decreased MCV suggest acute iron deficiency, we note the EGD and stool Hemoccults are negative and that the ferritin is greater than 1000. There is no more than a 1.5 cm liver lesion and normal liver enzymes suggesting against acute liver injury as a cause, otherwise even with pseudonormalization this would suggest adequate stores. Low iron percent saturation may reflect in part and iron utilization issue associated with inflammatory suppression but certainly there is a somewhat discordant picture between the microcytosis, elevated ferritin, and low iron/percent saturation levels. B12 and folic acid levels are in good range. Have restored reasonable hemoglobin levels with transfusion. Might not naranjo to iron supplementation given the elevated ferritin. May have to consider marrow aspiration and biopsy to better define the splenic lesions and along with that could do marrow iron stains to better determine what his actual iron stores are (2) Hypercalcemia: Combination of hypercalcemia and splenic lesion certainly would raise the concern over a lymphoproliferative disorder. Low PTH seems to exclude hyperparathyroidism as the cause. We do not see characteristic lytic lesions of a classic plasma cell disorder causing hypercalcemia and neither does the MRI of the abdomen suggest a dramatic marrow process but we await serum protein electrophoresis and kappa/lambda determinations. Calcium levels have normalized with calcitonin and IV fluids. May need to consider more complete chest imaging for an occult neoplasm there, will also need to consider marrow aspiration and biopsy for of the splenic lesion and anemia. (3) Splenic lesion: Primary suspicion from radiology perspective would be a malignancy within the spleen and at least thus far (without 2-dimensional chest imaging) there is no other clear suggested primary site. Marrow aspiration and biopsy may be an alternative to splenic biopsy/splenectomy for additional diagnostics especially given the potential morbidity/mortality with either of the latter approaches. Plan 1. We will submit reticulocyte count and request for pathologist review of peripheral smear to more completely exclude hemolytic anemia and also assess whether there are any potentially diagnosissuggesting abnormal lymphocytes or plasma cells in the peripheral circulation 2. Consider 2-dimensional imaging of the chest to better exclude any occult malignancy there 3. Await serum protein electrophoresis and kappa/lambda determinations to assess for the presence of a clonal process and as well potentially suggest a more specific plasma cell dyscrasia that might be causing the splenic lesions and hypercalcemia 4. Splenic biopsy or splenectomy for diagnosis would be preferably avoided because of the attendant morbidity/mortality. If we do not have a firm diagnosis based on pending studies, would consider marrow aspiration biopsy as that might be helpful both to better assess for an occult lymphoproliferative process and as well to define iron stores. His weight suggests that there may be some difficulty in identifying appropriate landmarks and an image guided marrow aspiration and biopsy might be more productive. We are not able to coordinate that here at [facility]. If he is stable for outpatient follow-up in the near future we could coordinate that at a nearby institution. If not, and there is a need for an acute definition of the process, may have to consider transfer to an institution that can do that as an inpatient 5. With marked elevation of ferritin I might avoid aggressive iron replacement pending marrow review though may have to continue with as needed blood transfusions while we await the above studies A full consult will follow tomorrow History of Present Illness Reason for Consultation: Patient presenting with acute on chronic renal failure, hypercalcemia, noted to have multiple splenic lesions on radiology Attending Physician: Francesco lBack DO History of Present Illness This is a preliminary consultation with a brief review of the electronic chart, in person consultation will be completed tomorrow. Patient with multiple medical problems including chronic kidney disease and previous CVA who presents with acute renal insufficiency and hypercalcemia. Imaging shows multiple splenic lesions which are felt to be more likely malignant than infectious and are not consistent with splenic infarcts. Does not have a full chest CT but chest x-ray and abdominal/pelvis CT as well as an MRI of the pelvis did not suggest another obvious source of malignancy. Neither are there any traumatic skeletal lesions or marrow signal of the diffuse abnormal marrow process Also with a microcytic anemia Allergies Allergy/AdvReac Type Severity Reaction Status Date / Time No Known Allergies Allergy Verified 05/17/22 19:21 Home Medications Medication Instructions Recorded Confirmed Type omega-3 acid ethyl esters 1 gram 1 cap PO DAILY 04/14/19 05/17/22 History capsule cholecalciferol (vitamin D3) 25 1,000 units PO DAILY 06/04/19 05/17/22 History mcg (1,000 unit) capsule lancets 30 gauge #25 ea 07/07/19 04/10/22 History acetaminophen 325 mg tablet 325 mg PO Q4H PRN pain #20 tabs 09/01/19 05/17/22 Rx ferrous gluconate 324 mg (38 mg 324 mg PO DAILY #30 tabs 09/01/19 05/17/22 Rx iron) tablet mecobalamin (vitamin B12) 1,000 1,000 mcg PO DAILY 09/04/19 05/17/22 Rx mcg chewable tablet hyperhomocysteinemia #30 tabs blood sugar diagnostic #50 ea 06/04/20 04/10/22 Rx pen needle, diabetic 31 gauge x #100 ea 07/07/20 04/10/22 Rx /16" blood sugar diagnostic (OneTouch #100 ea 09/07/20 04/10/22 Rx Verio test strips) lancets 33 gauge (OneTouch Delica #100 ea 03/03/21 04/10/22 Rx Plus Lancet) clopidogrel 75 mg tablet 75 mg PO QAM #90 tabs 09/19/21 05/17/22 Rx pantoprazole 40 mg tablet,delayed 40 mg PO BID #180 tabs 12/05/21 05/17/22 Rx release rosuvastatin 40 mg tablet 40 mg PO DAILY #90 tabs 12/12/21 05/17/22 Rx amlodipine 5 mg tablet (Norvasc) 5 mg PO HS #90 tabs 03/10/22 05/17/22 Rx levothyroxine 137 mcg tablet 137 mcg PO DAILY #90 tabs 03/10/22 05/17/22 Rx losartan 50 mg tablet 50 mg PO DAILY #90 tabs 03/20/22 05/17/22 Rx amoxicillin 500 mg capsule 2,000 mg PO .COMPLEX PRN PRIOR TO 05/17/22 05/17/22 History DENTAL APPT. insulin glargine 100 unit/mL 16 unit subcut QPM 05/17/22 05/17/22 History subcutaneous solution (Lantus U-100 Insulin) tamsulosin 0.4 mg capsule 0.4 mg PO HS 05/17/22 05/17/22 History Patient History Medical History Acute upper GI bleed Aortic stenosis Atrophy of left kidney Benign essential hypertension Chronic kidney disease, stage 4 (severe) Diabetes mellitus type 2, uncontrolled, with complications GERD without esophagitis Goals of care, counseling/discussion Axel-neglect of right side Hyperlipidemia Hypothyroidism Lower abdominal pain Recent non-ST elevation myocardial infarction (NSTEMI) Right bundle branch block (RBBB) Stage 3b chronic kidney disease Vitamin D deficiency Surgical History S/P AVR (aortic valve replacement) S/P CABG (coronary artery bypass graft) Status post laser cataract surgery of both eyes Family History Mother , age 83 of esophageal cancer Cancer Father , age 57 of a stroke Stroke Other Colorectal cancer Denies family history of Ovarian cancer Prostate cancer Myocardial infarction Breast cancer Social History Smoking Status: Never smoker Hx Alcohol Use: No Hx Substance Use: No Preferred Language: Albanian Communication Ability: Effective 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 Feels Safe at Home: Yes Safety Concerns: Feels Safe At This Time caffeine: Yes Dental Care, Regularly: Yes Physical Activity Frequency: 5-6 Times per Week Physical Activity Frequency Comment: Walking Seatbelt Use: always Sunscreen Use: No Assistive Devices: Glasses, Hospital Bed, Slide Board and Wheelchair Physical Exam Physical Exam: Exam will be performed in conjunction with a full consult which we will follow on 05/23/2022 Results & Data ([facility]) Vital Signs (Past 12 Hours) Vital Signs Temp Pulse Resp BP Pulse Ox O2 Del Method O2 Flow Rate 05/22/22 19:45 36.6 C 72 16 142/68 H 99 Room Air 05/22/22 14:00 Nasal Cannula 2 05/22/22 14:00 36.6 C 68 16 126/65 92 Room Air 05/22/22 11:39 36.5 C 64 20 123/61 97 Nasal Cannula 2 PG Care Time/CCT Total # of Minutes Spent Total Time Spent with Patient: Total time spent is greater than 50% in coordination of care (as documented) at patient's floor/unit and/or counseling patient: Coding Level of Care Code None Diagnoses Anemia D64.9 Hypercalcemia E83.52 Splenic lesion D73.89 Comment This is a preliminary review which will be coupled with ultimate in person consultation
[2022-05-22] MEDS ORDERED: Nursing to Pharmacy Communication SCH (22:45)
[2022-05-22] MEDS ORDERED: LANTUS PER UNIT CHARGE SQ ONE (22:54)
[2022-05-23] MEDS: INSULIN ASPART PER UNIT SC SCH ×5 (00:20→20:32)
[2022-05-23] MEDS: POLYETHYLENE (MIRALAX) 17 GM PACK PO SCH ×6 (02:14→20:46)
[2022-05-23] MEDS: SODIUM CHLORIDE 0.9% 1000ML 1,000 ML IV SCH ×3 (03:44→20:48)
[2022-05-23] MEDS: LEVOTHYROXINE SODIUM 137 MCG TABLET PO SCH (06:00)
[2022-05-23 07:59] LABS: Basophils # (auto) 0.06 K/uL (0-0.2); Basophils % (auto) 0.4 %; Eosinophils # (auto) 0.12 K/uL (0-0.50); Eosinophils % (auto) 0.8 %; Hematocrit (blood only) 24.5 % (40.1-51.0); Hemoglobin 7.1 g/dl (14.0-18.0); Immature Granulocytes # (auto) 0.14 K/uL (0.00-0.02); Immature Granulocytes % (auto) 0.9 %; Lymphocytes # (auto) 1.69 K/uL (1.2-3.4); Lymphocytes % (auto) 11.4 %; Mean Corpuscular Hemoglobin 22.8 pg (25.0-34.0); Mean Corpuscular Volume 78.5 fL (80.0-100.0); Mean Platelet Volume 10.3 fL (9.4-12.4); Monocytes % (auto) 10.1 %; Neutrophils # (auto) 11.32 K/uL (1.4-6.5); Neutrophils % (auto) 76.4 %; Platelet Count 250 K/uL (130-400); RDW Coefficient of Variation 22.7 % (11.5-14.5); RDW Standard Deviation 64.5 fL (36.4-46.3); Red Blood Count 3.12 M/uL (4.63-6.08); Reticulocyte % 1.5 % (0.5-2.0); Reticulocytes # 0.05 10^6/uL (0.02-0.10); White Blood Count 14.83 K/ul (4.8-10.8)
[2022-05-23 08:28] LABS: BUN Creatinine Ratio 12.2 (10-20); Calcium 8.5 mg/dl (8.5-10.1); Creatinine Clr Calc Pharmacy 27.4 ml/min; Est GFR (African American) 28.4 ml/min; Est GFR (Non-African American) 24.5 ml/min; Potassium 3.6 mmol/L (3.5-5.1)
[2022-05-23 08:31] LABS: Basophilic Stippling Occasional
[2022-05-23] MEDS: ROSUVASTATIN CALCIUM 20 MG TAB PO SCH (09:38)
[2022-05-23] MEDS: CLOPIDOGREL BISULFATE 75 MG TAB PO SCH (09:39)
[2022-05-23] MEDS: PANTOprazole 40 MG TAB PO SCH ×2 (09:39→20:47)
--- NOTE | 2022-05-23 09:51 | Nephrology Progress Note ---
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 On admission lab showed Hgb 6.8, Cr 3.8, Ca 11.5, albumin 2.5, urinalysis with 3 + proteinuria, bacteruria, hematuria with chronic indwelling Ratl[place] catheter. CT A/P atrophic/nonfunctional L kidney.Received 1 U PRBC and IV LR. IV Cefepime was added for empiric treatment of UTI. EGD showed gastritis. Renal function slightly improved, creatinine down to 2.5, calcium normalized, other electrolyte acceptable. Hemoglobin 7.1 this morning and plan for PRBC today. -- continue IV fluid until patient able to take adequately orally --waiting on results of paraproteinemia workup --monitor renal function, CBC, continue to hold ACEI/ARB, calcium, vit D Will follow. Admission and Anticipated Discharge Date Admission Date: May 17, 2022 Subjective Ryley was seen and evaluated this morning. Overall feeling better today although continues to have some abdominal pain. Renal function slightly improved, creatinine down to 2.5, calcium normalized. Hb 7.1 K normal. BP stable. Review of Systems Review of Systems: Detail ROS was not possible due to speech difficulty. Physical Exam Constitutional: WD/WN, vitals as above + ill appearing Eyes: + anicteric sclerae Neck: normal visual inspection Respiratory: Auscultation: lungs clear to auscultation bilaterally Cardiovascular: Rate/Rhythm: regular rate and regular rhythm Heart Sounds: normal S1 and normal S2 Extremities: no edema Skin: no rashes Neurologic: + focal motor deficit (Right sided weakness) Speech / Cognition: + abnormal speech and + expressive aphasia Psychiatric: Orientation: alert and oriented x 3 Results & Data ([facility]) Vital Signs (Past 12 Hours) Vital Signs Temp Pulse Resp BP Pulse Ox O2 Del Method O2 Flow Rate 05/23/22 07:20 Nasal Cannula 2 05/23/22 07:45 37 C 66 18 137/65 96 Room Air PG Care Time/CCT Total # of Minutes Spent Total Time Spent with Patient: Total time spent is greater than 50% in coordination of care (as documented) at patient's floor/unit and/or counseling patient: Coding Level of Care Code 35404 Subseq Hosp Care Lvl 3 Diagnoses Acute kidney injury N17.9 Hypercalcemia E83.52 Anemia D64.9 Hypertension I10 Chronic kidney disease, stage 4 (severe) N18.4
[2022-05-23] MEDS: CEFEPIME 1,000 MG in SYRINGE 0 ML IV SCH ×2 (12:12→22:37)
[2022-05-23] MEDS ORDERED: Nursing to Pharmacy Communication SCH (12:30)
--- NOTE | 2022-05-23 13:35 | Hospitalist Progress Note ---
Date of Service May 23, 2022 Assessment & Plan (1) Anemia: Plan: Pt is a 77 yo male w/ PMH of CVA w/ residual right hemiparesis and expressive aphasia, DM II, HTN, previous GI bleeds, chronic indwelling catheter, CAD s/p CABG x1 (2018), hypothyroidism, aortic valve replacement, and CKD presented to the hospital d/t nausea, vomiting, and abdominal pain. Nausea/vomiting - most likely d/t constipation, however, could be related to gastroparesis or underlying neoplastic process - EGD showed gastritis, H. pylori neg - KUB neg for obstruction, showed moderate to large stool burden in colon and rectum - pt currently on protonix 40 mg BID, zofran q4hr PRN - pt given miralax q4hr for constipation, additional enema given - pt had one large BM and another small one - nausea improved this AM, pt handled clear liquids well, advancing to carb consistent for dinner - if N/V recurs with diet advancement and after more BMs, may consider gastric emptying study and/or small bowel follow through studies for further evaluation Acute Tubular Necrosis - Cr noted to be 3.86 on admission, baseline appears to be approximately 2.0 - Likely due to dehydration from poor oral intake, continued use of antihypertensives, and current UTI - Cr downtrending slowly, today 2.45 - per nephro, work up for paraproteinemia including 1.25 vit D, SPEP, UPEP, and FLC in addition to further urine studies- pending - continue NS at 125 mL/hr - continue holding losartan - continue to monitor CBC, BMP Possible sepsis sec to CAUTI - Patient with chronic indwelling burgess since 2019 - lactate neg - Given one dose of cipro in the ED - current urine cx grew enterobacter - per pharmacy recommendation, switched ABX back to cefepime- day 6 total Multiple splenic lesions - Noted on CT scan, differential includes neoplastic source, infection, and infarction - MRI showed splenic lesions favoring neoplastic process like lymphoma (less likely metastatic) - recommended MRI w/ contrast but unable to proceed d/t kidney function - per hem/onc, peripheral smear, retic count, possible 2D chest imaging, consider bone marrow aspiration/biopsy if necessary - peripheral smear favors BRIT, leukocytosis d/t infection, retic normal Microcytic Anemia - The etiology of the patient's anemia is likely multifactorial including anemia of CKD, poor oral intake, and hx of BRIT - Hgb noted to be 6.8 in the ED; blood consent obtained in the ED and 1 unit PRBC's transfused - Hgb post transfusion 8.4 -Pt has previous history of erosive gastritis found on EGD from 2018 and has been on BID pantoprazole since - Iron studies showed low iron, TIBC, and transferrin saturation; ferritin elevated which could be an acute phase reactant d/t infection - peripheral smear also indicative of BRIT - per hem/onc, recommend against aggressive iron replacement - EGD showed gastritis; H. pylori negative -Per GI - consider outpatient colonoscopy (FOBT neg) - pt's Hgb downtrended to 7.1 today Gastritis - continuing home pantoprazole 40 mg BID - 05/20: increased burning pain; dose of maalox given; resolved Constipation with perirectal edema - Still with no proper BM - continue miralax 17g q4hr as able, limited by nausea - fleet enema ordered as well - consider lactulose if enema is unsuccessful Hypercalcemia - Noted to be 11.5 upon admission; today, 10.8 - PTH low at 9, vitamin D 58.7- most likely non PTH mediated - PTHrp pending in addition to paraproteinemia work up - began calcitonin 400 units q12hr Diabetes mellitus type 2, uncontrolled, with complications - Normally on 16 units HS lantus at home, was on 8 units while NPO - continued on 8 units d/t low AM blood sugar - continue with correction factor of 55 and carb ratio of 18 when he can eat - BSG checks ACHS Benign essential hypertension - Hold losartan per nephro - BP currently 123/61, will add amlodipine if BP is consistently risen Hyperlipidemia -continue rosuvastatin 40 mg daily Hypothyroidism -continue levothyroxine 137 mcg daily History of CVA (cerebrovascular accident) - At neurologic baseline - continue plavix (2) Vomiting: (3) UTI (urinary tract infection): (4) Splenic lesion: (5) History of CVA (cerebrovascular accident): (6) Acute kidney injury: (7) Hypokalemia: (8) Hyperlipidemia: (9) Hypothyroidism: Plan FEN: carb consistent, NS 125 mL/hr DVT ppx: SCDs, plavix Dispo: med/surg Code: DNR/DNI Admission and Anticipated Discharge Date Admission Date: May 17, 2022 Supervising Physician Co-Signing Physician Notes I personally examined the patient and verified all wagner points of history and exam, discussed case, and agree with decision making with Dr Baker Had a bowel movement, eating better. Feels like he could eat more substantial food. Vitals noted, in general he is awake and alert pleasant baseline mentationseems to be oriented but with a ongoing expressive aphasia. No distress. HEENT normocephalic atraumatic mucous membranes moist. Breathing unlabored no accessory muscle use good effort. Skin shows no rashes no pallor or icterus. Nausea and vomitingconstipation most likely given that it improved with bowel regimen. Advance diet. Splenic lesions, anemiaappreciate hematology input. Hemodynamically stable, feeling better, hemoglobin 7.1probably will need additional transfusion, but will hold off and follow into tomorrow. CKD/AKIshowing ongoing slow improvement. Otherwise as above Subjective Pt is a 77 yo male w/ PMH of CVA w/ residual right hemiparesis and expressive aphasia, DM II, HTN, previous GI bleeds, chronic indwelling catheter, CAD s/p CABG x1 (2018), hypothyroidism, aortic valve replacement, and CKD presented to the hospital d/t nausea, vomiting, and abdominal pain. Pt feeling better this morning. He still has mild abdominal pain. Physical Exam Constitutional: NAD. Vitals WNL. Eyes: no conjunctival abnormality Respiratory: CTA bilaterally. No rhonchi, wheezing, or crackles. Non labored breathing. Cardiovascular: RRR. No murmur noted. No LL edema. Gastrointestinal (Abdomen): Tender upon deep palpation in RLQ, otherwise nontender. Soft. +BS. No masses noted. Skin: no rashes, warm and dry Psychiatric: Alert. Mood and affect congruent. Results & Data Results & Data ([facility]) Vital Signs (Past 12 Hours) Vital Signs Temp Pulse Resp BP Pulse Ox O2 Del Method O2 Flow Rate 05/23/22 07:20 Nasal Cannula 2 05/23/22 07:45 37 C 66 18 137/65 96 Room Air Resident Activity Tracking Resident Involvement: Resident Care Provided Care Provided: Adult [facility]
--- NOTE | 2022-05-23 19:25 | Billing Data ---
Date of Service May 23, 2022 Coding Level of Care Code 54163 Subseq Hosp Care Lvl 3
[2022-05-23] MEDS: TAMSULOSIN HCL 0.4 MG CAP PO SCH (20:47)
[2022-05-24] MEDS: POLYETHYLENE (MIRALAX) 17 GM PACK PO SCH ×5 (01:28→20:30)
[2022-05-24] MEDS: SODIUM CHLORIDE 0.9% 1000ML 1,000 ML IV SCH (04:18)
[2022-05-24] MEDS: LEVOTHYROXINE SODIUM 137 MCG TABLET PO SCH (05:48)
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
[2022-05-24 08:10] LABS: Hematocrit (blood only) 23.5 % (40.1-51.0); Hemoglobin 6.9 g/dl (14.0-18.0); Mean Corpuscular Hemoglobin 23.2 pg (25.0-34.0); Mean Corpuscular Hgb Conc 29.4 g/dL (32.0-36.0); Mean Corpuscular Volume 78.9 fL (80.0-100.0); Mean Platelet Volume 10.1 fL (9.4-12.4); Platelet Count 241 K/uL (130-400); RDW Coefficient of Variation 22.7 % (11.5-14.5); RDW Standard Deviation 65.5 fL (36.4-46.3); Red Blood Count 2.98 M/uL (4.63-6.08); White Blood Count 13.64 K/ul (4.8-10.8)
[2022-05-24] MEDS ORDERED: SODIUM CHLORIDE 0.9% 250 ML IV PRN (08:16)
[2022-05-24 08:31] LABS: BUN Creatinine Ratio 12.7 (10-20); Calcium 8.7 mg/dl (8.5-10.1); Creatinine Clr Calc Pharmacy 30.5 ml/min; Est GFR (African American) 32.3 ml/min; Est GFR (Non-African American) 27.9 ml/min; Potassium 3.3 mmol/L (3.5-5.1)
[2022-05-24] MEDS: ROSUVASTATIN CALCIUM 20 MG TAB PO SCH (08:35)
[2022-05-24] MEDS: CLOPIDOGREL BISULFATE 75 MG TAB PO SCH (08:35)
[2022-05-24] MEDS: PANTOprazole 40 MG TAB PO SCH ×2 (08:36→20:30)
[2022-05-24] MEDS ORDERED: POTASSIUM CHLORIDE CRTAB 20 MEQ TABCR PO ONE (08:44)
[2022-05-24] MEDS: INSULIN ASPART PER UNIT SC SCH ×4 (09:12→20:50)
[2022-05-24 09:51] LABS: Creatinine Ur 119 mg/dL (20-320); Protein, Urine Random 360 mg/dL (5-25); Ur Protein/Creat Ratio mg/g 3025 mg/g creat (25-148); Urine Abnormal Protein Band 1 DNR mg/dL (NONE DETECTED); Urine Abnormal Protein Band 2 DNR mg/dL (NONE DETECTED); Urine Abnormal Protein Band 3 DNR mg/dL (NONE DETECTED); Urine Protein/Creatinine Ratio 3.025 (0.025-0.148)
--- NOTE | 2022-05-24 10:01 | Hospitalist Progress Note ---
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 Nausea/vomiting - most likely d/t constipation, however, could be related to gastroparesis or underlying neoplastic process - EGD showed gastritis, H. pylori neg - KUB neg for obstruction, showed moderate to large stool burden in colon and rectum - pt currently on protonix 40 mg BID, zofran q4hr PRN - pt given miralax q4hr for constipation, additional enema given - pt moving bowels much better - nausea improved this AM, tolerated diet advancement well - if N/V recurs with diet advancement and after more BMs, may consider gastric emptying study and/or small bowel follow through studies for further evaluation- but appears less likely at this point Acute Tubular Necrosis - Cr noted to be 3.86 on admission, baseline appears to be approximately 2.0 - Likely due to dehydration from poor oral intake, continued use of antihypertensives, and current UTI - Cr continuing to downtrend slowly, today 2.20 - per nephro, work up for paraproteinemia including 1.25 vit D, SPEP, UPEP, and FLC in addition to further urine studies - continue NS at 125 mL/hr - continue holding losartan - continue to monitor CBC, BMP Possible sepsis sec to CAUTI - Patient with chronic indwelling burgess since 2019 - lactate neg - Given one dose of cipro in the ED - current urine cx grew enterobacter - ABX discontinued; completed 7 day course of cefepime Multiple splenic lesions - Noted on CT scan, differential includes neoplastic source, infection, and infarction - MRI showed splenic lesions favoring neoplastic process like lymphoma (less likely metastatic) - recommended MRI w/ contrast but unable to proceed d/t kidney function - per hem/onc, continue evaluation outpatient w/ bone marrow aspiration and close f/u - peripheral smear favors BRIT, leukocytosis d/t infection, retic normal Microcytic Anemia - The etiology of the patient's anemia is likely multifactorial including anemia of CKD, poor oral intake, and hx of BRIT - Hgb noted to be 6.8 in the ED; blood consent obtained in the ED and 1 unit PRBC's transfused - Hgb post transfusion 8.4 -Pt has previous history of erosive gastritis found on EGD from 2018 and has been on BID pantoprazole since - Iron studies showed low iron, TIBC, and transferrin saturation; ferritin elevated which could be an acute phase reactant d/t infection - peripheral smear also indicative of BRIT - EGD showed gastritis; H. pylori negative -Per GI - consider outpatient colonoscopy (FOBT neg) - pt's Hgb downtrended to 6.9 today; transfused 1 unit of PRBCs - per hem/onc, recommend 300 mg venofer w/ f/u and continuation of iron supplementation as outpatient; ordered today Gastritis - continuing home pantoprazole 40 mg BID - 05/20: increased burning pain; dose of maalox given; resolved Constipation with perirectal edema - continue miralax 17 g TID as tolerated - 05/22; fleet enema given - pt moving bowels well at this point Hypercalcemia - Noted to be 11.5 upon admission; today, 8.7 - PTH low at 9, vitamin D 58.7- most likely non PTH mediated - PTHrp pending in addition to paraproteinemia work up - continue calcitonin 400 units q12hr - per hem/onc, noncontrast chest CT ordered to ensure no neoplastic source of hypercalcemia Diabetes mellitus type 2, uncontrolled, with complications - Normally on 16 units HS lantus at home, was on 8 units while NPO - continued on 8 units d/t low AM blood sugar - continue with correction factor of 55 and carb ratio of 18 when he can eat - BSG checks ACHS Benign essential hypertension - Hold losartan per nephro - BP risen 150-170s/60s-70s - resumed home amlodipine 5 mg HS Hyperlipidemia -continue rosuvastatin 40 mg daily Hypothyroidism -continue levothyroxine 137 mcg daily History of CVA (cerebrovascular accident) - At neurologic baseline - continue plavix (2) Vomiting: (3) UTI (urinary tract infection): (4) Splenic lesion: (5) History of CVA (cerebrovascular accident): (6) Acute kidney injury: (7) Hypokalemia: (8) Hyperlipidemia: (9) Hypothyroidism: Plan FEN: carb consistent, 1 unit PRBCs DVT ppx: SCDs, plavix Dispo: med/surg Code: DNR/DNI Admission and Anticipated Discharge Date Admission Date: May 17, 2022 Supervising Physician Co-Signing Physician Notes I personally examined the patient and verified all wagner points of history and exam, discussed case, and agree with decision making with Dr Baker Generally feeling better. Updated . She feels comfortable taking him home in his current condition. Vitals noted, in general he is awake and alert pleasant baseline mentationseems to be oriented but with a ongoing expressive aphasia. No distress. HEENT normocephalic atraumatic mucous membranes moist. Breathing unlabored no accessory muscle use good effort. Skin shows no rashes no pallor or icterus. Nausea and vomitingconstipation most likely given that it improved with bowel regimen. Tolerating diet Splenic lesions, anemiaappreciate hematology input. Transfuse for low hemoglobin, given IV iron given hematology recommendation. Bone marrow biopsy as outpatient. 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 Pt feeling better this AM. He is no longer nauseous. He tolerated a meal for dinner last night w/o vomiting. Pt also denying abdominal pain. No new concerns of chest pain or SOB. Physical Exam Constitutional: NAD. Vitals WNL. Eyes: no conjunctival abnormality Respiratory: CTA bilaterally. No rhonchi, wheezing, or crackles. Non labored breathing. Cardiovascular: RRR. No murmur noted. No LE edema. Gastrointestinal (Abdomen): Soft, nontender throughout, +BS. No masses noted. Skin: no rashes, warm and dry Psychiatric: Alert. Mood and affect congruent. Results & Data Results & Data ([facility]) Vital Signs (Past 12 Hours) Vital Signs Temp Pulse Resp BP Pulse Ox O2 Del Method 05/24/22 07:02 36.9 C 67 16 144/67 H 92 Room Air Resident Activity Tracking Resident Involvement: Resident Care Provided Care Provided: [facility]
[2022-05-24] MEDS: CEFEPIME 2,000 MG in SYRINGE 0 ML IV SCH ×2 (11:17→23:14)
--- NOTE | 2022-05-24 12:43 | Nephrology Progress Note ---
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 On admission lab showed Hgb 6.8, Cr 3.8, Ca 11.5, albumin 2.5, urinalysis with 3 + proteinuria, bacteruria, hematuria with chronic indwelling Ratliff catheter. CT A/P atrophic/nonfunctional L kidney.Received 1 U PRBC and IV LR. IV Cefepime was added for empiric treatment of UTI. EGD showed gastritis. Renal function slightly improved, creatinine down to 2.2, calcium normalized, K low Hemoglobin 6.9 this morning and plan for PRBC today. -- KCL 40 shyam already given this am. --waiting on results of paraproteinemia workup --monitor renal function, CBC, continue to hold ACEI/ARB, calcium, vit D Will follow. Admission and Anticipated Discharge Date Admission Date: May 17, 2022 Subjective Ryley was seen and evaluated this morning. Overall feeling better, tolerating po intake. Had bowel movement yesterday. Renal function slightly improved, creatinine down to 2.2, K 3.3, calcium normalized. Hb 6.9. BP stable. Review of Systems Review of Systems: Detail ROS was not possible due to speech difficulty. Physical Exam Constitutional: WD/WN, vitals as above + acute distress (with N/V and abdominal pain.) and + ill appearing Eyes: + anicteric sclerae Neck: normal visual inspection Respiratory: Auscultation: lungs clear to auscultation bilaterally Cardiovascular: Rate/Rhythm: regular rate and regular rhythm Heart Sounds: normal S1 and normal S2 Extremities: no edema Skin: no rashes Neurologic: + focal motor deficit (Right sided weakness) Speech / Cognition: + abnormal speech and + expressive aphasia Psychiatric: Orientation: alert and oriented x 3 Results & Data ([facility]) Vital Signs (Past 12 Hours) Vital Signs Temp Pulse Pulse Resp BP BP Pulse Ox 05/24/22 12:28 36.8 C 59 L 17 154/70 H 93 05/24/22 12:13 36.8 C 52 L 17 161/61 H 93 05/24/22 11:55 36.6 C 58 L 18 142/64 H 92 05/24/22 07:40 05/24/22 07:02 36.9 C 67 16 144/67 H 92 O2 Del Method 05/24/22 12:28 05/24/22 12:13 05/24/22 11:55 05/24/22 07:40 Room Air 05/24/22 07:02 Room Air PG Care Time/CCT Total # of Minutes Spent Total Time Spent with Patient: Total time spent is greater than 50% in coordination of care (as documented) at patient's floor/unit and/or counseling patient: Coding Level of Care Code 84664 Subseq Hosp Care Lvl 3 Diagnoses Acute kidney injury N17.9 Hypercalcemia E83.52 Anemia D64.9 Hypertension I10 Chronic kidney disease, stage 4 (severe) N18.4
[2022-05-24] MEDS ORDERED: IRON SUCROSE 300 MG in SODIUM CHLORIDE 0.9% 250 ML IV ONE (16:00)
--- NOTE | 2022-05-24 16:28 | CT Scan Report ---
CT chest diagnostic wo con CT DOSE: 638.90 mGycm HISTORY: unexplained hypercalcemia TECHNIQUE: Multiaxial CT images of the chest were performed without contrast. A dose lowering techni que was utilized adhering to the principles of ALARA. COMPARISON: Abdominal MRI 05/20/2022. FINDINGS: Mild respiratory motion artifact. No pneumothorax. Trace bilateral pleural effusions are no garry. There is a 7 mm subpleural nodule within the left lung apex on image 59. There is 1 cm subpleura l nodule within the right upper lobe on image 91. There is a 4 mm subpleural nodule within the right upper lobe on image 120. Mild dependent changes seen at the lung bases. Mild central bronchial wall t hickening. A few scattered linear densities within the left midlung zone suggestive of scarring or mcgrath bsegmental atelectasis. No focal lung consolidations to suggest pneumonia. There are poststernotomy c hanges. No suspicious lytic or blastic osseous lesions. Multiple hypodense splenic lesions are better appreciated on the prior studies. Punctate calcification within the right hepatic lobe again noted. Right adrenal myelolipoma. Normal caliber esophagus. No hilar or axillary lymphadenopathy. The heart is mildly enlarged. No pericardial effusion. There is a few mildly enlarged distal paraesophageal lym ph nodes. Dominant lymph node on image 190 measures 1.8 x 1.1 cm. Dense mitral annulus calcifications are noted. There is an aortic valve prosthesis. Calcified plaque within the normal caliber abdominal aorta. IMPRESSION: 1. Mild motion artifact. 2. Mild distal paraesophageal lymphadenopathy. 3. Trace bilateral pleural effusions. 4. There are 3 subpleural nodules within the upper lobes with the largest measuring 1 cm. A [address] follow-up recommended to ensure stability. 5. The splenic lesions are better appreciated on the prior abdominal MRI. ACT 112: Negative or not required by law. Electronically signed by: Irving Vang M.D. 05/24/2022 4:26 PM
[2022-05-24 17:31] LABS: Hematocrit (blood only) 28.3 % (40.1-51.0); Hemoglobin 8.5 g/dl (14.0-18.0)
--- NOTE | 2022-05-24 19:09 | Billing Data ---
Date of Service May 24, 2022 Coding Level of Care Code 88320 Subseq Hosp Care Lvl 3
[2022-05-24] MEDS: TAMSULOSIN HCL 0.4 MG CAP PO SCH (20:30)
[2022-05-24] MEDS ORDERED: amLODIPine BESYLATE 5 MG TAB PO SCH (21:00)
[2022-05-25] MEDS: LEVOTHYROXINE SODIUM 137 MCG TABLET PO SCH (05:25)
[2022-05-25 06:51] LABS: Hematocrit (blood only) 28.9 % (40.1-51.0); Hemoglobin 8.9 g/dl (14.0-18.0); Mean Corpuscular Hemoglobin 24.6 pg (25.0-34.0); Mean Corpuscular Hgb Conc 30.8 g/dL (32.0-36.0); Mean Corpuscular Volume 79.8 fL (80.0-100.0); Mean Platelet Volume 10.1 fL (9.4-12.4); Platelet Count 223 K/uL (130-400); RDW Coefficient of Variation 22.5 % (11.5-14.5); RDW Standard Deviation 65.7 fL (36.4-46.3); Red Blood Count 3.62 M/uL (4.63-6.08); White Blood Count 13.35 K/ul (4.8-10.8)
[2022-05-25 07:14] LABS: BUN Creatinine Ratio 12.1 (10-20); Calcium 9.1 mg/dl (8.5-10.1); Creatinine Clr Calc Pharmacy 32.4 ml/min; Est GFR (African American) 34.8 ml/min; Potassium 3.4 mmol/L (3.5-5.1)
[2022-05-25] MEDS ORDERED: POTASSIUM CHLORIDE CRTAB 20 MEQ TABCR PO ONE (07:20)
[2022-05-25] MEDS: ROSUVASTATIN CALCIUM 20 MG TAB PO SCH (08:24)
[2022-05-25] MEDS: CLOPIDOGREL BISULFATE 75 MG TAB PO SCH (08:24)
[2022-05-25] MEDS: POLYETHYLENE (MIRALAX) 17 GM PACK PO SCH ×2 (08:25→13:22)
[2022-05-25] MEDS: INSULIN ASPART PER UNIT SC SCH ×2 (09:01→13:04)
[2022-05-25] MEDS: PANTOprazole 40 MG TAB PO SCH (09:24)
--- NOTE | 2022-05-25 12:27 | Nephrology Progress Note ---
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 On admission lab showed Hgb 6.8, Cr 3.8, Ca 11.5, albumin 2.5, urinalysis with 3 + proteinuria, bacteruria, hematuria with chronic indwelling Ratl[place] catheter. CT A/P atrophic/nonfunctional L kidney.Received 1 U PRBC and IV LR. IV Cefepime was added for empiric treatment of UTI. EGD showed gastritis. Renal function continues to improve, creatinine down to 2.1, close to his baseline, electrolyte better except potassium slightly low at 3.4. Hemoglobin improved to above 8 after receiving blood transfusion and IV iron. -- KCL 40 meq X1 dose now --monitor renal function, CBC, continue to hold ACEI/ARB, calcium, vit D Will follow. Admission and Anticipated Discharge Date Admission Date: May 17, 2022 Subjective Ryley was seen and evaluated this morning. Overall feeling better, tolerating po intake. Had bowel movement yesterday. Renal function slightly improved, creatinine down to 2.1, K 3.4, calcium normalized. Hb >8. BP stable. Review of Systems Review of Systems: Detail ROS was not possible due to speech difficulty. Physical Exam Constitutional: WD/WN, vitals as above + acute distress (with N/V and abdominal pain.) and + ill appearing Eyes: + anicteric sclerae Neck: normal visual inspection Respiratory: Auscultation: lungs clear to auscultation bilaterally Cardiovascular: Rate/Rhythm: regular rate and regular rhythm Heart Sounds: normal S1 and normal S2 Extremities: no edema Skin: no rashes Neurologic: + focal motor deficit (Right sided weakness) Speech / Cognition: + abnormal speech and + expressive aphasia Psychiatric: Orientation: alert and oriented x 3 Results & Data ([facility]) Vital Signs (Past 12 Hours) Vital Signs Temp Pulse Resp BP Pulse Ox O2 Del Method 05/25/22 08:15 Room Air 05/25/22 07:52 36.5 C 76 18 158/75 H 92 Room Air 05/25/22 07:29 36.6 C 60 16 156/67 H 91 Room Air PG Care Time/CCT Total # of Minutes Spent Total Time Spent with Patient: Total time spent is greater than 50% in coordination of care (as documented) at patient's floor/unit and/or counseling patient: Coding Level of Care Code 08857 Subseq Hosp Care Lvl 3 Diagnoses Acute kidney injury N17.9 Hypercalcemia E83.52 Anemia D64.9 Hypertension I10 Chronic kidney disease, stage 4 (severe) N18.4
[2022-05-25] MEDS ORDERED: POTASSIUM CHLORIDE CRTAB 20 MEQ TABCR PO STA (12:35)
--- NOTE | 2022-05-25 15:38 | Discharge Summary ---
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 In the ED the patient was found to be afebrile, hemodynamically stable, and stable on RA. Labs were remarkable for a leukocytosis of 13.84 with left shift 10.66, Hgb of 6.8 (down from 11.3 as of 08/2021, MCV of 73.8, Cr of 3.86 with potassium of 3.4, sodium of 137, AG of 12 with Bicarb of 22, BUN of 47, calcium of 11.5, stable renal function, and UA suggestive of UTI. Chest xray was negative for acute process. CT of the abdomen and pelvis without contrast showed "Heterogeneous appearance to the spleen with perisplenic fat stranding. This appears to contain multiple hypodense lesions measuring up to 3.7 cm. This is n onspecific and could be due to neoplastic or infectious process. Splenic infarcts are considered less likely but not entirely excluded. Follow-up nonemergent MRI of the spleen is suggested for further evaluation. Large amount of well-formed stool within the rectum with mild perirectal edema.No bowel wall thickening or obstruction. Normal appendix. Atrophic left kidney, unchanged.". Prior to admission the patient was given one dose of ciprofloxacin, 1L NSS bolus, and was ordered 1 unit PRBCs. I confirmed with the ED provider that they already obtained consent for the transfusion. At the time of the exam the patient was resting comfortably in bed in no acute distress with his sitting bedside. The history was obtained from the patient's as he has expressive aphasia from his previous CVA and she is his primary caregiver. She states that since the beginning of the month the patient has developed decreased appetite, feeling of early satiety/fullness, vomiting after meals, and upper abdominal discomfort. She states that the patient normally has a good appetite and this was a big change for him. She notes that he has not been eating much since the beginning of the month but has been pretty good with drinking fluids. When asked, she states that she has not noticed coffee grounds in his vomit. She has noticed that the patient has been belching rather frequently, he did so during my exam. She notes that he has had less frequent bowel movements over this time as well. He has been having black stools but he is also on oral iron for iron deficiency anemia. He has been taking his medications as prescribed with no recent changes. She noticed that his Burgess catheter contained cloudy urine, it was last changed on 05/12/22. He has not had recent fevers, chest pain, SOB, diarrhea, or lower extremity swelling. I spoke to the the patient's regarding the CT findings of lesions in his spleen and the need for further assessment with non-emergent MRI. He has had MRI's in the past and is claustrophobic. She is unsure if he had his implanted loop recorder when he had his MRI previously. When asked, she denies any person history of cancer for the patient. He was never a heavy drinker. He did smoke cigarettes approximately 30 years ago but has not smoked since then besides an occasional cigar prior to his CVA. His has a strong family history of esophageal cancer with two brothers and his mother all being diagnosed previously. I had a long discussion with the patient and his regarding goals of care and code status. After our discussion the patient communicated to his that he would want to be a DNR/DNI as his quality of life is not good at the present time. His is his POA and agrees with his decision. Per chart review, the patient ;ast had an EGD back in 2017. It showed erosive esophagitis, two hemostatic clips were placed at that time to prevent bleeding. After further discussions with the patient's she explained that his PCP had been concerned about his progressive anemia and wanted the patient to undergo EGD and colonoscopy back in December for further evaluation. His states that he declined at that time and chose to continue monitoring his Hgb and anemia with regularly scheduled labs. Please refer to Dr. Mae's attestation for any changes to the treatment plan Admission Exam Per Admitting Provider Physical Exam: General:In no acute distress, stated age, chronically ill-appearing HEENT:Normocephalic, atraumatic, no scleral icterus, pupils around round, symmetrical, and reactive to light, dry mucus membranes, trachea midline, no thyromegaly Chest/Pulm:No respiratory distress, symmetrical chest expansion, clear breath sounds throughout Cardiac:RRR, no murmurs noted Abdomen:Negative for ascites and bruising, normoactive bowel sounds, soft, non-tender to palpation throughout :burgess catheter is in place and currently draining cloudy, yellow urine Musculoskeletal:No acute trauma, patient with chronic right-sided paralysis since previous CVA Extremities:Radial, dorsalis pedis, and posterior tibial pulses are intact and symmetrical, no edema noted in the BL LE's Skin:Warm, dry, no rashes , lesions, or scars noted Neuro:Alert, patient has baseline expressive aphasia, follows commands and can communicate simple yes or no answers to questions, appears to be at his neurologic baseline Psych:No acute distress, calm and cooperative during the exam Principal Diagnosis UTI, anemia, splenic lesions of unknown cause Discharge Exam Constitutional NAD. Vitals WNL. Respiratory CTA bilaterally. No rhonchi, wheezing, or crackles. Cardiovascular RRR. No murmurs noted. No LE edema. Gastrointestinal (Abdomen) Soft, nontender throughout. +BS. No masses noted. Psychiatric Alert. Mood and affect congruent. Discharge Data Allergies Allergy/AdvReac Type Severity Reaction Status Date / Time No Known Allergies Allergy Verified 05/17/22 19:21 Consultations 05/17/22 21:38 ED Decision to Admit Stat 05/17/22 22:12 Consult Gastroenterology Routine 05/18/22 08:19 Consult Nephrology Routine 05/22/22 10:18 Consult Hematology Routine Procedures Performed Operation Date: 05/18/22 17:45 Actual Procedures p EGD Biopsy Cytology - Shashi Alexander MD Ordered Studies 05/17/22 18:15 CT abd pelvis wo con Stat 05/20/22 11:49 MRI Abdomen [MR abdomen wo con] Routine 05/24/22 15:09 CT chest without contrast [CT chest diagnostic wo con] Routine Chest X-Ray 05/17/22 17:41 XR chest 1V portable HISTORY: weakness COMPARISON: Chest 07/21/2019. FINDINGS: Improvement in the left basilar linear densities suggesting resolving subsegmental atelectasis. No new focal lung consolidations to suggest a pneumonia. No evidence for pulmonary edema. The heart is normal in size. No pleural effusions. No pneumothorax. There are poststernotomy changes again noted. IMPRESSION: No acute process. ACT 112: Negative or not required by law. Electronically signed by: Irving Vang M.D. 05/17/2022 6:02 PM Abdomen/Pelvis CT 05/17/22 18:[address] WITHOUT CONTRAST CT DOSE: 1002.07 mGy.cm HISTORY: lower abd pain TECHNIQUE: Multiaxial CT images of the abdomen and pelvis were performed without contrast. A dose lowering technique was utilized adhering to the principles of ALARA. COMPARISON STUDY: Abdomen and pelvis CT 07/04/2019. FINDINGS: Left basilar linear densities consistent with subsegmental atelectasis. No pneumoperitoneum. No pneumatosis. The bilateral sacroiliac joints are partially fused. This remains unchanged. No suspicious lytic or blastic osseous lesions. There are poststernotomy changes and an aortic valve prosthesis noted. There is a tiny hiatus hernia. There is a small diverticulum at the third portion of the duodenum. The bladder is decompressed by Burgess catheter. Mild bladder wall thickening with adjacent fat stranding is noted. Large amount well-formed stool within the rectum including a 8.4 cm rectal stool ball. There is mild perirectal edema. No definite bowel wall thickening or obstruction on this noncontrast study. Normal appendix. There is a punctate calcified granuloma within the right hepatic lobe. The unenhanced gallbladder, pancreas, left adrenal gland, and right kidney are unremarkable. Redemonstration of the atrophic left kidney. This contains 2 hypodense lesions measuring 1 cm. These are incompletely characterized on this noncontrast study. No renal or ureteral stones. No hydronephrosis. Heterogeneous appearance to the spleen which appears to contain multiple hypodense lesions. Dominant lesion measures 3.7 cm. The cortex appears spared. Therefore, splenic infarcts are considered less likely. There is also mild perisplenic fat stranding. There is a 2.8 cm right adrenal myelolipoma, unchanged. No retroperitoneal lymphadenopathy. Moderate calcified plaque within the normal caliber abdominal aorta. No pelvic free fluid. IMPRESSION: 1. Heterogeneous appearance to the spleen with perisplenic fat stranding. This appears to contain multiple hypodense lesions measuring up to 3.7 cm. This is nonspecific and could be due to neoplastic or infectious process. Splenic infarcts are considered less likely but not entirely excluded. Follow-up nonemergent MRI of the spleen is suggested for further evaluation. 2. Large amount of well-formed stool within the rectum with mild perirectal edema. 3. No bowel wall thickening or obstruction. 4. Normal appendix. 5. Atrophic left kidney, unchanged. ACT 112: Negative or not required by law. Electronically signed by: Irving Vang M.D. 05/17/2022 8:21 PM Abdomen MRI 05/20/22 11:49 MR OF THE ABDOMEN WITHOUT CONTRAST CLINICAL HISTORY: Indeterminate splenic lesions on CT. COMPARISON STUDY: CT of the abdomen and pelvis July 04, 2019 and May 17, 2022. TECHNIQUE: Utilizing a 1.5 Marquita magnet and dedicated coil, multiplanar, multiecho imaging of the abdomen was performed. No intravenous contrast was administered given renal insufficiency. FINDINGS: Prosthetic aortic valve is noted. There are trace bilateral pleural effusions. Prominent paraaortic/paraesophageal lymph nodes are present. There is an indeterminate 1.5 cm hyperintense focus within the right hepatic lobe on axial diffusion weighted sequence image 13 of . Subtle corresponding T2 hyperintense focus is noted. No corresponding abnormality is shown on unenhanced CT of May 17, 2022. A benign fat-containing right adrenal nodule is present. Mild splenomegaly is noted. Innumerable T2 hyperintense splenic lesions measure up to 3.8 cm and correspond to the lesions shown on prior CT. These lesions are new since CT of July 04, 2019. Mild splenomegaly has increased since that examination. The splenic lesions are suboptimally assessed given lack of postcontrast imaging. These lesions are hyperintense on the diffusion- weighted sequence. These also appear hyperintense on the ADC sequence. There is trace perisplenic fluid. There are suspected similar-appearing nodules within the splenic hilum that measure up to 1.4 cm. These may reflect enlarged lymph nodes. Marked left renal atrophy is incidentally noted. There are suspected renal cysts, suboptimally assessed on this unenhanced exam. Hemangioma within the lumbar spine is incidentally noted. There is no suspicious marrow replacement within visualized skeletal structures. There is no biliary ductal dilatation. Unenhanced images of the left adrenal gland and pancreas are unremarkable. Caliber of visualized small and large bowel are normal. IMPRESSION: 1. Mild splenomegaly with innumerable splenic lesions and trace perisplenic fluid. These lesions have developed since CT of July 04, 2019. Suspected similar-appearing nodules within the splenic hilum, adjacent to the pancreatic tail may reflect enlarged lymph nodes. The splenic lesions are indeterminate however a neoplastic process such as lymphoma or less likely metastatic disease is favored. An infectious process with splenic abscesses/microabscesses is within the differential but considered less likely. These do not reflect splenic infarcts. Postcontrast imaging, if possible, may be of benefit in further characterization. 2. Indeterminate 1.5 cm right hepatic lobe lesion with restricted diffusion. 3. Marked left renal atrophy. ACT 112: Negative or not required by law. Electronically signed by: Spencer Merida M.D. 05/20/2022 5:29 PM KUB X-Ray 05/21/22 17:13 KUB HISTORY: constipation, emesis COMPARISON: Abdomen and pelvis CT 05/17/2022. FINDINGS: There are poststernotomy changes and an aortic valve prosthesis. Surgical clip within the left upper quadrant. Moderate to large amount well- formed stool seen throughout the colon and rectum. No dilated loops of small bowel to suggest an obstruction. No renal calculi. No ureteral calculi. Calcifications in the deep pelvis likely represent phleboliths. No pneumoper itoneum or pneumatosis. IMPRESSION: Moderate to large amount of well-formed stool seen throughout the colon and rectum. ACT 112: Negative or not required by law. Electronically signed by: Irving Vang M.D. 05/21/2022 6:[address] 05/24/22 15:09 CT chest diagnostic wo con CT DOSE: 638.90 mGycm HISTORY: unexplained hypercalcemia TECHNIQUE: Multiaxial CT images of the chest were performed without contrast. A dose lowering technique was utilized adhering to the principles of ALARA. COMPARISON: Abdominal MRI 05/20/2022. FINDINGS: Mild respiratory motion artifact. No pneumothorax. Trace bilateral pleural effusions are noted. There is a 7 mm subpleural nodule within the left lung apex on image 59. There is 1 cm subpleural nodule within the right upper lobe on image 91. There is a 4 mm subpleural nodule within the right upper lobe on image 120. Mild dependent changes seen at the lung bases. Mild central bronchial wall thickening. A few scattered linear densities within the left midlung zone suggestive of scarring or subsegmental atelectasis. No focal lung consolidations to suggest pneumonia. There are poststernotomy changes. No suspicious lytic or blastic osseous lesions. Multiple hypodense splenic lesions are better appreciated on the prior studies. Punctate calcification within the right hepatic lobe again noted. Right adrenal myelolipoma. Normal caliber esophagus. No hilar or axillary lymphadenopathy. The heart is mildly enlarged. No pericardial effusion. There is a few mildly enlarged distal paraesophageal lymph nodes. Dominant lymph node on image 190 measures 1.8 x 1.1 cm. Dense mitral annulus calcifications are noted. There is an aortic valve prosthesis. Calcified plaque within the normal caliber abdominal aorta. IMPRESSION: 1. Mild motion artifact. 2. Mild distal paraesophageal lymphadenopathy. 3. Trace bilateral pleural effusions. 4. There are 3 subpleural nodules within the upper lobes with the largest measuring 1 cm. A [address] follow-up recommended to ensure stability. 5. The splenic lesions are better appreciated on the prior abdominal MRI. ACT 112: Negative or not required by law. Electronically signed by: Irving Vang M.D. 05/24/2022 4:26 PM Hospital Course (1) Anemia: Pt is a 77 yo male w/ PMH of CVA w/ residual right hemiparesis and expressive aphasia, DM II, HTN, previous GI bleeds, chronic indwelling catheter, CAD s/p CABG x1 (2018), hypothyroidism, aortic valve replacement, and CKD presented to the hospital d/t nausea, vomiting, and abdominal pain. Nausea/vomiting - most likely d/t constipation, however, could be related to gastroparesis or underlying neoplastic process - EGD showed gastritis, H. pylori neg - KUB neg for obstruction, showed moderate to large stool burden in colon and rectum - pt currently on protonix 40 mg BID, zofran q4hr PRN - pt given miralax q4hr for constipation, additional enema given - pt moving bowels much better - encouraged pt and to use miralax PRN at home to keep bowels moving - nausea improved this AM, tolerated diet advancement well - if N/V recurs, may consider gastric emptying study and/or small bowel follow through studies for further evaluation Acute Tubular Necrosis - Cr noted to be 3.86 on admission, baseline appears to be approximately 2.0 - Likely due to dehydration from poor oral intake, continued use of antihypertensives, and current UTI - Cr continuing to downtrend slowly, today 2.07 - per nephro, work up for paraproteinemia including 1.25 vit D, SPEP, UPEP, and FLC in addition to further urine studies - continue holding losartan until discussion with meal cook Possible sepsis sec to CAUTI - Patient with chronic indwelling burgess since 2019 - lactate neg - Given one dose of cipro in the ED - current urine cx grew enterobacter - ABX discontinued; completed 7 day course of cefepime Multiple splenic lesions - Noted on CT scan, differential includes neoplastic source, infection, and infarction - MRI showed splenic lesions favoring neoplastic process like lymphoma (less likely metastatic) - recommended MRI w/ contrast but unable to proceed d/t kidney function - per hem/onc, continue evaluation outpatient w/ bone marrow aspiration and close f/u - peripheral smear favors BRIT, leukocytosis d/t infection, retic normal Microcytic Anemia - The etiology of the patient's anemia is likely multifactorial including anemia of CKD, poor oral intake, and hx of BRIT - Hgb noted to be 6.8 in the ED; blood consent obtained in the ED and 1 unit PRBC's transfused - Hgb post transfusion 8.4 -Pt has previous history of erosive gastritis found on EGD from 2017 and has been on BID pantoprazole since - Iron studies showed low iron, TIBC, and transferrin saturation; ferritin elevated which could be an acute phase reactant d/t infection - peripheral smear also indicative of BRIT - EGD showed gastritis; H. pylori negative -Per GI - consider outpatient colonoscopy (FOBT neg) - pt's Hgb downtrended to 6.9 today; transfused 1 unit of PRBCs - per hem/onc, recommend 300 mg venofer (given 05/24) w/ f/u and continuation of iron supplementation as outpatient - Hgb upon d/c 8.9 - f/u with hem/onc Gastritis - continuing home pantoprazole 40 mg BID - 05/20: increased burning pain; dose of maalox given; resolved Constipation with perirectal edema - continue miralax 17 g daily as tolerated/needed - 05/22; fleet enema given - pt moving bowels well at this point Hypercalcemia - Noted to be 11.5 upon admission; today, 8.7 - PTH low at 9, vitamin D 58.7- most likely non PTH mediated - PTHrp pending in addition to paraproteinemia work up - calcitonin 400 units q12hr given; d/c upon discharge - per hem/onc, noncontrast chest CT ordered to ensure no neoplastic source of hypercalcemia - chest CT showed pulmonary nodules w/ recommended 3 mth f/u - Ca at d/c 9.1 Diabetes mellitus type 2, uncontrolled, with complications - Normally on 16 units HS lantus at home, was on 8 units while NPO - continued on 8 units d/t low AM blood sugar - continue with correction factor of 55 and carb ratio of 18 when he can eat - BSG checks ACHS Benign essential hypertension - Hold losartan per nephro - BP risen 150-170s/60s-70s - resumed home amlodipine 5 mg HS - continue to hold losartan until further discussion with nephrology Hyperlipidemia -continue rosuvastatin 40 mg daily Hypothyroidism -continue levothyroxine 137 mcg daily History of CVA (cerebrovascular accident) - At neurologic baseline - continue plavix (2) Vomiting: (3) UTI (urinary tract infection): (4) Splenic lesion: (5) History of CVA (cerebrovascular accident): (6) Acute kidney injury: (7) Hypokalemia: (8) Hyperlipidemia: (9) Hypothyroidism: Plan FEN: carb consistent DVT ppx: SCDs, plavix Dispo: home Code: DNR/DNI Total Time Total Time Spent Total Time Spent (In Minutes): as per attending attestation Discharge Plan Discharge Items Patient Disposition: Home - Self-Care Reason For Visit: ABDOMINAL PAIN Discharge Diagnosis: UTI, anemia, splenic lesions Activity: Per Instructions section Non-emergency contact: Primary Care Provider, Senior Security Architect and Oncologist Call non-emergency contact if: you have any medication questions and your symptoms worsen Follow-up/Referrals: Ana Singer MD [Physician] - (f/u in 1-2 weeks) Luz Escobar MD [Primary Care Provider] - Everardo Perez MD [Physician] - (f/u in 1-2 weeks after discharge for anemia, splenic lesions, bone marrow biopsy coordination) Diet: Carb Consistent or DM2 Ambulatory Orders: Complete Blood Count with Diff (Routine) Timeframe: 1 Week Location: Determined by Patient Ordered By: Zaria Baker Comprehensive Metabolic Panel (Routine) Timeframe: 1 Week Location: Determined by Patient Ordered By: Zaria Baker Addtl Attending Provider Instructions: You were admitted to the hospital for nausea, vomiting, and abdominal pain. An upper GI scope was done and it showed evidence of gastritis. You were treated with antibiotics for a urinary tract infection. You were also given transfusions of blood when your hemoglobin was too low. Your kidneys were also injured so you were treated with fluids and by not taking losartan (one of your blood pressure medications). The calcium in your blood was also found to be high so the meal cook started you on a medication called calcitonin which appropriately lowered your calcium levels. A discharge summary will be sent to your primary care physician to ensure continuity of care. Please bring this discharge summary with you to your next office appointment so that your provider can review it at that time. Medications: Your medication list has been reviewed and reconciled upon discharge to ensure accuracy and continuity of care. An updated list of all your medications is included with your hospital discharge paperwork. Please review this list closely and make note of any changes to your medications. - Do not take your losartan until you talk with your meal cook. This is allow your kidneys to recover. - Continue to use miralax as needed to keep your bowels moving. - Resume your medications as before hospitalization. Follow up appointments: - We have requested a follow up appointment with your primary care physician within one week of discharge. Please call their office if you do not hear from them. - You are also to follow up with your meal cook and recruitment and outreach assistant/oncologist. Please call their offices to schedule appointments if you do not hear from them. - Keep all of your follow up appointments as already scheduled. If you cannot make an appointment, notify your provider. - You were found to have nodules in your upper lung lobes. A repeat CT scan is recommended in 3 months. Talk with your primary care provider or oncologist about scheduling this. CONTACT YOUR PRIMARY CARE PROVIDER if you experience any of the following: - Increased nausea or abdominal pain - Difficulty following your treatment plan - Difficulty taking any of your medications CALL 911 OR GO TO THE EMERGENCY DEPARTMENT if you experience any of the following: - Inability to keep food down - Sudden, severe abdominal pain or nausea/vomiting - Severe chest pain or chest pain that radiates to your jaw or arm - Sudden, severe shortness of breath or difficulty breathing Pending Studies at Discharge: Yes Stand-Alone Forms: [email or web address], Smoking Cessation Medications and DC Order Prescriptions: Continued acetaminophen 325 mg tablet 325 mg PO Q4H PRN (Reason: pain) Qty: 20 0RF ferrous gluconate 324 mg (38 mg iron) tablet 324 mg PO DAILY Qty: 30 5RF (DME) blood sugar diagnostic Strip See Rx Instructions .ROUTE .MEDSUPPLY Qty: 50 2RF Rx Instructions: As directed (DME) pen needle, diabetic 31 gauge x 5/16" needle See Rx Instructions .ROUTE .MEDSUPPLY Qty: 100 5RF Rx Instructions: Use once daily with insulin Dx: E11.9 (DME) OneTouch Verio test strips Strip See Rx Instructions .ROUTE .MEDSUPPLY Qty: 100 5RF Rx Instructions: E11.9, Test BID. (DME) lancets [OneTouch Delica Plus Lancet] 33 gauge misc See Rx Instructions .Route Qty: 100 1RF Rx Instructions: Once a day E11.9 clopidogrel 75 mg tablet 75 mg PO QAM Qty: 90 3RF pantoprazole 40 mg tablet,delayed release (DR/EC) 40 mg PO BID Qty: 180 1RF rosuvastatin 40 mg tablet 40 mg PO DAILY Qty: 90 1RF amlodipine [Norvasc] 5 mg tablet 5 mg PO HS Qty: 90 1RF levothyroxine 137 mcg tablet 137 mcg PO DAILY Qty: 90 1RF mecobalamin (vitamin B12) 1,000 mcg tablet,chewable 1,000 mcg PO DAILY Qty: 30 0RF (DME) lancets 30 gauge misc See Rx Instructions .ROUTE .MEDSUPPLY Qty: 25 Rx Instructions: As directed omega-3 acid ethyl esters 1 gram capsule 1 cap PO DAILY cholecalciferol (vitamin D3) 25 mcg (1,000 unit) capsule 1,000 units PO DAILY insulin glargine [Lantus U-100 Insulin] 100 unit/mL Solution 16 unit SUBCUT QPM Rx Instructions: PER PT'S "HAD TO ADJUST AMT, D/T LOWER BSG IN AM". amoxicillin 500 mg capsule 2,000 mg PO .COMPLEX PRN (Reason: PRIOR TO DENTAL APPT.) Rx Instructions: 2,000 mg PO ; Take 4 caps 30-60 minutes prior to dental appointment tamsulosin 0.4 mg capsule 0.4 mg PO HS Discontinued losartan 50 mg tablet 50 mg PO DAILY Qty: 90 3RF Discharge Orders: Discharge Order (Routine); Ordered 05/25/22 Ordered By: Zaria Baker Admission Data Admit Date/Time: 05/17/22 21:28 Attending Provider: Lisa Hardy Admit Provider: Abby Mae Primary Care Provider: Luz Escobar Other Providers: Abby Mae ; Nicole Tovar ; Erick Quesada ; Bernadette Bryan ; Elise Burgess ; Ирина Faustin ; Janay Centeno ; Shashi Alexander ; Brina Lowry ; Rich Leiva ; Dinora Call ; Claribel Cruz ; Hemanth Smith ; Asha Whitehead ; Kelsy Donald ; Aurelia Dove ; Sydney Nunez ; Alvaro Schulz ; Enrico Rowe ; Ruben Tolentino ; Becca Thomas ; Isamar Ricketts Jr ; Issac Stafford ; Everardo Perez ; [facility] Other Interventions: Discharge Summary Assessment (RN) Last Done: 05/25/22 15:45 Resident Activity Tracking Resident Involvement: Resident Care Provided Care Provided: Adult Hospital Medicine
[2022-05-28 01:56] LABS: Albumin 1.8 g/dL (3.8-4.8); Alpha 1 Globulin 0.6 g/dL (0.2-0.3); Alpha 2 Globulin 1.1 g/dL (0.5-0.9); Beta-1-Globulin 0.3 g/dL (0.4-0.6); Beta-2-Globulin 0.5 g/dL (0.2-0.5); Free Kappa 132.7 mg/L (3.3-19.4); Free Kappa/Lambda Ratio 1.18 (0.26-1.65); Free Lambda 112.9 mg/L (5.7-26.3); Gamma Globulin 1.2 g/dL (0.8-1.7); Monoclonal Protein Band 1 DNR g/dL (NONE DETECTED); Monoclonal Protein Band 2 DNR g/dL (NONE DETECTED); Monoclonal Protein Band 3 DNR g/dL (NONE DETECTED); Total Protein 5.5 g/dL (6.1-8.1); Vitamin D 1,25 39 pg/mL (18-72); Vitamin D3,1,25 39 pg/mL
== END 2022-05-25 15:54 | disposition home health service (06) | DRG 698 ==
LOC: ED 17:02 → SUATTDRO 21:28 → 2N 21:28 → 3N 05-22 13:52